=== PATIENT | female | born 1960 | race Caucasian/White ===

== ENCOUNTER → 2017-09-03 11:13 | Outpatient (CLI) | payer OTHER, SELFPAY ==
[2017-09-03 14:23] LABS: Anion Gap 9 (5-15); BUN 22 mg/dL (7-18); BUN/Creat Ratio 28.7 RATIO (10-20); Chloride 105 mmol/L (98-107); Creatinine, Serum 0.77 mg/dL (0.55-1.02); EST Glomerular Filtration Rate 82 mL/min (>60); Est Glom Filt Rate - Afr Amer 99 mL/min (>60); Glucose 107 mg/dL (74-106); Sodium Level 142 mmol/L (136-145)
== END ==
PROVIDERS: Family Provider Family Medicine; PCP Family Medicine; Visit Provider Family Medicine
DX: I10 Essential (primary) hypertension (principal)
CPT/HCPCS: 36415; 80048

== ENCOUNTER → 2018-03-06 09:37 | Outpatient (CLI) | payer OTHER, SELFPAY ==
[2018-03-06 12:24] LABS: AST(SGOT) 20 U/L (15-37); Alanine Aminotransfer ALT/SGPT 35 U/L (13-56); Albumin, Serum 3.9 g/dL (3.2-5.0); Alkaline Phosphatase 111 U/L (45-117); Anion Gap 10 (5-15); BUN 21 mg/dL (7-18); BUN/Creat Ratio 30.8 RATIO (10-20); Bilirubin, Direct 0.11 mg/dL (0.00-0.30); Calcium,Total 9.1 mg/dL (8.5-10.1); Chloride 104 mmol/L (98-107); Cholesterol 186 mg/dL (200); Creatinine, Serum 0.68 mg/dL (0.55-1.02); EST Glomerular Filtration Rate 94 mL/min (>60); Est Glom Filt Rate - Afr Amer 114 mL/min (>60); Globulin 3.1 g/dL (2.2-4.2); Glucose 102 mg/dL (74-106); High Density Lipoprotein 68 mg/dL; Potassium 4.2 mmol/L (3.5-5.1); Sodium Level 139 mmol/L (136-145); Triglycerides 144 mg/dL; Very Low Density Lipoprotein 29 mg/dL (5-40)
== END ==
PROVIDERS: Family Provider Family Medicine; PCP Family Medicine; Visit Provider Family Medicine
DX: I10 Essential (primary) hypertension (principal); E78.5 Hyperlipidemia, unspecified
CPT/HCPCS: 36415; 80048; 80061; 80076

== ENCOUNTER → 2018-08-26 | Outpatient (CLI) | payer OTHER, SELFPAY ==
--- NOTE | 2018-08-26 09:10 | RAD_ITS ---
STUDY: X-RAY - RIGHT KNEE REASON FOR EXAM: Female, 58 years old. Pain TECHNIQUE: 4 view(s) of the knee. COMPARISON: None. FINDINGS: There is no evidence of fracture or dislocation. There are moderate to severe tricompartmental degenerative changes which are most pronounced medially. There are no radiodense foreign bodies. RAD/Knee 4 or More Views IMPRESSION: No fracture or dislocation in the right knee. Moderate to severe degenerative changes which are most pronounced medially.. Electronically Signed: Ravindra Pennington, at 17:12 EDT Tel , Service support ,
--- NOTE | 2018-08-26 09:10 | RAD_ITS ---
STUDY: X-RAY - LEFT KNEE REASON FOR EXAM: Female, 58 years old. Pain TECHNIQUE: 4 view(s) of the knee. COMPARISON: None. FINDINGS: There is no evidence of fracture or dislocation. There are mild to moderate tricompartmental degenerative changes which are most pronounced medially. There are no radiodense foreign bodies. RAD/Knee 4 or More Views IMPRESSION: No fracture or dislocation of the left knee. [id number] degenerative changes which are most pronounced medially. Electronically Signed: Ravindra Pennington, at 17:40 EDT Tel , Service support ,
== END | disposition home or self-care (01) ==
LOC: MTRAD 09:06
PROVIDERS: Family Provider Family Medicine; PCP Family Medicine; Referring Provider Family Medicine; Visit Provider Family Medicine
DX: M25.561 Pain in right knee (principal); M25.562 Pain in left knee
CPT/HCPCS: 73564

== ENCOUNTER 2020-03-16 13:30 | Outpatient (RCR) | payer OTHER, SELFPAY ==
--- NOTE | 2020-02-10 21:26 | HP.PTEVAL_ITS ---
Patient's Visit Information RAYMOND SHARMA is a 59 year old F referred to Physical Therapy by DEVIN ZAMARRIPA with a diagnosis of S/P R TKA. Date of Evaluation: 02/08/20 Physical Therapist: Delia Woo PT, Cert MDT - Visit Plan Frequency: 2-3x /Week Duration: 4-6 Weeks Plan: RIGHT THR REHAB PER PROTOCOL - Subjective GOES BY BERNABE. DX: S/P R TKR 01/18/20. 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 TENTATIVE RTW DATE IS MAR 20 2020. Disability: NO. Present symptoms: RIGHT KNEE PAIN. NUMBNESS ON THE OUTSIDE OF THE KNEE. (SOME LEFT KNEE PAIN TOO). Present since: CHRONIC. Pain Scale: WORST 5/10, LEAST 2/10. Currently: 04/26. Commenced as a result of: ARTHRITIS. Disturbed sleep: YES. Previous history/Previous treatment: STEROID INJECTIONS R KNEE. Treatment this episode: R TKR 01/18/20. Gait: PATIENT REPORTS WALKING HELPS IT FEEL BETTER AND LOOSENS IT UP. PATIENT REPORTS SHE FEELS MUCH MORE SECURE WITH THE WALKER BUT USING CANE ON STEPS IN SPLIT LEVEL HOUSE. PATIENT REPORTS SHE IS ACTUALLY WALKING STRAIGHTER NOW THAN SHE HAS FOR YEARS. STATES THE WAY SHE WAS WALKING BEFORE WAS STARTING TO HURT HER BACK. Accidents: NO. Unexplained weight loss: NO. Imaging: PATIENT REPORTS THE SURGEON IS PLEASED WITH THE X-RAYS POST SURGERY LAST Friday02/02/20. PMH: HTN, ANXIETY, HIGH CHOLESTEROL, LUMBAR HNP - NO BACK SURGERY. - Objective THIS PATIENT AMBULATES INDEP'LY INTO PT WITH A WALKER AND NO LOB LIMPING ON RIGHT LE. HER WOMAC SCORE IS 45%. HER TUG TIME IS 25 SEC. PATELLA GIRTH - 42.5 CM, 6 SUPRAPATELLAR GIRTH - 53 CM. R KNEE AROM: FLEX 64 DEG, EXT -28 DEG BEFORE TREATMENT (-18 DEG AFTER TREATMENT). MMT R KNEE FLEX - 8.9 LBS, EXT 9.2 LBS. TREATMENT: PATIENT WAS SEEN TODAY FOR HEP INSTRUCTION INCLUDING AP'S, QS'S, GS'S, HS'S, STANDING HEEL RAISES, HIP ABD AND HIP FLEXION. ALSO INSTRUCTED TO CONTINUE KNEE FLEXION STRETCHING WITH STEP STRETCH AND SEATED ON GLIDER. PATIENT HAS BEEN PROPING UNDER HER KNEE AND THIS PT ENCOURAGED PATIENT TO PROP UNDER HEEL FOR EXTENSION STRETCH BUT TO AVOID PROPING UNDER KNEE. - Goals Goal 1:: PATIENT WILL BE INDEP AND SAFE WITH GAIT WITH LEAST ASSISTIVE DEVICE ON LEVEL SURFACES AND UP AND DOWN STAIRS. Goal Time Frame: 4-6 Weeks Goal 2:: INCREASE FUNCTIONAL ROM OF RIGHT LE TO EASE ADL'S Goal Time Frame: 4-6 Weeks Goal 3:: INCREASE FUNCTIONAL STRENGTH OF RIGHT LE TO EASE ADLS. Goal Time Frame: 4-6 Weeks Goal 4:: PATIENT WILL BE INDEP WITH A HEP FOR CONTINUED IMPROVEMENT ONCE FORMAL PHYSICAL THERPAY CONCLUDES. Goal Time Frame: 4-6 Weeks - Anticipated Interventions Patient/Client Instruction: Educate patient on: Condition, Plan of Care, Risk Factors, Benefits of Fitness Program For the Purpose of:: To improve self management Therapeutic Exercise to Include: Strength training, Flexibilty training, Gait and locomotor training, Neuromotor development, Active ROM For the Purpose of:: To decrease pain, To increase ROM, To improve muscle performance and motor function, To increase tolerance to activity/condition/position, To improve ability of physical actions for home/community/work/leisure, To improve gait and locomotor functions Cryotherapy (ice pack, ice massage): Yes For the Purpose of:: To decrease pain, To decrease swelling/inflammation Thank you for the opportunity to evaluate your patient. For Medicare and Medicare HMO plans, please review the plan of care and approve it. It will need to be FAXED BACK to us at [phone] for Medicare purposes. For Medicare only, by signing this I certify the plan of care. Please let me know if there are questions or concerns regarding this plan of care. Physician Signature: Date:
--- NOTE | 2020-03-02 11:40 | HP.PTREVAL ---
DEVIN ZAMARRIPA, It has been my pleasure to treat RAYMOND SHARMA over the last 10 visits for S/P R TKA. Please see the progress note below for an update on the physical therapy plan of care! Subjective: PATIENT REPORTS HER PAIN LEVELS ARE MUCH BETTER. STATES HER ABILITY TO DO DAILY ACTIVITIES WITHOUT PAIN IS SO MUCH BETTER. USING STATIONARY BIKE AT HOME. PATIENT PRESENTS TO PT UPSET TODAY STATING HER BROTHER IS DYING AND HAS BEEN ON THE PHONE A LOT. HAS NOT DONE ANY STRETCHING OF HER KNEE YET TODAY. Objective/Function: PATIENT WAS SEEN TODAY FOR RE-ASSESSMENT OF PROGRESS TOWARD THE SET PT GOALS AND THE NEED FOR FURTHER PHYSICAL THERAPY VS READINESS FOR DISCHARGE. PATIENT IS MAKING SLOW PROGRESS TOWARD ALL PT GOALS AND IS A GOOD CANDIDATE TO CONTINUE PT BASED ON PROGRESS MADE AND ROOM FOR FURTHER IMPROVEMENT. PATIENT AGREEABLE. UPON EXAM TODAY: THIS PATIENT AMBULATES INDEP'LY INTO PT WITHOUT AD AND NO LOB MILDLY LIMPING ON RIGHT LE. HER WOMAC SCORE IS 21%. PATELLA GIRTH - 42.25 CM, 6 SUPRAPATELLAR GIRTH - 55.25 CM. R KNEE AROM: FLEX 96 DEG, EXT -9 DEG BEFORE TREATMENT (-18 DEG AFTER TREATMENT). MMT R KNEE FLEX - 13.4 LBS, EXT 13.9 LBS. Plan Plan: CONTINUE PT 3X'S A WK X 10 MORE VISITS FOR LE ROM, STRETCHING AND STRENGTHENING S/P R TKR 01/18/20 Goals Goal 1:: PATIENT WILL BE INDEP AND SAFE WITH GAIT WITH LEAST ASSISTIVE DEVICE ON LEVEL SURFACES AND UP AND DOWN STAIRS. Goal Time Frame: 4-6 Weeks Goal Progress: Progressing Goal 2:: INCREASE FUNCTIONAL ROM OF RIGHT LE TO EASE ADL'S Goal Time Frame: 4-6 Weeks Goal Progress: Progressing Goal 3:: INCREASE FUNCTIONAL STRENGTH OF RIGHT LE TO EASE ADLS. Goal Time Frame: 4-6 Weeks Goal Progress: Progressing Goal 4:: PATIENT WILL BE INDEP WITH A HEP FOR CONTINUED IMPROVEMENT ONCE FORMAL PHYSICAL THERPAY CONCLUDES. Goal Time Frame: 4-6 Weeks Goal Progress: Progressing Anticipated Interventions Patient/Client Instruction: Educate patient on: Condition, Plan of Care, Risk Factors, Benefits of Fitness Program For the Purpose of:: To improve self management Therapeutic Exercise to Include: Strength training, Flexibilty training, Gait and locomotor training, Neuromotor development, Active ROM For the Purpose of:: To decrease pain, To increase ROM, To improve muscle performance and motor function, To increase tolerance to activity/condition/position, To improve ability of physical actions for home/community/work/leisure, To improve gait and locomotor functions Cryotherapy (ice pack, ice massage): Yes For the Purpose of:: To decrease pain, To decrease swelling/inflammation Please do not hesitate to contact me at [phone] by phone or if you have questions or concerns regarding this new plan of care! Sincerely, Delia Woo, PT, Cert MDT
--- NOTE | 2020-05-21 19:37 | HP.PTDCNRP_ITS ---
RAYMOND SHARMA was seen in my office for initial evaluation on 02/08/20. The following Plan of Care was established for this patient: Initial Frequency: 2-3x /Week Initial Duration: 4-6 Weeks Patient/Client Instruction: Educate patient on: Condition, Plan of Care, Risk Factors, Benefits of Fitness Program For the Purpose of:: To improve self management Therapeutic Exercise to Include: Strength training, Flexibilty training, Gait and locomotor training, Neuromotor development, Active ROM For the Purpose of:: To decrease pain, To increase ROM, To improve muscle performance and motor function, To increase tolerance to activity /condition/position, To improve ability of physical actions for home/community/work/leisure, To improve gait and locomotor functions Cryotherapy (ice pack, ice massage): Yes For the Purpose of:: To decrease pain, To decrease swelling/inflammation This patient was last seen in our office 03/16/20. Pertinent comments regarding their Physical therapy will appear below: This patient has not returned to Physical Therapy and is appropriate to return to MD for further follow-up as needed. At this point I will be discontinuing this patient from physical therapy. I would be happy to see this patient again in the future if found appropriate by the physician. Thank you! Delia Woo, PT, Cert MDT
== END 2020-03-16 19:00 | disposition home or self-care (01) ==
LOC: PT 13:30
PROVIDERS: PCP Family Medicine
DX: Z47.1 Aftercare following joint replacement surgery (principal); Z96.651 Presence of right artificial knee joint; M17.11 Unilateral primary osteoarthritis, right knee
CPT/HCPCS: 97110; 97162; 97164; 97530

== ENCOUNTER → 2021-02-09 11:44 | Outpatient (CLI) | payer OTHER, SELFPAY ==
[2021-02-09 15:06] LABS: Anion Gap 7 (5-15); BUN 15 mg/dL (7-18); BUN/Creat Ratio 20.7 RATIO (10-20); Calcium,Total 9.3 mg/dL (8.5-10.1); Chloride 103 mmol/L (98-107); Cholesterol 158 mg/dL (200); Creatinine, Serum 0.72 mg/dL (0.55-1.02); EST Glomerular Filtration Rate 87 mL/min (>60); Est Glom Filt Rate - Afr Amer 105 mL/min (>60); Glucose 99 mg/dL (74-106); High Density Lipoprotein 49 mg/dL; Potassium 4.3 mmol/L (3.5-5.1); Sodium Level 139 mmol/L (136-145); Triglycerides 143 mg/dL; Very Low Density Lipoprotein 29 mg/dL (5-40)
== END ==
PROVIDERS: PCP Family Medicine; Referring Provider Family Medicine; Visit Provider Family Medicine
DX: E78.5 Hyperlipidemia, unspecified (principal)
CPT/HCPCS: 36415; 80048; 80061

== ENCOUNTER 2021-04-02 12:47 | Outpatient (CLI) | payer OTHER, SELFPAY ==
--- NOTE | 2021-04-02 12:54 | BI_ITS ---
MAMMOGRAPHY - BILATERAL SCREENING REASON FOR EXAM: Female, 61 years old. Routine annual screening examination. PERTINENT HISTORY: Mother with breast cancer. TECHNIQUE: Digital bilateral breast sherman (3D mammographic acquisition) in the CC and MLO projections. 2-D mediolateral oblique (MLO) and craniocaudad (CC) views of both breasts were obtained. CAD: Full Field Digital Mammography with Computer Added Detection was performed. COMPARISON: Comparison is made with prior outside examination dated 09/15/2019. FINDINGS: Breast Composition: There are scattered areas of fibroglandular density. There are no dominant masses or suspicious calcifications. Stable small benign appearing bilateral axillary lymph nodes. No other significant abnormalities are identified. There has been no significant change since the prior study. BI/SCRN MAMM (CAD)W/SHERMAN BILAT IMPRESSION: Stable bilateral screening mammogram. Yearly follow-up mammogram recommended. (A) ASSESSMENT CATEGORY: BIRADS Category 2: Benign. A letter regarding these results will be sent to the patient by the facility within 30 days. Approximately 10% of breast cancers are not detected by mammography. A normal mammogram should not delay biopsy of a clinically suspicious abnormality. [id number] Electronically Signed: Jagjit Connors MD at 8:23 EST , Service support ,
== END 2021-04-02 23:59 | disposition short-term general hospital (02) ==
LOC: OPBI 12:49
PROVIDERS: PCP Family Medicine; Referring Provider Obstetrics & Gynecology; Visit Provider Obstetrics & Gynecology
DX: Z12.31 Encounter for screening mammogram for malignant neoplasm of breast (principal)
CPT/HCPCS: 77063; 77067

== ENCOUNTER 2021-10-02 07:59 | Day surgery (SDC) | payer OTHER, SELFPAY ==
[2021-10-02] VITALS (7 sets, daily range): BP systolic 93–130; BP diastolic 62–76; PULSE 60–75; RESP 16–18; TEMP 36.1–36.3; O2SAT 98–100; BMI 32.1
[2021-10-02] MEDS: Lactated Ringers 1,000 ML 15 ML IV (08:41)
--- NOTE | 2021-10-02 08:43 | H&P.OPEN ---
HPI - General HPI Narrative RAYMOND SHARMA, is a 61 F who presents for screening colonoscopy. The patient reports that she had polyps about 7 years ago and was recommended to repeat in 7 years. Patient denies any abdominal pain or blood in the stool. She has no family history of colon cancer. [facility] Medical History (Updated 09/27/21 @ 08:34 by Angle Coles) Anxiety Arthritis Back pain delivery delivered High cholesterol History of edema History of pain when walking History of steroid therapy Hyperlipidemia Hypertension Knee pain Post-menopausal Wears glasses Home Medications atenolol 50 mg tablet 50 mg PO DAILY 11/05/20 [History Last Taken 10/02/21 06:00] atorvastatin 10 mg tablet 10 mg PO DAILY 11/05/20 [History Last Taken Unknown] clonazepam 0.5 mg tablet 0.5 mg PO BID 11/05/20 [History Last Taken 10/02/21 06:00] lisinopril 5 mg tablet 5 mg PO DAILY 11/05/20 [History Last Taken 10/02/21 06:00] naproxen 250 mg tablet 250 mg PO BID PRN Pain 11/05/20 [History Last Taken Unknown] paroxetine HCl 20 mg tablet (Paxil) 20 mg PO DAILY 11/05/20 [History Last Taken Unknown] omega-3 fatty acids-fish oil 340 mg-1,000 mg capsule (Fish Oil) 1 cap PO DAILY 07/27/21 [History Last Taken Unknown] acetaminophen 500 mg tablet 1,000 mg PO Q6H PRN Pain 09/27/21 [History Last Taken Unknown] calcium carbonate 500 mg-vitamin D3 3.125 mcg (125 unit) tablet 2 tab PO DAILY 09/27/21 [History Last Taken Unknown] coenzyme Q10 100 mg capsule (CoQ-10) 100 mg PO DAILY 09/27/21 [History Last Taken Unknown] hyalur ac-chond sul-colg II-AA 40 mg-80 mg-400 mg capsule (Hyaluronic Acid(with chondroitin-collagenII)) 2 cap PO QHS 09/27/21 [History Last Taken Unknown] multivitamin 1 tab PO DAILY 09/27/21 [History Last Taken Unknown] Allergy/AdvReac Type Severity Reaction Status Date / Time Sulfa (Sulfonamide Allergy Unknown UNKNOWN Verified 10/02/21 08:30 Antibiotics) Family History Mother , at 60yo from breast cancer Heart disease Breast cancer, Onset Age: 55 at 60 Father Heart disease Arthritis Other Cancer Surgical History (Updated 09/27/21 @ 08:34 by Angle Coles) H/O: hysterectomy History of total right knee replacement Hx of left knee surgery S/P tonsillectomy Social History Smoking Status: Never smoker alcohol intake: current details: social substance use type: does not use caffeine: Yes seatbelt use: always do you feel safe at home: Yes additional social history: 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 Past Medical/Surgical History Planned Operation Planned Operative Procedure/s: COLONOSCOPY Previous Hospitalizations/Surgeries HX Hospitalizations: No Any Problems With Anesthesia: No You/Your Family Experience Fever (Hyperthermia) With Anes: No Cholinesterase deficiency: No Cardiovascular Hx Hypertension: Yes (CONTROLLED ON MED) Respiratory Hx Sleep Apnea: No Hx Respiratory Tract Infection/Cold (presently): No Do You Snore Loudly (louder than talking or can be heard): Yes Do You Often Feel Tired/ Fatigued/ Sleepy Dring Daytime?: No Has Anyone Observed You Stop Breathing During Sleep?: No Result (for STOP score): Positive Smoking Status: Never smoker Neurological Does patient have nerve stimulator: No Miscellaneous Recent Exposure to Contagious Disease: No Allergies Sulfa (Sulfonamide Antibiotics) Allergy (Unknown, Verified 10/02/21 08:30) UNKNOWN Discharge Is Pt Admitted From a Group Home, or a Correction: No After D/C, Where Do you Plan to Go: Return Home Vital Signs Vital Signs Vital Signs: 10/02/21 08:20 10/02/21 08:27 Temperature 97.3 F L Temperature Source Temporal Pulse Rate 65 Respiratory Rate 18 Respiratory Pattern Normal Blood Pressure 130/62 H Blood Pressure Mean 84 Blood Pressure Source Monitor Blood Pressure Position Semi-Fowlers Blood Pressure Location Right Arm Pulse Ox 98 Oxygen Delivery Method Room Air Weight Weight: 187 lb Body Mass Index (BMI) 32.1 Physical Exam Const alert and oriented x3 Resp normal respiratory effort and normal air movement Cardio regular rate and regular rhythm GI soft to palpation, non-tender and non-distended Assessment & Plan Assessment/Plan (1) Encounter for screening for malignant neoplasm of colon: PLAN: I explained endoscopy in detail to the patient. I explained the risks including but not limited to stroke or heart attack with anesthesia, perforation of the GI tract, bleeding, infection. I explained that any of these could necessitate further emergency surgery. The patient understands and all questions were answered sufficiently. The patient wishes to proceed with procedure. Kris Henson MD Pager: [facility] [address] [place] [address] [address] [place] [address] Office: Surgery Risks - Colonoscopy Risks Include but are not Limited To: Risks include but are not limited to: Bleeding, perforation requiring further surgery, inability to complete colonoscopy requiring barium enema.
--- NOTE | 2021-10-02 09:12 | OP.COLON_ITS ---
Patient Name: Lottie Navarro Procedure Date: 10/02/2021 8:48 AM Date of : 1960 Age: 61 Procedure: Colonoscopy Indications: Screening for colorectal malignant neoplasm Providers: Kris Henson MD Referring MD: Carlos Granado MD Medicines: Monitored Anesthesia Care Patient Profile: This is a 61 year old female. Refer to note in patient chart for documentation of history and physical. Last Colonoscopy: several years ago. Complications: No immediate complications. Procedure: Pre-Anesthesia Assessment: - Prior to the procedure, a History and Physical was performed, and patient medications and allergies were reviewed. The patient's tolerance of previous anesthesia was also reviewed. The risks and benefits of the procedure and the sedation options and risks were discussed with the patient. All questions were answered, and informed consent was obtained. Prior Anticoagulants: The patient has taken no previous anticoagulant or antiplatelet agents. After reviewing the risks and benefits, the patient was deemed in satisfactory condition to undergo the procedure. After I obtained informed consent, the scope was passed under direct vision. Throughout the procedure, the patient's blood pressure, pulse, and oxygen saturations were monitored continuously. The Colonoscope was introduced through the anus and advanced to the cecum, identified by appendiceal orifice and ileocecal valve. The colonoscopy was performed without difficulty. The patient tolerated the procedure well. The quality of the bowel preparation was good. Scope In: 8:57:47 AM Scope Withdrawal Time 0 hours 6 minutes 1 second Scope Out: 9:08:05 AM Total Procedure Duration Time 0 hours 10 minutes 18 seconds Findings: The entire examined colon appeared normal on direct and retroflexion views. Impression: - The entire examined colon is normal on direct and retroflexion views. - No specimens collected. Recommendation: - Discharge patient to home. - Resume previous diet. - Continue present medications. - Repeat colonoscopy in 10 years for screening purposes. Procedure Code(s): --- Professional --- 19882, Colonoscopy, flexible; diagnostic, including collection of specimen(s) by brushing or washing, when performed (separate procedure) Diagnosis Code(s): --- Professional --- Z12.11, Encounter for screening for malignant neoplasm of colon CPT copyright 2017 [employer]. All rights reserved. The codes documented in this report are preliminary and upon braille coder review may be revised to meet current compliance requirements. Kris Henson MD 10/02/2021 9:12:01 AM This report has been signed electronically. Number of Addenda: 0 Note Initiated On: 10/02/2021 8:48 AM
--- NOTE | 2021-10-02 09:13 | OP.CCLET_ITS ---
10/02/2021 Carlos Granado MD [address] [phone] Re : Colonoscopy procedure for Lottie Navarro Dear Dr. Granado This procedure was performed on Saturday, October 02, 2021. My impressions and recommendations are as follows: Impressions : - The entire examined colon is normal on direct and retroflexion views. - No specimens collected. Recommendations : - Discharge patient to home. - Resume previous diet. - Continue present medications. - Repeat colonoscopy in 10 years for screening purposes. My findings are described in the full procedure note, which is enclosed. If I can be of further assistance, please feel free to contact me at Doctor phone number(s): , Work: . Sincerely, Kris Henson MD 10/02/2021 9:12:01 AM This report has been signed electronically.
== END 2021-10-02 10:03 | disposition home or self-care (01) ==
LOC: EN 08:00 → AC 08:01
PROVIDERS: PCP Family Medicine; Referring Provider Family Medicine; Visit Provider Surgery
PROC: 0DJD8ZZ Inspection of Lower Intestinal Tract, Via Natural or Artificial Opening Endoscopic (ICD-10-PCS; CPT 45378; principal; 2021-10-02 08:55)
DX: Z12.11 Encounter for screening for malignant neoplasm of colon (principal); I10 Essential (primary) hypertension; E78.00 Pure hypercholesterolemia, unspecified; F41.9 Anxiety disorder, unspecified; Z79.1 Long term (current) use of non-steroidal anti-inflammatories (NSAID); Z79.899 Other long term (current) drug therapy; Z78.0 Asymptomatic menopausal state; Z92.241 Personal history of systemic steroid therapy; Z96.651 Presence of right artificial knee joint
CPT/HCPCS: 45378; J7120; J2405

== ENCOUNTER → 2021-10-25 | Outpatient (CLI) | payer OTHER, SELFPAY ==
[2021-10-25 10:46] LABS: Anion Gap 5 (5-15); BUN 15 mg/dL (7-18); BUN/Creat Ratio 17.5 RATIO (10-20); Calcium,Total 9.5 mg/dL (8.5-10.1); Chloride 106 mmol/L (98-107); Cholesterol 165 mg/dL (200); Creatinine, Serum 0.86 mg/dL (0.55-1.02); EST Glomerular Filtration Rate 71 mL/min (>60); Est Glom Filt Rate - Afr Amer 86 mL/min (>60); Glucose 123 mg/dL (74-106); High Density Lipoprotein 51 mg/dL; Potassium 4.2 mmol/L (3.5-5.1); Sodium Level 140 mmol/L (136-145); Triglycerides 195 mg/dL; Very Low Density Lipoprotein 39 mg/dL (5-40)
[2021-10-25 10:51] LABS: Vitamin D,25 Hydroxy 62.7 ng/mL
== END | disposition home or self-care (01) ==
LOC: MTLAB 09:19
PROVIDERS: PCP Family Medicine; Referring Provider Family Medicine; Visit Provider Family Medicine
DX: I10 Essential (primary) hypertension (principal); E55.9 Vitamin D deficiency, unspecified
CPT/HCPCS: 36415; 80048; 80061; 82306

== ENCOUNTER → 2022-04-08 | Outpatient (CLI) | payer OTHER, SELFPAY ==
--- NOTE | 2022-04-08 08:27 | BI_ITS ---
MAMMOGRAPHY - BILATERAL SCREENING REASON FOR EXAM: Female, 62 years old. Routine annual screening examination. PERTINENT HISTORY: Mother with breast cancer. TECHNIQUE: Digital bilateral breast sherman (3D mammographic acquisition) in the CC and MLO projections. 2-D mediolateral oblique (MLO) and craniocaudad (CC) views of both breasts were obtained. CAD: Full Field Digital Mammography with Computer Added Detection was performed. COMPARISON: Comparison is made with prior examination dated 04/02/2021. FINDINGS: Breast Composition: There are scattered areas of fibroglandular density. There are no dominant masses or suspicious calcifications. Stable benign-appearing bilateral axillary lymph nodes. No other significant abnormalities are identified. There has been no significant change since the prior study. BI/SCRN MAMM (CAD)W/SHERMAN BILAT IMPRESSION: Stable bilateral screening mammogram. Yearly follow-up mammogram recommended. (A) ASSESSMENT CATEGORY: BIRADS Category 2: Benign. A letter regarding these results will be sent to the patient by the facility within 30 days. Approximately 10% of breast cancers are not detected by mammography. A normal mammogram should not delay biopsy of a clinically suspicious abnormality. [id number] Electronically Signed: Jagjit Connors MD at 9:17 EST ,
== END | disposition home or self-care (01) ==
LOC: OPBI 08:25
PROVIDERS: PCP Family Medicine; Referring Provider Obstetrics & Gynecology; Visit Provider Obstetrics & Gynecology
DX: Z12.31 Encounter for screening mammogram for malignant neoplasm of breast (principal); Z80.3 Family history of malignant neoplasm of breast
CPT/HCPCS: 77063; 77067

== ENCOUNTER → 2022-08-29 | Outpatient (CLI) | payer OTHER, SELFPAY ==
[2022-08-29 11:08] LABS: ALB/GLOB Ratio 1.2 RATIO (0.9-2.4); AST(SGOT) 19 U/L (15-37); Alanine Aminotransfer ALT/SGPT 37 U/L (13-56); Albumin, Serum 3.9 g/dL (3.2-5.0); Alkaline Phosphatase 96 U/L (45-117); Anion Gap 7 (5-15); BUN 25 mg/dL (7-18); BUN/Creat Ratio 31.1 RATIO (10-20); Calcium,Total 9.7 mg/dL (8.5-10.1); Chloride 105 mmol/L (98-107); Cholesterol 152 mg/dL (200); EST Glomerular Filtration Rate 76 mL/min (>60); Est Glom Filt Rate - Afr Amer 92 mL/min (>60); Globulin 3.2 g/dL (2.2-4.2); Glucose 114 mg/dL (74-106); High Density Lipoprotein 60 mg/dL; Potassium 4.5 mmol/L (3.5-5.1); Protein, Total 7.1 g/dL (6.4-8.2); Sodium Level 140 mmol/L (136-145); Triglycerides 101 mg/dL; Very Low Density Lipoprotein 20 mg/dL (5-40)
== END | disposition home or self-care (01) ==
LOC: MFPLAB 09:27
PROVIDERS: PCP Family Medicine; Visit Provider Family Medicine
DX: E78.5 Hyperlipidemia, unspecified (principal)
CPT/HCPCS: 36415; 80053; 80061

== ENCOUNTER → 2022-11-25 | Outpatient (CLI) | payer OTHER, SELFPAY ==
--- NOTE | 2022-11-25 15:10 | RAD_ITS ---
STUDY: X-RAY - LUMBAR SPINE REASON FOR EXAM: Female, 62 years old. Back pain. TECHNIQUE: 3 view(s) of the lumbar spine were obtained. COMPARISON: None FINDINGS: Osteopenia. Normal lumbar lordosis. No substantial scoliosis. 2 mm of anterolisthesis of L4 on L5. Diffuse lower thoracic and lumbosacral facet sclerosis. Marked intervertebral disc space narrowing with subchondral sclerosis and osteophyte formation at T12-L1 and L1-L2. Diffuse intervertebral disc space narrowing of the lumbar spine most marked at L5-S1 with vacuum phenomenon and osteophyte formation. Normal soft tissues. RAD/Lumbar Spine 2 or 3 Views IMPRESSION: Osteopenia with lower thoracic and lumbosacral spondylosis as described. No acute abnormality or erosive changes. Electronically Signed: Brandyn Walter MD at 15:34 EDT ,
== END | disposition home or self-care (01) ==
LOC: MTRAD 15:06
PROVIDERS: PCP Family Medicine; Referring Provider Family Medicine; Visit Provider Family Medicine
DX: M54.50 Low back pain, unspecified (principal)
CPT/HCPCS: 72100

== ENCOUNTER → 2023-02-17 | Outpatient (CLI) | payer OTHER, SELFPAY ==
[2023-02-17 12:00] LABS: ALB/GLOB Ratio 1.3 RATIO (0.9-2.4); AST(SGOT) 24 U/L (15-37); Alanine Aminotransfer ALT/SGPT 36 U/L (13-56); Albumin, Serum 4.2 g/dL (3.2-5.0); Alkaline Phosphatase 75 U/L (45-117); Anion Gap 6 (5-15); BUN 26 mg/dL (7-18); BUN/Creat Ratio 30.1 RATIO (10-20); Calcium,Total 9.3 mg/dL (8.5-10.1); Chloride 107 mmol/L (98-107); Cholesterol 160 mg/dL (200); Creatinine, Serum 0.86 mg/dL (0.55-1.02); EST Glomerular Filtration Rate 70 mL/min (>60); Est Glom Filt Rate - Afr Amer 85 mL/min (>60); Globulin 3.3 g/dL (2.2-4.2); Glucose 117 mg/dL (74-106); High Density Lipoprotein 63 mg/dL; Potassium 4.9 mmol/L (3.5-5.1); Protein, Total 7.5 g/dL (6.4-8.2); Sodium Level 141 mmol/L (136-145); Triglycerides 84 mg/dL; Very Low Density Lipoprotein 17 mg/dL (5-40)
== END | disposition home or self-care (01) ==
LOC: MFPLAB 08:45
PROVIDERS: PCP Family Medicine; Visit Provider Family Medicine
DX: E78.5 Hyperlipidemia, unspecified (principal)
CPT/HCPCS: 36415; 80053; 80061

== ENCOUNTER → 2023-04-14 | Outpatient (CLI) | payer OTHER, SELFPAY ==
--- NOTE | 2023-04-14 14:03 | BI_ITS ---
MAMMOGRAPHY - BILATERAL SCREENING REASON FOR EXAM: Female, 63 years old. Routine annual screening examination. PERTINENT HISTORY: Mother with breast cancer. TECHNIQUE: Digital bilateral breast sherman (3D mammographic acquisition) in the CC and MLO projections. 2-D mediolateral oblique (MLO) and craniocaudad (CC) views of both breasts were obtained. CAD: Full Field Digital Mammography with Computer Added Detection was performed. COMPARISON: Comparison is made with prior mammogram dated October 06, 2022 and April 02, 2021. FINDINGS: Breast Composition: There are scattered areas of fibroglandular density. There are no dominant masses or suspicious calcifications. Stable benign-appearing bilateral axillary lymph nodes. No other significant abnormalities are identified. There has been no significant change since the prior study. BI/SCRN MAMM (CAD)W/SHERMAN BILAT IMPRESSION: Stable bilateral screening mammogram. Yearly follow-up mammogram recommended. (A) ASSESSMENT CATEGORY: BIRADS Category 2: Benign. A letter regarding these results will be sent to the patient by the facility within 30 days. Approximately 10% of breast cancers are not detected by mammography. A normal mammogram should not delay biopsy of a clinically suspicious abnormality. [id number] Electronically Signed: Jagjit Connors MD at 15:05 EST ,
--- OUTSIDE RECORDS SUMMARY | 2023-04-14 14:21 | XMS RPT_ITS | CCD ---
Author Name Unknown Address [id number] [place] [address] Organization [facility] Results Test Name Value Interpretation Reference Range Facil ity Progress note 01-19-2021 Note Date & Type Note Facility 01-19-2021 Note HNO ID: [id number] Author: KILEY Rosas Service: Radiology Author Type: Clinical Funeral Planner Type: Progress Notes Filed: 01/19/2021 1:21 PM Note Text: Radiology Service Progress Note PATIENT NAME: Raymond Navarro DATE OF SERVICE: January 19, 2021 TIME: 1:20 PM PATIENT IDENTITY VERIFICATION COMPLETED USING TWO (2) IDENTIFIERS: Name and Date of confirmed by patient verbally. FALL SCREENING: Has the patient had 2 falls in the last year or 1 fall with injury or currently using an Ambulatory Assistive Device (Walker, Cane, Wheelchair, Crutches, etc.)? No PATIENT GENDER DATA: Female. status: : No status: NO. PATIENT RELEVANT IMPLANT DATA REVIEWED: Not Applicable RADIOLOGY DEPARTMENT: General X-ray: Exam(s) Completed: Lower Extremity X-Ray(s): Knee, AP / Lat / Merchant Right and Wt. Bearing PERIPHERAL IV DATA: Not applicable SIGNED BY: KILEY Rosas January 19, 2021 1:20 PM [facility] Progress note 02-02-2020 Note Date & Type Note Facility 02-02-2020 Note HNO ID: [id number] Author: KILEY Trammell (Ct) Service: ? Author Type: Clinical Funeral Planner Type: Progress Notes Filed: 02/02/2020 12:49 PM Note Text: Radiology Service Progress Note PATIENT NAME: Raymond Navarro DATE OF SERVICE: February 02, 2020 TIME: 12:48 PM PATIENT IDENTITY VERIFICATION COMPLETED USING TWO (2) IDENTIFIERS: Name and Date of confirmed by patient verbally. FALL SCREENING: Has the patient had 2 falls in the last year or 1 fall with injury or currently using an Ambulatory Assistive Device (Walker, Cane, Wheelchair, Crutches, etc.)? Yes, Patient High Risk for Falls What interventions were put in place to prevent falls during this visit? Increased Observations by Caregivers PATIENT GENDER DATA: Female. status: : No status: NO. PATIENT RELEVANT IMPLANT DATA REVIEWED: Not Applicable RADIOLOGY DEPARTMENT: General X-ray: Exam(s) Completed: Lower Extremity X-Ray(s): Knee, AP / Lat / Merchant Right: PERIPHERAL IV DATA: Not applicable SIGNED BY: KILEY ROSAS February 02, 2020 12:48 PM [facility] Summary Purpose Family History No Family History Records FoundNo Family History Records Found Advance Directives No Advanced Directives Records FoundNo Advanced Directives Records Found Additional Source Comments INFORMATION SOURCE (unrecogn ized section and content) DATE CREATED AUTHOR AUTHOR'S ORGANIZ ATION 03/23/2023 [facility] FOR RECORDS PERTAINING TO PATIENTS WHO ARE OR HAVE BEEN ENROLLED IN A CHEMICAL DEPENDENCY/SUBSTANCEABUSE PROGRAM, SOME INFORMATION MAY BE OMITTED. This clinical summary was aggregated from multiple sources. Caution should be exercised in using it in the provision of clinical care. This summary normalizes information from multiple sources, and as a consequence, information in this document may materially change the coding, format and clinical context of patient data. In addition, data may be omitted in some cases. CLINICAL DECISIONS SHOULD BE BASED ON THE PRIMARY CLINICAL RECORDS. [employer] provides no warranty or guarantee of the accuracy or completeness of information in this document.
== END | disposition home or self-care (01) ==
LOC: OPBI 14:03
PROVIDERS: PCP Family Medicine; Referring Provider Obstetrics & Gynecology; Visit Provider Obstetrics & Gynecology
DX: Z12.31 Encounter for screening mammogram for malignant neoplasm of breast (principal); Z80.3 Family history of malignant neoplasm of breast
CPT/HCPCS: 77063; 77067

== ENCOUNTER → 2023-06-20 | Outpatient (CLI) | payer OTHER, SELFPAY ==
[2023-06-20 10:32] LABS: ALB/GLOB Ratio 1.3 RATIO (0.9-2.4); AST(SGOT) 20 U/L (15-37); Alanine Aminotransfer ALT/SGPT 39 U/L (13-56); Albumin, Serum 4.2 g/dL (3.2-5.0); Alkaline Phosphatase 89 U/L (45-117); Anion Gap 5 (5-15); BUN 27 mg/dL (7-18); BUN/Creat Ratio 29.9 RATIO (10-20); Chloride 106 mmol/L (98-107); EST Glomerular Filtration Rate 67 mL/min (>60); Est Glom Filt Rate - Afr Amer 81 mL/min (>60); Globulin 3.2 g/dL (2.2-4.2); Glucose 124 mg/dL (74-106); Potassium 4.7 mmol/L (3.5-5.1); Protein, Total 7.4 g/dL (6.4-8.2); Sodium Level 141 mmol/L (136-145)
== END | disposition home or self-care (01) ==
LOC: MFPLAB 08:50
PROVIDERS: PCP Family Medicine; Visit Provider Family Medicine
DX: I10 Essential (primary) hypertension (principal)
CPT/HCPCS: 36415; 80053

== ENCOUNTER → 2023-12-08 | Outpatient (CLI) | payer OTHER, SELFPAY ==
[2023-12-08 10:17] LABS: Absolute Lymphocyte Count 2.11 X10^3/uL (0.83-4.51); Absolute Neutrophil Count 10.1 X10^3/uL (2.0-7.7); Basophil# 0.06 X10^3/uL; Basophil% 0.5 % (0-1); Eosinophil# 0.03 X10^3/uL; Eosinophils% 0.2 % (0-5); Hematocrit 45.4 % (37-47); Hemoglobin 14.8 g/dL (12.0-15.0); Lymphocyte # 2.11 X10^3/ul (0.83-4.51); Lymphocyte % 15.9 % (19-41); Mean Corp Hgb Conc 32.6 g/dL (32-36); Mean Corpuscular Volume 91.9 fL (81-99); Mean Platelet Vol. 11.4 fl (6.2-12.0); Monocyte# 0.93 X10^3/uL; NRBC Flagged by Analyzer 0 % (0-5); Neutrophil # 10.05 X10^3/uL (2.7-7.7); Neutrophil % 75.6 % (47-70); Platelet Count 259 K/mm3 (150-450); RBC Distribution Width CV 11.5 % (11.6-14.6); RBC Distribution Width SD 38.6 fl (35.1-43.9); Red Blood Count 4.94 M/mm3 (4.2-5.4); White Blood Count 13.3 K/mm3 (4.4-11.0)
[2023-12-08 10:39] LABS: Anion Gap 7 (5-15); BUN 23 mg/dL (7-18); BUN/Creat Ratio 30.2 RATIO (10-20); Chloride 106 mmol/L (98-107); Cholesterol 176 mg/dL (200); Creatinine, Serum 0.76 mg/dL (0.55-1.02); EST Glomerular Filtration Rate 81 mL/min (>60); Est Glom Filt Rate - Afr Amer 98 mL/min (>60); Glucose 132 mg/dL (74-106); High Density Lipoprotein 67 mg/dL; Potassium 3.9 mmol/L (3.5-5.1); Sodium Level 140 mmol/L (136-145); Triglycerides 118 mg/dL; Very Low Density Lipoprotein 24 mg/dL (5-40)
== END | disposition home or self-care (01) ==
LOC: MFPLAB 08:34
PROVIDERS: PCP Family Medicine; Visit Provider Family Medicine
DX: Z01.818 Encounter for other preprocedural examination (principal); I10 Essential (primary) hypertension
CPT/HCPCS: 36415; 80048; 80061; 85025

== ENCOUNTER 2024-03-29 16:30 | Outpatient (RCR) | payer OTHER, SELFPAY ==
--- NOTE | 2024-01-19 11:48 | HP.PTEVAL_ITS ---
Patient's Visit Information Visit Information Visit Information: RAYMOND SHARMA is a 63 year old F referred to Physical Therapy by SRINATH Riddle with a diagnosis of L TKA 12/29/23. Date of Evaluation: 01/19/24 Physical Therapist: Simón Leiva, PT, ATC Visit Plan Frequency: 2-3x /Week Duration: 4-6 Weeks Plan: L knee PROM/mobs, stretching and strengthening, balance and proprio, core stab, nustep, and HEP Subjective Subjective: DOS: 12/29/23. Pt reports she had a L TKA performed at that time. Pt reports she feels like she is progressing well, but is still having a terrible time sleeping. Pt reports she has had home health for the past couple weeks. Pt reports she lives in a split level house, and has to negotiate stairs daily. Pt reports she is able to negotiate her stairs one step at a time. 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 Pt denies tingling or numbness in L LE at this time, but does complain of a pain located in her distal tibia region. Pt reports she had her R knee replaced 4 years ago. Pt reports she would like to be able to go on walks, but is very limited at this time. L knee pain is 5/10 at rest, 8/10 pain at worst (when she is riding in a car for a prolonged period of time.) Pain L knee: Pain Intensity (Out of 10): 5 Pain Intensity Range: 8 Objective Objective: TU sec Girth at joint line: R knee 38 cm, L knee 43 cm ROM: R knee 0-100 degrees; L knee 0-12-75 degrees MMT: R knee flex= 13, ext= 21; L knee flex= 0, ext= 11 #F Balance/Special Test Scores Lower Extremity Functional Score: 23 Goals Goal 1:: Decrease L knee pain x 50% to aid with sleep Goal Time Frame: 4-6 Weeks Goal 2:: Increase L knee ROM to 0-120 degrees to aid with restoring a normalized gait pattern Goal Time Frame: 4-6 Weeks Goal 3:: Increase L knee strength to 90% of R knee strength to aid with stair negotiation Goal Time Frame: 4-6 Weeks Goal 4:: I with HEP Goal Time Frame: 4-6 Weeks Rehabilitation Potential Physical Therapy Diagnosis: Pt has L knee pain, weakness, and limited ROM secondary to L TKA Rehabilitation Potential: Good Anticipated Interventions Patient/Client Instruction: Educate patient on: Condition and Plan of Care For the Purpose of:: To improve self management Therapeutic Exercise to Include: Strength training, Endurance training, Balance training, Flexibilty training, Gait and locomotor training, Passive ROM, Active ROM and Dynamic Lumbar Stabilization For the Purpose of:: To decrease pain, To increase ROM and To improve muscle performance and motor function Cryotherapy (ice pack, ice massage): Yes For the Purpose of:: To decrease pain Text: Thank you for the opportunity to evaluate your patient. For Medicare and Medicare HMO plans, please review the plan of care and approve it. It will need to be FAXED BACK to us at [phone] for Medicare purposes. For Medicare only, by signing this I certify the plan of care. Please let me know if there are questions or concerns regarding this plan of care. Physician Signature: Date:
--- NOTE | 2024-02-19 11:14 | HP.PTREVAL_ITS ---
Re-Evaluation Intro: SRINATH Riddle, It has been my pleasure to treat RAYMOND SHARMA over the last 14 visits for L TKA 12/29/23. Please see the progress note below for an update on the physical therapy plan of care! Subjective Subjective: I am sore today Objective Objective/Function: L knee pain 05/24 L knee MMT: flex= 17, ext= 36 #F L knee ROM: 0-7-101 degrees Pt is showing excellent progress with strength and ROM, but still lacks functional strength and ROM to RTW Plan Plan Plan: 02/19/24- Cont with L knee PROM/mobs, stretching and strengthening, balance and proprio, core stab, nustep, and HEP Balance/Gait/Functional tests Balance/Special Test Scores Lower Extremity Functional Score: 32 Goals Goals Goal 1:: Decrease L knee pain x 50% to aid with sleep Goal Time Frame: 4-6 Weeks Goal Progress: Progressing Goal 2:: Increase L knee ROM to 0-120 degrees to aid with restoring a normalized gait pattern Goal Time Frame: 4-6 Weeks Goal Progress: Progressing Goal 3:: Increase L knee strength to 90% of R knee strength to aid with stair n egotiation Goal Time Frame: 4-6 Weeks Goal Progress: Goal Met Goal 4:: I with HEP Goal Time Frame: 4-6 Weeks Goal Progress: Progressing Anticipated Interventions Anticipated Interventions Patient/Client Instruction: Educate patient on: Condition and Plan of Care For the Purpose of:: To improve self management Therapeutic Exercise to Include: Strength training, Endurance training, Balance training, Flexibilty training, Gait and locomotor training, Passive ROM, Active ROM and Dynamic Lumbar Stabilization For the Purpose of:: To decrease pain, To increase ROM and To improve muscle performance and motor function Cryotherapy (ice pack, ice massage): Yes For the Purpose of:: To decrease pain Re-Evaluation Ending Re-evaluation ending: Please do not hesitate to contact me at [phone] by phone or if you have questions or concerns regarding this new plan of care! Sincerely, Simón Leiva, PT, ATC
--- NOTE | 2024-02-19 11:21 | HP.PTREVAL_ITS ---
Re-Evaluation Intro: SRINATH Riddle, It has been my pleasure to treat RAYMOND SHARMA over the last 14 visits for L TKA 12/29/23. Please see the progress note below for an update on the physical therapy plan of care! Subjective Subjective: I am sore today Objective Objective/Function: L knee pain 05/24 L knee MMT: flex= 17, ext= 36 #F L knee ROM: 0-7-101 degrees Pt is showing excellent progress with strength and ROM, but still lacks functional strength and ROM to RTW Plan Plan Plan: 02/19/24- Cont with L knee PROM/mobs, stretching and strengthening, balance and proprio, core stab, nustep, and HEP Balance/Gait/Functional tests Balance/Special Test Scores Lower Extremity Functional Score: 32 Goals Goals Goal 1:: Decrease L knee pain x 50% to aid with sleep Goal Time Frame: 4-6 Weeks Goal Progress: Progressing Goal 2:: Increase L knee ROM to 0-120 degrees to aid with restoring a normalized gait pattern Goal Time Frame: 4-6 Weeks Goal Progress: Progressing Goal 3:: Increase L knee strength to 90% of R knee strength to aid with stair n egotiation Goal Time Frame: 4-6 Weeks Goal Progress: Goal Met Goal 4:: I with HEP Goal Time Frame: 4-6 Weeks Goal Progress: Progressing Anticipated Interventions Anticipated Interventions Patient/Client Instruction: Educate patient on: Condition and Plan of Care For the Purpose of:: To improve self management Therapeutic Exercise to Include: Strength training, Endurance training, Balance training, Flexibilty training, Gait and locomotor training, Passive ROM, Active ROM and Dynamic Lumbar Stabilization For the Purpose of:: To decrease pain, To increase ROM and To improve muscle performance and motor function Cryotherapy (ice pack, ice massage): Yes For the Purpose of:: To decrease pain Re-Evaluation Ending Re-evaluation ending: Please do not hesitate to contact me at [phone] by phone or if you have questions or concerns regarding this new plan of care! Sincerely, Simón Leiva, PT, ATC
--- NOTE | 2024-03-19 11:00 | HP.PTREVAL ---
Re-Evaluation Intro: SRINATH Riddle, It has been my pleasure to treat RAYMOND SHARMA over the last 25 visits for L TKA 12/29/23. Please see the progress note below for an update on the physical therapy plan of care! Subjective Subjective: Pt reports she has some pain today Objective Objective/Function: L knee pain ranges from 1-5/10 L knee ROM: 0-95 degrees L knee MMT: flex= 24 (R= 30), ext= 36 (R= 44)#F Pt continues to show excellent progress at this time. Pt is still limited with job requirements secondary to L LE weakness and limited knee ROM Plan Plan Plan: Attempt to get 12 more PT visits approved to focus on L knee strengthening, ROM, and pain relief Balance/Gait/Functional tests Balance/Special Test Scores Lower Extremity Functional Score: 48 TUG Test Time Seconds: 7.5 Tug Test: <10 sec.=free mobile 30 Second Chair Rise Test Seconds: 9 Goals Goals Goal 1:: Decrease L knee pain x 50% to aid with sleep Goal Time Frame: 4-6 Weeks Goal Progress: Progressing Goal 2:: Increase L knee ROM to 0-120 degrees to aid with restoring a normalized gait pattern Goal Time Frame: 4-6 Weeks Goal Progress: Progressing Goal 3:: Increase L knee strength to 90% of R knee strength to aid with stair negotiation Goal Time Frame: 4-6 Weeks Goal Progress: Goal Met Goal 4:: I with HEP Goal Time Frame: 4-6 Weeks Goal Progress: Progressing Anticipated Interventions Anticipated Interventions Patient/Client Instruction: Educate patient on: Condition and Plan of Care For the Purpose of:: To improve self management Therapeutic Exercise to Include: Strength training, Endurance training, Balance training, Flexibilty training, Gait and locomotor training, Passive ROM, Active ROM and Dynamic Lumbar Stabilization For the Purpose of:: To decrease pain, To increase ROM and To improve muscle performance and motor function Cryotherapy (ice pack, ice massage): Yes For the Purpose of:: To decrease pain Re-Evaluation Ending Re-evaluation ending: Please do not hesitate to contact me at [phone] by phone or if you have questions or concerns regarding this new plan of care! Sincerely, Simón Leiva, PT, ATC
--- NOTE | 2024-03-29 17:34 | HP.PTDCSUM ---
Discharge Summary D/C summary: It has been my pleasure to treat RAYMOND SHARMA referred by SRINATH Riddle, with the diagnosis of L TKA 12/29/23 for a total of 27 visit(s). Discharge Date: Please see the following information for a summary of their discharge status. Subjective Subjective: I can do this on my own. No pain today. Pain L knee: Pain Intensity (Out of 10): 0 Overall Improvement % Improvement: 90 Objective Objective/Function: Pt is now I with gym routine and HEP Goals Goal 1:: Decrease L knee pain x 50% to aid with sleep Goal Progress: Goal Met Goal 2:: Increase L knee ROM to 0-120 degrees to aid with restoring a normalized gait pattern Goal Progress: Progressing Goal 3:: Increase L knee strength to 90% of R knee strength to aid with stair negotiation Goal Progress: Goal Met Goal 4:: I with HEP Goal Progress: Goal Met Plan Plan: Discharge to HEP D/C Information d/c sentence: If there are questions or concerns regarding this patient's physical therapy, please feel free to call me at [phone]. Thank you for the referral of this patient. Sincerely, Simón Leiva, PT, ATC Balance/Gait/Functional tests Balance/Special Test Scores Lower Extremity Functional Score: 48 TUG Test Time Seconds: 7.5 Tug Test: <10 sec.=free mobile 30 Second Chair Rise Test Seconds: 9 Improvement % Improvement: 90
== END 2024-03-29 19:00 | disposition home or self-care (01) ==
LOC: PT 16:30
PROVIDERS: PCP Family Medicine; Referring Provider Physician Assistant; Visit Provider Physician Assistant
DX: Z47.1 Aftercare following joint replacement surgery (principal); Z96.652 Presence of left artificial knee joint; M17.10 Unilateral primary osteoarthritis, unspecified knee
CPT/HCPCS: 97110; 97161; 97530

== ENCOUNTER → 2024-04-19 | Outpatient (CLI) | payer OTHER, SELFPAY ==
--- NOTE | 2024-04-19 09:44 | BI_ITS ---
PROCEDURE: SCRN MAMM (CAD)W/SHERMAN BILAT REASON FOR EXAM: F, Age 64 y/o, mother with breast cancer. Routine mammographic follow-up. TECHNIQUE: Bilateral screening digital breast tomosynthesis with 2D and 3D images. Computer aided detection. COMPARISON: Prior exam(s) dating back to comparison is made with prior study dated April 14, 2023. FINDINGS: There are scattered areas of fibroglandular density. No suspicious masses, areas of developing architectural distortion, or suspicious calcifications. There has been no significant interval change. BI/SCRN MAMM (CAD)W/SHERMAN BILAT IMPRESSION: BI-RADS 1: NEGATIVE. RECOMMEND ANNUAL MAMMOGRAPHIC SCREENING. Follow-up code: Routine Follow-up The patient will be notified of the results by letter. Reading Location: [place] [address]
== END | disposition home or self-care (01) ==
LOC: OPBI 09:43
PROVIDERS: PCP Family Medicine; Referring Provider Registered Nurse; Visit Provider Registered Nurse
DX: Z12.31 Encounter for screening mammogram for malignant neoplasm of breast (principal); Z80.3 Family history of malignant neoplasm of breast
CPT/HCPCS: 77063; 77067

== ENCOUNTER → 2024-05-17 | Outpatient (CLI) | payer OTHER, SELFPAY ==
[2024-05-17 11:32] LABS: ALB/GLOB Ratio 1.7 RATIO (0.9-2.4); AST(SGOT) 29 U/L (<=31); Alanine Aminotransfer ALT/SGPT 28 U/L (<=34); Albumin, Serum 4.4 g/dL (3.4-4.8); Alkaline Phosphatase 101 U/L (35-104); Anion Gap 12 (5-15); BUN 16 mg/dL (4-19); BUN/Creat Ratio 23.3 RATIO (10-20); Calcium 9.7 mg/dL (7.6-11.0); Carbon Dioxide 24.8 mmol/L (22.0-29.0); Chloride 106 mmol/L (96-108); Cholesterol 173 mg/dL (<=200); EST Glomerular Filtration Rate 96 (>60); Globulin 2.6 g/dL (2.2-4.2); Glucose 130 mg/dL (70-99); High Density Lipoprotein 63 mg/dL; Low Density Lipoprotein Calc. 82 mg/dL; Potassium 4.2 mmol/L (3.3-5.1); Sodium Level 142 mmol/L (133-145); Total Bilirubin 0.34 mg/dL (0.00-1.30); Triglycerides 142 mg/dL; Very Low Density Lipoprotein 28 mg/dL (5-40); cholesterol:hdl ratio screen 2.77
[2024-05-17 11:36] LABS: Hemoglobin A1c 6.4 % (<=5.6)
== END | disposition home or self-care (01) ==
LOC: MFPLAB 08:32
PROVIDERS: PCP Family Medicine; Referring Provider Family Medicine; Visit Provider Family Medicine
DX: I10 Essential (primary) hypertension (principal); R73.9 Hyperglycemia, unspecified
CPT/HCPCS: 36415; 80053; 80061; 83036

== ENCOUNTER → 2024-10-07 | Outpatient (CLI) | payer OTHER, SELFPAY ==
--- OUTSIDE RECORDS SUMMARY | 2024-10-07 10:51 | XMS RPT_ITS | CCD ---
Author Organization [facility] Care Team Providers Care Public Address Announcer Name Role Phone Dr. Carlos Granado Primary Care Provider [phone] Rafa Chavez Attending Provider Unavailable Dr. Carlos Granado Referring Provider Dr. Kris Henson Attending Provider Dr. Kris Henson Other Provider [phone] Dr. Carlos Granado Primary Care Provider Dr. Carlos Granado Referring Provider Dr. Carmel Angeles Attending Provider [phone] Vannesa, Dr. Gonzalez Primary Care Provider Dr. Carlos Granado Referring Provider Dr. Elver Elena Attending Provider Carlos Granado MD Primary Care Provider [phone] Maximo Caro MD Unavailable Maximo Caro MD Unavailable Carlos Granado MD Primary Care Provider Maximo Caro MD Unavailable Vania BLUNT, Maximo Delgado Unavailable Abdoul PTCarmel Unavailable CARLOS GRANADO Primary Care Unavailable MAXIMO CARO Referring Unavailable CARLOS GRANADO Primary Care Unavailable CARLOS GRANADO Primary Care Unavailable CARLOS GRANADO Primary Care Unavailable SZIRAKY, MAXIMO E Admitting Unavailable SZIRAKY, MAXIMO E Attending Unavailable MONA PIERCE Consulting Unavailable NAZ DUVAL Referring Unavailable GRANADO, CARLOS Pillai Primary Care Unavailable VANIA, MAXIMO Delgado Referring Unavailable GRANADO, CARLOS Pillai Primary Care Unavailable VANIA, MAXIMO Delgado Attending Unavailable GRANADO, CARLOS Pillai Primary Care Unavailable GRANADO, CARLOS Pillai Primary Care Unavailable VANIA, MAXIMO Delgado Attending Unavailable VANIA, MAXIMO Delgado Attending Unavailable GRANADO, CARLOS Pillai Primary Care Unavailable JASWINDER ZAMORA Attending Unavailable VANNESA, CARLOS Pillai Primary Care Unavailable Vannesa BLUNT, Dr. Gonzalez Primary Care Provider Maribel Dover Attending Provider Maribel Dover Referring Provider [phone] Marivel Delgado CNM Attending Provider Marivel Delgado CNM Referring Provider Vannesa BLUNT, Dr. Gonzalez Attending Provider [phone] Carlos Granado MD Referring Provider Carlos Granado Primary Care Unavailable Patsy, Maribel Referring Unavailable Maribel Gamboa Attending Unavailable Vannesa, Carlos Attending Unavailable Vannesa, Carlos Primary Care Unavailable Maximo Caro Consulting Unavailable Granado, Carlos Referring Unavailable Granado, Carlos Attending Unavailable Granado, Carlos Primary Care Unavailable Granado, Carlos Referring Unavailable Mairvel Delgado Attending Unavailable Granado, Carlos Primary Care Unavailable Granado, Carlos Primary Care Unavailable Marivel Delgado Referring Unavailable Marivel Delgado Attending Unavailable Allergies Allergy Classification Reported Allergen(s) Allergy Type Date of Onset Reaction(s) Facility Sulfonamides (antibiotic) (1 source) Sulfonamides (Antibiotic) Drug Allergy 1 [facility] (7 sources) Sulfonamides (Antibiotic); Translations: [SULFA (SULFONAMIDE ANTIBIOTICS)] Allergy to substance 1 UNKNOWN [facility] (20 sources) Sulfonamides (Antibiotic) Drug Allergy 1 [facility] (1 source) Sulfonamides (Antibiotic) Drug allergy (disorder) 4 [facility] Repository Medications Current Medications Medication Drug Class(es) Dates Sig (Normalized) Sig (Original) acetaminophen 500 mg oral tablet (20 sources) Start: 12-30-2023 take 2 tablets by mouth every eight hours as needed acetaminophen (TYLENOL) 500 mg tablet Take 2 tablets by mouth every 8 hours as needed for pain. 90 tablet 12/30/2023 Active Start: 09-27-2021 take 2 tablets by mo uth every six hours as needed for pain Acetaminophen 500 mg Tablet Active 1000 mg PO EVERY 6 HOURS as needed for Pain September 27, 2021 12:00am Start: 09-27-2021 take 1000 mg by mout h every six hours Acetaminophen Active 1000 MG PO EVERY 6 HOURS September 27, 2021 12:00am End: 12-30-2023 acetaminophen (TYLENOL EXTRA STRENGTH ORAL) Take by mouth. 12/30/2023 Discontinued acetaminophen (T YLENOL EXTRA STRENGTH ORAL) Take by mouth. Active acetaminophen (T YLENOL EXTRA STRENGTH ORAL) Take by mouth. 0 Active Comment on above: Take by mouth. ascorbic acid 500 mg oral tablet (17 sources) Vitamin C Start: 12-30-19 End: 01-13-20 take 1 tablet by mouth twice daily at mealtime ascorbic acid, vitamin C, (VITAMIN C) 500 mg tablet Take 1 tablet by mouth two times a day with meals for 27 doses. 27 tablet 12/30/2023 Active aspirin 81 mg delayed release oral tablet (17 sources) Platelet Aggregation Inhibitor, Nonsteroidal Anti-inflammatory Drug Start: 12-30-19 take 1 tablet by mouth twice daily aspirin, enteric coated (ASPIRIN, ENTERIC COATED) 81 mg EC tablet Take 1 tablet by mouth two times a day. 60 tablet 12/30/2023 Active atenolol 50 mg oral tablet (20 sources) beta-Adrenergic [place] Start: 11-06-19 take 1 tablet by mouth once daily Atenolol 50 mg tablet Active 50 mg PO DAILY November 05, 2020 12:00am Comment on above: Take 50 mg by mouth once daily. atorvastatin 10 mg oral tablet (20 sources) HMG-CoA Reductase Inhibitor Start: 11-06-19 take 1 tablet by mouth once daily Atorvastatin 10 mg tablet Active 10 mg PO DAILY November 05, 2020 12:00am Comment on above: Take 10 mg by mouth once daily. busPIRone hydrochloride 7.5 mg oral tablet (2 sources) Start: 02-05-20 take 1 tablet by mouth every twelve hours busPIRone (BUSPAR) 7.5 mg tablet Take 1 tablet by mouth every 12 hours. 02/05/2024 Active calcium carbonate 1500 mg oral tablet (1 source) Start: 09-26-19 24 take 1 tablet by mouth twice daily Calcium Carbonate 600 mg calcium (1,500 mg) tablet Active 600 mg PO TWICE A DAY September 26, 2023 12:00am Calcium Carbonate / vitamin D3 (20 sources) Start: 01-20-20 take 2 tablets by mouth once daily CALCIUM CARBONATE/VITAMIN D3 (CALCIUM 600 + D ORAL) Take 2 tablets by mouth once daily. 01/20/2020 Active Start: 01-20-2020 take 2 tablets by mo ut once daily CALCIUM CARBONATE/VITAMIN D3 (CALCIUM 600 + D ORAL) Take 2 tablets by mouth once daily. 0 01/20/2020 Active Comment on above: Take 2 tablets by mo ut once daily. clonazePAM 0.5 mg oral tablet (20 sources) Benzodiazepine Start: take 1 tablet by mouth twice daily Clonazepam 0.5 mg tablet Active 0.5 mg PO TWICE A DAY November 05, 2020 12:00am Start: 04-19-2014 take 0.025 tablet by mouth every six hours as needed clonazePAM (KLONOPIN) 0.5 mg tablet Take 0.025 tablets by mouth every 6 hours as needed for Anxiety. 04/19/2014 Active Comment on above: Take 0.025 tablets b y mouth every 6 hours as needed for Anxiety. docusate sodium 100 mg oral capsule (15 sources) Start: 12-30-2023 End: 01-29-2024 take 1 capsule by mouth every twelve hours as needed docusate sodium (COLACE) 100 mg capsule Take 1 capsule by mouth two times a day as needed for constipation. 60 capsule 12/30/2023 01/29/2024 Active Hyalur Ac-Chond Sul-Colg Ii-Aa (Hyaluronic Acid (Chond-Collgn)) 40-80-400 mg Capsule (7 sources) Start: 09-27-2021 Hyalur Ac-Chond Sul-Colg Ii-Aa (Hyaluronic Acid (Chond-Collgn)) 40-80-400 mg Capsule Active 2 NMA PO AT BEDTIME September 27, 2021 12:00am Start: 09-27-2021 take 2 capsules by m [facility] at bedtime Hyalur Ac-Chond Sul-Colg Ii-Aa (Hyaluronic Acid (Chond-Collgn)) 40-80-400 mg Capsule Active 2 CAP PO AT BEDTIME September 26, 2021 11:00pm Start: 09-27-2021 take 2 capsules by m outh at bedtime Hyalur Ac-Chond Sul-Colg Ii-Aa (Hyaluronic Acid (Chond-Collgn)) 40-80-400 mg Capsule Active 2 CAP PO AT BEDTIME September 27, 2021 12:00am ibuprofen 200 mg oral tablet (10 sources) Nonsteroidal Anti-inflammatory Drug Start: 01-03-2023 End: 12-10-2023 take 3 tablets by mouth twice daily as needed Ibuprofen 200 mg tablet Active 600 mg PO TWICE A DAY as needed January 03, 2023 12:00am Start: 01-03-2023 take 600 mg by mouth twice jack ly Ibuprofen Active 600 MG PO TWICE A DAY January 03, 2023 12:00am Comment on above: Take 600 mg by mouth two times a day as needed. lisinopril 5 mg oral tablet (20 sources) Angiotensin Converting Enzyme Inhibitor Start: lisinopril (ZESTRIL, PRINIVIL) 5 mg tablet Take 5 mg by mouth once daily. Patient should start on December 31, 2023. 12/31/2023 Active Comment on above: Take 5 mg by mouth. MULTIVITAMIN ORAL (20 sources) Start: take 1 tablet by mouth once daily MULTIVITAMIN ORAL Take 1 tablet by mouth once daily. 12/31/2023 Active MULTIVITAMIN ORA L Take by mouth once daily. Active MULTIVITAMIN ORA L Take by mouth once daily. 0 Active Comment on above: Take by mouth once d aily. Multivitamin preparation (6 sources) Start: 09-27-2021 take 1 tablet by mouth once daily Multivitamin Active 1 TABLET PO DAILY September 26, 2021 11:00pm Start: 09-27-2021 take 1 tablet by akosua th once daily Multivitamin Active 1 TABLET PO DAILY September 27, 2021 12:00am Multivitamin Tablet (1 source) Start: 09-27-2021 Multivitamin T ablet Active 1 {tbl} PO DAILY September 27, 2021 12:00am mupirocin 0.02 mg/mg topical ointment (2 sources) RNA Synthetase Inhibitor Antibacterial Start: 12-10-2023 End: 12-26-2023 mupirocin (BACTROBAN) 2 % ointment Apply 0.5 inch with cotton swab (Q-tip) to each nostril in the morning and evening for 5 days prior to and including day of surgery. 22 g 12/10/2023 12/26/2023 Active Leeton-3 Fatty Acids-Fish Oil (Fish Oil) 340-1,000 mg capsule (7 sources) Start: 07-27-2021 Leeton-3 Fatty Acids-Fish Oil (Fish Oil) 340-1,000 mg capsule Active 1 NMA PO DAILY July 27, 2021 12:00am Start: 07-27-2021 take 1 capsule by mo uth once daily Leeton-3 Fatty Acids-Fish Oil (Fish Oil) 340-1,000 mg capsule Active 1 CAP PO DAILY July 26, 2021 11:00pm Start: 07-27-2021 take 1 capsule by mo uth once daily Leeton-3 Fatty Acids-Fish Oil (Fish Oil) 340-1,000 mg capsule Active 1 CAP PO DAILY July 27, 2021 12:00am oxyCODONE hydrochloride 5 mg oral tablet (14 sources) Opioid Agonist Start: 01-14-2024 End: 01-28-2024 take 1 tablet by mouth every six hours as needed for pain oxyCODONE IR (ROXICODONE) 5 mg immediate release tablet Indications: Status post total left knee replacement Take 1 tablet by mouth every 6 hours as needed for pain for up to 7 days. 28 tablet 01/21/2024 01/28/2024 Active Start: 12-30-2023 End: 01-12-2024 take 1 tablet by mouth four times daily as needed oxyCODONE IR (ROXICODONE) 5 mg immediate release tablet Indications: Status post total left knee replacement Take 1-2 tablets by mouth four times a day as needed for pain for up to 7 days. 56 tablet 01/05/2024 01/12/2024 PARoxetine hydrochloride 30 mg oral tablet (20 sources) Serotonin Reuptake Inhibitor Start: 09-26-2023 take 1 tablet by mouth once daily Paroxetine Hcl 30 mg tablet Active 30 mg PO daily September 26, 2023 12:00am Start: 09-05-2022 End: 09-26-2023 Paroxetine Hcl (Paxil) 20 mg tablet Discontinued 30 mg PO DAILY September 05, 2022 8:34am September 26, 2023 1:36pm Start: 11-05-2020 End: 09-05-2022 take 1 tablet by mouth once daily Paroxetine Hcl (Paxil) 20 mg tablet Discontinued 20 mg PO DAILY November 05, 2020 12:00am September 05, 2022 8:34am Comment on above: Take 20 mg by mouth once daily. polyethylene glycol 3350 74787 mg powder for oral solution (11 sources) Osmotic Laxative Start: 4 End: 4 polyethylene glycol 3350 (MIRALAX) 17 gram/dose powder Take 17 g by mouth once daily as needed for constipation for up to 10 days. Dissolve dose in 4 - 8 ounces of liquid and take as directed. 238 g 12/30/2023 01/13/2024 Active ubidecarenone 100 mg oral capsule (7 sources) Start: 2 Coenzyme Q10 (Coq-10) 100 mg Capsule Active 100 mg PO DAILY September 27, 2021 12:00am ubidecarenone/vitamin E mixed (COQ10 SG 100 ORAL) (20 sources) Start: 0 take 1 tablet by mouth once daily ubidecarenone/vitamin E mixed (COQ10 SG 100 ORAL) Take 1 tablet by mouth once daily. 01/20/2020 Active Start: 01-20-2020 take 1 tablet by akosua th once daily ubidecarenone/vitamin E mixed (COQ10 SG 100 ORAL) Take 1 tablet by mouth once daily. 0 01/20/2020 Active Comment on above: Take 1 tablet by akosua th once daily. Completed/Discontinued Medications Medication Drug Class(es) Dates Sig (Normalized) Sig (Original) calcium ascorbate 500 mg oral tablet (4 sources) Start: 01-03-2023 End: 09-26-2023 take 1 tablet by mouth once daily Ascorbate Calcium (Vitamin C) 500 mg tablet Discontinued 500 mg PO DAILY January 03, 2023 12:00am September 26, 2023 1:34pm calcium carbonate 1250 mg / cholecalciferol 125 unt oral tablet (7 sources) Vitamin D Start: 09-27-2021 End: 09-26-2023 Calcium Carbonate-Vitamin D3 (Calcium 500 + D (D3)) 500 mg-3.125 mcg (125 unit) Tablet Discontinued 2 {tbl} PO DAILY September 27, 2021 12:00am September 26, 2023 1:36pm ELDERBERRY FRUIT (7 sources) Start: 01-20-2020 End: 12-10-2023 take 2 tablets by mouth once daily elderberry fruit (ELDERBERRY ORAL) Take 2 tablets by mouth once daily. 01/20/2020 12/10/2023 Discontinued Start: 01-20-2020 take 2 tablets by mo uth once daily elderberry fruit (ELDERBERRY ORAL) Take 2 tablets by mouth once daily. 01/20/2020 Active Start: 01-20-2020 take 2 tablets by mo uth once daily elderberry fruit (ELDERBERRY ORAL) Take 2 tablets by mouth once daily. 0 01/20/2020 Active Comment on above: Take 2 tablets by mo uth once daily. naproxen 250 mg oral tablet (7 sources) Nonsteroidal Anti-inflammatory Drug Start: 1 End: 3 take 1 tablet by mouth twice daily as needed for pain Naproxen 250 mg tablet Discontinued 250 mg PO TWICE A DAY as needed for Pain November 05, 2020 12:00am January 03, 2023 1:28pm OTC PRODUCT (6 sources) End: 4 OTC PRODUCT CBD gummies 12/10/2023 Discontinued OTC PRODUCT CBD gummies Active OTC PRODUCT CBD gummies 0 Active Comment on above: CBD gummies Problems Active Problems Problem Classification Problem Date Documented Date Episodic/Chronic Allergic reactions (7 sources) Vulval eczema; Translations: [Dermatitis, unspecified] 02-19-2021 Episodic Comment on above: nystatin triamcinolo ne Anxiety disorders (20 sources) Anxiety; Translations: [Anxiety disorder, unspecified] Onset: 04-14-2015 04-14-2015 Chronic Conduction disorders (20 sources) First degree atrioventricular block; Translations: [Atrioventricular block, first degree] Onset: 12-11-2023 12-11-2023 Chronic Disorders of lipid metabolism (20 sources) Hyperlipidemia; Translations: [Hyperlipidemia, unspecified] Onset: 04-14-2015 04-14-2015 Chronic Esophageal disorders (20 sources) Gastroesophageal reflux disease; Translations: [Gastro-esophageal reflux disease without esophagitis] Onset: 04-14-2015 04-14-2015 Chronic Essential hypertension (20 sources) Essential hypertension; Translations: [Essential (primary) hypertension] Onset: 04-14-2015 04-14-2015 Chronic Joint disorders and dislocations; trauma-related (20 sources) 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; Translations: [Derangement of unspecified medial meniscus due to old tear or injury, left knee] Onset: 01-18-2015 01-18-2015 Chronic Osteoarthritis (20 sources) Osteoarthritis of left knee joint; Translations: [Unilateral primary osteoarthritis, left knee] Onset: 12-16-2010 Resolved: 01-19-2020 05-14-2023 Chronic Other aftercare (3 sources) Patient encounter status; Translations: [Aftercare following joint replacement surgery] 01-12-2024 Chronic Other aftercare (1 source) Aftercare following joint replacement surgery; Translations: [Aftercare following joint replacement surgery] Onset: 03-30-2024 Chronic Other connective tissue disease (20 sources) History of right total knee replacement; Translations: [Presence of right artificial knee joint] Onset: 12-11-2023 12-11-2023 Chronic Other connective tissue disease (20 sources) History of total knee arthroplasty; Translations: [Presence of left artificial knee joint] Onset: 12-30-2023 12-30-2023 Chronic Other connective tissue disease (1 source) Presence of left artificial knee joint; Translations: [Status post total left knee replacement] Onset: 12-29-2023 Chronic Other connective tissue disease (1 source) Presence of right artificial knee joint; Translations: [Presence of right artificial knee joint] Onset: 03-30-2024 Chronic Other eye disorders (3 sources) Disorder of eye region; Translations: [Unspecified disorder of eye and adnexa] 11-05-2020 Episodic Other eye disorders (4 sources) Eye symptom; Translations: [Unspecified disorder of eye and adnexa] 11-05-2020 Episodic Comment on above: See opthomologist to narayanan Other nutritional; endocrine; and metabolic disorders (6 sources) Obesity caused by energy imbalance; Translations: [Other obesity due to excess calories] Onset: 01-05-2020 01-05-2020 Chronic Other nutritional; endocrine; and metabolic disorders (18 sources) Obese class I; Translations: [Obesity, Class I, BMI 30-34.9] Onset: 12-30-2023 12-30-2023 Chronic Other upper respiratory infections (7 sources) Laryngitis; Translations: [Acute laryngitis] 11-05-2020 Episodic Comment on above: continue conservativ e treatment Spondylosis; intervertebral disc disorders; other back problems (6 sources) Herniation of nucleus pulposus; Translations: [Other intervertebral disc displacement, lumbosacral region] 01-03-2023 Chronic Spondylosis; intervertebral disc disorders; other back problems (6 sources) Spinal stenosis of lumbar region; Translations: [Spinal stenosis, lumbar region without neurogenic claudication] 01-03-2023 Episodic Unclassified (20 sources) 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 Onset: 05-14-2023 05-14-2023 Past or Other Problems Problem Classification Problem Date Documented Da te Episodic/Chronic Other connective tissue disease (20 sources) Pain in toe; Translations: [Pain in unspecified toe(s)] Onset: 07-05-2014 07-05-2014 Episodic Other non-traumatic joint disorders (20 sources) Pain in unspecified knee; Translations: [Pain in joint, lower leg] Onset: 11-30-2010 11-30-2010 Episodic Other non-traumatic joint disorders (3 sources) Pain in left knee; Translations: [Pain in joint, lower leg] Onset: 11-30-2010 05-12-2023 Episodic Other nutritional; endocrine; and metabolic disorders (20 sources) Overweight in adulthood with body mass index of 25 or more but less than 30; Translations: [Body mass index (BMI) 29.0-29.9, adult] Onset: 01-05-2020 12-11-2023 Episodic Other screening for suspected conditions (not mental disorders or infectious disease) (10 sources) Patient encounter status; Translations: [Encounter for screening for malignant neoplasm of colon] Onset: 05-04-2024 Episodic Results Test Name Value Interpretation Reference Range Facility BUN/creatinine ratioOrdered By: Carlos Granado on 05-17-2024 Urea nitrogen/Creatinine [Mass ratio] 23.3 mg/mg High 01-03 [facility] Bilirubin, totalOrdered By: Carlos Granado on 05-17-2024 Bilirubin [Mass/Vol] 0.34 mg/dL 0.00-1.30 [facility] Calculated very low density lipoprotein (VLDL) cholesterol measurementOrdered By: Carlos Granado on 05-17-2024 VLDL Cholesterol 28 mg/dL 5-40 [facility] Carbon dioxide measurementOr dered By: Carlos Granado on 05-17-2024 CO2 [Moles/Vol] 24.8 mmol/L 22.0-29.0 [facility] Chloride measurementOrdered By: Carlos Granado on 05-17-2024 Chloride [Moles/Vol] 106 mmol/L 96-108 [facility] Comprehensive Metabolic Prof ilon 05-17-2024 Albumin [Mass/Vol] 4.4 g/dL Normal 3.4-4.8 [facility] Comment on above: Performed By: #### L 500.4050, L501.9985, L500.4100 #### [facility] [address] [place], [address] Albumin/Globulin [Mass ratio] 1.7 {ratio} Normal 0.9-2.4 [facility] Comment on above: Performed By: #### L [id number], [id number], [id number] #### [facility] [address] [place], [address] ALK PHOS 101 U/L Normal 35-104 [facility] Comment on above: Performed By: #### L 500.4050, [id number], [id number] #### [facility] [address] [place], [address] ALT [Catalytic activity/Vol] 28 U/L Normal <=34 [facility] Comment on above: Performed By: #### L 500.4050, [id number], [id number] #### [facility] [address] [place], [address] Anion gap [Moles/Vol] 12 mmol/L Normal 5-15 [facility] Comment on above: Performed By: #### L 500.4050, [id number], [id number] #### [facility] [address] [place], [address] AST [Catalytic activity/Vol] 29 U/L Normal <=31 [facility] Comment on above: Performed By: #### L 500.4050, [id number], [id number] #### [facility] [address] [place], [address] Bilirubin [Mass/Vol] 0.34 mg/dL Normal 0.00-1.30 [facility] Comment on above: Performed By: #### L 500.4050, [id number], [id number] #### [facility] [address] [place], [address] BUN/CRE 23.3 RATIO High 10-20 [facility] Comment on above: Performed By: #### L 500.4050, [id number], [id number] #### [facility] [address] [place], [address] Calcium [Mass/Vol] 9.7 mg/dL Normal 7.6-11.0 [facility] Comment on above: Performed By: #### L 500.4050, [id number], [id number] #### [facility] [address] [place], [address] Chloride [Moles/Vol] 106 mmol/L Normal 96-108 [facility] Comment on above: Performed By: #### L 500.4050, [id number], [id number] #### [facility] [address] [place], [address] CO2 [Moles/Vol] 24.8 mmol/L Normal 22.0-29.0 [facility] Comment on above: Performed By: #### L 500.4050, [id number], [id number] #### [facility] [address] [place], [address] Creatinine [Mass/Vol] 0.70 mg/dL Normal 0.70-1.20 [facility] Comment on above: Performed By: #### L 500.4050, [id number], [id number] #### [facility] [address] [place], [address] GFR/1.73 sq M.predicted among non-blacks MDRD (S/P/Bld) [Vol rate/Area] 96 mL/min/{1.73_m2} Normal >60 [facility] Comment on above: Result Comment: mL/m in/1.73m2 CKD-EPI Creatinine Equation (2020) Performed By: #### L 500.4050, [id number], [id number] #### [facility] [address] [place], [address] Globulin (S) [Mass/Vol] 2.6 g/dL Normal 2.2-4.2 [facility] Comment on above: Performed By: #### L 500.4050, [id number], [id number] #### [facility] [address] [place], [address] Glucose [Mass/Vol] 130 mg/dL High 70-99 [facility] Comment on above: Performed By: #### L 500.4050, [id number], [id number] #### [facility] [address] [place], [address] Potassium [Moles/Vol] 4.2 mmol/L Normal 3.3-5.1 [facility] Comment on above: Performed By: #### L 500.4050, [id number], [id number] #### [facility] [address] [place], [address] Sodium [Moles/Vol] 142 mmol/L Normal 133-145 [facility] Comment on above: Performed By: #### L 500.4050, [id number], [id number] #### [facility] [address] [place], [address] T PROT 7.0 g/dL Normal 5.9-8.4 [facility] Comment on above: Performed By: #### L 500.4050, [id number], [id number] #### [facility] [address] [place], [address] Urea nitrogen [Mass/Vol] 16 mg/dL Normal 4-19 [facility] Comment on above: Performed By: #### L 500.4050, [id number], [id number] #### [facility] [address] [place], [address] GFR/1.73 sq M.predicted lolis g non-blacks MDRD (S/P/Bld) [Vol rate/Area]Ordered By: Carlos Granado on 05-17-2024 Estimated GFR (MDRD) Non-Af Amer 96 >60 [facility] Comment on above: mL/min/1.73m2 CKD-EP I Creatinine Equation (2020) Hemoglobin A1con 05-17-2024 HbA1c (Bld) [Mass fraction] 6.4 % Normal <=5.6 [facility] Comment on above: Performed By: #### L 500.4050, L501.9985, L500.4100 #### [facility] Laboratory [address] [place], [address] Hemoglobin A1c percentageOrd ered By: Carlos Granado on 05-17-2024 HbA1c (Bld) [Mass fraction] 6.4 % >5.7 [facility] LDL calc ser/plasOrdered By: Carlos Granado on 05-17-2024 LDL Cholesterol, Calculated 82 mg/dL [facility] Comment on above: Wxwwebaytd=284-906 m g/dL & Higher Zouf=392 mg/dL or greater Laboratory - Chemistry and C hemistry - challengeOrdered By: Carlos Granado on 05-17-2024 AST [Catalytic activity/Vol] 29 U/L <32 [facility] Lipid Profileon 05-17-2024 CHOL:HDL 2.77 Normal [facility] Comment on above: Performed By: #### L 500.4050, L501.9985, L500.4100 #### [facility] [address] [place], [address] Cholesterol [Mass/Vol] 173 mg/dL Normal <=200 [facility] Comment on above: Result Comment: Chol esterol level, Desirable <200 mg/dL Borderline high cholesterol 200-239 mg/dL High cholesterol >=240 mg/dL Recommendations of the NCEP Adult Treatment Panel for the following risk-cutoff thresholds for the [place] population. Performed By: #### L 500.4050, L501.9985, L500.4100 #### [facility] [address] [place], [address] Cholesterol in HDL [Mass/Vol] 63 mg/dL Normal [facility] Comment on above: Result Comment: Bhavna onal Cholesterol Education Program (NCEP) guidelines: <40 mg/dL: Low HDL-cholesterol (major risk factor for CHD) >= 60 mg/dL: High HDL-cholesterol (negative risk factor for CHD) HDL-cholesterol is affected by a number of factors, e.g. smoking, exercise, hormones, sex and age. Performed By: #### L 500.4050, L501.9985, L500.4100 #### [facility] [address] [place], [address] Cholesterol in LDL [Mass/Vol] 82 mg/dL Normal [facility] Comment on above: Result Comment: Bord zkiaru=708-224 mg/dL Higher Wjrs=484 mg/dL or greater Performed By: #### L 500.4050, L501.9985, L500.4100 #### [facility] [address] [place], [address] Cholesterol in VLDL [Mass/Vol] 28 mg/dL Normal 5-40 [facility] Comment on above: Performed By: #### L 500.4050, L501.9985, L500.4100 #### [facility] [address] [place], [place], [address] Triglyceride [Mass/Vol] 142 mg/dL Normal [facility] Comment on above: Result Comment: The drugs N-Acetylcysteine and Metamizole may falsely depress this assay. Normal range: <150 mg/dL Borderline High: 150-199 mg/dL High: 200-499 mg/dL Very High: >500 mg/dL Performed By: #### L 500.4050, L501.9985, L500.4100 #### [facility] [address] [place], [place], [address] Screening total cholesterol/ high density lipoprotein (HDL) cholesterol ratioOrdered By: Carlos Granado on 05-17-2024 Cholesterol.total/Rhianna sterol in HDL [Mass ratio] 2.77 {ratio} [facility] Serum creatinine measurement (mass/volume)Ordered By: Carlos Granado on 05-17-2024 Creatinine [Mass/Vol] 0.70 mg/dL 0.70-1.20 [facility] Serum globulin measurementOr dered By: Carlos Granado on 05-17-2024 Globulin (S) [Mass/Vol] 2.6 g/dL 2.2-4.2 [facility] Serum glucose measurement (m ass/volume)Ordered By: Carlos Granado on 05-17-2024 Glucose [Mass/Vol] 130 mg/dL High 70-99 [facility] Serum or plasma alanine patel otransferase (ALT) measurementOrdered By: Carlos Granado on 05-17-2024 ALT [Catalytic activity/Vol] 28 U/L <35 [facility] Serum or plasma albumin jane urement (mass/volume)Ordered By: Carlos Granado on 05-17-2024 Albumin [Mass/Vol] 4.4 g/dL 3.4-4.8 [facility] Serum or plasma albumin/glob ulin mass ratioOrdered By: Carlos Granado on 05-17-2024 Albumin/Globulin [Mass ratio] 1.7 {ratio} 0.9-2.4 [facility] Serum or plasma alkaline krystyna sphatase measurementOrdered By: Carlos Granado on 05-17-2024 ALP [Catalytic activity/Vol] 101 U/L 35-104 [facility] Serum or plasma anion gap de termination (moles/volume)Ordered By: Carlos Granado on 05-17-2024 Anion gap [Moles/Vol] 12 mmol/L 5-15 [facility] Serum or plasma calcium jane urement (mass/volume)Ordered By: Carlos Granado on 05-17-2024 Calcium [Mass/Vol] 9.7 mg/dL 7.6-11.0 [facility] Serum or plasma cholesterol in HDL measurement (mass/volume)Ordered By: Carlos Granado on 05-17-2024 Cholesterol in HDL [Mass/Vol] 63 mg/dL >40 [facility] Comment on above: National Cholesterol Education Program (NCEP) guidelines:<40 mg/dL: Low HDL-cholesterol (major risk factor for CHD)>= 60 mg/dL: High HDL-cholesterol (negative risk factor for CHD)HDL-cholesterol is affected by a number of factors, e.g. smoking, exercise, hormones, sex and age. Serum or plasma cholesterol measurement (mass/volume)Ordered By: Carlos Granado on 05-17-2024 Cholesterol [Mass/Vol] 173 mg/dL <201 [facility] Comment on above: Cholesterol level, D esirable <200 mg/dLBorderline high cholesterol 200-239 mg/dLHigh cholesterol >=240 mg/dLRecommendations of the NCEP Adult Treatment Panel for the following risk-cutoff thresholds for the [place] population. Serum or plasma potassium me asurementOrdered By: Carlos Granado on 05-17-2024 Potassium [Moles/Vol] 4.2 mmol/L 3.3-5.1 [facility] Serum or plasma sodium measu rement (moles/volume)Ordered By: Carlos Granado on 05-17-2024 Sodium [Moles/Vol] 142 mmol/L 133-145 [facility] Serum or plasma urea nitroge n measurement (mass/volume)Ordered By: Carlos Granado on 05-17-2024 Urea nitrogen [Mass/Vol] 16 mg/dL 4-19 [facility] Total proteinOrdered By: Rose Granado on 05-17-2024 Protein [Mass/Vol] 7.0 g/dL 5.9-8.4 [facility] Triglycerides measurementOrd ered By: Carlos Granado on 05-17-2024 Triglyceride [Mass/Vol] 142 mg/dL <199 [facility] Comment on above: The drugs N-Acetylcy steine and Metamizole may falsely depress this assay. Normal range: <150 mg/dLBorderline High: 150-199 mg/dLHigh: 200-499 mg/dLVery High: >500 mg/dL SCRN MAMM (CAD)W/SHERMAN BILATo n 04-19-2024 SCRN MAMM (CAD)W/SHERMAN BILAT [facility] Imaging Services [address] [place], [place] [address] SCRN MAMM (CAD)W/SHERMAN BILAT MR#: [id number] Acct: [id number] Name: RAYMOND SHARMA Rep #: [id number] : 1960 F 64 From: Jagjit loaiza MD PCP: Dr. Carlos Granado MD Status: [facility] Study: SCRN MAMM (CAD)W/SHERMAN BILAT Date of Exam: 06/08 Exam# [id number] Ordering Dr: Marivel Delgado CNM PROCEDURE: SCRN MAMM (CAD)W/SHERMAN BILAT REASON FOR EXAM: F, Age 64 y/o, mother with breast cancer. Routine mammographic follow-up. TECHNIQUE: Bilateral screening digital breast tomosynthesis with 2D and 3D images. Computer aided detection. COMPARISON: Prior exam(s) dating back to comparison is made with prior study dated April 14, 2023. FINDINGS: There are scattered areas of fibroglandular density. No suspicious masses, areas of developing architectural distortion, or suspicious calcifications. There has been no significant interval change. BI/SCRN MAMM (CAD)W/SHERMAN BILAT IMPRESSION: BI-RADS 1: NEGATIVE. RECOMMEND ANNUAL MAMMOGRAPHIC SCREENING. Follow-up code: Routine Follow-up The patient will be notified of the results by letter. Reading Location: [facility] CC: MAURY Delgado; Dr. Carlos Granado MD Electron Beam Photo Mask Maker: Signed Normal [facility] PT D/C Summary (1)on 025 PT D/C Summary (1) [facility] Physical Therapy [facility] [address] [place] [address] / REHABILITATION SERVICES DISCHARGE SUMMARY MR#: [id number] Acct: [id number] Name: RAYMOND SHARMA Rep #: [id number] : 1960 64 From: Simón Leiva PT, ATC Referring Dr.: SRINATH Riddle Status: REG RCR Insurance: [facility] SELF PAY INSURANCE Discharge Summary D/C summary: It has been my pleasure to treat RAYMOND SHARMA referred by SRINATH Riddle, with the diagnosis of L TKA 12/29/23 for a total of 27 visit(s). Discharge Date: Please see the following information for a summary of their discharge status. Subjective Subjective: I can do this on my own. No pain today. Pain L knee: Pain Intensity (Out of 10): 0 Overall Improvement % Improvement: 90 Objective Objective/Function: Pt is now I with gym routine and HEP Goals Goal 1:: Decrease L knee pain x 50% to aid with sleep Goal Progress: Goal Met Goal 2:: Increase L knee ROM to 0-120 degrees to aid with restoring a normalized gait pattern Goal Progress: Progressing Goal 3:: Increase L knee strength to 90% of R knee strength to aid with stair negotiation Goal Progress: Goal Met Goal 4:: I with HEP Goal Progress: Goal Met Plan Plan: Discharge to HEP D/C Information d/c sentence: If there are questions or concerns regarding this patient's physical therapy, please feel free to call me at [phone]. Thank you for the referral of this patient. Sincerely, Simón Leiva, PT, ATC Balance/Gait/Function al tests Balance/Special Test Scores Lower Extremity Functional Score: 48 TUG Test Time Seconds: 7.5 Tug Test: <10 sec.=free mobile 30 Second Chair Rise Test Seconds: 9 Improvement % Improvement: 90 03/29/24 1734 CC: Dr. Carlos Granado MD; SRINATH Riddle [facility] Signed Normal [facility] Re-Evaluation - PT (1)on Re-Evaluation - PT (1) [facility] [facility] [address] [address] [place] [address] / REEVALUATION / MEDICARE RECERTIFICATION PHYSICAL THERAPY MR#: [id number] Acct: [id number] Name: RAYMOND SHARMA Rep #: [id number] : 1960 64 From: Simón Leiva PT, ATC Referring Dr.: SRINATH Riddle Status:REG RCR Insurance: [facility] SELF PAY INSURANCE Re-Evaluation Intro: SRINATH Riddle, It has been my pleasure to treat RAYMOND SHARMA over the last 25 visits for L TKA 12/29/23. Please see the progress note below for an update on the physical therapy plan of care! Subjective Subjective: Pt reports she has some pain today Objective Objective/Function: L knee pain ranges from 1-5/10 L knee ROM: 0-95 degrees L knee MMT: flex= 24 (R= 30), ext= 36 (R= 44)#F Pt continues to show excellent progress at this time. Pt is still limited with job requirements secondary to L LE weakness and limited knee ROM Plan Plan Plan: Attempt to get 12 more PT visits approved to focus on L knee strengthening, ROM, and pain relief Balance/Gait/Function al tests Balance/Special Test Scores Lower Extremity Functional Score: 48 TUG Test Time Seconds: 7.5 Tug Test: <10 sec.=free mobile 30 Second Chair Rise Test Seconds: 9 Goals Goals Goal 1:: Decrease L knee pain x 50% to aid with sleep Goal Time Frame: 4-6 Weeks Goal Progress: Progressing Goal 2:: Increase L knee ROM to 0-120 degrees to aid with restoring a normalized gait pattern Goal Time Frame: 4-6 Weeks Goal Progress: Progressing Goal 3:: Increase L knee strength to 90% of R knee strength to aid with stair negotiation Goal Time Frame: 4-6 Weeks Goal Progress: Goal Met Goal 4:: I with HEP Goal Time Frame: 4-6 Weeks Goal Progress: Progressing Anticipated Interventions Anticipated Interventions Patient/Client Instruction: Educate patient on: Condition and Plan of Care For the Purpose of:: To improve self management Therapeutic Exercise to Include: Strength training, Endurance training, Balance training, Flexibilty training, Gait and locomotor training, Passive ROM, Active ROM and Dynamic Lumbar Stabilization For the Purpose of:: To decrease pain, To increase ROM and To improve muscle performance and motor function Cryotherapy (ice pack, ice massage): Yes For the Purpose of:: To decrease pain Re-Evaluation Ending Re-evaluation ending: Please do not hesitate to contact me at [phone] by phone or if you have questions or concerns regarding this new plan of care! Sincerely, Simón Leiva, PT, ATC 03/19/24 1100 CC: Dr. Carlos Granado MD; SRINATH Riddle [facility] Signed For Medicare only, by signing this I certify the plan of care. Physicians Signature Date [facility] 03-12-2024 [facility] Office Visit (ORMDNA ) RAYMOND SHARMA ([id number]) 1960 F FNS Date Time Provider Department 03/12/24 1:30 PM MAXIMO CARO During your visit today, we recorded the following information about you: Maximo Caro MD 04/06/2024 1:[address] CARO- POST-OP KNEE ========= Post-Op F/U Office Visit ========= Raymond Sharma presents today for a 10 weeks status post Left TKA. Post-operative recovery was uneventful. Patient's rating of condition: improving Comments: Patient still having difficulty with regaining motion Does the Pt. still experience pain? PAIN EVALUATION 03/12/2024 8200 Pain Location: Knee-Left Description: Aching;Sore Frequency: Intermittent Intervention/Comfort measure: Exercise;Cold;Medicat ion tylenol, ibuporfen Comments: PT currently Functional difficulties: Stair climbing Physical Therapy: Completed Home PT Pain Medication: Non-narcotic Ambulating without assistance. Medications and Allergies reviewed and verified. ========= EXAM: ========= GEN: AANDO x3, NAD SKIN:Appropriate postop appearance Incision intact Incision well healed LeftKnee: ROM: Flexion/Extension:0 degrees to 95 degrees Pain with ROM:No Mal-alignment: No Effusion: None Tender to palpation of the medial joint line(s). Stability:Anterior/Po sterior- Yes, stable and Varus/Valgus- Yes, stable Quad strength: normal HIP: range of motion no loss ROM NV: intact and Seymour's negative ========= IMAGING: ========= Xrays: No x-rays today ======= IMPRESSION/PLAN: ======= 64 year old female s/p Left TKA Slow post-operative recovery. Plan: 1. Refer for outpatient physical therapy with emphasis on range of motion and strengthening 2. Continue weightbearing as tolerated and total knee precautions 3. Follow-up for repeat clinical evaluation Maximo Caro MD Electronic Signature Allergies As of Date: 03/12/2024 Noted Allergy Reaction SULFA (SULFONAMIDE ANTIBIOTICS) 12/03/2010 4 - Hives Date Reviewed: 02/11/2024 Reviewed by: Fide Trinidad MA - Fully Assessed Reason for Visit: Established Patient [175] Follow Up [171] Post Op [174] Knee Replacement [363] Primary Visit Diagnosis:Aftercare following right knee joint replacement surgery [Z47.1, Z96.651] Order(s):CONSULT TO PHYSICAL THERAPY [9032] Order #: [id number]: 1 FUTURE Prescriptions as of 04/06/2024 - busPIRone (BUSPAR) 7.5 mg tablet Take 1 tablet by mouth every 12 hours. - aspirin, enteric coated (ASPIRIN, ENTERIC COATED) 81 mg EC tablet Take 1 tablet by mouth two times a day. - acetaminophen (TYLENOL) 500 mg tablet Take 2 tablets by mouth every 8 hours as needed for pain. - ascorbic acid, vitamin C, (VITAMIN C) 500 mg tablet Take 1 tablet by mouth two times a day with meals for 27 doses. - lisinopril (ZESTRIL, PRINIVIL) 5 mg tablet Take 5 mg by mouth once daily. Patient should start on December 31, 2023. - ubidecarenone/vitamin E mixed (COQ10 SG 100 ORAL) Take 1 tablet by mouth once daily. - atenolol (TENORMIN) 50 mg tablet Take 50 mg by mouth once daily. - MULTIVITAMIN ORAL Take 1 tablet by mouth once daily. - CALCIUM CARBONATE/VITAMIN D3 (CALCIUM 600 + D ORAL) Take 2 tablets by mouth once daily. - atorvastatin (LIPITOR) 10 mg tablet Take 10 mg by mouth once daily. - clonazePAM (KLONOPIN) 0.5 mg tablet Take 0.025 tablets by mouth every 6 hours as needed for Anxiety. - paroxetine (PAXIL) 20 mg ORAL tablet Take 20 mg by mouth once daily. Problem List As Of Date 03/12/2024 Noted Resolved Knee pain [M25.569] 11/30/2010 Arthritis of knee [M17.10] 12/16/2010 Toe pain [M79.676] 07/05/2014 Degenerative tear of medial meniscus of left kn*01/18/2015 Essential hypertension [I10] 04/14/2015 GERD (gastroesophageal reflux disease) [K21.9] 04/14/2015 Hyperlipidemia [E78.5] 04/14/2015 Anxiety [F41.9] 04/14/2015 Primary osteoarthritis of right knee [M17.11] 08/06/2019 01/19/2020 BMI 29.0-29.9,adult [Z68.29] 01/05/2020 History of total right knee replacement [Z96.65*12/11/2023 AV block, 1st degree [I44.0] 12/11/2023 Obesity, Class I, BMI 30-34.9 [E66.811] 12/30/2023 S/P total knee arthroplasty, left [Z96.652] 12/30/2023 Disposition: Return 6-8 weeks. Follow-up and Disposition History for Encounter Date Provider Department Center 03/12/2024 [id number] CARO [facility] Encounter Status:Closed by MAXIMO CARO on 04/06/24 Normal [facility] Re-Evaluation - PT (1)on Re-Evaluation - PT (1) [facility] Physical Therapy [facility] [address] [place] [address] [address] [place] [id number] / REEVALUATION / MEDICARE RECERTIFICATION PHYSICAL THERAPY MR#: [id number] Acct: [id number] Name: RAYMOND SHARMA Rep #: [id number] : 1960 63 From: Simón Leiva PT, ATC Referring Dr.: SRINATH Riddle Status:REG RCR Insurance: [facility] SELF PAY INSURANCE Re-Evaluation Intro: SRINATH Riddle, It has been my pleasure to treat RAYMOND SHARMA over the last 14 visits for L TKA 12/29/23. Please see the progress note below for an update on the physical therapy plan of care! Subjective Subjective: I am sore today Objective Objective/Function: L knee pain 05/24 L knee MMT: flex= 17, ext= 36 #F L knee ROM: 0-7-101 degrees Pt is showing excellent progress with strength and ROM, but still lacks functional strength and ROM to RTW Plan Plan Plan: 02/19/24- Cont with L knee PROM/mobs, stretching and strengthening, balance and proprio, core stab, nustep, and HEP Balance/Gait/Function al tests Balance/Special Test Scores Lower Extremity Functional Score: 32 Goals Goals Goal 1:: Decrease L knee pain x 50% to aid with sleep Goal Time Frame: 4-6 Weeks Goal Progress: Progressing Goal 2:: Increase L knee ROM to 0-120 degrees to aid with restoring a normalized gait pattern Goal Time Frame: 4-6 Weeks Goal Progress: Progressing Goal 3:: Increase L knee strength to 90% of R knee strength to aid with stair negotiation Goal Time Frame: 4-6 Weeks Goal Progress: Goal Met Goal 4:: I with HEP Goal Time Frame: 4-6 Weeks Goal Progress: Progressing Anticipated Interventions Anticipated Interventions Patient/Client Instruction: Educate patient on: Condition and Plan of Care For the Purpose of:: To improve self management Therapeutic Exercise to Include: Strength training, Endurance training, Balance training, Flexibilty training, Gait and locomotor training, Passive ROM, Active ROM and Dynamic Lumbar Stabilization For the Purpose of:: To decrease pain, To increase ROM and To improve muscle performance and motor function Cryotherapy (ice pack, ice massage): Yes For the Purpose of:: To decrease pain Re-Evaluation Ending Re-evaluation ending: Please do not hesitate to contact me at [phone] by phone or if you have questions or concerns regarding this new plan of care! Sincerely, Simón Leiva, PT, ATC 02/19/24 1121 CC: Dr. Carlos Granado MD; SRINATH Riddle [facility] Signed For Medicare only, by signing this I certify the plan of care. Physicians Signature Date Normal [facility] Re-Evaluation - PT (1) [facility] Physical Therapy [facility] [address] [place] [address] / REEVALUATION / MEDICARE RECERTIFICATION PHYSICAL THERAPY MR#: [id number] Acct: [id number] Name: RAYMOND SHARMA Rep #: [id number] : 1960 63 From: Simón Leiva PT, ATC Referring Dr.: SRINATH Riddle Status:REG RCR Insurance: [facility] SELF PAY INSURANCE Re-Evaluation Intro: SRINATH Riddle, It has been my pleasure to treat RAYMOND SHARMA over the last 14 visits for L TKA 12/29/23. Please see the progress note below for an update on the physical therapy plan of care! Subjective Subjective: I am sore today Objective Objective/Function: L knee pain 05/24 L knee MMT: flex= 17, ext= 36 #F L knee ROM: 0-7-101 degrees Pt is showing excellent progress with strength and ROM, but still lacks functional strength and ROM to RTW Plan Plan Plan: 02/19/24- Cont with L knee PROM/mobs, stretching and strengthening, balance and proprio, core stab, nustep, and HEP Balance/Gait/Function al tests Balance/Special Test Scores Lower Extremity Functional Score: 32 Goals Goals Goal 1:: Decrease L knee pain x 50% to aid with sleep Goal Time Frame: 4-6 Weeks Goal Progress: Progressing Goal 2:: Increase L knee ROM to 0-120 degrees to aid with restoring a normalized gait pattern Goal Time Frame: 4-6 Weeks Goal Progress: Progressing Goal 3:: Increase L knee strength to 90% of R knee strength to aid with stair negotiation Goal Time Frame: 4-6 Weeks Goal Progress: Goal Met Goal 4:: I with HEP Goal Time Frame: 4-6 Weeks Goal Progress: Progressing Anticipated Interventions Anticipated Interventions Patient/Client Instruction: Educate patient on: Condition and Plan of Care For the Purpose of:: To improve self management Therapeutic Exercise to Include: Strength training, Endurance training, Balance training, Flexibilty training, Gait and locomotor training, Passive ROM, Active ROM and Dynamic Lumbar Stabilization For the Purpose of:: To decrease pain, To increase ROM and To improve muscle performance and motor function Cryotherapy (ice pack, ice massage): Yes For the Purpose of:: To decrease pain Re-Evaluation Ending Re-evaluation ending: Please do not hesitate to contact me at [phone] by phone or if you have questions or concerns regarding this new plan of care! Sincerely, Simón Leiva, PT, ATC 02/19/24 1114 CC: Dr. Carlos Granado MD; SRINATH Riddle [facility] Signed For Medicare only, by signing this I certify the plan of care. Physicians Signature Date Normal [facility] 02-11-2024 [facility] Office Visit (ORMDNA ) RAYMOND SHARMA ([id number]) 1960 F FNS Date Time Provider Department 02/11/24 2:45 PM MAXIMO CARO During your visit today, we recorded the following information about you: Maximo Caro MD 03/10/2024 1:[address] CARO- POST-OP KNEE ========= Post-Op F/U Office Visit ========= Raymond Sharma presents today for a 6 weeks status post Left TKA. Post-operative recovery was uneventful. Patient's rating of condition: improving Comments: None Does the Pt. still experience pain? PAIN EVALUATION 02/06/2024 1729 Pain Level: 3 Pain Location: Knee-Left Description: Sore;Aching Duration Amount of Time: 6 Duration Units: Weeks Frequency: Intermittent Intervention/Comfort measure: -- physical therapy Functional difficulties: Stair climbing Physical Therapy: Yes Pain Medication: Yes Ambulating with assistance. Medications and Allergies reviewed and verified. ========= EXAM: ========= GEN: AANDO x3, NAD SKIN:Appropriate postop appearance Incision intact Incision well healed LeftKnee: ROM: Flexion/Extension:0 degrees to 90 degrees Pain with ROM:No Mal-alignment: No Effusion: None Tender to palpation of the medial and patellofemoral joint line(s). Stability:Anterior/Po sterior- Yes, stable and Varus/Valgus- Yes, stable Quad strength: normal HIP: range of motion no loss ROM NV: intact and Seymour's negative ========= IMAGING: ========= Xrays: No x-rays today ======= IMPRESSION/PLAN: ======= 64 year old female s/p Left TKA At normal post-operative stage of recovery. Plan: 1. Continue physical therapy for range of motion and strengthening with emphasis on flexion 2. Continue total knee precautions 3. Follow-up for repeat evaluation Maximo Caro MD Electronic Signature Allergies As of Date: 02/11/2024 Noted Allergy Reaction SULFA (SULFONAMIDE ANTIBIOTICS) 12/03/2010 4 - Hives Date Reviewed: 02/11/2024 Reviewed by: Fide Trinidad MA - Fully Assessed Reason for Visit: Knee Pain [132] Post Op [174] Knee Replacement [363] Primary Visit Diagnosis:Aftercare following left knee joint replacement surgery [Z47.1, Z96.652] Order(s):CONSULT TO PHYSICAL THERAPY [9064] Order #: [id number]: 1 FUTURE Prescriptions as of 03/10/2024 - busPIRone (BUSPAR) 7.5 mg tablet Take 1 tablet by mouth every 12 hours. - aspirin, enteric coated (ASPIRIN, ENTERIC COATED) 81 mg EC tablet Take 1 tablet by mouth two times a day. - acetaminophen (TYLENOL) 500 mg tablet Take 2 tablets by mouth every 8 hours as needed for pain. - ascorbic acid, vitamin C, (VITAMIN C) 500 mg tablet Take 1 tablet by mouth two times a day with meals for 27 doses. - lisinopril (ZESTRIL, PRINIVIL) 5 mg tablet Take 5 mg by mouth once daily. Patient should start on December 31, 2023. - ubidecarenone/vitamin E mixed (COQ10 SG 100 ORAL) Take 1 tablet by mouth once daily. - atenolol (TENORMIN) 50 mg tablet Take 50 mg by mouth once daily. - MULTIVITAMIN ORAL Take 1 tablet by mouth once daily. - CALCIUM CARBONATE/VITAMIN D3 (CALCIUM 600 + D ORAL) Take 2 tablets by mouth once daily. - atorvastatin (LIPITOR) 10 mg tablet Take 10 mg by mouth once daily. - clonazePAM (KLONOPIN) 0.5 mg tablet Take 0.025 tablets by mouth every 6 hours as needed for Anxiety. - paroxetine (PAXIL) 20 mg ORAL tablet Take 20 mg by mouth once daily. Problem List As Of Date 02/11/2024 Noted Resolved Knee pain [M25.569] 11/30/2010 Arthritis of knee [M17.10] 12/16/2010 Toe pain [M79.676] 07/05/2014 Degenerative tear of medial meniscus of left kn*01/18/2015 Essential hypertension [I10] 04/14/2015 GERD (gastroesophageal reflux disease) [K21.9] 04/14/2015 Hyperlipidemia [E78.5] 04/14/2015 Anxiety [F41.9] 04/14/2015 Primary osteoarthritis of right knee [M17.11] 08/06/2019 01/19/2020 BMI 29.0-29.9,adult [Z68.29] 01/05/2020 History of total right knee replacement [Z96.65*12/11/2023 AV block, 1st degree [I44.0] 12/11/2023 Obesity, Class I, BMI 30-34.9 [E66.811] 12/30/2023 S/P total knee arthroplasty, left [Z96.652] 12/30/2023 Disposition: Return in 1 month (on 03/12/2024). Follow-up and Disposition History for Encounter Date Provider Department Center 02/11/2024 [id number] CARO [facility] Encounter Status:Closed by MAXIMO CARO on 03/10/24 Normal [facility] Inital Evaluation (1) - PTon 01-19-2024 Inital Evaluation (1) - PT [facility] [address] [place] [address]. [address] [place] [address] / REHABILITATION SERVICES INITIAL EVALUATION MR#: [id number] Acct: [id number] Name: RAYMOND SHARMA Rep #: [id number] : 1960 63 From: Simón Leiva PT, ATC Referring Dr.: Maribel Gamboa Status: REG R CR Insurance: [facility] SELF PAY INSURANCE Patient's Visit Information Visit Information Visit Information: RAYMOND SHARMA is a 63 year old F referred to Physical Therapy by SRINATH Riddle with a diagnosis of L TKA 12/29/23. Date of Evaluation: 01/19/24 Physical Therapist: Simón Leiva, PT, ATC Visit Plan Frequency: 2-3x /Week Duration: 4-6 Weeks Plan: L knee PROM/mobs, stretching and strengthening, balance and proprio, core stab, nustep, and HEP Subjective Subjective: DOS: 12/29/23. Pt reports she had a L TKA performed at that time. Pt reports she feels like she is progressing well, but is still having a terrible time sleeping. Pt reports she has had home health for the past couple weeks. Pt reports she lives in a split level house, and has to negotiate stairs daily. Pt reports she is able to negotiate her stairs one step at a time. 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 Pt denies tingling or numbness in L LE at this time, but does complain of a pain located in her distal tibia region. Pt reports she had her R knee replaced 4 years ago. Pt reports she would like to be able to go on walks, but is very limited at this time. L knee pain is 5/10 at rest, 8/10 pain at worst (when she is riding in a car for a prolonged period of time.) Pain L knee: Pain Intensity (Out of 10): 5 Pain Intensity Range: 8 Objective Objective: TU sec Girth at joint line: R knee 38 cm, L knee 43 cm ROM: R knee 0-100 degrees; L knee 0-12-75 degrees MMT: R knee flex= 13, ext= 21; L knee flex= 0, ext= 11 #F Balance/Special Test Scores Lower Extremity Functional Score: 23 Goals Goal 1:: Decrease L knee pain x 50% to aid with sleep Goal Time Frame: 4-6 Weeks Goal 2:: Increase L knee ROM to 0-120 degrees to aid with restoring a normalized gait pattern Goal Time Frame: 4-6 Weeks Goal 3:: Increase L knee strength to 90% of R knee strength to aid with stair negotiation Goal Time Frame: 4-6 Weeks Goal 4:: I with HEP Goal Time Frame: 4-6 Weeks Rehabilitation Potential Physical Therapy Diagnosis: Pt has L knee pain, weakness, and limited ROM secondary to L TKA Rehabilitation Potential: Good Anticipated Interventions Patient/Client Instruction: Educate patient on: Condition and Plan of Care For the Purpose of:: To improve self management Therapeutic Exercise to Include: Strength training, Endurance training, Balance training, Flexibilty training, Gait and locomotor training, Passive ROM, Active ROM and Dynamic Lumbar Stabilization For the Purpose of:: To decrease pain, To increase ROM and To improve muscle performance and motor function Cryotherapy (ice pack, ice massage): Yes For the Purpose of:: To decrease pain Text: Thank you for the opportunity to evaluate your patient. For Medicare and Medicare HMO plans, please review the plan of care and approve it. It will need to be FAXED BACK to us at [phone] for Medicare purposes. For Medicare only, by signing this I certify the plan of care. Please let me know if there are questions or concerns regarding this plan of care. Physician Signature: Date : 01/19/24 1148 CC: Dr. Carlos Granado MD; SRINATH Riddle [facility] Signed Normal [facility] CNOVon 01-12-2024 CNOV Office Visit (DEVIMDNA ) ZACHARYRAYMOND ([id number]) 1960 F FNS Date Time Provider Department 01/12/24 1:30 PM JASWINDER ZAMORA During your visit today, we recorded the following information about you: Jaswinder Zamora PA-C 01/12/2024 2:25 PM Signed Post-op Office Visit Raymond Sharma 63 year old January 12, 2024 1:32 PM Surgery Date: 12/29/2023 History: Raymond Sharma is now 2 weeks out from robotic assisted left TKA. Post-operative course has been without complication. No readmissions. The patient was discharged from [facility] to home with home health care on 12/30/2023. Subjective: Patient reports 5/10 knee pain. Overall is doing well. Using cane ambulatory aid She is taking one oxycodone every 6 hours. Patients rates her condition as improving. Reports compliance with DVT ppx. Participating in home PT. Patient states that her [employer] membership requires a letter from surgeon stating to pause her membership. Objective: Left knee: Ambulates with cane Incision well-approximated, no drainage, well-healing. Suture tails trimmed today. Knee ROM 2 - 80 degrees Distally DP/PT palpable Distally SILT S/S/SP/DP/T intact at baseline Distally DF/PF motor intact at baseline Negative seymour/calf tenderness Xrays: Well-positioned total knee replacement in appropriate alignment with no evidence of loosening Assessment and Plan: 63 year old female 2 weeks status post robotic assisted left total knee arthroplasty - continue ice, rest, and use of non-narcotic analgesia as needed - reviewed antibiotic prophylactic protocols - discussed home exercises and therapy - continue ASA DVT prophylaxis for 4 weeks total - WBAT on operative extremity - letter provided as requested to pause [employer] membership - discussed driving requirement: 4 weeks post-op, off narcotic pain medication, adequate brake time - follow up in 4 weeks for repeat clinical evaluation with Dr. Caro Normal post-operative course discussed with patient. Patient reassured and supported. All questions answered. Venkatesh Zamora PA-C Orthopaedic Surgery Allergies As of Date: 01/12/2024 Noted Allergy Reaction SULFA (SULFONAMIDE ANTIBIOTICS) 12/03/2010 4 - Hives Date Reviewed: 01/12/2024 Reviewed by: Latesha Walter OCCA - Fully Assessed Reason for Visit: Post Op [174] Knee Replacement [363] Primary Visit Diagnosis:Aftercare following left knee joint replacement surgery [Z47.1, Z96.652] Order(s):CONSULT TO PHYSICAL THERAPY [9032] Order #: [id number]: 1 FUTURE Prescriptions as of 01/12/2024 - oxyCODONE IR (ROXICODONE) 5 mg immediate release tablet Take 1-2 tablets by mouth four times a day as needed for pain for up to 7 days. - aspirin, enteric coated (ASPIRIN, ENTERIC COATED) 81 mg EC tablet Take 1 tablet by mouth two times a day. - acetaminophen (TYLENOL) 500 mg tablet Take 2 tablets by mouth every 8 hours as needed for pain. - ascorbic acid, vitamin C, (VITAMIN C) 500 mg tablet Take 1 tablet by mouth two times a day with meals for 27 doses. - docusate sodium (COLACE) 100 mg capsule Take 1 capsule by mouth two times a day as needed for constipation. - polyethylene glycol 3350 (MIRALAX) 17 gram/dose powder Take 17 g by mouth once daily as needed for constipation for up to 10 days. Dissolve dose in 4 - 8 ounces of liquid and take as directed. - lisinopril (ZESTRIL, PRINIVIL) 5 mg tablet Take 5 mg by mouth once daily. Patient should start on December 31, 2023. - ubidecarenone/vitamin E mixed (COQ10 SG 100 ORAL) Take 1 tablet by mouth once daily. - atenolol (TENORMIN) 50 mg tablet Take 50 mg by mouth once daily. - MULTIVITAMIN ORAL Take 1 tablet by mouth once daily. - CALCIUM CARBONATE/VITAMIN D3 (CALCIUM 600 + D ORAL) Take 2 tablets by mouth once daily. - atorvastatin (LIPITOR) 10 mg tablet Take 10 mg by mouth once daily. - clonazePAM (KLONOPIN) 0.5 mg tablet Take 0.025 tablets by mouth every 6 hours as needed for Anxiety. - paroxetine (PAXIL) 20 mg ORAL tablet Take 20 mg by mouth once daily. Problem List As Of Date 01/12/2024 Noted Resolved Knee pain [M25.569] 11/30/2010 Arthritis of knee [M17.10] 12/16/2010 Toe pain [M79.676] 07/05/2014 Degenerative tear of medial meniscus of left kn*01/18/2015 Essential hypertension [I10] 04/14/2015 GERD (gastroesophageal reflux disease) [K21.9] 04/14/2015 Hyperlipidemia [E78.5] 04/14/2015 Anxiety [F41.9] 04/14/2015 Primary osteoarthritis of right knee [M17.11] 08/06/2019 01/19/2020 BMI 29.0-29.9,adult [Z68.29] 01/05/2020 History of total right knee replacement [Z96.65*12/11/2023 AV block, 1st degree [I44.0] 12/11/2023 Obesity, Class I, BMI 30-34.9 [E66.811] 12/30/2023 S/P total knee arthroplasty, left [Z96.652] 12/30/2023 Letter Text Encounter Status:Closed by HU ZAMORA (more content not included)... Normal [facility] XR KNEE 3V AP/LAT/MERCHANT L Ton 01-12-2024 XR KNEE 3V AP/LAT/MERCHANT LT * * *Final Report* * * DATE OF EXAM: Jan 12 2024 1:48PM EBENEZER 5208 - XR KNEE 3V AP/LAT/MERCHANT LT / PROCEDURE REASON: M25.562-Left knee pain, unspecified chronicity * * * * Physician Interpretation * * * * PROCEDURE: Left knee INDICATION: Left knee pain, unspecified chronicity .left knee f/u TECHNIQUE: XR KNEE 3V AP/LAT/MERCHANT LT COMPARISON: 05/12/2023 FINDINGS: There is a new total knee arthroplasty in satisfactory position. No periprosthetic lucency or fracture. No soft tissue emphysema. Right TKA is evident. IMPRESSION: Interval TKA without radiographic complication Electron Beam Photo Mask Maker: [email or web address] Transcribe Date/Time: Jan 15 2024 1:43P Dictated by : JADA SPENCER MD This examination was interpreted and the report reviewed and electronically signed by: JADA SPENCER MD on Jan 15 2024 1:44PM EST [id number] [facility] 01-05-2024 [facility] Telephone (HCSIND) RAYMOND SHARMA ([id number]) 1960 F FNS Date Time Provider Department 01/05/24 KENISHA GRANT HCSIND During your visit today, we recorded the following information about you: Kenisha Grant, HAIR SALON MANAGER 01/05/2024 2:53 PM Signed Removed surgical bandage today. No concerns. Picture obtained and uploaded to chart. Also, patient stated she called for a refill of her pain meds but forgot to ask if that could be called into [facility]Note 2[facility] on [facility]. Patient is planning on going to OP PT at [facility] which is not in network. Can you please fax order to [phone]? Thanks Maribel Gamboa PA-C 01/05/2024 3:57 PM Signed OP PT order faxed to [facility]. Maribel Gamboa PA-C 01/05/2024 3:57 PM Signed Addended by: MARIBEL GAMBOA on: 01/05/2024 03:57 PM Modules accepted: Orders Allergies As of Date: 01/05/2024 Noted Allergy Reaction SULFA (SULFONAMIDE ANTIBIOTICS) 12/03/2010 4 - Hives Date Reviewed: 01/05/2024 Reviewed by: Kenisha Grant PTA - Fully Assessed Reason for Visit: Home Care [4073] Cmt: Bandage removal Primary Visit Diagnosis:Arthritis of knee [M17.10] Order(s):CONSULT TO PHYSICAL THERAPY [9032] Order #: [id number]: 1 FUTURE Prescriptions as of 01/05/2024 - aspirin, enteric coated (ASPIRIN, ENTERIC COATED) 81 mg EC tablet Take 1 tablet by mouth two times a day. - oxyCODONE IR (ROXICODONE) 5 mg immediate release tablet Take 1-2 tablets by mouth four times a day as needed for pain for up to 7 days. - acetaminophen (TYLENOL) 500 mg tablet Take 2 tablets by mouth every 8 hours as needed for pain. - ascorbic acid, vitamin C, (VITAMIN C) 500 mg tablet Take 1 tablet by mouth two times a day with meals for 27 doses. - docusate sodium (COLACE) 100 mg capsule Take 1 capsule by mouth two times a day as needed for constipation. - polyethylene glycol 3350 (MIRALAX) 17 gram/dose powder Take 17 g by mouth once daily as needed for constipation for up to 10 days. Dissolve dose in 4 - 8 ounces of liquid and take as directed. - lisinopril (ZESTRIL, PRINIVIL) 5 mg tablet Take 5 mg by mouth once daily. Patient should start on December 31, 2023. - ubidecarenone/vitamin E mixed (COQ10 SG 100 ORAL) Take 1 tablet by mouth once daily. - atenolol (TENORMIN) 50 mg tablet Take 50 mg by mouth once daily. - MULTIVITAMIN ORAL Take 1 tablet by mouth once daily. - CALCIUM CARBONATE/VITAMIN D3 (CALCIUM 600 + D ORAL) Take 2 tablets by mouth once daily. - atorvastatin (LIPITOR) 10 mg tablet Take 10 mg by mouth once daily. - clonazePAM (KLONOPIN) 0.5 mg tablet Take 0.025 tablets by mouth every 6 hours as needed for Anxiety. - paroxetine (PAXIL) 20 mg ORAL tablet Take 20 mg by mouth once daily. Problem List As Of Date 01/05/2024 Noted Resolved Knee pain [M25.569] 11/30/2010 Arthritis of knee [M17.10] 12/16/2010 Toe pain [M79.676] 07/05/2014 Degenerative tear of medial meniscus of left kn*01/18/2015 Essential hypertension [I10] 04/14/2015 GERD (gastroesophageal reflux disease) [K21.9] 04/14/2015 Hyperlipidemia [E78.5] 04/14/2015 Anxiety [F41.9] 04/14/2015 Primary osteoarthritis of right knee [M17.11] 08/06/2019 01/19/2020 BMI 29.0-29.9,adult [Z68.29] 01/05/2020 History of total right knee replacement [Z96.65*12/11/2023 AV block, 1st degree [I44.0] 12/11/2023 Obesity, Class I, BMI 30-34.9 [E66.811] 12/30/2023 S/P total knee arthroplasty, left [Z96.652] 12/30/2023 Encounter Status:Closed by KENISHA GRANT on 01/05/24 Normal [facility] CNCOon 01-01-2024 CNCO Letter Text Normal [facility] Basic metabolic 2000 panelon 12-30-2023 Anion gap [Moles/Vol] 8 mmol/L Normal 8-15 [facility] Comment on above: Order Comment: Speci men Type: BLOOD SPECIMENOrdering Facility: [facility] Address: [address] [place] [address] Performed By: #### 2 4321-2 ####[facility] LABORATORYCLIA [id number] [place] [address] [place] Calcium [Mass/Vol] 8.8 mg/dL Normal 8.5-10.2 [facility] Comment on above: Order Comment: Elenoi men Type: BLOOD SPECIMENOrdering Facility: [facility] Address: [address] [place] [address] Performed By: #### 2 4321-2 ####[facility] LABORATORYCLIA [id number] [place] [address] [place] Chloride [Moles/Vol] 100 mmol/L Normal 98-107 [facility] Comment on above: Order Comment: Amber lee Type: BLOOD SPECIMENOrdering Facility: [facility] Address: [address] [place] [address] Performed By: #### 2 4321-2 ####[facility] LABORATORYCLIA [id number] [address] [place] CO2 [Moles/Vol] 28 mmol/L Normal 22-30 [facility] Comment on above: Order Comment: Amber men Type: BLOOD SPECIMENOrdering Facility: [facility] Address: [address] [place] [address] Performed By: #### 2 4321-2 ####[facility] LABORATORYCLIA [id number] [address] OF [facility] Creatinine [Mass/Vol] 0.83 mg/dL Normal 0.58-0.96 [facility] Comment on above: Order Comment: Elenoi men Type: BLOOD SPECIMENOrdering Facility: [facility] Address: [address] [place] [address] Performed By: #### 2 4321-2 ####S[facility] LABORATORYCLIA [id number] [address] Creatinine and Glomerular filtration rate.predicted panel (S/P/Bld) 79 mL/min/1.73m??? Normal >=60 [facility] Comment on above: Order Comment: Amber lee Type: BLOOD SPECIMENOrdering Facility: [facility] Address: [address] [place] [address] Result Comment: Raisa mated Glomerular Filtration Rate (eGFR) is calculated using the 2020 CKD-EPI creatinine equation. This equation utilizes serum creatinine, sex, and age as parameters. The creatinine assay has traceable calibration to isotope dilution-mass spectrometry. Refer to KDIGO guidelines for clinical interpretation. In patients with unstable renal function, e.g. those with acute kidney injury, the eGFR may not accurately reflect actual GFR. Performed By: #### 2 4321-2 ####S[facility] LABORATORYCLIA [id number] [place] [address] [place] Glucose [Mass/Vol] 169 mg/dL High 74-99 [facility] Comment on above: Order Comment: Amber lee Type: BLOOD SPECIMENOrdering Facility: [facility] Address: [address] [place] [address] Result Comment: The [place] Diabetes Association (ADA) provides guidance for cutoff values for fasting glucose and random glucose. The ADA defines fasting as no caloric intake for at least 8 hours. Fasting plasma glucose results between 100 to 125 mg/dL indicate increased risk for diabetes (prediabetes). Fasting plasma glucose results greater than or equal to 126 mg/dL meet the criteria for diagnosis of diabetes. In the absence of unequivocal hyperglycemia, results should be confirmed by repeat testing. In a patient with classic symptoms of hyperglycemia or hyperglycemic crisis, random plasma glucose results greater than or equal to 200 mg/dL meet the criteria for diagnosis of diabetes. Reference: Standards of Medical Care in Diabetes 2016, [place] [employer] Association. Diabetes Care. 2016.39(Suppl 1). Performed By: #### 2 4321-2 ####S[facility] LABORATORYCLIA [id number] [place] [id number] [place] Potassium [Moles/Vol] 4.4 mmol/L Normal 3.7-5.1 [facility] Comment on above: Order Comment: Amber lee Type: BLOOD SPECIMENOrdering Facility: [facility] Address: [address] [place] [address] Performed By: #### 2 4321-2 ####S[facility] LABORATORYCLIA [id number] [place] [id number] [place] Sodium [Moles/Vol] 136 mmol/L Normal 136-144 [facility] Comment on above: Order Comment: Amber lee Type: BLOOD SPECIMENOrdering Facility: [facility] Address: [address] [place] [address] Performed By: #### 2 4321-2 ####S[facility] LABORATORYCLIA [id number] [place] [id number] [place] Urea nitrogen [Mass/Vol] 24 mg/dL High 7-21 [facility] Comment on above: Order Comment: Speci men Type: BLOOD SPECIMENOrdering Facility: [facility] Address: [facility] [place] [address] Performed By: #### 2 4321-2 ####CARLE[facility] LABORATORYCLIA [id number] [place] [address] [place] CASE MANAGEMon 12-30-2023 CASE MANAGEM HNO ID: [id number] Author: GLENDA MCCOY RN Service: ? Author Type: Registered Nurse Type: Care Mgt Progress Note Filed: 12/30/2023 11:30 Note Text: CARE MANAGEMENT DISCHARGE NOTE SERVICE DATE: December 30, 2023 SERVICE TIME: 11:30 AM Admission Date: 12/29/2023 LOS: 0 days Discharge Arrangement Discharge Arrangement: Home with Home Health Services Arranged Medical Services: Skilled Home Health Care Type: Home Health Agency, Physical Therapy Provider Name: [facility] Caregiver Assessment Caregiver is ready, willing and able to meet the patient's needs as recommended by the inter-professional team: Yes Name of Caregiver: Son and daughter Transportation Arrangements Transportation Arrangements: Car- Son to transport Handoff Communication: Handoff to: Primary Care Physician Primary Care Physician Name/Phone: Dr. Carlos Granado-[phone] Additional Information: Discharge order written for today. [facility] will be seeing the patient for Home PT with a start of care date within 24-48 hours. Notified [facility] of the patients discharge home today. Discharge Information Row Name Admission (Current) from 12/29/[address] Care Agency [facility] Start of Care -- Within 24-48 hours SIGNATURE: Glenda Mccoy RN PATIENT NAME: Raymond Sharma DATE: December 30, 2023 TIME: 11:29 AM CONTACT #: [phone] Normal [facility] [place] [facility]: [id number] Author: GLENDA MCCOY RN Service: ? Author Type: Registered Nurse Type: Care Mgt Initial Assessment Filed: 12/30/2023 09:11 Note Text: CARE MANAGEMENT: ASSESSMENT AND DISCHARGE PLAN SERVICE DATE: December 30, 2023 SERVICE TIME: 9:06 AM PCP: Carlos Granado MD Primary Contact: Extended Emergency Contact Information Primary Emergency Contact: Emilee Trinidad Mobile Relation: Daughter Secondary Emergency Contact: Khris Sharma Mobile Relation: None Admission Status: Extended Recovery Insurance Provider: [employer] SUPERMED PPO Discharge Planning requested by: Per Department Practice Potential Transition Plans Home OT/PT Advance Directives Current Advance Directive: Health Care Power of Advanced Developer;Living Will In Chart: No Current Living Arrangements and Support Lives with: Alone Type of Residence: Private Residence (House) Does the patient have to climb stairs at home?: Yes;stairs outside the home;stairs within the home Support: Children How do you manage to accomplish the following: Independent: Ambulation;Bathe/Show er;Dress;Meals/Meal Prep;Going to the bathroom;Medication Management;Transporta tion to appointments/communit y Current Services/Equipment Current Post-Acute Service(s): DME Current DME Type: Walker, Crutches, Cane Discharge Planning Patient Goal(s): Be able to go home, Better mobility [place] of Choice Explained: [place] of Choice Given: Yes Level of Care Discussed: Home Care Are you interested in bedside delivery of your medications? Yes Discharge Planning Participant(s): Patient Patient/Family Comments: Caregiver Assessment: Caregiver is ready, willing and able to meet the patient's needs as recommended by the inter-professional team: Yes Name of Caregiver: Son/Daughter Transport at Discharge: Transportation Arrangements: Car Needs Prior to Discharge: Needs Prior to Discharge: Other: See Comment (Accepting [facility] agency) Post-Acute Discharge Plan: Review of the chart and met with the patient. The patient lives alone in a tri level home, bedroom on the 2nd floor. PT- Home PT. Discussed PT recommendations with the patient. The patient stated he would like to use [facility] for her Home PT. Notified the patient [facility] is an OP rehab facility. Patient in agreement with referral to [facility]. CM department will continue to follow for DC needs. 9:11 am-[facility] able to accept. SIGNATURE: Glenda Mccoy RN PATIENT NAME: Raymond Sharma DATE: December 30, 2023 TIME: 9:06 AM CONTACT #: [phone] Normal [facility] CBC panel Auto (Bld)on 12-29 Erythrocyte distribution width (RBC) [Ratio] 11.9 % Normal 11.5-15.0 [facility] Comment on above: Order Comment: Speci men Type: BLOOD SPECIMENOrdering Facility: [facility] Address: [address] [place] [address] Performed By: #### 5 8410-2 ####[facility] LABORATORYCLIA [id number] [address] OF [facility] Hematocrit (Bld) [Volume fraction] 36.0 % Normal 36.0-46.0 [facility] Comment on above: Order Comment: Speci men Type: BLOOD SPECIMENOrdering Facility: [facility] Address: [address] [place] [address] Performed By: #### 5 8410-2 ####[facility] LABORATORYCLIA [id number] [address] OF [place] Hemoglobin (Bld) [Mass/Vol] 11.9 g/dL Normal 11.5-15.5 [facility] Comment on above: Order Comment: Speci men Type: BLOOD SPECIMENOrdering Facility: [facility] Address: [address] [place] [address] Performed By: #### 5 8410-2 ####S[facility] LABORATORYCLIA [id number] [address] [place] [facility] MCH (RBC) [Entitic mass] 30.8 pg Normal 26.0-34.0 [facility] Comment on above: Order Comment: Speci men Type: BLOOD SPECIMENOrdering Facility: [facility] Address: [address] [place] [address] Performed By: #### 5 8410-2 ####[facility] LABORATORYCLIA [id number] [address] [place] MCHC (RBC) [Mass/Vol] 33.1 g/dL Normal 30.5-36.0 [facility] Comment on above: Order Comment: Speci men Type: BLOOD SPECIMENOrdering Facility: [facility] Address: [address] [place] [address] Performed By: #### 5 8410-2 ####S[facility] LABORATORYCLIA [id number] [place] [address] [place] MCV (RBC) [Entitic vol] 93.3 fL Normal 80.0-100.0 M [facility] Comment on above: Order Comment: Speci men Type: BLOOD SPECIMENOrdering Facility: [facility] Address: [address] [place] [address] Performed By: #### 5 8410-2 ####[facility] LABORATORYCLIA [id number] [address] [place] Nucleated RBC (Bld) [#/Vol] 10*3/uL Normal <0.01 [facility] Comment on above: Order Comment: Speci men Type: BLOOD SPECIMENOrdering Facility: [facility] Address: [address] [place] [address] Performed By: #### 5 8410-2 ####S[facility] LABORATORYCLIA [id number] [address] [place] Platelet mean volume (Bld) [Entitic vol] 10.5 fL Normal 9.0-12.7 [facility] Comment on above: Order Comment: Speci men Type: BLOOD SPECIMENOrdering Facility: [facility] Address: [address] [place] [address] Performed By: #### 5 8410-2 ####S[facility] LABORATORYCLIA [id number] [address] [place] Platelets (Bld) [#/Vol] 174 10*3/uL Normal 150-400 [facility] Comment on above: Order Comment: Speci men Type: BLOOD SPECIMENOrdering Facility: [facility] Address: [facility] [place] [address] Performed By: #### 5 8410-2 ####S[facility] LABORATORYCLIA [id number] [place] [address] [place] RBC (Bld) [#/Vol] 3.86 10*6/uL Low 3.90-5.20 [facility] Comment on above: Order Comment: Speci men Type: BLOOD SPECIMENOrdering Facility: [facility] Address: [address] [place] [id number] Performed By: #### 5 8410-2 ####[facility] LABORATORYCLIA [id number] [address] WBC (Bld) [#/Vol] 11.73 10*3/uL High 3.70-11.00 [facility] Comment on above: Order Comment: Speci men Type: BLOOD SPECIMENOrdering Facility: [facility] Address: [address] [place] [id number] Performed By: #### 5 8410-2 ####[facility] LABORATORYCLIA [id number] [address] CNCOon 12-30-2023 CNCO Letter Text Normal [facility] CNDSon 12-30-2023 CNDS HNO ID: [id number] Author: MAXIMO CARO MD Service: Orthopaedic Surgery Author Type: Physician Information Technology Associate Type: Discharge Summary Filed: 12/30/2023 17:13 Note Text: Attestation signed by Maximo Caro MD at 12/30/2023 5:13 PM Agree with above DISCHARGE SUMMARY PATIENT NAME: Raymond Sharma ADMISSION DATE: 12/29/2023 DISCHARGE DATE: 12/30/2023 PATIENT DISCHARGE SUMMARY C O N F I D E N T I A L I N F O R M A T I O N The following is a brief overview of your hospitalization. Some of the information contained on this summary may be confidential. This information should be kept in your records and should be shared with your regular doctor. These instructions explain what you or your eye care professional need to do to continue your care at home or at another healthcare facility Please go over these instructions with your nurse and eye care professional. If you are not sure about something, please ask. Highest Readmission Risk Score: 8 The 30 day readmissions risk score is derived from an internally validated risk model which evaluates patient level characteristics, utilization history, medication orders and lab results up until the day of discharge. Patients with a score of 40 or above are considered highest risk for readmission. Specific patient level drivers will be listed at the bottom of the summary. The 30 day readmissions risk score is derived from an internally validated risk model which evaluates patient level characteristics, utilization history, medication orders and lab results up until the day of discharge. Patients with a score of 40 or above are considered highest risk for readmission. Where I Will be Going after Discharge: Home with Home Health My Condition at Discharge: Stable PRINCIPAL DIAGNOSIS: (Reason after study for this admission): Procedure(s): ROBOTIC ASSISTED TOTAL KNEE ARTHROPLASTY OTHER DIAGNOSES: Patient Active Hospital Problem List: Obesity, Class I, BMI 30-34.9 Date Noted: 12/30/2023 OPERATIONS PERFORMED: Procedure(s): ROBOTIC ASSISTED TOTAL KNEE ARTHROPLASTY My Doctors and Medical Team: [facility] Main [facility] Doctor: Maximo Justice MD PHYSICAL EXAM: See daily progress note Vitals: BP 113/65 Pulse (!) 58 Temp 37.4 ?C (99.3 ?F) (Oral) Resp 16 Ht 162.6 cm (5' 4") Wt 83 kg (182 lb 15.7 oz) SpO2 93% BMI 31.41 kg/m? SUMMARY OF WHAT HAPPENED WHILE PATIENT WAS IN THE HOSPITAL: The patient was followed by Dr. Caro in clinic for left knee osteoarthritis. It was determined the patient would benefit from left total knee arthroplasty. The procedure, its risks, benefits, and potential complications were discussed in detail prior to surgery. The patient conveyed understanding of all topics and consented to surgery. The patient was admitted to the hospital. Underwent an elective left total knee arthroplasty on 12/29/[address] Caro. The patient tolerated the procedure well and was returned to the Post Anesthesia Care Unit in stable condition. Vital signs per PACU protocol. VTE risk assessment performed. O2 therapy monitored by Respiratory Therapy to include incentive spirometry, ADL, wound and support per physician order set postop protocol. PT and OT to evaluate and treat. IV antibiotics, antiemetics, aspirin for DVT prophylaxis and pain medication were given. The patient progressed with physical therapy. Lab values and vital signs were monitored and remained stable. The incision remained clean, dry and intact. Thigh and calf are not swollen. No signs of DVT or infection. The patient progressed with physical therapy towards goal of safety and independence. Patient was determined safe for discharge to home with home health care on 12/30/2023. TREATMENT / WOUND CARE: If you have any concerns about your wound, please contact the office. Keep wound and incision area clean and dry. You may remove your dressing on POD #7-10 (7 to 10 days after surgery). If it remains drainage-free, you may leave the dressing off, keeping the wound open to air. If there is any drainage please contact the office You may not submerge the wound under standing water for 6 weeks time after surgery (i.e. no baths, no hot tubs, no swimming pools). Do not rub the wound, but rather pat dry. If you have non-absorbable sutures in place, these will be taken out on your 1st follow-up appointment. Observe the wound for signs of infection, including increased redness, swelling, or persistent drainage around the incision site. It is normal for your wound to be warmer immediately after surgery (even up to 4-6 weeks after surgery). If you begin to experience fevers, (more content not included)... [id number] Author: MAXIMO CARO MD Service: Orthopaedic Surgery Author Type: Physician Type: Discharge Summary Filed: 12/31/2023 16:45 Note Text: DISCHARGE SUMMARY PATIENT NAME: Raymond Sharma ADMISSION DATE: 12/29/2023 DISCHARGE DATE: 12/30/2023 PATIENT DISCHARGE SUMMARY C O N F I D E N T I A L I N F O R M A T I O N The following is a brief overview of your hospitalization. Some of the information contained on this summary may be confidential. This information should be kept in your records and should be shared with your regular doctor. These instructions explain what you or your eye care professional need to do to continue your care at home or at another healthcare facility Please go over these instructions with your nurse and eye care professional. If you are not sure about something, please ask. Highest Readmission Risk Score: 8 The 30 day readmissions risk score is derived from an internally validated risk model which evaluates patient level characteristics, utilization history, medication orders and lab results up until the day of discharge. Patients with a score of 40 or above are considered highest risk for readmission. Specific patient level drivers will be listed at the bottom of the summary. The 30 day readmissions risk score is derived from an internally validated risk model which evaluates patient level characteristics, utilization history, medication orders and lab results up until the day of discharge. Patients with a score of 40 or above are considered highest risk for readmission. Where I Will be Going after Discharge: Home with Home Health My Condition at Discharge: Stable PRINCIPAL DIAGNOSIS: (Reason after study for this admission): Procedure(s): ROBOTIC ASSISTED TOTAL KNEE ARTHROPLASTY OTHER DIAGNOSES: Patient Active Hospital Problem List: Obesity, Class I, BMI 30-34.9 Date Noted: 12/30/2023 S/P total knee arthroplasty, left Date Noted: 12/30/2023 OPERATIONS PERFORMED: Procedure(s): ROBOTIC ASSISTED TOTAL KNEE ARTHROPLASTY My Doctors and Medical Team: My Main Hospital Doctor: Maximo Justice MD PHYSICAL EXAM: See daily progress note Vitals: BP 113/65 Pulse (!) 58 Temp 37.4 ?C (99.3 ?F) (Oral) Resp 16 Ht 162.6 cm (5' 4") Wt 83 kg (182 lb 15.7 oz) SpO2 93% BMI 31.41 kg/m? SUMMARY OF WHAT HAPPENED WHILE PATIENT WAS IN THE HOSPITAL: The patient was followed in the office by Dr. Caro in clinic for left knee pain due to osteoarthritis. It was determined the patient would benefit from total knee arthroplasty. The procedure, its risks, benefits, and potential complications were discussed in detail prior to surgery. The patient conveyed understanding of all topics and consented to surgery. The patient was admitted to the hospital. Underwent an elective total knee arthroplasty on 12/29/[address] Caro. The patient tolerated the procedure well and was returned to the Post Anesthesia Care Unit in stable condition. Vital signs per PACU protocol. VTE risk assessment performed. O2 therapy monitored by Respiratory Therapy to include incentive spirometry, ADL, wound and support per physician order set postop protocol. PT and OT to evaluate and treat. IV antibiotics, antiemetics, 81 mg aspirin twice daily for DVT prophylaxis and pain medication were given. The patient progressed with physical therapy. Lab values and vital signs were monitored and remained stable. The incision remained clean, dry and intact. Thigh and calf are not swollen. No signs of DVT or infection. The patient progressed with physical therapy towards goal of safety and independence. Patient was determined safe for discharge to home with home physical therapy on 12/30/2023 . TREATMENT / WOUND CARE: If you have any concerns about your wound, please contact the office. Keep wound and incision area clean and dry. You may remove your dressing on POD #7. If it remains drainage-free, you may leave the dressing off, keeping the wound open to air. If there is any drainage please contact the office You may not submerge the wound under standing water for 6 weeks time after surgery (i.e. no baths, no hot tubs, no swimming pools). Do not rub the wound, but rather pat dry. If you have non-absorbable sutures in place, these will be taken out on your 1st follow-up appointment. Observe the wound for signs of infection, including increased redness, swelling, or persistent drainage around the incision site. It is normal for your wound to be warmer immediately after surgery (even up to 4-6 weeks after surgery). If you begin to experience fevers, chills, night sweats, or flu-like symptoms and your wound shows signs concerning for wound infection, please call the orthopaedic office immediately SUPPLIES OR EQUIPMENT NEEDED: Jason (more content not included)... Normal [facility] 12-30-2023 [facility] Telephone (HCSIND) RAYMOND SHARMA ([id number]) 1960 F FNS Date Time Provider Department 12/30/23 RAFA ALONZO HCSIND During your visit today, we recorded the following information about you: Rafa Alonzo PSS 12/30/2023 9:23 AM Signed Date/Time: 12/30/2023 9:15 AM Spoke with Raymond @ phone #: [phone] - Preferred # for contact: [phone] Have you received help from a home care company in the last 60 days? No Are you agreeable to [facility] services? yes What address will we be seeing you at? [address] [place], [place] [id number] Do you have any upcoming appointments or things we need to schedule around? No Do you have a teachable CG or can you manage your care independently? Family to assist Have you received the flu shot? No, not sure sure yet if she wants to LATRICE Espinal 12/30/2023 9:23 AM Allergies As of Date: 12/30/2023 Noted Allergy Reaction SULFA (SULFONAMIDE ANTIBIOTICS) 12/03/2010 4 - Hives Date Reviewed: 12/29/2023 Reviewed by: John Abrams, RN - Fully Assessed Reason for Visit: Home Care [4073] Cmt: Confirmation call Prescriptions as of 12/30/2023 - acetaminophen (TYLENOL EXTRA STRENGTH ORAL) Take by mouth. - lisinopril (ZESTRIL, PRINIVIL) 5 mg tablet Take 5 mg by mouth. - ubidecarenone/vitamin E mixed (COQ10 SG 100 ORAL) Take 1 tablet by mouth once daily. - atenolol (TENORMIN) 50 mg tablet Take 50 mg by mouth once daily. - MULTIVITAMIN ORAL Take by mouth once daily. - CALCIUM CARBONATE/VITAMIN D3 (CALCIUM 600 + D ORAL) Take 2 tablets by mouth once daily. - atorvastatin (LIPITOR) 10 mg tablet Take 10 mg by mouth once daily. - clonazePAM (KLONOPIN) 0.5 mg tablet Take 0.025 tablets by mouth every 6 hours as needed for Anxiety. - paroxetine (PAXIL) 20 mg ORAL tablet Take 20 mg by mouth once daily. Facility-Administered Medications as of 12/30/2023 - lisinopril 5 mg tab(s) (ZESTRIL) - scopolamine - VERIFY patch - scopolamine - REMOVE PATCH - scopolamine - VERIFY patch - scopolamine - REMOVE PATCH - clonazePAM 0.25 mg tab(s) (KlonoPIN) - atenolol 50 mg tab(s) (TENORMIN) - atorvastatin 10 mg tab(s) (LIPITOR) - oxyCODONE IR 5-10 mg tab(s) (ROXICODONE) - acetaminophen 1,000 mg tab(s) (TYLENOL) - ondansetron orally disintegrating 4 mg tab(s) (ZOFRAN ODT) - ondansetron (PF) 4 mg injection (ZOFRAN) - magnesium hydroxide 400 mg/5 mL 30 mL (MOM) - bisacodyl EC 10 mg tab(s) (DULCOLAX) - aluminum-magnesium hydroxide-simethicone 200-200-20 mg/5 mL 30 mL - ascorbic acid (vitamin C) 500 mg tab(s) (VITAMIN C) - docusate sodium 100 mg cap(s) (COLACE) - senna 17.2 mg tab(s) (SENOKOT) - aspirin, enteric coated 81 mg tab(s) - lactated ringers iv infusion - HYDROmorphone 0.4 mg injection (DILAUDID) - keTORolac 15 mg injection (Toradol) - PARoxetine (PAXIL) tab(s) 30 mg Problem List As Of Date 12/30/2023 Noted Resolved Knee pain [M25.569] 11/30/2010 Arthritis of knee [M17.10] 12/16/2010 Toe pain [M79.676] 07/05/2014 Degenerative tear of medial meniscus of left kn*01/18/2015 Essential hypertension [I10] 04/14/2015 GERD (gastroesophageal reflux disease) [K21.9] 04/14/2015 Hyperlipidemia [E78.5] 04/14/2015 Anxiety [F41.9] 04/14/2015 Primary osteoarthritis of right knee [M17.11] 08/06/2019 01/19/2020 BMI 29.0-29.9,adult [Z68.29] 01/05/2020 History of total right knee replacement [Z96.65*12/11/2023 AV block, 1st degree [I44.0] 12/11/2023 Encounter Status:Closed by RAFA ALONZO on 12/30/23 Normal [facility] CONSULTon 12-30-2023 CONSULT HNO ID: [id number] Author: MONA PIERCE MD Service: General Internal Medicine Author Type: Physician Type: Consults Filed: 12/30/2023 08:25 Note Text: Internal Medicine INITIAL CONSULT NOTE SERVICE DATE: 12/30/2023 REASON FOR CONSULT: Medical Management. REQUESTING PHYSICIAN: Dr. Caro. PRIMARY CARE PHYSICIAN: Carlos Granado MD Subjective Ms. Sharma is a 63 year old female who is s/p Left TKR for advanced OA under spinal. Pt is post op, doing well. Pt denies any cardiopulmonary symptoms. FUNCTIONAL STATUS: Independent PAST MEDICAL HISTORY Diagnosis Date Anxiety GERD (gastroesophageal reflux disease) HTN (hypertension) Hyperlipidemia PAST SURGICAL HISTORY Procedure Laterality Date ARTHROSCOPY KNEE DIAGNOSTIC W/WO SYNOVIAL BX SPX Left 05/04/15 Arthroscopy, knee ARTHRP KNE CONDYLEANDPLATU MEDIALANDLAT COMPARTMENTS Right 01/18/2020 Knee replacement, total COLONOSCOPY 2015 HYSTERECTOMY HX 2002 TONSILLECTOMY HX <12yo FAMILY HISTORY Problem Relation Age of Onset Arthritis Father Coronary Artery Disease Father [place] Hypertension Father Cancer Mother breast Social History Tobacco Use Smoking status: Never Smokeless tobacco: Never Vaping Use Vaping status: Never Used Substance Use Topics Alcohol use: No Drug use: No acetaminophen (TYLENOL EXTRA STRENGTH ORAL), Take by mouth., Disp: , Rfl: , 12/29/2023 at 0630 atenolol (TENORMIN) 50 mg tablet, Take 50 mg by mouth once daily., Disp: , Rfl: , 12/29/2023 MULTIVITAMIN ORAL, Take by mouth once daily., Disp: , Rfl: , Past Week atorvastatin (LIPITOR) 10 mg tablet, Take 10 mg by mouth once daily., Disp: , Rfl: , 12/28/2023 clonazePAM (KLONOPIN) 0.5 mg tablet, Take 0.025 tablets by mouth every 6 hours as needed for Anxiety., Disp: , Rfl: , 12/29/2023 paroxetine (PAXIL) 20 mg ORAL tablet, Take 20 mg by mouth once daily., Disp: , Rfl: , 12/28/2023 lisinopril (ZESTRIL, PRINIVIL) 5 mg tablet, Take 5 mg by mouth., Disp: , Rfl: , Unknown ubidecarenone/vitamin E mixed (COQ10 SG 100 ORAL), Take 1 tablet by mouth once daily. , Disp: , Rfl: , Unknown CALCIUM CARBONATE/VITAMIN D3 (CALCIUM 600 + D ORAL), Take 2 tablets by mouth once daily., Disp: , Rfl: , Unknown Current Facility-Administered Medications Medication Dose Route Frequency scopolamine - VERIFY patch OTHER q 8 H scopolamine - REMOVE PATCH OTHER ONCE scopolamine - VERIFY patch OTHER q 8 H scopolamine - REMOVE PATCH OTHER ONCE clonazePAM 0.25 mg tab(s) (KlonoPIN) 0.25 mg ORAL q 6 H PRN atenolol 50 mg tab(s) (TENORMIN) 50 mg ORAL DAILY atorvastatin 10 mg tab(s) (LIPITOR) 10 mg ORAL DAILY lisinopril 5 mg tab(s) (ZESTRIL) 5 mg ORAL DAILY oxyCODONE IR 5-10 mg tab(s) (ROXICODONE) 5-10 mg ORAL q 3 H PRN acetaminophen 1,000 mg tab(s) (TYLENOL) 1,000 mg ORAL q 8 H ondansetron orally disintegrating 4 mg tab(s) (ZOFRAN ODT) 4 mg ORAL q 6 H PRN Or ondansetron (PF) 4 mg injection (ZOFRAN) 4 mg INTRAVENOUS q 6 H PRN magnesium hydroxide 400 mg/5 mL 30 mL (MOM) 30 mL ORAL DAILY PRN [START ON 12/31/2023] bisacodyl EC 10 mg tab(s) (DULCOLAX) 10 mg ORAL DAILY aluminum-magnesium hydroxide-simethicone 200-200-20 mg/5 mL 30 mL 30 mL ORAL q 2 H PRN ascorbic acid (vitamin C) 500 mg tab(s) (VITAMIN C) 500 mg ORAL BID w MEALS docusate sodium 100 mg cap(s) (COLACE) 100 mg ORAL BID senna 17.2 mg tab(s) (SENOKOT) 17.2 mg ORAL AT BEDTIME aspirin, enteric coated 81 mg tab(s) 81 mg ORAL BID lactated ringers iv infusion 50 mL/hr INTRAVENOUS CONTINUOUS HYDROmorphone 0.4 mg injection (DILAUDID) 0.4 mg INTRAVENOUS q 3 H PRN keTORolac 15 mg injection (Toradol) 15 mg INTRAVENOUS q 6 H PRN PARoxetine (PAXIL) tab(s) 30 mg 30 mg ORAL DAILY Allergies As of Date: 05/14/2023 Allergen Noted Reaction SULFA (SULFONAMIDE ANTIBIOTICS) 12/03/2010 Hives Fully Assessed 05/12/2023 COMPLETE REVIEW OF SYSTEMS: GENERAL: No weight loss, malaise or fevers HEENT: Negative for frequent or significant headaches, No changes in hearing or vision, no nose bleeds or other nasal problems NECK: Negative for lumps, goiter, pain and significant neck swelling RESPIRATORY: Negative for cough, hemoptysis, wheezing, COPD, dyspnea or shortness of breath CARDIOVASCULAR: Negative for chest pain, leg swelling, hypertension, CHF or palpitations GI: No nausea, vomiting, or diarrhea MUSCULOSKELETAL: Negative for joint pain or swelling, back pain or muscle pain HEMATOLOGY/LYMPHOLOGY : Negative for prolonged bleeding, bruising easily or swollen nodes ENDOCRINE: Negative for cold or heat intolerance, polyuria, polydipsia and goiter NEURO: No history of headaches, syncope, paralysis, seizures or tremors Objective PHYSICAL EXAM: Physical Exam Performed: GENERAL: Alert, no distress, cooperative LUNGS: Lungs clear to auscultation, Good diaphragmatic excursion CARDIAC: Normal S1 and S2; no rubs, murmurs, or gallops Ext: no edema, dressing left knee. BP 102/50 Pulse 55 Tem (more content not included)... Normal [facility] THERAPY NTon 10-15-2024 THERAPY NT HNO ID: [id number] Author: MARÍA ELENA FROST OTR/Anne Service: Occupational Therapy Author Type: Occupational Therapist Type: Therapy (PT/OT/Speech/Resp) Filed: 12/30/2023 11:21 Note Text: Summary: OT eval Occupational Therapy Evaluation Summary SERVICE DATE: 12/30/2023 SERVICE TIME: 922 to 1022 ROOM: [place] [address] OT 6 Clicks Score: 21 Total Joint Replacement Discharge Readiness: Cleared from Occupational Therapy DISCHARGE RECOMMENDATIONS Home Recommended Discharge Disposition Comments: with increased assistance with LB self cares and IADLS initially Anticipated Discharge Needs: Physical Assist at Home Physical Assist at Home for: Cleaning, Laundry, Meals, Stairs, Safety, Self Care Supervision at Home due to: Other: See Comment (initially for optimal recovery) Recommended Discharge Equipment: Shower Chair ASSESSMENT Response to Therapy Interventions: Good Participation in Activities, Improved Tolerance for Activity, Notable Progression with Functional Activities/Skills, On-Track to Achieve Discharge Goals, Pain, Requires Additional Time to Complete Activities Pt is willing to participate in all therapy tasks. BP stable throughout session without report of symptoms. Patient is at CGA level for ADLs and functional mobility at this time. Pt will benefit from assistance initially for optimal safety in home environment. PRECAUTIONS Fall Risk, Lines/Tubes/Drains, Total Knee Replacement, Weight Bearing Restrictions Left Lower Extremity Weight Bearing Status: WBAT CURRENT HOSPITAL COURSE post ROBOTIC ASSISTED TOTAL KNEE ARTHROPLASTY (Left: Knee) Relevant Past Medical History: anxiety,GERD,HTN,HLD, R TKA HOME LIVING Patient Lives With: Self/Alone Assistance Available: Part-Time (family to take shifts staying with patient) Entry To Home: Stairs, Without Rail Number Of Stairs Into Home: 3 Number Of Stairs To Bed/Bath: 6 (down) Stairs to Bed/Bath with: No Rail Tub/Shower Type: walk in shower Laundry: basement level Equipment Owned: Cane, Crutch(es), Walker- Wheeled, Commode- Raised, Loan Service Officer PRIOR FUNCTIONAL LEVEL Within Functional Limits Pt reports independence with ADLs/IADLs, + 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 Baseline Cognition: Oriented to self, Oriented to time, Oriented to place, Oriented to situation SUBJECTIVE I had my right knee done 4 years ago" COGNITION Orientation Deficits: (AO x4, forgetful medication effects?) Follows Commands: 2-step Commands THERAPY DIAGNOSIS Decreased activities of daily living (ADL) TREATMENT INTERVENTIONS Evaluation, Therapeutic Activity (23677), Self Prison Management (02823) Timed Code Treatment (minutes): 45 Skilled Treatment Time (minutes): 60 TRAINING AND EDUCATION PROVIDED Activity Adaptation/Compensato ry Strategies, Adaptive Equipment/DME, Assistive Device Use, Bed Mobility, Benefits of In-Hospital Mobility, Discharge Planning, Edema Management, Expected Functional Level, Functional Mobility Involving ADLs, Grooming Tasks, Home Set-up/Modifications, Lower Extremity Bathing, Lower Extremity Dressing, Pain Management, Positioning, Precautions/Restricti ons, Role of Occupational Therapy, Safety/Judgment, Standing Balance to Improve Jack with ADLs/Self-Care, Toileting , Transfer - Shower, Transfer - Sit to Stand, Transfer - Toilet/Commode THERAPEUTIC SKILLS USED Activity Dosing, Assessment of Tolerance Including Vitals Response to Activity, Cues for Sequencing/Proper Technique for Activity, Cuing Tactile, Cuing Verbal, Cuing Visual, Management of Critical Lines, Tubes and/or Drains, Physical Assist, Teach-Back for Education, Therapeutic Use of Self FUNCTIONAL STATUS Activities of Daily Living Assist Level Additional Information Feeding Independent Grooming Stand By Assistance, Additional Information for safety during standing portion of task at sink Bathing Upper Body Stand By Assistance Bathing Lower Body Contact Guard Assistance, Additional Information for safety during standing portion; recommend long handled sponge Dressing Upper Body Stand By Assistance Dressing Lower Body Contact Guard Assistance, Additional Information with use of accounting machine mechanic to don underwear seated edge of bed Toileting Contact Guard Assistance, Additional Information for safety in standing, pt able to manage clothing and hygiene Mobility Assist Level Additional Information Bed Mobility Supine To Sit: Stand By Assistance Sit to Stand Contact Guard Assistance Stand to Sit Contact Guard Assistance Bed to Chair Toilet/Commode Stand By Assistance Shower Functional Mobility Contact Guard Assistance Functional Mobility Device: Wheeled Walker GOALS Patient will demonstrate pro (more content not included)... [facility] THERAPY NT HNO ID: [id number] Author: SHARON PETERS PTA Service: Physical Therapy Author Type: Validation Intern Type: Therapy (PT/OT/Speech/Resp) Filed: 12/30/2023 08:25 Note Text: Attestation signed by Barb Alvarado, PT at 12/30/2023 1:59 PM I reviewed and agree with the documentation corresponding to this therapy visit. SIGNATURE: Barb Alvarado PT DATE: December 30, 2023 TIME: 1:59 PM Physical Therapy Treatment Summary SERVICE DATE: 12/30/2023 SERVICE TIME: 718 to 820 ROOM: [place] [address] PT 6 Clicks Score: 18 Total Joint Replacement Discharge Readiness: Cleared from Physical Therapy DISCHARGE RECOMMENDATIONS Home PT Recommended Discharge Disposition Comments: for progression of LLE strength and flexibility post TKA Recommended Discharge Equipment: No equipment needs anticipated ASSESSMENT Response to Therapy Interventions: Good Participation in Activities, Improved Tolerance for Activity, On-Track to Achieve Discharge Goals, Pain Patient successfully able to progress ambulation distance and initiate stair training with no adverse effects. Patient requires no more than CGA with all functional mobility and appropriately follows therapist cues. Patient is safe for DC home. PRECAUTIONS Fall Risk, Lines/Tubes/Drains, Total Knee Replacement, Weight Bearing Restrictions Left Lower Extremity Weight Bearing Status: WBAT CURRENT HOSPITAL COURSE post ROBOTIC ASSISTED TOTAL KNEE ARTHROPLASTY (Left: Knee) Relevant Past Medical History: anxiety,GERD,HTN,HLD, R TKA HOME LIVING Patient Lives With: Self/Alone Assistance Available: PRN (son and family to assist) Entry To Home: Stairs, Without Rail Number Of Stairs Into Home: 3 Number Of Stairs To Bed/Bath: 6 Stairs to Bed/Bath with: No Rail Tub/Shower Type: walk in shower Laundry: basement level Equipment Owned: Cane, Crutch(es), Walker- Wheeled PRIOR FUNCTIONAL LEVEL Within Functional Limits Pt reports independence with ADLs/IADLs, + 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 SUBJECTIVE Patient pleasant and motivated to participate with PT. Ok per RN. THERAPY DIAGNOSIS Difficulty walking-musculoskelet al TREATMENT INTERVENTIONS Therapeutic Exercise (10970), Therapeutic Activity (77871), Gait Training (07731) Timed Code Treatment (minutes): 55 Skilled Treatment Time (minutes): 55 Therapeutic Exercise (79118) Treatment Minutes: 10 $ Therapeutic Exercise (40489) Billed Units: 1 unit Exercise Heel Slides (number of reps): x10 on surgical leg LAQ (number of reps): x10 on surgical leg Exercise: Reviewed HEP, patient verbalizes understanding Therapeutic Activity (67234) Treatment Minutes: 15 $ Therapeutic Activity (41317) Billed Units: 1 unit Gait Training (83772) Treatment Minutes: 30 $ Gait Training (68093) Billed Units: 2 units TRAINING AND EDUCATION PROVIDED Advanced Balance Activities, Anatomy and Impact on Deficits, Assistive Device Use, Bed Mobility, Benefits of In-Hospital Mobility, Discharge Planning, Equipment, Exercise Program, Expected Functional Level, Falls Prevention, Gait Pattern, Reduction of Deviations, Handout Issued, Home Set-up/Modifications, Home Safety, Positioning, Patient Exercise/Therapy Program Support Needs, Role of Physical Therapy, Stair Navigation, Standing Balance THERAPEUTIC SKILLS USED Activity Dosing, Cues for Sequencing/Proper Technique for Activity, Cuing Tactile, Facilitation of Joint Range of Motion, Movement Facilitation, Muscle Activation Facilitation, Physical Assist, Postural Alignment Correction FUNCTIONAL STATUS Bed Mobility Supine To Sit: Contact Guard Assistance HOB elevated, no use of rails Sit to Supine: Additional Information Patient in bed side chair Scooting: Contact Guard Assistance Transfers Sit To Stand: Contact Guard Assistance x1 trial from EOB, x3 trials from chair Stand To Sit: Contact Guard Assistance Cues for hand placement, surgical leg extension and controlled/eccentric decent Bed to Chair Gait Contact Guard Assistance Step-to gait, cues for upright posture, sequencing and safety Gait Device: Wheeled Walker General Deviations/Observatio ns: Breanne decreased, Step length decreased Gait Distance (feet): 50'x1, 20'x1 Gait Deviations Left Lower Extremity: Foot clearance decreased, Heel strike during initial stance decreased, Step length decreased, Weight bearing decreased Stairs Contact Guard Assistance Stairs Device: Cane, Hand Held Assist, Rail Number of Stairs: 6 [id number], demonstration provided, patient with good follow through, descends stairs with B rials GOALS Patient will demonstrate progress with functional mobility to allow safe discharge to home with available supp (more content not included)... Normal [facility] ANES POSTPROC EVALon 024 ANES POSTPROC EVAL HNO ID: [id number] Author: GENE DEL TORO DO Service: Anesthesiology Author Type: Anesthesiologist Type: Anesthesia Postprocedure Evaluation Filed: 12/29/2023 14:33 Note Text: POST ANESTHESIA EVALUATION NOTE : 1960 Procedure Summary Date: 12/29/23 Room / Location: [place] [address] / [place] Anesthesia Start: 1141 Anesthesia Stop: 1423 Procedure: ROBOTIC ASSISTED TOTAL KNEE ARTHROPLASTY (Left: Knee) Diagnosis: Primary osteoarthritis of left knee (Primary osteoarthritis of left knee [M17.12]) Surgeons: Maximo Caro MD Responsible Provider: Gene Del Toro DO Anesthesia Type: spinal ASA Status: 2 Anesthesia Type: spinal Last Vitals Vitals Value Taken Time BP 108/58 12/29/23 1421 Temp 12/29/23 1432 Pulse 51 12/29/23 1431 Resp 24 12/29/23 1431 SpO2 97 % 12/29/23 1431 Vitals shown include unfiled device data. Post Anesthesia Patient Status Patient Evaluation: PACU. PACU/ICU Patient Condition: stable. Anticipated Disposition: phase 2 then home. Neurological Status: aware and responsive. Pulmonary Status: breathing comfortably on room air Airway Control: returned to baseline unsupported. Cardiovascular Status: stable. Pain Management: clinically adequate Postoperative Hydration: acceptable. Intraoperative Events: no significant anesthesia events Post Operative Nausea/Vomiting Status: no significant post operative nausea or vomiting Recommendation: continue current plan of care and further care per PACU/ICU/floor team. Anesthesia Observations No Documentation SIGNATURE: Gene Del Toro DO PATIENT NAME: Raymond Sharma DATE: December 29, 2023 TIME: 2:32 PM CSN: [id number] [facility] ANES PRE-OPon 12-29-2023 ANES PRE-OP HNO ID: [id number] Author: GENE DEL TOOR DO Service: Anesthesiology Author Type: Anesthesiologist Type: Anesthesia Preprocedure Evaluation Filed: 12/29/2023 09:43 Note Text: ANESTHESIOLOGY DAY OF SURGERY NOTE : 1960 Procedure Information Date/Time: 12/29/23 1045 Procedure: ROBOTIC ASSISTED TOTAL KNEE ARTHROPLASTY (Left: Knee) Location: [place] [address] / [place] Surgeons: Maximo Caro MD Estimated body mass index is 29.35 kg/m? as calculated from the following: Height as of 12/10/23: 162.6 cm (5' 4"). Weight as of 12/10/23: 77.6 kg (171 lb). Most recent hematocrit and potassium results: Hematocrit 44.0 12/10/2023 Potassium 4.7 12/10/2023 Relevant Problems CARDIO (+) AV block, 1st degree (+) Essential hypertension GI (+) GERD (gastroesophageal reflux disease) Other (+) Arthritis of knee I - PHYSICAL EVALUATION AIRWAY Patient intubated: No. Tracheostomy tube not present Mallampati: II. TM distance: >3 FB. Neck ROM: full ROM without neurological symptoms. Mouth opening: adequate. Short neck: no. Thick neck: no DENTAL Dental findings: teeth intact. II - ANESTHESIA PLAN ASA Score: 2 Anesthetic Plan: spinal NPO Status: adequate Beta Catalina Monitoring Plan Monitoring plan: standard ASA. Post Procedure Analgesic Plan Postoperative analgesic plan: parenteral or oral opioids, multimodal analgesia, per surgical service and peripheral nerve block. Informed Consent Anesthetic risks, benefits, alternatives, personnel and consent discussed: yes. Patient / Responsible Libertarian agrees to proceed: yes Patient / Surrogate agrees to blood products: Yes DNR status not reviewed with patient and/or family prior to surgery. Significant changes in the patient condition since the History and Physical, not otherwise documented in primary service progress note: no. Potential Anesthesia issues that may suggest increased risk of complications or contraindication to planned procedure: none. Discussed the possibility of lip / dental damage: yes Vitals Value Taken Time BP 164/76 12/29/23915 Pulse 51 12/29/23915 Resp 18 12/29/23915 Temp 36.6 ?C (97.9 ?F) 12/29/23915 SpO2 99 % 12/29/23915 Facility-Administered Medications as of 12/29/2023 Medication Dose Route Frequency acetaminophen 1,000 mg tab(s) (TYLENOL) 1,000 mg ORAL Pre-Op Once [COMPLETED] oxyCODONE ER 10 mg tab(s) (OxyCONTIN) 10 mg ORAL Pre-Op Once midazolam (PF) 2 mg injection (VERSED) 2 mg INTRAVENOUS ONCE lidocaine (PF) 10 mg/mL (1 %) 1-2 mg injection (XYLOCAINE) 0.1-0.2 mL INTRADERMAL PRN NaCl 0.9% iv flush bag 20 mL INTRAVENOUS PRN ceFAZolin iv piggyback 2 g in D5W (iso-osmotic) 100 mL (ANCEF) 2 g INTRAVENOUS Pre-Op Once tranexamic acid 1,000 mg in NaCl 0.9% 100 mL (CYKLOKAPRON) 1,000 mg INTRAVENOUS Pre-Op Once tranexamic acid 1,000 mg in NaCl 0.9% 100 mL (CYKLOKAPRON) 1,000 mg INTRAVENOUS ONCE ropivacaine 2.46 mg/mL-EPINEPHrine 0.005 mg/mL-cloNIDine 0.0008 mg/mL-ketorolac 0.3 mg/mL 50 mL injection (R.E.C.K.) 50 mL periarticular ONCE lactated ringers iv infusion 30 mL/hr INTRAVENOUS CONTINUOUS scopolamine 1 mg over 3 days 1 Patch (TRANSDERM-SCOP) 1 Patch TRANSDERMAL ONCE [COMPLETED] celecoxib 200 mg cap(s) (CeleBREX) 200 mg ORAL Pre-Op Once Outpatient Medications as of 12/29/2023 Medication Sig acetaminophen (TYLENOL EXTRA STRENGTH ORAL) Take by mouth. atenolol (TENORMIN) 50 mg tablet Take 50 mg by mouth once daily. MULTIVITAMIN ORAL Take by mouth once daily. atorvastatin (LIPITOR) 10 mg tablet Take 10 mg by mouth once daily. clonazePAM (KLONOPIN) 0.5 mg tablet Take 0.025 tablets by mouth every 6 hours as needed for Anxiety. paroxetine (PAXIL) 20 mg ORAL tablet Take 20 mg by mouth once daily. lisinopril (ZESTRIL, PRINIVIL) 5 mg tablet Take 5 mg by mouth. ubidecarenone/vitamin E mixed (COQ10 SG 100 ORAL) Take 1 tablet by mouth once daily. CALCIUM CARBONATE/VITAMIN D3 (CALCIUM 600 + D ORAL) Take 2 tablets by mouth once daily. I have interviewed and examined the patient. I have reviewed the medical record and/or the pre-anesthesia evaluation, pertinent labs, and test results. This contains updated information obtained within 48 hours of Surgery/Procedure. SIGNATURE: Gene Del Toro DO PATIENT NAME: Raymond Sharma DATE: December 29, 2023 TIME: 9:38 AM CSN: [id number] [facility] BRIEF OP NOTon 12-29-2023 BRIEF OP NOT HNO ID: [id number] Author: MAXIMO CARO MD Service: Orthopaedic Surgery Author Type: Physician Type: Brief Op Note Filed: 12/29/2023 19:36 Note Text: TOTAL KNEE ARTHROPLASTY BRIEF OPERATIVE / PROCEDURE NOTE LOG ID: [id number] Surgery/Procedure Date: 12/29/2023 Incision/Procedure Start Time: 12:17 PM Incision Close/Procedure End Time: 2:08 PM Surgeon(s)/Procedural ist(s) and Information Technology Associate(s): Surgeons and Role: * Maximo Caro MD - Primary Physician Information Technology Associate: Tere Tapia PA-C; Jaswinder Zamora PA-C Procedure(s): Procedure(s) (LRB): ROBOTIC ASSISTED TOTAL KNEE ARTHROPLASTY (Left) Anesthesia: Spinal Peripheral Block Type: Saphenous/Adductor and Exparel Approach: Median parapatellar Findings: Full-thickness osteoarticular wear medial compartment and patellofemoral joint left knee Estimated Blood Loss: 30 mls Specimens: Bone cuttings Complications: None Closure Technique: Primary Total Joint Arthroplasty (TJA) Surgical Risk Procedure: Primary total Knee replacement Date assessed: risk assessed on 05/12/2023 05/12/2023 TJA Risk Procedure Primary total Knee replacement Estimated Length of Stay (# of days) 1 Chance of NOT Returning Home at Discharge 6.11 30 Day Chance of Readmission 2.07 Implant: * No implants in log * Bearing Surface: Fixed Fixation: Cementless SSI Risk Factors: None Constraint: Retaining Option for [facility]/AP Constrained Other: None Pre-Op/Pre-Procedure Diagnosis: Primary osteoarthritis of left knee [M17.12] Post-Op/Post-Procedur e Diagnosis: Primary osteoarthritis of left knee [M17.12] Weight Bearing Status: Weight Bearing As Tolerated Patient was accompanied to the next level of care by a licensed practitioner from the surgical team pending completion of this brief op note (or operative note) SIGNATURE: Maximo Caro MD PATIENT NAME: Raymond Sharma DATE: December 29, 2023 TIME: 1:43 PM Normal [facility] Hematocrit Auto (Bld) [Volum e fraction]on 12-29-2023 Hematocrit (Bld) [Volume fraction] 41.8 % Normal 36.0-46.0 [facility] Comment on above: Order Comment: Speci men Type: BLOOD SPECIMENOrdering Facility: [facility] Address: [address] [place] [address] Performed By: #### 7 18-7, 4544-3 ####[facility]ORY[facility]IA [id number] [address] Hgb Bld-mCncon 12-29-2023 Hemoglobin (Bld) [Mass/Vol] 14.2 g/dL Normal 11.5-15.5 [facility] Comment on above: Order Comment: Speci men Type: BLOOD SPECIMENOrdering Facility: [facility] Address: [address] [place] [address] Performed By: #### 7 18-7, 4544-3 ####[facility]ORYCLIA [id number] [address] OPERATIVE NOon 12-29-2023 OPERATIVE NO HNO ID: [id number] Author: MAXIMO CARO MD Service: Orthopaedic Surgery Author Type: Physician Type: Operative Report Filed: 12/29/2023 19:36 Note Text: [facility] OPERATIVE REPORT PATIENT NAME: Raymond Sharma CSN: [id number] LOG ID: [id number] Surgery Date: 12/29/2023 Surgeon(s) and Information Technology Associate(s): Surgeons and Role: * Maximo Caro MD - Primary- surgeon * Venkatesh YO -Care Team Assistant No qualified orthopedic resident available. The PA was utilized for soft tissue retraction and to hold the limb in proper alignment to allow me to correctly implant the final arthroplasty components. BMI: Estimated body mass index is 31.41 kg/m? as calculated from the following: Height as of this encounter: 162.6 cm (5' 4"). Weight as of this encounter: 83 kg (182 lb 15.7 oz). Procedure(s): Procedure(s) (LRB): ROBOTIC ASSISTED TOTAL KNEE ARTHROPLASTY (Left) Anesthesia: Spinal Incision Start: 12:17 PM Incision Stop: 2:08 PM Attestation: I was present for all of the critical portions of the operation and performed all critical portions. The resident/fellow/PA assisted during exposure, implantation of the device, and deep closure. The PA /[employer] performed the closure of the subcutaneous tissue and skin. I was scrubbed from skin incision through the closure of the extensor mechanism and was immediately available for the duration of the entire case. Preop Diagnosis: Pre-Op Diagnosis Codes: * Primary osteoarthritis of left knee [M17.12] Postop Diagnosis: Same as Pre-Op Diagnosis Codes: * Primary osteoarthritis of left knee [M17.12] Implants: * No implants in log * OPERATIVE INDICATIONS: The patient has a long history of progressive left knee pain, arthritis, and degeneration. Non-operative treatment has been attempted but has not improved or controlled the symptoms and pain that occurs during normal daily activities. Knee motion has also become limited and is restricting the patient. Total knee arthroplasty was recommended. The risks, benefits and potential complications of the arthroplasty surgery were discussed with the patient in detail. Specific details of the surgical procedure, hospitalization, recovery, rehabilitation, and long-term precautions were also presented. Pre-operative teaching was provided. Implant/prosthesis selection was outlined, and the many options available were explained; the final choice will be made at the time of the procedure to match the anatomy and condition of the bone, ligaments, tendons, and muscles. The patient was evaluated medically for pre-operative optimization, and risk assessment. Lauren-operative blood management and the potential for blood transfusion were discussed with risks and options clearly outlined. Understanding of all topics was conveyed to me by the patient pre-operatively, and patient consent was given to proceed with the robotically assisted left total knee replacement. OPERATIVE PROCEDURE: The patient was identified and brought into the Operating Room by the anesthesia and nursing teams. Anesthesia was successfully performed. The patient was then positioned supine on the operating room table, and all bony prominences were padded. Intravenous antibiotic prophylaxis dosing was confirmed. A tourniquet was applied to the upper thigh. A full knee exam was done after anesthesia was in full effect. The patient had developed a varus deformity in the knee from cartilage wear and bone loss. Flexion contracture was mild. The leg was prepped and draped in the usual sterile fashion. A surgical time-out was performed immediately preceding the incision with all personnel in the operating room; the patient identity was again confirmed, the correct knee surgical site and extremity were identified and confirmed, X-rays were reviewed, and availability of the appropriate surgical equipment was established. A surgical time-out was performed immediately preceding the incision with all personnel in the operating room; the patient identity was again confirmed, the correct knee surgical site and extremity were identified and confirmed, X-rays were reviewed, and availability of the appropriate surgical equipment was established. The knee was exsanguinated and exposed using an anterior-midline skin incision. Dissection was carried down through skin and subcutaneous tissue to the extensor mechanism with a scalpel. A median para-patellar arthrotomy was made to enter the knee space sharply. A large amount of normal appearing joint fluid was encountered and suctioned. The synovium was thickened, hypertrophic, and inflamed. A partial synovectomy was performed for exposure, and the medial and lateral gutters were cleared of scar and synovial reflections. The deep fibers of the medial collateral ligament was carefully elevated off the proximal 5-10 mm of tibial bone. The patella was then subluxed laterally. The knee was then (more content not included)... [facility] SURGICAL PATHOLOGYon 14- 024 CASE REPORT [facility] Comment on above: Order Comment: Speci men Type: TISSUE SPECIMENOrdering Facility: [facility] Address: [address] [place] [address] Result Comment: Surg [facility] Pathology Report Case: [id number] Authorizing Provider: Maximo Caro MD Collected: 12/29/2023 12:28 PM Ordering Location: [facility] Surgery Received: 12/29/2023 02:33 PM Pathologist: Lexx Boyce MD Specimen: Knee, Left, Arthroplasty, left knee bone and curettings Performed By: #### S ####[facility] SAN FRANCISCOIA [id number] [place], [place] [id number] [place] [address] LABCLIA [id number] [address] OF [facility] CLINICAL HISTORY Normal [facility] Comment on above: Order Comment: Speci men Type: TISSUE SPECIMENOrdering Facility: [facility] Address: [address] [place] [address] Result Comment: Pre- op diagnosis: Primary osteoarthritis of left knee [M17.12] Performed By: #### S ####[facility] [id number] [place] [address] [facility] LABCLIA [id number] [address] FINAL DIAGNOSIS Normal [facility] Comment on above: Order Comment: Speci men Type: TISSUE SPECIMENOrdering Facility: [facility] Address: [address] [place] [address] Result Comment: A. L eft knee, arthroplasty: - Degenerative joint disease. - Synovium with reactive changes. Performed By: #### S ####[facility]CO[facility] [id number] [place] [address] [facility] LABCLIA [id number] [address] FINAL PERFORMING LAB Normal [facility] Comment on above: Order Comment: Speci men Type: TISSUE SPECIMENOrdering Facility: [facility] Address: [address] [place] [address] Result Comment: Diag nostic interpretation performed at [facility], [address] [place] [address] CLIA# [id number] Beekeeper: Maliha Wilkinson M.D. Performed By: #### S ####[facility] LABORATORYCLIA [id number] [place] [id number] [facility] LABIA [id number] [address] OF [facility] GROSS DESCRIPTION Normal [facility] Comment on above: Order Comment: Speci men Type: TISSUE SPECIMENOrdering Facility: [facility] Address: [address] [place] [address] Result Comment: Jian wilkinson, Left, Arthroplasty Received in formalin labeled "left knee bone and curettings" are multiple fragments of bone and cartilage measuring 12.3 x 9.5 x 1.7 cm in aggregate. One portion is recognizable as tibial plateau and shows eburnation and roughening of the articular surface. Separate fragments consistent with femoral condyles also show evidence of cartilage eburnation and roughening. Additionally received are multiple irregular fragments of stone soft tissue, possibly representing synovium, joint capsule, and meniscus. Surveying Technician sections are submitted as follows following decalcification: A1: Soft tissue A2: Two sections of condyles, following decalcification in formic acid A3: Two sections of tibial plateau, following decalcification in formic acid HMZ/NAHOMY 12/29/23 4:19 PM Gross examination performed at [facility], [address] [place] [address] Performed By: #### S ####[facility] LABORATORYIA [id number] [place] [id number] [facility] LABIA [id number] [address] OF [facility] THERAPY NTon 12-29-2023 THERAPY NT HNO ID: [id number] Author: BARB ALVARADO, PT Service: Physical Therapy Author Type: Physical Therapist Type: Therapy (PT/OT/Speech/Resp) Filed: 12/29/2023 18:32 Note Text: Summary: PT Eval Physical Therapy Evaluation Summary SERVICE DATE: 12/29/2023 SERVICE TIME: 1717 to 1804 ROOM: [place] [address] PT 6 Clicks Score: 19 Total Joint Replacement Discharge Readiness: Pending Physical Therapy Clearance DISCHARGE RECOMMENDATIONS Home PT Recommended Discharge Disposition Comments: for progression of LLE strength and flexibility post TKA Recommended Discharge Equipment: No equipment needs anticipated ASSESSMENT Response to Therapy Interventions: Good Participation in Activities, On-Track to Achieve Discharge Goals, Requires Additional Time to Complete Activities Pt is CGA/SBA with activity, reports increased pain from 2/10 to 5/10 with mobility, however is able to participate throughout session without adverse effects. PRECAUTIONS Fall Risk, Lines/Tubes/Drains, Total Knee Replacement, Weight Bearing Restrictions Left Lower Extremity Weight Bearing Status: WBAT CURRENT HOSPITAL COURSE post ROBOTIC ASSISTED TOTAL KNEE ARTHROPLASTY (Left: Knee) Relevant Past Medical History: anxiety,GERD,HTN,HLD, R TKA HOME LIVING Patient Lives With: Self/Alone Assistance Available: PRN (son and family to assist) Entry To Home: Stairs, Without Rail Number Of Stairs Into Home: 3 Number Of Stairs To Bed/Bath: 6 Stairs to Bed/Bath with: No Rail Tub/Shower Type: walk in shower Laundry: basement level Equipment Owned: Cane, Crutch(es), Walker- Wheeled PRIOR FUNCTIONAL LEVEL Within Functional Limits Pt reports independence with ADLs/IADLs, + 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 SUBJECTIVE Pt agreeable to PT, ok per nursing to treat. THERAPY DIAGNOSIS Difficulty walking-musculoskelet al TREATMENT INTERVENTIONS $ Evaluation-Low (58758) Billed Units: 1 unit Therapeutic Activity (38281) Treatment Minutes: 15 $ Therapeutic Activity (42899) Billed Units: 1 unit Exercise Ankle Pumps (number of reps): BLE x 10 Quad Sets (number of reps): BLE x 10 Glut Sets (number of reps): BLE x 10 Heel Slides (number of reps): LLE x 10 Exercise: Pt educated in purpose and parameters of performance of anti-embolics Gait Training (76049) Treatment Minutes: 15 $ Gait Training (77430) Billed Units: 1 unit Evaluation, Therapeutic Activity (72855), Gait Training (78106) Timed Code Treatment (minutes): 30 Skilled Treatment Time (minutes): 47 TRAINING AND EDUCATION PROVIDED Assistive Device Use, Bed Mobility, Benefits of In-Hospital Mobility, Discharge Planning, Disease Specific Education, Edema Management, Equipment, Expected Functional Level, Falls Prevention, Gait Pattern, Reduction of Deviations, Home Safety, Modalities, Positioning, Precautions/Restricti ons, Role of Physical Therapy, Transfers, Treatment Protocol, Standing Balance THERAPEUTIC SKILLS USED Activity Dosing, Assessment of Tolerance Including Vitals Response to Activity, Cuing Tactile, Cues for Sequencing/Proper Technique for Activity, Cuing Verbal, Cuing Visual, Physical Assist, Muscle Activation Facilitation, Postural Alignment Correction FUNCTIONAL STATUS Bed Mobility Supine To Sit: Stand By Assistance HOB elevated, use of bed rail for assist, perofmred to L side to emulate home environment. Difficutly due to pain in R hand at IV site when weightbearing Sit to Supine: Minimal Assistance HOB flat, assist with LLE management Scooting: Additional Information Transfers Sit To Stand: Contact Guard Assistance cues for proper hand placement, X 2 trials Stand To Sit: Contact Guard Assistance cues for safe approach to surface, proper hand placement, controlled descent to sit Bed to Chair Gait Contact Guard Assistance Pt instructed in step to pattern with initial cues for proper AD placement, sequencing and increased use of UEs for support with good follow through Gait Device: Wheeled Walker Gait Distance (feet): 30 Gait Deviations Left Lower Extremity: Stance time decreased, Weight bearing decreased, Step length decreased Stairs ROM ROM Limitation Comments: L knee AROM flexion to approx 60-70 degrees STRENGTH Right Lower Extremity Strength Comments: WFLs Left Lower Extremity Strength Comments: 3-/5 except ankle DF 4/5 BALANCE Static Sitting Balance: Good Dynamic Sitting Balance: Good Static Standing Balance: Fair Dynamic Standing Balance: Fair GOALS Patient will demonstrate progress with functional mobility to allow safe discharge to home with available support and/or physical assistance., Patient will demonstrate progress to optimize functional mobility, maximize a (more content not included)... [facility] XR KNEE 2V AP/LAT LTon 12-28 XR KNEE 2V AP/LAT LT * * *Final Report* * * DATE OF EXAM: Dec 29 2023 3:00PM MDX 5206 - XR KNEE 2V AP/LAT LT / PROCEDURE REASON: Post Operative Assessment * * * * Physician Interpretation * * * * Left knee History: Postoperative knee replacement Findings: Portable AP and lateral non-weight bearing views performed. There are findings of a total knee replacement with patellar resurfacing. The alignment is anatomic. There is air in the anterior soft tissues. No evidence of acute fracture. IMPRESSION: Status post knee joint replacement without evidence of complication. Electron Beam Photo Mask Maker: PSCB Transcribe Date/Time: Dec 29 2023 4:05P Dictated by : MALIHA MAN MD This examination was interpreted and the report reviewed and electronically signed by: MALIHA MAN MD on Dec 29 2023 4:06PM EST [id number] [facility] CT KNEE WO IVCON LTon 2023 CT KNEE WO IVCON LT * * *Final Report* * * DATE OF EXAM: Dec 18 2023 5:09PM [facility] 0083 - CT KNEE WO IVCON LT / PROCEDURE REASON: M17.12-Primary osteoarthritis of left knee * * * * Physician Interpretation * * * * CT KNEE WO IVCON LT HISTORY: Knee pain. Presurgical planning. Primary osteoarthritis of left knee TECHNIQUE: Non-contrast axial CT imaging of the left hip, left knee and left ankle was performed. Imaging was performed according to the Frederick protocol. No IV contrast was given. CT Dose-Length Product (DLP): 897 mGy*cm. CT Dose Reduction Employed: Automated exposure control(AEC) and iterative recon COMPARISON: X-ray from 05/12/2023 RESULT: Images at the level of the LEFT hip and adjacent pelvis show colonic diverticulosis. Images at the level of the LEFT knee have slight artifact related to contralateral knee arthroplasty. Degenerative arthritis at the knee is again seen. 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 There are multiple additional ossified loose bodies posteriorly. Images at the level of the ankle show no unexpected abnormality. Roentgenology Teacher (topogram) images: RIGHT knee arthroplasty. - IMPRESSION: Degenerative arthritis. Presurgical planning. Electron Beam Photo Mask Maker: [email or web address] Transcribe Date/Time: Dec 20 2023 5:07P Dictated by : MAXIMO CANNON MD This examination was interpreted and the report reviewed and electronically signed by: MAXIMO CANNON MD on Dec 20 2023 5:09PM EST [id number] N Normal [facility] Bacteria Ur Culton Bacteria identified Cx Nom (U) ORGANISM ID: 1 >=100,000 CFU/ml Normal urogenital kris Normal [facility] Comment on above: Performed By: #### 6 30-4 ####[facility] LABCLIA [id number] [address] [place] CBC W Auto Differential pane l (Bld)on 12-10-2023 Basophils (Bld) [#/Vol] 0.07 10*3/uL [facility] Basophils/100 WBC (Bld) 0.7 % C [facility] Differential cell count method Nom (Bld) Auto [facility] Eosinophils (Bld) [#/Vol] 0.07 10*3/uL [facility] Eosinophils/100 WBC (Bld) 0.7 % [facility] Erythrocyte distribution width (RBC) [Ratio] 11.7 % 11.5 - 15.0 % [facility] Hematocrit (Bld) [Volume fraction] 44.0 % 36.0 - 46.0 % [facility] Hemoglobin (Bld) [Mass/Vol] 14.9 g/dL 11.5 - 15.5 g/dL [facility] Immature granulocytes (Bld) [#/Vol] 0.03 10*3/uL [facility] Immature granulocytes/100 WBC (Bld) 0.3 % [facility] Lymphocytes (Bld) [#/Vol] 2.94 10*3/uL [facility] Lymphocytes/100 WBC (Bld) 27.5 % [facility] MCH (RBC) [Entitic mass] 30.5 pg 26.0 - 34.0 pg [facility] MCHC (RBC) [Mass/Vol] 33.9 g/dL 30.5 - 36.0 g/dL [facility] MCV (RBC) [Entitic vol] 90.2 fL 80.0 - 100.0 fL [facility] Monocytes (Bld) [#/Vol] 0.84 10*3/uL [facility] Monocytes/100 WBC (Bld) 7.9 % [facility] Neutrophils (Bld) [#/Vol] 6.75 10*3/uL [facility] Neutrophils/100 WBC (Bld) 62.9 % [facility] Nucleated RBC (Bld) [#/Vol] [facility] Nucleated RBC/100 WBC (Bld) [Ratio] 0.0 % /100 WBC [facility] Platelet mean volume (Bld) [Entitic vol] 10.9 fL 9.0 - 12.7 fL [facility] Platelets (Bld) [#/Vol] 255 10*3/uL [facility] RBC (Bld) [#/Vol] 4.88 10*6/uL 3.90 - 5.2 0 m/uL [facility] WBC (Bld) [#/Vol] 10.70 10*3/uL [facility] Basophils (Bld) [#/Vol] 0.07 10*3/uL Normal <0.11 [facility] Comment on above: Order Comment: Speci men Type: BLOOD SPECIMENOrdering Facility: [facility] Address: [address] [place] [address] Performed By: #### 5 7021-8 ####[facility] [id number] [address] STATES OF [facility] Basophils/100 WBC (Bld) 0.7 % Normal [facility] Comment on above: Order Comment: Speci men Type: BLOOD SPECIMENOrdering Facility: [facility] Address: [address] [place] [address] Performed By: #### 5 7021-8 ####[facility] AMANDAWNCLIA [id number] [place] [address] [place] Differential cell count method Nom (Bld) Auto Normal [facility] Comment on above: Order Comment: Speci men Type: BLOOD SPECIMENOrdering Facility: [facility] Address: [address] [place] [address] Performed By: #### 5 7021-8 ####[facility] [id number] [place] [address] [place] Eosinophils (Bld) [#/Vol] 0.07 10*3/uL Normal <0.46 [facility] Comment on above: Order Comment: Speci men Type: BLOOD SPECIMENOrdering Facility: [facility] Address: [address] [place] [address] Performed By: #### 5 7021-8 ####[facility] [id number] [place] [address] [place] Eosinophils/100 WBC (Bld) 0.7 % Normal [facility] Comment on above: Order Comment: Speci men Type: BLOOD SPECIMENOrdering Facility: [facility] Address: [address] [place] [address] Performed By: #### 5 7021-8 ####[facility] [id number] [place] [address] [place] Erythrocyte distribution width (RBC) [Ratio] 11.7 % Normal 11.5-15.0 [facility] Comment on above: Order Comment: Speci men Type: BLOOD SPECIMENOrdering Facility: [facility] Address: [address] [place] [address] Performed By: #### 5 7021-8 ####[facility] [id number] [place] [address] [place] Hematocrit (Bld) [Volume fraction] 44.0 % Normal 36.0-46.0 [facility] Comment on above: Order Comment: Speci men Type: BLOOD SPECIMENOrdering Facility: [facility] Address: [address] [place] [address] Performed By: #### 5 7021-8 ####[facility] [id number] [place] [address] [place] Hemoglobin (Bld) [Mass/Vol] 14.9 g/dL Normal 11.5-15.5 [facility] Comment on above: Order Comment: Speci men Type: BLOOD SPECIMENOrdering Facility: [facility] Address: [address] [place] [address] Performed By: #### 5 7021-8 ####[facility] [id number] [place] [address] [place] Immature granulocytes (Bld) [#/Vol] 0.03 10*3/uL Normal <0.10 [facility] Comment on above: Order Comment: Speci men Type: BLOOD SPECIMENOrdering Facility: [facility] Address: [address] [place] [address] Performed By: #### 5 7021-8 ####[facility]CL[facility] [id number] [place] [address] [place] Immature granulocytes/100 WBC (Bld) 0.3 % Normal [facility] Comment on above: Order Comment: Speci men Type: BLOOD SPECIMENOrdering Facility: [facility] Address: [address] [place] [address] Performed By: #### 5 7021-8 ####[facility] [id number] [place] [address] [place] Lymphocytes (Bld) [#/Vol] 2.94 10*3/uL Normal 1.00-4.00 [facility] Comment on above: Order Comment: Speci men Type: BLOOD SPECIMENOrdering Facility: [facility] Address: [address] [place] [address] Performed By: #### 5 7021-8 ####[facility] AMANDAAUBREY [id number] [address] STATES [facility] Lymphocytes/100 WBC (Bld) 27.5 % Normal [facility] Comment on above: Order Comment: Speci men Type: BLOOD SPECIMENOrdering Facility: [facility] Address: [address] [place] [address] Performed By: #### 5 7021-8 ####[facility] AMANDABARRACKVILLEALEKSANDARYazmin [id number] [place] [address] [place] MCH (RBC) [Entitic mass] 30.5 pg Normal 26.0-34.0 [facility] Comment on above: Order Comment: Speci men Type: BLOOD SPECIMENOrdering Facility: [facility] Address: [address] [place] [address] Performed By: #### 5 7021-8 ####[facility]ITALNCLIA [id number] [address] [place] MCHC (RBC) [Mass/Vol] 33.9 g/dL Normal 30.5-36.[address] [facility] Comment on above: Order Comment: Speci men Type: BLOOD SPECIMENOrdering Facility: [facility] Address: [address] [place] [address] Performed By: #### 5 7021-8 ####[facility] HOSPITALTONYLIYazmin [id number] [place] [address] [place] MCV (RBC) [Entitic vol] 90.2 fL Normal 80.0-100.0 C [facility] Comment on above: Order Comment: Speci men Type: BLOOD SPECIMENOrdering Facility: [facility] Address: [address] [place] [address] Performed By: #### 5 7021-8 ####[facility] HOSPITALTONYYazmin [id number] [place] [address] [place] Monocytes (Bld) [#/Vol] 0.84 10*3/uL Normal <0.87 [facility] Comment on above: Order Comment: Speci men Type: BLOOD SPECIMENOrdering Facility: [facility] Address: [address] [place] [address] Performed By: #### 5 7021-8 ####[facility] HOSPITALLIA [id number] [place] [address] [place] Monocytes/100 WBC (Bld) 7.9 % Normal [facility] Comment on above: Order Comment: Speci men Type: BLOOD SPECIMENOrdering Facility: [facility] Address: [address] [place] [address] Performed By: #### 5 7021-8 ####[facility] HOSPITALLIA [id number] [place] [address] [place] Neutrophils (Bld) [#/Vol] 6.75 10*3/uL Normal 1.45-7.50 [facility] Comment on above: Order Comment: Speci men Type: BLOOD SPECIMENOrdering Facility: [facility] Address: [address] [place] [address] Performed By: #### 5 7021-8 ####[facility]OSPITALLIA [id number] [place] [address] [place] Neutrophils/100 WBC (Bld) 62.9 % Normal [facility] Comment on above: Order Comment: Speci men Type: BLOOD SPECIMENOrdering Facility: [facility] Address: [address] [place] [address] Performed By: #### 5 7021-8 ####[facility] HOSPITALLIA [id number] [place] [address] [place] Nucleated RBC (Bld) [#/Vol] 10*3/uL Normal <0.01 [facility] Comment on above: Order Comment: Speci men Type: BLOOD SPECIMENOrdering Facility: [facility] Address: [address] [place] [address] Performed By: #### 5 7021-8 ####[facility] HOS[facility]ITALNCLI [id number] [place] [address] [place] Nucleated RBC/100 WBC (Bld) [Ratio] 0.0 /100 WBC Normal [facility] Comment on above: Order Comment: Speci men Type: BLOOD SPECIMENOrdering Facility: [facility] Address: [address] [place] [address] Performed By: #### 5 7021-8 ####[facility] [id number] [place] [address] [place] Platelet mean volume (Bld) [Entitic vol] 10.9 fL Normal 9.0-12.7 [facility] Comment on above: Order Comment: Speci men Type: BLOOD SPECIMENOrdering Facility: [facility] Address: [address] [place] [address] Performed By: #### 5 7021-8 ####[facility]ITALNCLIA [id number] [place] [address] [place] Platelets (Bld) [#/Vol] 255 10*3/uL Normal 150-400 [facility] Comment on above: Order Comment: Speci men Type: BLOOD SPECIMENOrdering Facility: [facility] Address: [address] [place] [address] Performed By: #### 5 7021-8 ####[facility] [id number] [place] [address] [place] RBC (Bld) [#/Vol] 4.88 10*6/uL Normal 3.90-5.20 [facility] Comment on above: Order Comment: Speci men Type: BLOOD SPECIMENOrdering Facility: [facility] Address: [address] [place], [place] [address] Performed By: #### 5 7021-8 ####[facility] AMANDABARRACKVILLENCLIA [id number] [address] [place] WBC (Bld) [#/Vol] 10.70 10*3/uL Normal 3.70-11.00 [facility] Comment on above: Order Comment: Speci men Type: BLOOD SPECIMENOrdering Facility: [facility] Address: [address] [place] [address] Performed By: #### 5 7021-8 ####[facility]ITALNCLIA [id number] [address] [place] Comprehensive metabolic 2000 panelon 12-10-2023 Albumin [Mass/Vol] 4.8 g/dL 3.9 - 4.9 g/dL [facility] ALP [Catalytic activity/Vol] 83 U/L 34 - 123 U/L [facility] ALT [Catalytic activity/Vol] 23 U/L 7 - 38 U/L [facility] Anion gap [Moles/Vol] 11 mmol/L 8 - 15 mmol/L [facility] AST [Catalytic activity/Vol] 22 U/L 13 - 35 U/L [facility] Bilirubin [Mass/Vol] 0.2 mg/dL 0.2 - 1 .3 mg/dL [facility] Calcium [Mass/Vol] 10.1 mg/dL 8.5 - 10. 2 mg/dL [facility] Chloride [Moles/Vol] 103 mmol/L 98 - 10 7 mmol/L [facility] CO2 [Moles/Vol] 25 mmol/L 22 - 30 mmol/L [facility] Creatinine [Mass/Vol] 0.83 mg/dL 0.58 - 0.96 mg/dL [facility] GFR/1.73 sq M.predicted among non-blacks MDRD (S/P/Bld) [Vol rate/Area] 79 mL/min/{1.73_m2} - PINF [facility] Comment on above: Estimated Glomerular Filtration Rate (eGFR) is calculated using the 2020 CKD-EPI creatinine equation. This equation utilizes serum creatinine, sex, and age as parameters. The creatinine assay has traceable calibration to isotope dilution-mass spectrometry. Refer to KDIGO guidelines for clinical interpretation. In patients with unstable renal function, e.g. those with acute kidney injury, the eGFR may not accurately reflect actual GFR. Glucose [Mass/Vol] 108 mg/dL High 74 - 99 mg/dL [facility] Comment on above: The [place] Diabete s Association (ADA) provides guidance for cutoff values for fasting glucose and random glucose. The ADA defines fasting as no caloric intake for at least 8 hours. Fasting plasma glucose results between 100 to 125 mg/dL indicate increased risk for diabetes (prediabetes). Fasting plasma glucose results greater than or equal to 126 mg/dL meet the criteria for diagnosis of diabetes. In the absence of unequivocal hyperglycemia, results should be confirmed by repeat testing. In a patient with classic symptoms of hyperglycemia or hyperglycemic crisis, random plasma glucose results greater than or equal to 200 mg/dL meet the criteria for diagnosis of diabetes. Reference: Standards of Medical Care in Diabetes 2016, [place] [employer]. Diabetes Care. 2016.39(Suppl 1). Interpretation and review of laboratory results Abnormal [facility] Potassium [Moles/Vol] 4.7 mmol/L 3.7 - 5.1 mmol/L [facility] Protein [Mass/Vol] 7.5 g/dL 6.3 - 8.0 g/dL [facility] Sodium [Moles/Vol] 139 mmol/L 136 - 144 mmol/L [facility] Urea nitrogen [Mass/Vol] 28 mg/dL High 7 - 21 mg/dL [facility] Albumin [Mass/Vol] 4.8 g/dL Normal 3.9-4.9 [facility] Comment on above: Order Comment: Amber lee Type: BLOOD SPECIMENOrdering Facility: [facility] Address: [address] [place] [address] Performed By: #### 2 4323-8 ####[facility] LABCLIA [id number] [place] [address] [place] ALP [Catalytic activity/Vol] 83 U/L Normal 34-123 [facility] Comment on above: Order Comment: Amber lee Type: BLOOD SPECIMENOrdering Facility: [facility] Address: [address] [place] [id number] Performed By: #### 2 4323-8 ####[facility] LABCLIA [id number] [place] [id number] [place] ALT [Catalytic activity/Vol] 23 U/L Normal 7-38 [facility] Comment on above: Order Comment: Speci men Type: BLOOD SPECIMENOrdering Facility: [facility] Address: [address] [place] [id number] Performed By: #### 2 4323-8 ####[facility] LABCLIA [id number] [place] [address] [place] Anion gap [Moles/Vol] 11 mmol/L Normal 8-[address] [facility] Comment on above: Order Comment: Speci men Type: BLOOD SPECIMENOrdering Facility: [facility] Address: [address] [place] [address] Performed By: #### 2 4323-8 ####[facility] LABCLIA [id number] [place] [address] [place] AST [Catalytic activity/Vol] 22 U/L Normal 13-35 [facility] Comment on above: Order Comment: Speci men Type: BLOOD SPECIMENOrdering Facility: [facility] Address: [address] [place], [place] [address] Performed By: #### 2 4323-8 ####[facility] LABCLIA [id number] [place] [id number] [place] Bilirubin [Mass/Vol] 0.2 mg/dL Normal 0.2-1.3 [facility] Comment on above: Order Comment: Speci men Type: BLOOD SPECIMENOrdering Facility: [facility] Address: [address] [place], [place] [address] Performed By: #### 2 4323-8 ####[facility] LABCLIA [id number] [place] [address] [place] Calcium [Mass/Vol] 10.1 mg/dL Normal 8.5-10.2 [facility] Comment on above: Order Comment: Speci men Type: BLOOD SPECIMENOrdering Facility: [facility] Address: [address] [place] [address] Performed By: #### 2 4323-8 ####[facility] LABCLIA [id number] [place] [address] [place] Chloride [Moles/Vol] 103 mmol/L Normal 98-107 [facility] Comment on above: Order Comment: Speci men Type: BLOOD SPECIMENOrdering Facility: [facility] Address: [address] [place] [address] Performed By: #### 2 4323-8 ####[facility] LABCLIA [id number] [place] [address] [place] CO2 [Moles/Vol] 25 mmol/L Normal 22-30 [facility] Comment on above: Order Comment: Speci men Type: BLOOD SPECIMENOrdering Facility: [facility] Address: [address] [place] [address] Performed By: #### 2 4323-8 ####[facility] LABCLIA [id number] [place] [address] [place] Creatinine [Mass/Vol] 0.83 mg/dL Normal 0.58-0.[address] [facility] Comment on above: Order Comment: Speci men Type: BLOOD SPECIMENOrdering Facility: [facility] Address: [address] [place] [address] Performed By: #### 2 4323-8 ####[facility] LABCLIA [id number] [place] [address] [place] Creatinine and Glomerular filtration rate.predicted panel (S/P/Bld) 79 mL/min/1.73m??? Normal >=60 [facility] Comment on above: Order Comment: Speci men Type: BLOOD SPECIMENOrdering Facility: [facility] Address: [address] [place] [address] Result Comment: Raisa mated Glomerular Filtration Rate (eGFR) is calculated using the 2020 CKD-EPI creatinine equation. This equation utilizes serum creatinine, sex, and age as parameters. The creatinine assay has traceable calibration to isotope dilution-mass spectrometry. Refer to KDIGO guidelines for clinical interpretation. In patients with unstable renal function, e.g. those with acute kidney injury, the eGFR may not accurately reflect actual GFR. Performed By: #### 2 4323-8 ####[facility] LABCLIA [id number] [place] [address] [place] Glucose [Mass/Vol] 108 mg/dL High 74-99 [facility] Comment on above: Order Comment: Specchloe lee Type: BLOOD SPECIMENOrdering Facility: [facility] Address: [address] [place] [address] Result Comment: The [place] Diabetes Association (ADA) provides guidance for cutoff values for fasting glucose and random glucose. The ADA defines fasting as no caloric intake for at least 8 hours. Fasting plasma glucose results between 100 to 125 mg/dL indicate increased risk for diabetes (prediabetes). Fasting plasma glucose results greater than or equal to 126 mg/dL meet the criteria for diagnosis of diabetes. In the absence of unequivocal hyperglycemia, results should be confirmed by repeat testing. In a patient with classic symptoms of hyperglycemia or hyperglycemic crisis, random plasma glucose results greater than or equal to 200 mg/dL meet the criteria for diagnosis of diabetes. Reference: Standards of Medical Care in Diabetes 2016, [place] [employer] Association. Diabetes Care. 2016.39(Suppl 1). Performed By: #### 2 4323-8 ####[facility] LABCLIA [id number] [place] [address] [place] Potassium [Moles/Vol] 4.7 mmol/L Normal 3.7-5.[address] [facility] Comment on above: Order Comment: Amber lee Type: BLOOD SPECIMENOrdering Facility: [facility] Address: [address] [place] [address] Performed By: #### 2 4323-8 ####[facility] LABCLIA [id number] [place] [address] [place] Protein [Mass/Vol] 7.5 g/dL Normal 6.3-8.0 [facility] Comment on above: Order Comment: Speci men Type: BLOOD SPECIMENOrdering Facility: [facility] Address: [address] [place] [address] Performed By: #### 2 4323-8 ####[facility] LABCLIA [id number] [place] [address] [place] Sodium [Moles/Vol] 139 mmol/L Normal 136-144 [facility] Comment on above: Order Comment: Speci men Type: BLOOD SPECIMENOrdering Facility: [facility] Address: [address] [place] [address] Performed By: #### 2 4323-8 ####[facility] LABIA [id number] [place] [address] [place] Urea nitrogen [Mass/Vol] 28 mg/dL High 7-21 [facility] Comment on above: Order Comment: Speci men Type: BLOOD SPECIMENOrdering Facility: [facility] Address: [address] [place] [address] Performed By: #### 2 4323-8 ####[facility] LABIA [id number] [place] [address] [place] ECG COMPLETEon 12-10-2023 Atrial Rate 56 BPM [facility] Calculated P [place] 47 degrees [facility] Calculated R [place] -27 degrees [facility] Calculated T [place] 28 degrees [facility] P-R Interval 208 ms [facility] QRS Duration 96 ms [facility] QT Interval 408 ms [facility] QTC Calculation (Bazett) 393 ms [facility] Ventricular Rate 56 BPM [facility] SINUS BRADYCARDIA with borderline first degree AV block OTHERWISE NORMAL ECG Confirmed by MD DAVID, QAB ([id number]) on 12/10/2023 4:06:40 PM [facility] NAME : YG SHARMA PID : [id number] : 1960 Gender : Female Race : ORD : Procedure Date : Dec 10 2023 16:08:03 Edit Date : Dec 10 2023 16:06:43 Diagnosis: SINUS BRADYCARDIA with borderline first degree AV block OTHERWISE NORMAL ECG Confirmed by MD HERNANDEZ QARAB ([id number]) on 12/10/2023 4:06:40 PM Test Reason : Location : 636 : [facility] Overread By : MD HERNANDEZ QARAB Edited By : MD HERNANDEZ QARAB Referred By : MAXIMO CARO Acquired by : shyann, [facility] [id number] 12-10-2023 ECG01 Ventricular Rate : 5 6 BPM Atrial Rate : 56 BPM P-R Interval : 208 ms QRS Duration : 96 ms Q-T Interval : 408 ms QTC Calculation(Bazett) : 393 ms Calculated P [place] : 47 degrees Calculated R [place] : -27 degrees Calculated T [place] : 28 degrees SINUS BRADYCARDIA with borderline first degree AV block OTHERWISE NORMAL ECG Confirmed by MD HERNANDEZ QARAB ([id number]) on 12/10/2023 4:06:40 PM NAME : RAYMOND SHARMA PID : [id number] : 1960 Gender : Female Race : ORD : Procedure Date : Dec 10 2023 16:08:03 Edit Date : Dec 10 2023 16:06:43 Diagnosis: SINUS BRADYCARDIA with borderline first degree AV block OTHERWISE NORMAL ECG Confirmed by MD HERNANDEZ QARAB ([id number]) on 12/10/2023 4:06:40 PM Test Reason : Location : 636 : [facility] Overread By : MD HERNANDEZ QARAB Edited By : MD HERNANDEZ QARAB Referred By : MAXIMO CARO Acquired by : Ramona boothe [facility] HISTORY PHYSICALon HISTORY PHYSICAL HNO ID: [id number] Author: NAZ DUVAL APRN.CNP Service: ? Author Type: Nurse Practitioner Type: H&P Filed: 12/11/2023 09:29 Note Text: [facility] HISTORY AND PHYSICAL EXAMINATION SERVICE DATE: 12/10/2023 SERVICE TIME: 9:28 AM PRIMARY CARE PHYSICIAN: Carlos Granado MD Assessment Patient has the following medical conditions which may affect lauren-operative course: Essential hypertension Assessment: controlled on rx Last 14 BP Last 14 Encounter BP Readings: Date: BP: 12/10/2023 132/86 02/07/2020 128/72 02/04/2020 126/86 02/02/2020 118/78 01/31/2020 118/78 01/28/2020 128/78 01/27/2020 126/80 01/25/2020 118/78 01/22/2020 120/68[at rest[ 01/20/2020 110/60 01/18/2020 131/64 01/05/2020 138/80 11/10/2019 121/60 04/14/2015 138/83 Hyperlipidemia Assessment: c/w statin GERD (gastroesophageal reflux disease) Assessment: denies dx in [facility] Anxiety Assessment: and depression, stable on rx per pt BMI 29.0-29.9,adult Assessment: Body mass index is 29.35 kg/m?. History of total right knee replacement Assessment: hx AV block, 1st degree Assessment: borderline per final EKG read yesterday, asymptomatic [place] Activity Status Index: METS: Climb a flight of stairs or walk up a hill (5.50 METs) DASI Score: 5.5 Patient denies any chest pain or undue shortness of breath with the above physical activity. Clinical Frailty Scale: 3. Well, with treated comorbid disease STOP-Bang Score: Snores loudly Has or is being treated for high blood pressure Patient over 50 years old Denies feeling tired, fatigued, or sleepy during the daytime Has not been observed to stop breathing or choking/gasping during sleep BMI less than or equal to 35 kg/m2 Does not have a large neck Non-male patient STOP-Bang Score: 3 [id number] Score: Age: <65 Sex: female CHF history: No Hypertension history: Yes Stroke/TIA/thromboemb olism history: No Vascular disease history: No Diabetes history: No [id number] Score: 2 ARISCAT Score: Age: 51-80 Preoperative SpO2: >=96% Respiratory infection in the last month: No Preoperative anemia: No Surgical incision: peripheral Duration of surgery: 2-3 hrs Emergency procedure: No ARISCAT Score: 19 ANESTHESIA FINDINGS: Intubation History: No history of difficult intubation Significant Anesthesia Considerations: none Airway History: No history of difficult airway I - PHYSICAL EVALUATION AIRWAY Patient intubated: No. Tracheostomy tube not present Mallampati: III. TM distance: >3 FB. Neck ROM: full ROM without neurological symptoms. Mouth opening: adequate. Short neck: no. Thick neck: no Fox present: no Lip Bite Test: II Microretrognathia/Alfie ronagthia/Recessed Chin: No DENTAL Dental findings: teeth intact. Additional comments: +crowns/back. II - ANESTHESIA PLAN Anesthetic Plan: other Beta Catalina Monitoring Plan Post Procedure Analgesic Plan Prepared for Surgery: optimally prepared for surgery, pending [see comment]. Labs and ekg CONSULTS: Patient does not require consults for optimization at this time Planned Anesthetic: other anesthesia choice The Following Tests/Procedures Have Been Initiated: Orders Placed This Encounter >CBC + AUTO DIFF Standing Status: Future Number of Occurrences: 1 Standing Expiration Date: 03/10/2024 >CMP Standing Status: Future Number of Occurrences: 1 Standing Expiration Date: 03/10/2024 Urine Culture - LAB COLLECT Standing Status: Future Number of Occurrences: 1 Standing Expiration Date: 03/10/2024 mupirocin (BACTROBAN) 2 % ointment Sig: Apply 0.5 inch with cotton swab (Q-tip) to each nostril in the morning and evening for 5 days prior to and including day of surgery. Dispense: 22 g Refill: 0 ECG COMPLETE Order Comments: Ordered by an unspecified provider ECG COMPLETE Standing Status: Future Standing Expiration Date: 12/09/2024 REASON FOR VISIT: Raymond Sharma is a 63 year old female who is scheduled for Procedure(s): ROBOTIC ASSISTED TOTAL KNEE ARTHROPLASTY (Left) at the request of Dr. Maximo Caro for consultation. My final recommendation will be communicated back to the requesting physician by way of shared medical record or letter. Subjective The patient has the following: COVID-19 Immunization Status Overdue - Covid-19 Vaccine () Overdue since 11/16/2023 02/09/2021 Imm Admin: COVID-19 original vaccine, full dose, monovalent (MODERNA) 06/09/2020 Imm Admin: COVID-19 original vaccine, full dose, monovalent (MODERNA) 05/12/2020 Imm Admin: COVID-19 original vaccine, full dose, monovalent (MODERNA) Only the first 3 history entries have been loaded, but more history exists. CHIEF COMPLAINT: Pre-op exam HPI: Raymond Sharma is a 63 year old seen for PAC due to scheduled above surgery because of OA left knee. 05/12/19 (more content not included)... Normal [facility] Basic Metabolic Profile (BMP )on 12-08-2023 BUN/CRE 30.2 RATIO High 10-20 [facility] Comment on above: Performed By: #### L 100.0100, L500.2500, L500.4100 #### [facility] [address] [place], [address] CA,Total 10.0 mg/dL Normal 8.5-10.1 [facility] Comment on above: Performed By: #### L 100.0100, L500.2500, L500.4100 #### [facility] [address] [place], [address] Chloride [Moles/Vol] 106 mmol/L Normal 98-107 [facility] Comment on above: Performed By: #### L 100.0100, L500.2500, L500.4100 #### [facility] [address] [place], [address] CO2 [Moles/Vol] 27.0 mmol/L Normal 21.0-32.0 [facility] Comment on above: Performed By: #### L 100.0100, L500.2500, L500.4100 #### [facility] [address] [place], [address] Creatinine [Mass/Vol] 0.76 mg/dL Normal 0.55-1.02 [facility] Comment on above: Result Comment: The validity of the calculated GFR GFRAA in patients over 70 years has not been determined. Clinical correlation is essential. Performed By: #### L 100.0100, L500.2500, L500.4100 #### [facility] [address] [place], [address] EST GFR - AA 98 mL/min Normal >60 [facility] Comment on above: Result Comment: Afri can [place] GFR Calc Performed By: #### L 100.0100, L500.2500, L500.4100 #### [facility] [address] [place], [address] GAP 7 Normal 5-15 [facility] Comment on above: Performed By: #### L 100.0100, L500.2500, L500.4100 #### [facility] [address] [place], [address] GFR/1.73 sq M.predicted among non-blacks MDRD (S/P/Bld) [Vol rate/Area] 81 mL/min/{1.73_m2} Normal >60 [facility] Comment on above: Result Comment: Non- GFR Calc Performed By: #### L 100.0100, L500.2500, L500.4100 #### [facility] [address] [place], [address] Glucose [Mass/Vol] 132 mg/dL High 74-106 [facility] Comment on above: Result Comment: Fast ing Glucose result greater than or equal to 126 mg/dL suggests DIABETES MELLITUS per A.D.A. criteria. Performed By: #### L 100.0100, L500.2500, L500.4100 #### [facility] [address] [place], [address] Potassium [Moles/Vol] 3.9 mmol/L Normal 3.5-5.1 [facility] Comment on above: Performed By: #### L 100.0100, L500.2500, L500.4100 #### [facility] [address] [place], [address] Sodium [Moles/Vol] 140 mmol/L Normal 136-145 [facility] Comment on above: Performed By: #### L 100.0100, L500.2500, L500.4100 #### [facility] [address] [place], [address] Urea nitrogen [Mass/Vol] 23 mg/dL High 7-18 [facility] Comment on above: Performed By: #### L 100.0100, L500.2500, L500.4100 #### [facility] [address] [place], [address] CBC W/Diff, Automatedon 09-2 -2023 Absolute Lymph 2.11 X10 3/uL Normal 0.83-4.51 [facility] Comment on above: Performed By: #### L 100.0100, L500.2500, L500.4100 #### [facility] [address] [place], [address] Absolute Neut 10.1 X10 3/uL High 2.0-7.7 [facility] Comment on above: Performed By: #### L 100.0100, L500.2500, L500.4100 #### [facility] [address] [place], [address] Basophils/100 WBC (Bld) 0.5 % Normal 0-1 [facility] Comment on above: Performed By: #### L 100.0100, L500.2500, L500.4100 #### [facility] [address] [place], [address] Eosinophils/100 WBC (Bld) 0.2 % Normal 0-5 [facility] Comment on above: Performed By: #### L 100.0100, L500.2500, L500.4100 #### [facility] [address] [place], [address] Erythrocyte distribution width (RBC) [Ratio] 11.5 % Low 11.6-14.6 [facility] Comment on above: Performed By: #### L 100.0100, L500.2500, L500.4100 #### [facility] [address] [place], [address] Hematocrit (Bld) [Volume fraction] 45.4 % Normal 37-47 [facility] Comment on above: Performed By: #### L 100.0100, L500.2500, L500.4100 #### [facility] [address] [place], [address] Hemoglobin (Bld) [Mass/Vol] 14.8 g/dL Normal 12.0-15.0 [facility] Comment on above: Performed By: #### L 100.0100, L500.2500, L500.4100 #### [facility] [address] [place], [address] IG% 0.800 Normal 0.0-0.9 [facility] Comment on above: Result Comment: IG% - Immature Granulocytes (promyelocytes, myelocytes and metamyelocytes) > 1% indicates that a LEFT SHIFT is Present. Performed By: #### L 100.0100, L500.2500, L500.4100 #### [facility] [address] [place], [address] Lymphocytes/100 WBC (Bld) 15.9 % Low 19-41 [facility] Comment on above: Performed By: #### L 100.0100, L500.2500, L500.4100 #### [facility] [address] [place], [address] MCH (RBC) [Entitic mass] 30.0 pg Normal 27.0-32.0 [facility] Comment on above: Performed By: #### L 100.0100, L500.2500, L500.4100 #### [facility] [address] [place], [address] MCHC (RBC) [Mass/Vol] 32.6 g/dL Normal 32-36 [facility] Comment on above: Performed By: #### L 100.0100, L500.2500, L500.4100 #### [facility] [address] [place], [address] MCV (RBC) [Entitic vol] 91.9 fL Normal 81-99 [facility] Comment on above: Performed By: #### L 100.0100, L500.2500, L500.4100 #### [facility] [address] [place], [address] Monocytes/100 WBC (Bld) 7.0 % Normal 0-10 [facility] Comment on above: Performed By: #### L 100.0100, L500.2500, L500.4100 #### [facility] [address] [place], [address] Neutrophils/100 WBC (Bld) 75.6 % High 47-70 [facility] Comment on above: Performed By: #### L 100.0100, L500.2500, L500.4100 #### [facility] [address] [place], [address] Nucleated RBC (Bld) [#/Vol] 0 10*3/uL Normal 0-5 [facility] Comment on above: Performed By: #### L 100.0100, L500.2500, L500.4100 #### [facility] [address] [place], [address] Platelet mean volume (Bld) [Entitic vol] 11.4 fL Normal 6.2-12.0 [facility] Comment on above: Performed By: #### L 100.0100, L500.2500, L500.4100 #### [facility] [address] [place], [address] Platelets (Bld) [#/Vol] 259 10*3/uL Normal 150-450 [facility] Comment on above: Performed By: #### L 100.0100, L500.2500, L500.4100 #### [facility] [address] [place], [address] RBC (Bld) [#/Vol] 4.94 10*6/uL Normal 4.2-5.4 [facility] Comment on above: Performed By: #### L 100.0100, L500.2500, L500.4100 #### [facility] [address] [place], [address] RDW SD 38.6 fl Normal 35.1-43.9 [facility] Comment on above: Performed By: #### L 100.0100, L500.2500, L500.4100 #### [facility] [address] [place], [address] WBC (Bld) [#/Vol] 13.3 10*3/uL High 4.4-11.0 [facility] Comment on above: Performed By: #### L 100.0100, L500.2500, L500.4100 #### [facility] [address] [place], [address] Lipid Profileon 12-08-2023 Cholesterol [Mass/Vol] 176 mg/dL Normal 200 [facility] Comment on above: Result Comment: <200 mg/dL Desirable 200-240 mg/dL Borderline >240 mg/dL High Risk Performed By: #### L 100.0100, L500.2500, L500.4100 #### [facility] [address] [place], [address] Cholesterol in HDL [Mass/Vol] 67 mg/dL Normal [facility] Comment on above: Result Comment: The drugs N-Acetylcysteine and Metamizole may falsely depress this assay. Reference Range HDL <40 mg/dL Low HDL Cholesterol HDL >or= 60 mg/dL High HDL Cholesterol Performed By: #### L 100.0100, L500.2500, L500.4100 #### [facility] [address] [place], [address] Cholesterol in LDL [Mass/Vol] 85 mg/dL Normal 0-130 [facility] Comment on above: Performed By: #### L 100.0100, L500.2500, L500.4100 #### [facility] [address] [place], [address] Cholesterol in VLDL [Mass/Vol] 24 mg/dL Normal 5-40 [facility] Comment on above: Performed By: #### L 100.0100, L500.2500, L500.4100 #### [facility] [address] [place], [address] Triglyceride [Mass/Vol] 118 mg/dL Normal [facility] Comment on above: Result Comment: The drugs N-Acetylcysteine and Metamizole may falsely depress this assay. Serum Triglycerides Reference Interval Normal <150 mg/dL Borderline high 150 - 199 mg/dL High 200 - 499 mg/dL Very High > or = 500 mg/dL Performed By: #### L 100.0100, L500.2500, L500.4100 #### [facility] [address] [place], [address] CNPMaria Teresa [facility] RAYMOND SHARMA ([id number]) 1960 F FNS Date Time Provider Department 12/05/23 MAXIMO CARO During your visit today, we recorded the following information about you: Ramy Mir 12/05/2023 12:03 PM Signed Please schedule ct scan for 12/29/23 Lt tka Lisa Sullivan 12/08/2023 10:57 AM Signed LVM for patient to return call to schedule Allergies As of Date: 12/05/2023 Noted Allergy Reaction SULFA (SULFONAMIDE ANTIBIOTICS) 12/03/2010 4 - Hives Date Reviewed: 05/12/2023 Reviewed by: Maximo Caro MD - Fully Assessed Reason for Visit: Appointment [186] Prescriptions as of 12/08/2023 - OTC PRODUCT CBD gummies - ibuprofen (MOTRIN) 200 mg tablet Take 600 mg by mouth two times a day as needed. - acetaminophen (TYLENOL EXTRA STRENGTH ORAL) Take by mouth. - elderberry fruit (ELDERBERRY ORAL) Take 2 tablets by mouth once daily. - lisinopril (ZESTRIL, PRINIVIL) 5 mg tablet Take 5 mg by mouth. - ubidecarenone/vitamin E mixed (COQ10 SG 100 ORAL) Take 1 tablet by mouth once daily. - atenolol (TENORMIN) 50 mg tablet Take 50 mg by mouth once daily. - MULTIVITAMIN ORAL Take by mouth once daily. - CALCIUM CARBONATE/VITAMIN D3 (CALCIUM 600 + D ORAL) Take 2 tablets by mouth once daily. - atorvastatin (LIPITOR) 10 mg tablet Take 10 mg by mouth once daily. - clonazePAM (KLONOPIN) 0.5 mg tablet Take 0.025 tablets by mouth every 6 hours as needed for Anxiety. - paroxetine (PAXIL) 20 mg ORAL tablet Take 20 mg by mouth once daily. Problem List As Of Date 12/05/2023 Noted Resolved Knee pain [M25.569] 11/30/2010 Arthritis of knee [M17.10] 12/16/2010 Toe pain [M79.676] 07/05/2014 Degenerative tear of medial meniscus of left kn*01/18/2015 Essential hypertension [I10] 04/14/2015 GERD (gastroesophageal reflux disease) [K21.9] 04/14/2015 Hyperlipidemia [E78.5] 04/14/2015 Anxiety [F41.9] 04/14/2015 Primary osteoarthritis of right knee [M17.11] 08/06/2019 01/19/2020 Class 1 obesity due to excess calories without *01/05/2020 Encounter Status:Closed by LISA SCHROEDER [facility] ZACHARYRAYMOND ([id number]) 1960 F FNS Date Time Provider Department 10/30/23 MAXIMO CARO AL2E During your visit today, we recorded the following information about you: Charan Forrester PSS 10/30/2023 11:47 AM Signed TOTAL JOINT COMPLETE CARE PROGRAM PRE-OPERATIVE TEACHING Service Date: 10/30/2023 Service Time: 11:47 AM Date of : 1960 Gender: female Date of Surgery: 12/29/23 Procedure: Left Total Knee Replacement Complete Care Program was discussed with the patient: Bulk System Operator Identification: Patient identified a eye care professional to help when discharged to home: family Home Environment: Home Layout: Tri-Level, Entry Steps: 3 no rail, Bedroom Location: 2nd floor, Bathroom Location: basement level, and walk in shower. Pt owns walker, crutches, raised toilet seat. Discussed with patient importance of attending joint education class and provided date and times of class: YES prior TKA 2019 Patient received Joint Education Binder: Yes Patient plans discharge home with [facility]> SIGNATURE: LATRICE Cyr PATIENT NAME: Raymond Sharma DATE: October 30, 2023 TIME: 11:45 AM Allergies As of Date: 10/30/2023 Noted Allergy Reaction SULFA (SULFONAMIDE ANTIBIOTICS) 12/03/2010 4 - Hives Date Reviewed: 05/12/2023 Reviewed by: Maximo Caro MD - Fully Assessed Reason for Visit: Pre-Op Teaching [134] Prescriptions as of 10/30/2023 - OTC PRODUCT CBD gummies - ibuprofen (MOTRIN) 200 mg tablet Take 600 mg by mouth two times a day as needed. - acetaminophen (TYLENOL EXTRA STRENGTH ORAL) Take by mouth. - elderberry fruit (ELDERBERRY ORAL) Take 2 tablets by mouth once daily. - lisinopril (ZESTRIL, PRINIVIL) 5 mg tablet Take 5 mg by mouth. - ubidecarenone/vitamin E mixed (COQ10 SG 100 ORAL) Take 1 tablet by mouth once daily. - atenolol (TENORMIN) 50 mg tablet Take 50 mg by mouth once daily. - MULTIVITAMIN ORAL Take by mouth once daily. - CALCIUM CARBONATE/VITAMIN D3 (CALCIUM 600 + D ORAL) Take 2 tablets by mouth once daily. - atorvastatin (LIPITOR) 10 mg tablet Take 10 mg by mouth once daily. - clonazePAM (KLONOPIN) 0.5 mg tablet Take 0.025 tablets by mouth every 6 hours as needed for Anxiety. - paroxetine (PAXIL) 20 mg ORAL tablet Take 20 mg by mouth once daily. Problem List As Of Date 10/30/2023 Noted Resolved Knee pain [M25.569] 11/30/2010 Arthritis of knee [M17.10] 12/16/2010 Toe pain [M79.676] 07/05/2014 Degenerative tear of medial meniscus of left kn*01/18/2015 Essential hypertension [I10] 04/14/2015 GERD (gastroesophageal reflux disease) [K21.9] 04/14/2015 Hyperlipidemia [E78.5] 04/14/2015 Anxiety [F41.9] 04/14/2015 Primary osteoarthritis of right knee [M17.11] 08/06/2019 01/19/2020 Class 1 obesity due to excess calories without *01/05/2020 Encounter Status:Closed by CHARAN FORRESTER on 10/30/23 [facility] CNCOon 09-01-2023 CNCO Letter Text Normal [facility] [place] [facility]20[facility]OR[facility] RAYMOND SHARMA ([id number]) 1960 F FNS Date Time Provider Department 08/29/23 MAXIMO CARO During your visit today, we recorded the following information about you: Abbey GannonashokRamy 08/29/2023 3:59 PM Signed Patient scheduled for Lt tka on 12/29/23. What time frame prior to that can she have an injection in her back from her pain management physician? Alexander Kang PA-C 09/01/2023 6:46 AM Signed As satinder as we have a week or more from the back injection to surgery. The back injection can be anytime. Alexander Kang PA-C [facility] 09/01/2023 10:37 AM Signed Left a detailed message on her voice mail. Allergies As of Date: 08/29/2023 Noted Allergy Reaction SULFA (SULFONAMIDE ANTIBIOTICS) 12/03/2010 4 - Hives Date Reviewed: 05/12/2023 Reviewed by: Maximo Caro MD - Fully Assessed Reason for Visit: Appointment [186] Prescriptions as of 09/01/2023 - OTC PRODUCT CBD gummies - ibuprofen (MOTRIN) 200 mg tablet Take 600 mg by mouth two times a day as needed. - acetaminophen (TYLENOL EXTRA STRENGTH ORAL) Take by mouth. - elderberry fruit (ELDERBERRY ORAL) Take 2 tablets by mouth once daily. - lisinopril (ZESTRIL, PRINIVIL) 5 mg tablet Take 5 mg by mouth. - ubidecarenone/vitamin E mixed (COQ10 SG 100 ORAL) Take 1 tablet by mouth once daily. - atenolol (TENORMIN) 50 mg tablet Take 50 mg by mouth once daily. - MULTIVITAMIN ORAL Take by mouth once daily. - CALCIUM CARBONATE/VITAMIN D3 (CALCIUM 600 + D ORAL) Take 2 tablets by mouth once daily. - atorvastatin (LIPITOR) 10 mg tablet Take 10 mg by mouth once daily. - clonazePAM (KLONOPIN) 0.5 mg tablet Take 0.025 tablets by mouth every 6 hours as needed for Anxiety. - paroxetine (PAXIL) 20 mg ORAL tablet Take 20 mg by mouth once daily. Problem List As Of Date 08/29/2023 Noted Resolved Knee pain [M25.569] 11/30/2010 Arthritis of knee [M17.10] 12/16/2010 Toe pain [M79.676] 07/05/2014 Degenerative tear of medial meniscus of left kn*01/18/2015 Essential hypertension [I10] 04/14/2015 GERD (gastroesophageal reflux disease) [K21.9] 04/14/2015 Hyperlipidemia [E78.5] 04/14/2015 Anxiety [F41.9] 04/14/2015 Primary osteoarthritis of right knee [M17.11] 08/06/2019 01/19/2020 Class 1 obesity due to excess calories without *01/05/2020 Encounter Status:Closed by RAMY MIR on 09/01/23 Normal [facility] Edgar Basophil percentageOrdered B y: Carlos Granado on 06-20-2023 Bilirubin [Mass/Vol] 0.40 mg/dL 0.20-1.00 [facility] Comment on above: For patients on eltr ombopag therapy, use of Dimension Dickinson TBIL is not recommended. Chloride [Moles/Vol] 106 mmol/L 98-107 [facility] Glucose [Mass/Vol] 124 mg/dL 74-106 [facility] Comment on above: Fasting Glucose resu lt from 100 to 125 mg/dL suggests IMPAIRED HOMEOSTASIS per A.D.A. criteria. Potassium [Moles/Vol] 4.7 mmol/L 3.5-5.1 [facility] Protein [Mass/Vol] 7.4 g/dL 6.4-8.2 [facility] Sodium [Moles/Vol] 141 mmol/L 136-145 [facility] Laboratory - Chemistry and C hemistry - challengeOrdered By: Carlos Granado on 06-20-2023 Albumin/Globulin [Mass ratio] 1.3 {ratio} 0.9-2.4 [facility] ALP [Catalytic activity/Vol] 89 U/L 45-117 [facility] ALT [Catalytic activity/Vol] 39 U/L 13-56 [facility] CO2 [Moles/Vol] 30.0 mmol/L 21.0-32.0 [facility] Globulin (S) [Mass/Vol] 3.2 g/dL 2.2-4.2 [facility] Urea nitrogen/Creatinine [Mass ratio] 29.9 mg/mg 10-20 [facility] No Panel InformationOrdered By: Carlos Granado on 06-20-2023 Estimated GFR (MDRD) Amer 81 mL/min >60 [facility] Comment on above: GFR Calc Estimated GFR (MDRD) Non-Af Amer 67 mL/min >60 [facility] Comment on above: Non- GFR Calc Serum or plasma calcium jane urement (mass/volume)Ordered By: Carlos Granado on 06-20-2023 Calcium [Mass/Vol] 10.0 mg/dL 8.5-10.1 [facility] Serum or plasma creatinine m easurement (mass/volume)Ordered By: Carlos Granado on 06-20-2023 Creatinine [Mass/Vol] 0.90 mg/dL 0.55-1.02 [facility] Comment on above: The validity of the calculated GFR & GFRAA in patients over 70 years has not been determined. Clinical correlation is essential. Serum or plasma urea nitroge n measurement (mass/volume)Ordered By: Carlos Granado on 06-20-2023 Urea nitrogen [Mass/Vol] 27 mg/dL 7-18 [facility] Thin prep Papanicolaou smear with manual screeningOrdered By: Carlos Granado on 06-20-2023 Thin prep Papanicolaou smear with manual screening 4.2 g/dL 3.2-5.0 [facility] Thin prep Papanicolaou smear with manual screening 20 U/L 15-37 [facility] Thin prep Papanicolaou smear with manual screening 5 5-15 [facility] CNOVon 05-12-2023 CNOV Office Visit (ORMDNA ) RAYMOND SHARMA ([id number]) 1960 F FNS Date Time Provider Department 05/12/23 8:30 AM MAXIMO CARO During your visit today, we recorded the following information about you: Weight Height 80 kg 1.626 m Maximo Caro MD 05/12/2023 9:00 AM Signed CONSULT ORTHOPAEDIC: KNEE PRIMARY CARE PHYSICIAN: Carlos Granado MD REFERRING PROVIDER: No referring provider defined for this encounter. ASSESSMENT AND PLAN Impression: Left Knee Severe Degenerative Osteoarthritis, Primary Diagnoses: Osteoarthritis left knee Based upon the evaluation today and after discussions with Raymond Sharma, Raymond Sharma has significant, worsening pain at the knee. This pain is increased with activity and weight bearing, and interferes with activities of daily living. These symptoms have continued despite a number of non-surgical measures, including a trial of oral pain medication and attempted physical therapy/ structured exercise program and/or use of an assistive device/ bracing (for at least 12 weeks unless the patient was unable to tolerate these measures as discussed above). At this point, the patient will not benefit from further PT due to the severity of their condition. The patient's physical examination is consistent with limitations in range of motion, pain with passive range of motion, crepitus, and effusion/ synovitis. These examination findings are corroborated by imaging findings of joint space narrowing, periarticular osteophyte formation, and subchondral sclerosis. The patient has been treated by the practice and all reasonable treatments have failed to control the disease, which causes significant pain and limits activities of daily living. The patient has failed conservative treatment and joint replacement surgery was discussed and agreed upon by both provider and patient. We will proceed with surgical management to improve function and relieve pain refractory to non-surgical measures. Left Primary Total Knee Arthroplasty as evidenced by progressive symptoms. Progressive Symptoms Include: Pain impacting sleep or causing fatigue Pain impacting work Pain worsened by weight bearing Pain effecting living situation Pain limiting ability to stay fit and healthy Unable to ambulate 2 blocks without significant pain and dysfunction . Surgery Details Date and Location: At [facility] on date to be determined. Implants: [place] Robotic: Yes Predicted LOS: 1 day (Outpatient candidate) Informed consent obtained in the office today. The risks and benefits of surgery were discussed at length including but not limited to the risks of infection, bleeding, nerve or blood vessel injury, deep venous thrombosis, pulmonary embolism, arthrofibrosis, reflex sympathetic dystrophy, , paralysis, knee or patellar dislocation, extensor mechanism injury, bone fracture, component loosening or failure requiring re-operation or amputation. Informed consent was obtained and the patient was scheduled for surgery. We also discussed fixation strategies including cement and cementless fixation and advantages and disadvantages of each. We discussed the details of the surgery as well as rehabilitation. All questions were answered, and the patient wishes to proceed with surgery.. The patient has been ordered: Office Visit on 05/12/23 OTC PRODUCT ibuprofen (MOTRIN) 200 mg tablet acetaminophen (TYLENOL EXTRA STRENGTH ORAL) Anemia Screen CT Raymond Sharma meets the following criteria for CT: Preop planning for robotic knee system CONSULTS: IMPACT/PACE Consult for preoperative clearance. Total Joint Arthroplasty: Risk Calculator Raymond Sharma has a 6.11% chance of NOT returning home at discharge for a Primary total Knee replacement. Raymond's estimated Length of Stay is 1 day (Outpatient candidate). Raymond's 30 day chance of readmission is 2.07%. Readmission Probability 2.07 % (within 30 days following surgery) Estimated LOS 1 day Discharge Disposition Probability D/C to Home 93.89 % D/C to SNF 6.11 % These calculations are based on the following factors: - 63 years of age - sex is not male - BMI of 30.27 kg/m2 - [employer] score of 170 - 0 hospitalizations in the last 12 months - no history of heart disease - no history of diabetes - no history of COPD - no history of anemia - preoperative ambulation: impaired community distances - 2 step(s) to enter home - bed location is NOT on the first floor - bath location is NOT on the first floor - caregiver is consistent - home is not more than 150 miles away - PROMIS-10 Mental Health T score not available - Marital status: single Risk Factors for Total Knee Arthroplasty (TKA) Major Risk Factors Obesity Moderate Risk High: BMI > 40 Moderate: BMI 30-40 Normal: BMI < 30 Diabetes no (more content not included)... Normal [facility] XR KNEE 4V AP/PA BOTH+LAT/ME R LTon 05-12-2023 XR KNEE 4V AP/PA BOTH+LAT/JOSE LT * * *Final Report* * * DATE OF EXAM: May 12 2023 8:03AM [facility] 5202 - XR KNEE 4V AP/PA BOTH+LAT/JOSE LT / PROCEDURE REASON: M25.562-Left knee pain, unspecified chronicity * * * * Physician Interpretation * * * * EXAMINATION / TECHNIQUE: XR KNEE 4V AP/PA BOTH+LAT/JOSE LT PATIENT/TECHNOLOGIST PROVIDED HISTORY: LEFT KNEE PAIN CLINICAL INFORMATION ( PROVIDED BY ORDERING CLINICIAN) : Left knee pain, unspecified chronicity COMPARISON: 01/18/2015 and 01/19/2021 RESULT: Severe medial compartment joint space narrowing with subchondral sclerosis. Associated mild genu valgus deformity. Mild lateral patellofemoral joint space narrowing. Moderate tricompartmental osteophytes. No acute fracture or dislocation. No joint effusion. Limited views of the right total knee arthroplasty without change. IMPRESSION: Severe medial compartment predominant left knee osteoarthritis Electron Beam Photo Mask Maker: [email or web address] Transcribe Date/Time: May 12 2023 11:17A Dictated by : GUANAKITO PANTOJA MD This examination was interpreted and the report reviewed and electronically signed by: GUANAKITO PANTOJA MD on May 12 2023 11:19AM EST [id number] N [facility] XR Knee - left 4 Viewson IMPRESSION: Severe medial compartment predominant left knee osteoarthritis Electron Beam Photo Mask Maker: [email or web address] Transcribe Date/Time: May 12 2023 11:17A Dictated by : GUANAKITO PANTOJA MD This examination was interpreted and the report reviewed and electronically signed by: GUANAKITO PANTOJA MD on May 12 2023 11:19AM EST [facility] * * *Final Report* * * DATE OF EXAM: May 12 2023 8:03AM [facility] 5202 - XR KNEE 4V AP/PA BOTH+LAT/JOSE LT / PROCEDURE REASON: M25.562-Left knee pain, unspecified chronicity * * * * Physician Interpretation * * * * EXAMINATION / TECHNIQUE: XR KNEE 4V AP/PA BOTH+LAT/JOSE LT PATIENT/TECHNOLOGIST PROVIDED HISTORY: LEFT KNEE PAIN CLINICAL INFORMATION ( PROVIDED BY ORDERING CLINICIAN) : Left knee pain, unspecified chronicity COMPARISON: 01/18/2015 and 01/19/2021 RESULT: Severe medial compartment joint space narrowing with subchondral sclerosis. Associated mild genu valgus deformity. Mild lateral patellofemoral joint space narrowing. Moderate tricompartmental osteophytes. No acute fracture or dislocation. No joint effusion. Limited views of the right total knee arthroplasty without change. [facility] Provider, Yoav Davis [facility] - 05/12/2023 * * *Final Report* * * DATE OF EXAM: May 12 2023 8:03AM [facility]202 - XR KNEE 4V AP/PA BOTH+LAT/JOSE LT / PROCEDURE REASON: M25.562-Left knee pain, unspecified chronicity * * * * Physician Interpretation * * * * EXAMINATION / TECHNIQUE: XR KNEE 4V AP/PA BOTH+LAT/JOSE LT PATIENT/TECHNOLOGIST PROVIDED HISTORY: LEFT KNEE PAIN CLINICAL INFORMATION ( PROVIDED BY ORDERING CLINICIAN) : Left knee pain, unspecified chronicity COMPARISON: 01/18/2015 and 01/19/2021 RESULT: Severe medial compartment joint space narrowing with subchondral sclerosis. Associated mild genu valgus deformity. Mild lateral patellofemoral joint space narrowing. Moderate tricompartmental osteophytes. No acute fracture or dislocation. No joint effusion. Limited views of the right total knee arthroplasty without change. IMPRESSION IMPRESSION: Severe medial compartment predominant left knee osteoarthritis Electron Beam Photo Mask Maker: DOE Transcribe Date/Time: May 12 2023 11:17A Dictated by : GUANAKITO PANTOJA MD This examination was interpreted and the report reviewed and electronically signed by: GUANAKITO PANTOJA MD on May 12 2023 11:19AM EST [facility] Radiology Study observation (narrative) [facility] XR Knee - left 4 ViewsOrdere d By: [facility] Provider on 05-12-2023 [facility] Basophil percentageOrdered B y: Carlos Granado on 02-17-2023 Bilirubin [Mass/Vol] 0.40 mg/dL 0.20-1.00 [facility] Comment on above: For patients on eltr ombopag therapy, use of Dimension Dickinson TBIL is not recommended. Chloride [Moles/Vol] 107 mmol/L 98-107 [facility] Cholesterol [Mass/Vol] 160 mg/dL <200 [facility] Comment on above: <200 mg/dL Desirable 200-240 mg/dL Borderline >240 mg/dL High Risk Glucose [Mass/Vol] 117 mg/dL 74-106 [facility] Comment on above: Fasting Glucose resu lt from 100 to 125 mg/dL suggests IMPAIRED HOMEOSTASIS per A.D.A. criteria. Potassium [Moles/Vol] 4.9 mmol/L 3.5-5.1 [facility] Protein [Mass/Vol] 7.5 g/dL 6.4-8.2 [facility] Sodium [Moles/Vol] 141 mmol/L 136-145 [facility] Triglyceride [Mass/Vol] 84 mg/dL <199 [facility] Comment on above: The drugs N-Acetylcy steine and Metamizole may falsely depress this assay.Serum Triglycerides Reference Interval Normal <150 mg/dL Borderline high 150 - 199 mg/dL High 200 - 499 mg/dL Very High > or = 500 mg/dL Laboratory - Chemistry and C hemistry - challengeOrdered By: Carlos Granado on 02-17-2023 ALP [Catalytic activity/Vol] 75 U/L 45-117 [facility] ALT [Catalytic activity/Vol] 36 U/L 13-56 [facility] CO2 [Moles/Vol] 28.0 mmol/L 21.0-32.0 [facility] Globulin (S) [Mass/Vol] 3.3 g/dL 2.2-4.2 [facility] Urea nitrogen/Creatinine [Mass ratio] 30.1 mg/mg 10-20 [facility] No Panel InformationOrdered By: Carlos Granado on 02-17-2023 Estimated GFR (MDRD) Amer 85 mL/min >60 [facility] Comment on above: GFR Calc Estimated GFR (MDRD) Non-Af Amer 70 mL/min >60 [facility] Comment on above: Non- GFR Calc Serum or plasma albumin jane urement (mass/volume)Ordered By: Carlos Granado on 02-17-2023 Albumin [Mass/Vol] 4.2 g/dL 3.2-5.0 [facility] Serum or plasma albumin/glob ulin mass ratioOrdered By: Carlos Granado on 02-17-2023 Albumin/Globulin [Mass ratio] 1.3 {ratio} 0.9-2.4 [facility] Serum or plasma calcium jane urement (mass/volume)Ordered By: Carlos Granado on 02-17-2023 Calcium [Mass/Vol] 9.3 mg/dL 8.5-10.1 [facility] Serum or plasma cholesterol in HDL measurement (mass/volume)Ordered By: Carlos Granado on 02-17-2023 Cholesterol in HDL [Mass/Vol] 63 mg/dL >40 [facility] Comment on above: The drugs N-Acetylcy steine and Metamizole may falsely depress this assay. Reference Range HDL <40 mg/dL Low HDL Cholesterol HDL >or= 60 mg/dL High HDL Cholesterol Serum or plasma cholesterol in VLDL measurement (mass/volume)Ordered By: Carlos Granado on 02-17-2023 Cholesterol in VLDL [Mass/Vol] 17 mg/dL 5-40 [facility] Serum or plasma creatinine m easurement (mass/volume)Ordered By: Carlos Granado on 02-17-2023 Creatinine [Mass/Vol] 0.86 mg/dL 0.55-1.02 [facility] Comment on above: The validity of the calculated GFR & GFRAA in patients over 70 years has not been determined. Clinical correlation is essential. Serum or plasma low density lipoprotein (LDL) cholesterol measurement (mass/volume)Ordered By: Carlos Granado on 02-17-2023 Cholesterol in LDL [Mass/Vol] 80 mg/dL 0-130 [facility] Serum or plasma urea nitroge n measurement (mass/volume)Ordered By: Carlos Granado on 02-17-2023 Urea nitrogen [Mass/Vol] 26 mg/dL 7-18 [facility] Thin prep Papanicolaou smear with manual screeningOrdered By: Carlos Granado on 02-17-2023 Thin prep Papanicolaou smear with manual screening 24 U/L 15-37 [facility] Thin prep Papanicolaou smear with manual screening 6 5-15 [facility] Basophil percentageOrdered B y: Carlos Granado on 08-29-2022 Bilirubin [Mass/Vol] 0.50 mg/dL 0.20-1.00 [facility] Comment on above: For patients on eltr ombopag therapy, use of Dimension Dickinson TBIL is not recommended. Chloride [Moles/Vol] 105 mmol/L 98-107 [facility] Cholesterol [Mass/Vol] 152 mg/dL <200 [facility] Comment on above: <200 mg/dL Desirable 200-240 mg/dL Borderline >240 mg/dL High Risk Glucose [Mass/Vol] 114 mg/dL 74-106 [facility] Comment on above: Fasting Glucose resu lt from 100 to 125 mg/dL suggests IMPAIRED HOMEOSTASIS per A.D.A. criteria. Potassium [Moles/Vol] 4.5 mmol/L 3.5-5.1 [facility] Protein [Mass/Vol] 7.1 g/dL 6.4-8.2 [facility] Sodium [Moles/Vol] 140 mmol/L 136-145 [facility] Triglyceride [Mass/Vol] 101 mg/dL <199 [facility] Comment on above: The drugs N-Acetylcy steine and Metamizole may falsely depress this assay.Serum Triglycerides Reference Interval Normal <150 mg/dL Borderline high 150 - 199 mg/dL High 200 - 499 mg/dL Very High > or = 500 mg/dL Laboratory - Chemistry and C hemistry - challengeOrdered By: Carlos Granado on 08-29-2022 ALP [Catalytic activity/Vol] 96 U/L 45-117 [facility] ALT [Catalytic activity/Vol] 37 U/L 13-56 [facility] CO2 [Moles/Vol] 28.0 mmol/L 21.0-32.0 [facility] Globulin (S) [Mass/Vol] 3.2 g/dL 2.2-4.2 [facility] Urea nitrogen/Creatinine [Mass ratio] 31.1 mg/mg 10-20 [facility] No Panel InformationOrdered By: Carlos Granado on 08-29-2022 Estimated GFR (MDRD) Amer 92 mL/min >60 [facility] Comment on above: GFR Calc Estimated GFR (MDRD) Non-Af Amer 76 mL/min >60 [facility] Comment on above: Non- GFR Calc Serum or plasma albumin jane urement (mass/volume)Ordered By: Carlos Granado on 08-29-2022 Albumin [Mass/Vol] 3.9 g/dL 3.2-5.0 [facility] Serum or plasma albumin/glob ulin mass ratioOrdered By: Carlos Granado on 08-29-2022 Albumin/Globulin [Mass ratio] 1.2 {ratio} 0.9-2.4 [facility] Serum or plasma calcium jane urement (mass/volume)Ordered By: Carlos Granado on 08-29-2022 Calcium [Mass/Vol] 9.7 mg/dL 8.5-10.1 [facility] Serum or plasma cholesterol in HDL measurement (mass/volume)Ordered By: Carlos Granado on 08-29-2022 Cholesterol in HDL [Mass/Vol] 60 mg/dL >40 [facility] Comment on above: The drugs N-Acetylcy steine and Metamizole may falsely depress this assay. Reference Range HDL <40 mg/dL Low HDL Cholesterol HDL >or= 60 mg/dL High HDL Cholesterol Serum or plasma cholesterol in VLDL measurement (mass/volume)Ordered By: Carlos Granado on 08-29-2022 Cholesterol in VLDL [Mass/Vol] 20 mg/dL 5-40 [facility] Serum or plasma creatinine m easurement (mass/volume)Ordered By: Carlos Granado on 08-29-2022 Creatinine [Mass/Vol] 0.80 mg/dL 0.55-1.02 [facility] Comment on above: The validity of the calculated GFR & GFRAA in patients over 70 years has not been determined. Clinical correlation is essential. Serum or plasma low density lipoprotein (LDL) cholesterol measurement (mass/volume)Ordered By: Carlos Granado on 08-29-2022 Cholesterol in LDL [Mass/Vol] 72 mg/dL 0-130 [facility] Serum or plasma urea nitroge n measurement (mass/volume)Ordered By: Carlos Granado on 08-29-2022 Urea nitrogen [Mass/Vol] 25 mg/dL 7-18 [facility] Thin prep Papanicolaou smear with manual screeningOrdered By: Carlos Granado on 08-29-2022 Thin prep Papanicolaou smear with manual screening 19 U/L 15-37 [facility] Thin prep Papanicolaou smear with manual screening 7 5-15 [facility] Basophil percentageon 2021 Chloride [Moles/Vol] 106 mmol/L 98-107 [facility] Work Phone: Cholesterol [Mass/Vol] 165 mg/dL <200 [facility] Work Phone: Comment on above: <200 mg/dL Desirable 200-240 mg/dL Borderline >240 mg/dL High Risk Glucose [Mass/Vol] 123 mg/dL 74-106 [facility] Work Phone: Comment on above: Fasting Glucose resu lt from 100 to 125 mg/dL suggests IMPAIRED HOMEOSTASIS per A.D.A. criteria. Potassium [Moles/Vol] 4.2 mmol/L 3.5-5.1 [facility] Work Phone: Sodium [Moles/Vol] 140 mmol/L 136-145 [facility] Work Phone: Triglyceride [Mass/Vol] 195 mg/dL <199 [facility] Work Phone: Comment on above: The drugs N-Acetylcy steine and Metamizole may falsely depress this assay.Serum Triglycerides Reference Interval Normal <150 mg/dL Borderline high 150 - 199 mg/dL High 200 - 499 mg/dL Very High > or = 500 mg/dL Laboratory - Chemistry and C hemistry - challengeon 10-25-2021 CO2 [Moles/Vol] 29.0 mmol/L 21.0-32.0 [facility] Work Phone: Urea nitrogen/Creatinine [Mass ratio] 17.5 mg/mg 10-20 [facility] Work Phone: No Panel Informationon 10-25 Estimated GFR (MDRD) Amer 86 mL/min >60 [facility] Work Phone: Comment on above: GFR Calc Estimated GFR (MDRD) Non-Af Amer 71 mL/min >60 [facility] Work Phone: Comment on above: Non- GFR Calc Vitamin D 25-Hydroxy 62.7 ng/mL [facility] Work Phone: Comment on above: Vitamin D 25(OH) Sta tus Range Deficiency <20 ng/mL (50nmol/L) Insufficiency 20 - 30 ng/mL (50 - 75 nmol/L) Sufficiency 30 - 100 ng/mL (75 - 250 nmol/L) Toxicity >100 ng/mL (>250 nmol/L) Serum or plasma calcium jane urement (mass/volume)on 10-25-2021 Calcium [Mass/Vol] 9.5 mg/dL 8.5-10.1 [facility] Work Phone: Serum or plasma cholesterol in HDL measurement (mass/volume)on 10-25-2021 Cholesterol in HDL [Mass/Vol] 51 mg/dL >40 [facility] Work Phone: Comment on above: The drugs N-Acetylcy steine and Metamizole may falsely depress this assay. Reference Range HDL <40 mg/dL Low HDL Cholesterol HDL >or= 60 mg/dL High HDL Cholesterol Serum or plasma cholesterol in VLDL measurement (mass/volume)on 10-25-2021 Cholesterol in VLDL [Mass/Vol] 39 mg/dL 5-40 [facility] Work Phone: Serum or plasma creatinine m easurement (mass/volume)on 10-25-2021 Creatinine [Mass/Vol] 0.86 mg/dL 0.55-1.02 [facility] Work Phone: Comment on above: The validity of the calculated GFR & GFRAA in patients over 70 years has not been determined. Clinical correlation is essential. Serum or plasma low density lipoprotein (LDL) cholesterol measurement (mass/volume)on 10-25-2021 Cholesterol in LDL [Mass/Vol] 75 mg/dL 0-130 [facility] Work Phone: Serum or plasma urea nitroge n measurement (mass/volume)on 10-25-2021 Urea nitrogen [Mass/Vol] 15 mg/dL 7-18 [facility] Work Phone: Thin prep Papanicolaou smear with manual screeningon 10-25-2021 Thin prep Papanicolaou smear with manual screening 5 5-15 [facility] Work Phone: Vital Signs Date Time Vital Sign Value Performing Clinician Facility 01-16-2024 09:51-0400 Body temperature 97.39 [degF] Carmel Schreiber PT Work Phone: [facility] 01-16-2024 09:51-0400 Diastolic blood pressure 80 mm[Hg] Carmel Schreiber PT Work Phone: [facility] 01-16-2024 09:51-0400 Heart rate 62 /min Carmel Schreiber PT Work Phone: [facility] 01-16-2024 09:51-0400 Respiratory rate 16 /min Carmel Schreiber PT Work Phone: [facility] 01-16-2024 09:51-0400 SaO2% (BldA) [Mass fraction] 95 % Carmel Schreiber PT Work Phone: [facility] 01-16-2024 09:51-0400 Systolic blood pressure 138 mm[Hg] Carmel Schreiber PT Work Phone: [facility] 01-14-2024 10:03-0400 Body temperature 97.39 [degF] Kenisha Milagros HAIR SALON MANAGER Work Phone: [facility] 01-14-2024 10:03-0400 Diastolic blood pressure 76 mm[Hg] Kenisha Milagros HAIR SALON MANAGER Work Phone: [facility] 01-14-2024 10:03-0400 Heart rate 65 /min Kenisha Milagros HAIR SALON MANAGER Work Phone: [facility] 01-14-2024 10:03-0400 Respiratory rate 18 /min Kenisha Milagros HAIR SALON MANAGER Work Phone: [facility] 01-14-2024 10:03-0400 SaO2% (BldA) [Mass fraction] 95 % Kenisha Milagros HAIR SALON MANAGER Work Phone: [facility] 01-14-2024 10:03-0400 Systolic blood pressure 118 mm[Hg] Kenisha Milagros HAIR SALON MANAGER Work Phone: [facility] 01-13-2024 14:37-0400 Body temperature 97.7 [degF] Kenisha Milagros HAIR SALON MANAGER Work Phone: [facility] 01-13-2024 14:37-0400 Diastolic blood pressure 84 mm[Hg] Kenisha Milagros HAIR SALON MANAGER Work Phone: [facility] 01-13-2024 14:37-0400 Heart rate 64 /min Kenisha Milagros HAIR SALON MANAGER Work Phone: [facility] 01-13-2024 14:37-0400 Respiratory rate 18 /min Kenisha Milagros HAIR SALON MANAGER Work Phone: [facility] 01-13-2024 14:37-0400 SaO2% (BldA) [Mass fraction] 99 % Kenisha Milagros HAIR SALON MANAGER Work Phone: [facility] 01-13-2024 14:37-0400 Systolic blood pressure 128 mm[Hg] Kenisha Milagros HAIR SALON MANAGER Work Phone: [facility] 01-09-2024 11:43-0400 Body temperature 98.71 [degF] Kenisha Milagros HAIR SALON MANAGER Work Phone: [facility] 01-09-2024 11:43-0400 Diastolic blood pressure 78 mm[Hg] Kenisha Milagros HAIR SALON MANAGER Work Phone: [facility] 01-09-2024 11:43-0400 Heart rate 70 /min Kenisha Milagros HAIR SALON MANAGER Work Phone: [facility] 01-09-2024 11:43-0400 Respiratory rate 18 /min Kenisha Milagros HAIR SALON MANAGER Work Phone: [facility] 01-09-2024 11:43-0400 SaO2% (BldA) [Mass fraction] 99 % Kenisha Milagros HAIR SALON MANAGER Work Phone: [facility] 01-09-2024 11:43-0400 Systolic blood pressure 118 mm[Hg] Kenisha Milagros HAIR SALON MANAGER Work Phone: [facility] 01-08-2024 14:46-0400 Body temperature 98.1 [degF] Kenisha Milagros HAIR SALON MANAGER Work Phone: [facility] 01-08-2024 14:46-0400 Diastolic blood pressure 82 mm[Hg] Kenisha Milagros HAIR SALON MANAGER Work Phone: [facility] 01-08-2024 14:46-0400 Heart rate 63 /min Kenisha Milagros HAIR SALON MANAGER Work Phone: [facility] 01-08-2024 14:46-0400 Respiratory rate 18 /min Kenisha Milagros HAIR SALON MANAGER Work Phone: [facility] 01-08-2024 14:46-0400 SaO2% (BldA) [Mass fraction] 97 % Kenisha Milagros HAIR SALON MANAGER Work Phone: [facility] 01-08-2024 14:46-0400 Systolic blood pressure 122 mm[Hg] Kenisha Milagros HAIR SALON MANAGER Work Phone: [facility] 01-05-2024 13:40-0400 Body temperature 98.71 [degF] Kenisha Milagros HAIR SALON MANAGER Work Phone: [facility] 01-05-2024 13:40-0400 Diastolic blood pressure 78 mm[Hg] Kenisha Milagros HAIR SALON MANAGER Work Phone: [facility] 01-05-2024 13:40-0400 Heart rate 68 /min Kenisha Milagros HAIR SALON MANAGER Work Phone: [facility] 01-05-2024 13:40-0400 Respiratory rate 18 /min Kenisha Milagros HAIR SALON MANAGER Work Phone: [facility] 01-05-2024 13:40-0400 SaO2% (BldA) [Mass fraction] 99 % Kenisha Milagros HAIR SALON MANAGER Work Phone: [facility] 01-05-2024 13:40-0400 Systolic blood pressure 118 mm[Hg] Kenisha Milagros HAIR SALON MANAGER Work Phone: [facility] 01-02-2024 11:41-0400 Body temperature 98.4 [degF] Kenisha Milagros HAIR SALON MANAGER Work Phone: [facility] 01-02-2024 11:41-0400 Diastolic blood pressure 78 mm[Hg] Kenisha Milagros HAIR SALON MANAGER Work Phone: [facility] 01-02-2024 11:41-0400 Heart rate 55 /min Kenisha Milagros HAIR SALON MANAGER Work Phone: [facility] 01-02-2024 11:41-0400 Respiratory rate 18 /min Kenisha Milagros HAIR SALON MANAGER Work Phone: [facility] 01-02-2024 11:41-0400 SaO2% (BldA) [Mass fraction] 93 % Kenisha Milagros HAIR SALON MANAGER Work Phone: [facility] 01-02-2024 11:41-0400 Systolic blood pressure 118 mm[Hg] Kenisha Milagros HAIR SALON MANAGER Work Phone: [facility] 12-31-2023 10:45-0400 Body temperature 98.2 [degF] Carmel Halderman-Elizabeth PT Work Phone: [facility] 12-31-2023 10:45-0400 Diastolic blood pressure 72 mm[Hg] Carmel Halderman-Elizabeth PT Work Phone: [facility] 12-31-2023 10:45-0400 Heart rate 65 /min Carmel Halderman-Elizabeth PT Work Phone: [facility] 12-31-2023 10:45-0400 Respiratory rate 16 /min Carmel Amezquitaderman-Elizabeth PT Work Phone: [facility] 12-31-2023 10:45-0400 SaO2% (BldA) [Mass fraction] 93 % Carmel Halderman-Elizabeth PT Work Phone: [facility] 12-31-2023 10:45-0400 Systolic blood pressure 104 mm[Hg] Carmel Halderman-Elizabeth PT Work Phone: [facility] 12-10-2023 15:44-0400 Body height 162.6 cm Pacc 1 Work Phone: [facility] 12-10-2023 15:44-0400 Body mass index (BMI) [Ratio] 29.35 kg/m2 Pacc 1 Work Phone: [facility] 12-10-2023 15:44-0400 Body temperature 97.59 [degF] Pacc 1 Work Phone: [facility] 12-10-2023 15:44-0400 Body weight 77.56 kg Pacc 1 Work Phone: [facility] 12-10-2023 15:44-0400 Diastolic blood pressure 86 mm[Hg] Pacc 1 Work Phone: [facility] 12-10-2023 15:44-0400 Heart rate 70 /min Pacc 1 Work Phone: [facility] 12-10-2023 15:44-0400 Respiratory rate 16 /min Pacc 1 Work Phone: [facility] 12-10-2023 15:44-0400 SaO2% (BldA) [Mass fraction] 98 % Pacc 1 Work Phone: [facility] 12-10-2023 15:44-0400 Systolic blood pressure 132 mm[Hg] Pacc 1 Work Phone: [facility] 01-03-2023 13:27-0400 Body height 162.[address] Carlos Granado Work Phone: [facility] 01-03-2023 13:27-0400 Body mass index (BMI) [Ratio] 29.2 kg/m2 Dr. Carlos Granado Work Phone: [facility] 01-03-2023 13:27-0400 Body weight 77.[address] Carlos Granado Work Phone: [facility] 09-05-2022 08:34-0400 Body height 162.[address] Carlos Granado Work Phone: [facility] 09-05-2022 08:33-0400 Body mass index (BMI) [Ratio] 30.1 kg/m2 Dr. Carlos Granado Work Phone: [facility] 09-05-2022 08:33-0400 Body weight 79.[address] Carlos Granado Work Phone: [facility] 09-05-2022 08:33-0400 Diastolic blood pressure 77 mm[Hg] Dr. Carlos Granado Work Phone: [facility] 09-05-2022 08:33-0400 Systolic blood pressure 161 mm[Hg] Dr. Carlos Granado Work Phone: [facility] 10-02-2021 09:30-0400 Body temperature 96.9 [degF] Dr. Carlos Granado Work Phone: [facility] Work Phone: 10-02-2021 09:30-0400 Diastolic blood pressure 64 mm[Hg] Dr. Carlos Granado Work Phone: [facility] Work Phone: 10-02-2021 09:30-0400 Heart rate 60 /min Dr. Carlos Granado Work Phone: [facility] Work Phone: 10-02-2021 09:30-0400 Respiratory rate 16 /min Dr. Carlos Granado Work Phone: [facility] Work Phone: 10-02-2021 09:30-0400 SaO2% (BldA) [Mass fraction] 100 % Dr. Carlos Granado Work Phone: [facility] Work Phone: 10-02-2021 09:30-0400 Systolic blood pressure 111 mm[Hg] Dr. Carlos Granado Work Phone: [facility] Work Phone: 10-02-2021 08:27-0400 Body height 162.[address] Carlos Granado Work Phone: [facility] Work Phone: 10-02-2021 08:27-0400 Body mass index (BMI) [Ratio] 32.1 kg/m2 Dr. Carlos Granado Work Phone: [facility] Work Phone: 10-02-2021 08:27-0400 Body weight 84.[address] Carlos Granado Work Phone: [facility] Work Phone: 07-27-2021 11:33-0400 Body mass index (BMI) [Ratio] 32.5 kg/m2 Dr. Carlos Granado Work Phone: [facility] Work Phone: 07-27-2021 11:33-0400 Body weight 86.[address] Carlos Granado Work Phone: [facility] Work Phone: Encounters Encounter Date Encounter Type Care Provider Facility Start: 10-08-2024 ambulatory Carlos Granado Facility:[facility] Start: 05-17-2024 End: 05-17-[address] Carlos Granado MD Work Phone: [facility] Work Phone: Start: 05-17-2024 End: 05-17-[address] Carlos Granado MD -Laboratory, [facility] Start: 05-17-2024 End: 05-17-2024 ambulatory Carlos Granado Facility:[facility] Start: 04-19-2024 End: 04-19-2024 Patient encounter procedure Marivel Delgado CNM -Outpatient Breast Imaging Work Phone: Start: 04-19-2024 End: 04-19-2024 ambulatory Carlos Granado Facility:[facility] Start: 03-29-2024 End: 03-29-2024 ambulatory Carlos Granado Facility:[facility] Start: 03-29-2024 End: 03-29-2024 Discharged Recurring Maribel YO -Physical Therapy Work Phone: Start: 03-12-2024 End: 03-12-2024 ambulatory CARLOS GRANADO Facility:[facility] Start: 03-12-2024 End: 03-12-2024 Patient encounter procedure Maximo Caro MD Work Phone: Orthopaedics Comment on above: Aftercare following right knee joint replacement surgery (Primary Dx) Start: 02-11-2024 End: 02-11-2024 Patient encounter procedure Maximo Caro MD Work Phone: Orthopaedics Comment on above: Aftercare following left knee joint replacement surgery (Primary Dx) Start: 02-11-2024 End: 02-11-2024 ambulatory MAXIMO CARO Facility:[facility] Start: 01-21-2024 End: 01-21-2024 Refill Maximo Caro MD Work Phone: Orthopaedics Comment on above: Refill Request Start: 01-16-2024 End: 01-16-2024 Home visit Carmel Schreiber PT Work Phone: [facility] Comment on above: PT AGENCY DC W VISIT Start: 01-14-2024 End: 01-14-2024 Home visit Kenisha Grant HAIR SALON MANAGER Work Phone: [facility] Comment on above: HAIR SALON MANAGER ROUTINE Refill Request Start: 01-13-2024 End: 01-13-2024 Home visit Kenisha Grant HAIR SALON MANAGER Work Phone: [facility] Comment on above: HAIR SALON MANAGER ROUTINE Start: 01-12-2024 End: 01-12-2024 Patient encounter procedure Jaswinder Zamora PA-C Work Phone: Orthopaedics Comment on above: Aftercare following left knee joint replacement surgery (Primary Dx) Start: 01-12-2024 End: 01-12-2024 ambulatory CARLOS GRANADO Facility:[facility] Start: 01-12-2024 End: 01-12-2024 Subsequent hospital visit by physician [facility] Work Phone: Radiology Comment on above: Left knee pain, unsp ecified chronicity [M25.562] Start: 01-09-2024 End: 01-09-2024 Home visit Kenisha Grant HAIR SALON MANAGER Work Phone: [facility] Comment on above: HAIR SALON MANAGER ROUTINE Start: 01-08-2024 End: 01-08-2024 Home visit Kenisha Grant HAIR SALON MANAGER Work Phone: [facility] Comment on above: HAIR SALON MANAGER ROUTINE Start: 01-05-2024 Encounter for other preprocedural examination Carlos Granado [facility] Start: 01-05-2024 End: 01-05-2024 Home visit Kenisha Grant HAIR SALON MANAGER Work Phone: [facility] Comment on above: HAIR SALON MANAGER ROUTINE Refill Request Start: 01-05-2024 End: 01-05-2024 Telephone encounter Kenisha Grant HAIR SALON MANAGER Work Phone: [facility] Comment on above: Home Care (Bandage r emoval) Start: 01-02-2024 End: 01-02-2024 Home visit Kenisha Grant HAIR SALON MANAGER Work Phone: [facility] Comment on above: HAIR SALON MANAGER ROUTINE Start: 01-01-2024 End: 01-01-2024 Home visit Gladis Briggs RN Work Phone: [facility] Comment on above: CARE COORDINATION Start: 12-31-2023 End: 12-31-2023 Home visit Carmel Schreiber PT Work Phone: [facility] Comment on above: PT SOC Start: 12-30-2023 End: 12-30-2023 Telephone encounter Rafa Alonzo PSS [facility] Comment on above: Home Care (Confirmat ion call) Start: 12-29-2023 End: 12-30-[address] [facility] Facility:[facility] Start: 12-18-[address] [facility] Facility :[facility] Start: 12-18-2023 End: 12-18-2023 Subsequent hospital visit by physician [facility] Radiology Comment on above: Primary osteoarthrit is of left knee [M17.12] Start: 12-10-2023 Encounter for other preprocedural examination NAZ DUVAL [facility] Start: 12-10-2023 End: 12-10-2023 Admission to establishment Pac Covert 1 Work Phone: Pre Anesthesia Start: 12-10-2023 End: 12-10-2023 ambulatory NAZ DUVAL Facility:[facility] Start: 12-10-2023 End: 12-10-2023 Anesthesia consultation Pac Covert 1 Work Phone: Pre Anesthesia Comment on above: Pre-operative examin ation (Primary Dx); Essential hypertension; Other hyperlipidemia; Gastroesophageal reflux disease with esophagitis, unspecified whether hemorrhage; Anxiety; BMI 29.0-29.9,adult; History of total right knee replacement; AV block, 1st degree Start: 12-10-2023 End: 12-10-2023 Preprocedural examination done [place] [id number] Work Phone: [facility] Work Phone: Start: 12-08-2023 End: 12-08-2023 ambulatory Carlos Granado Facility:[facility] Start: 12-05-2023 End: 12-08-2023 Telephone encounter Maximo Caro MD Work Phone: Orthopaedics Comment on above: Appointment Start: 10-30-2023 Telephone encounter Maximo Caro MD Work Phone: [address] Comment on above: Pre-Op Teaching Start: 08-29-2023 Telephone encounter Maximo Caro MD Work Phone: Orthopaedics Comment on above: Appointment Start: 06-20-2023 End: 06-20-2023 ambulatory [facility] Work Phone: Start: 06-20-2023 End: 06-20-2023 Patient encounter procedure [facility] Start: 05-17-2023 ambulatory Shannon Green RN [facility] Comment on above: Blood Management Start: 05-14-2023 Orders Only Maximo tang MD Work Phone: Orthopaedics Comment on above: Primary osteoarthrit is of left knee (Primary Dx) Start: 05-12-2023 End: 05-12-2023 ambulatory CARLOS GRANADO Facility:[facility] Start: 05-12-2023 End: 05-12-2023 Subsequent hospital visit by physician Radio Valenzuela [facility] Work Phone: Radiology Comment on above: Left knee pain, unsp ecified chronicity [M25.562] Start: 04-14-2023 End: 04-14-[address] Carlos Granado Work Phone: [facility] Work Phone: Start: 04-14-2023 End: 04-14-[address] Carlos Granado Work Phone: [facility]-Outpatient Breast Imaging Work Phone: Start: 02-17-2023 End: 02-17-[address] Carlos Granado Work Phone: [facility] Work Phone: Start: 02-17-2023 End: 02-17-[address] Carlos Granado Work Phone: [facility] Start: 01-03-2023 End: 01-03-[address] Carlos Granado Work Phone: [facility] Work Phone: Start: 11-25-2022 End: 11-25-[address] Carlos Granado Work Phone: [facility] Work Phone: Start: 11-25-2022 End: 11-25-[address] Carlos Granado Work Phone: [facility] Work Phone: Start: 09-05-2022 End: 09-05-[address] Carlos Granado Work Phone: [facility] Work Phone: Start: 08-29-2022 End: 08-29-[address] Carlos Granado Work Phone: [facility] Start: 10-25-2021 End: 10-25-[address] Carlos Granado Work Phone: [facility] Start: 10-02-2021 Non-patient / Non-visit [facility] Srinath Granado [facility] - [place] Start: 10-02-2021 End: 10-02-2021 Admission to same day surgery center Dr. Carlos Granado Work Phone: [facility] Start: 07-27-2021 Non-patient / Non-visit Dr. Srinath Granado Work Phone: [facility] Procedures Date Procedure Procedure Detail Performing Clinician Start: 04-19-2024 Screening mammography Ml Granado MD Work Phone: Start: 12-10-2023 Ecg routine ecg w/le ast 12 lds i&r only [facility] Provider Start: 05-12-2023 Radiologic exam knee complete 4/more views Jaswinder Zamora PA-C Work Phone: Start: 04-14-2023 Screening mammography Ml Granado Work Phone: Start: 11-25-2022 X-ray of lumbar spin e, two or three views Dr. Carlos Granado Work Phone: Start: 10-02-[address] Carlos buck Work Phone: Plan of Treatment Date Care Activity Detail Author Start: 2034 RSV Vaccine (1 - 1-d ose 75+ series) RSV Vaccine (1 - 1-dose 75+ series) [facility] Start: 02-24-2028 Urine microalbumin profile DTaP,Tdap,Td Vaccine (2 - Td or Tdap) [facility] Start: 12-29-2026 Diabetes Screening Diabetes Screenin g [facility] Start: 12-09-2026 Diabetes Screening Diabetes Screenin g [facility] Start: 01-13-2025 BP Controlled (<130/80) BP Controlle d (<130/80) [facility] Start: 01-08-2025 BP Controlled (<130/80) BP Controlle d (<130/80) [facility] Start: 01-04-2025 BP Controlled (<130/80) BP Controlle d (<130/80) [facility] Start: 01-01-2025 BP Controlled (<130/80) BP Controlle d (<130/80) [facility] Start: 12-30-2024 BP Controlled (<130/80) BP Controlle d (<130/80) [facility] Start: 04-30-2024 End: 04-30-2024 Patient encounter procedure 04/30/2024 10:00 AM EST Office Visit Orthopaedics [address] [address] Maximo Caro MD [address] [address] Recheck for knee replacement Orthopaedics Comment on above: Recheck for knee rep lacement Start: 03-17-2024 Advance Directive Discussion Advance Directive Discussion [facility] Start: 03-12-2024 End: 03-12-2024 Patient encounter procedure 03/12/2024 1:30 PM EST Office Visit Orthopaedics [address] [address] Maximo Caro MD [address] [address] 1 month follow up Orthopaedics Comment on above: 1 month follow up Start: 02-28-2024 Advance Directive Discussion Advance Directive Discussion [facility] Start: 02-28-2024 Screening for osteoporosis Bone Density Screening [facility] Start: 02-11-2024 End: 02-11-2024 Patient encounter procedure 02/11/2024 2:45 PM EST Office Visit Orthopaedics [address] [place] [address] Maximo Caro MD [address] [address] 2nd post op Lt tka frederick 12/29/23 Orthopaedics Comment on above: 2nd post op Lt tka m ako 12/29/23 Start: 01-12-2024 End: 01-12-2024 Patient encounter procedure Orthopaedics Comment on above: 1st post op Lt tka m ako 12/29/23 L knee L knee Order 12/31 Start: 12-29-2023 End: 12-29-2023 Admission to same day surgery center 12/29/2023 7:30 AM EDT - 12/29/2023 10:22 AM EDT [facility] [address] [place] [address] Maximo Caro MD [address] [address] ROBOTIC ASSISTED TOTAL KNEE ARTHROPLASTY [facility] Surgery Comment on above: ROBOTIC ASSISTED TOT AL KNEE ARTHROPLASTY Start: 12-29-2023 End: 12-29-2023 Arthrp kne condyle&platu medial&lat compartments ROBOTIC ASSISTED TOTAL KNEE ARTHROPLASTY Primary osteoarthritis of left knee 12/29/2023 7:30 AM EDT ME OR Start: 12-29-2023 Subsequent hospital visit by physician 12/29/2023 7:30 AM EDT Hospital Encounter [facility] Surgery [address] [place] [address] Maximo Caro MD [address] [address] Primary osteoarthritis of left knee [M17.12] [facility] Surgery Comment on above: Primary osteoarthrit is of left knee [M17.12] Start: 12-18-2023 End: 12-18-2023 Patient encounter procedure 12/18/2023 5:00 PM EDT Appointment Radiology [address] [place] [address] SCAN Radiology Comment on above: [facility] SCAN Start: 12-10-2023 End: 12-10-2023 Anesthesia consultation 12/10/2023 3:40 PM EDT PAT Pre Anesthesia [address] [place] [address] 1, Pacc Covert [address] [place] [address] ROBOTIC ASSISTED TOTAL KNEE ARTHROPLASTY [02982] - Knee - Left Pre Anesthesia Comment on above: ROBOTIC ASSISTED TOT AL KNEE ARTHROPLASTY [51442] - Knee - Left Start: 12-10-2023 End: 03-10-2024 Bacteria identified in Urine by Culture [facility] Comment on above: Expected: 12/10/2023 , Expires: 03/10/2024 Start: 11-16-2023 Covid-19 Vaccine () Covid-19 Vaccine () [facility] Start: 11-16-2023 Covid-19 Vaccine ( season) Covid-19 Vaccine () [facility] Start: 11-16-2023 Influenza vaccination Influenza Vacc ine (#1) [facility] Start: 03-17-2023 Behavioral Health Screening Behavioral Health Screening [facility] Start: 03-17-2023 Depression Assessment Depression Ass essment [facility] Start: 01-04-2023 Diabetes Screening Diabetes Screenin g [facility] Start: 11-15-2022 Covid-19 Vaccine ( season) Covid-19 Vaccine () [facility] Start: 10-02-2021 Colonoscopy flx dx w/collj spec when pfrmd DIAGNOSTIC COLONOSCOPY [facility] Work Phone: Start: 10-02-2021 Patient discharge [facility] Work Phone: Start: 09-14-2020 Screening for malign ant neoplasm of breast Mammogram Screening [facility] Start: 2019 RSV Vaccine (1 - 1-d ose 60+ series) RSV Vaccine (1 - 1-dose 60+ series) [facility] Start: 2019 RSV Vaccine (1 - Ris k 60-74 years 1-dose series) RSV Vaccine (1 - Risk 60-74 years 1-dose series) [facility] Start: 2009 Pneumococcal Vaccine : 50+ (1 of 1 - PCV) Pneumococcal Vaccine: 50+ (1 of 1 - PCV) [facility] Start: 02-28-2004 Lipid panel Lipid Screening [facility] Start: 02-28-2004 Screening for malign ant neoplasm of colon [facility] Start: 1989 Screening for malign ant neoplasm of cervix HPV Testing [facility] Start: 02-28-1980 Screening for malign ant neoplasm of cervix [facility] Start: 1977 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 Disease Visit Annual PCP Team Chronic Disease Visit [facility] Start: 1977 BP Controlled (<130/80) BP Controlle d (<130/80) [facility] Start: 1977 Depression Screening Depression Scre ening [facility] Start: 1977 Hepatitis C screening Hepatitis C Sc neeta [facility] Start: 1977 HIV screening HIV Screening [facility] Colonoscopy [facility] Work Phone: CT Knee - left WO contrast CT KNEE WO IVCON LEFT Radiology Routine Primary osteoarthritis of left knee 12/18/2023 5:09 PM EDT [facility] Work Phone: End: 12-09-2024 ECG COMPLETE ECG COMPLETE ECG Routine Pre-operative examination 1 Occurrences starting 12/10/2023 until 12/09/2024 [facility] Work Phone: Comment on above: 1 Occurrences starti ng 12/10/2023 until 12/09/2024 MG Breast - bilatera l Screening [facility] Patient referral [facility] Work Phone: XR Knee AP and Later al and [employer] XR KNEE POST OP 3V AP/LAT/MERCHANT LEFT Radiology Routine Left knee pain, unspecified chronicity 01/12/2024 1:50 PM EDT [facility] Work Phone: [facility] Immunizations Immunization Date Immunization Notes Care Provider Fa [facility] 01-10-2023 influenza virus vacc ine, unspecified formulation Maximo Caro MD Work Phone: [facility] Payers Date Payer Category Payer Self-pay [id number] 2018 Unknown MMO [employer] PPO [id number] 2018-Present [phone] [address] [place] [address] PPO [id number] 2018 Unknown [id number] Unknown [id number] Unknown [id number] Unknown [id number] Unknown [id number] Social History Date Type Detail Facility Start: 10-02-2021 End: 01-03-2023 Tobacco smoking status NHIS Unknown if ever smoked [facility] Start: 1960 Sex Assigned At Female [facility] Start: 01-03-2023 End: 05-12-2023 Tobacco smoking status NHIS Never smoked tobacco [facility] Start: 05-12-2023 Tobacco use and exposure Smokeless tobacco non-user [facility] Start: 05-12-2023 End: 02-11-2024 Alcohol intake Current non-drinker of alcohol (finding) [facility] Start: 05-12-2023 End: 12-30-2023 History of Social function [facility] Work Phone: Start: 05-12-2023 End: 12-30-2023 Tobacco use panel [facility] Work Phone: How hard is it for y ou to pay for the very basics like food, housing, medical care, and heating Not hard at all [facility] Work Phone: (I/We) worried whevinny er (my/our) food would run out before (I/we) got money to buy more. Never true [facility] Work Phone: Start: 1960 Sex Assigned At Not on file [facility] Has the [employer] s, oil, or water company threatened to shut off services in your home in past 12Mo No [facility] Start: 05-27-2024 Sex Female (finding) [facility] Medical Equipment Procedure Code Equipment Code Equipment Origin al Text Equipment Identifier Dates Baseplate Triath benito 3 Tritanium 44mm 67mm Tibial Sterile Latex Free - [id number] Start: 01-18-2020 Component Triath satinder 3 Pa Femoral Cruciate Retain Bead Knee Right - [id number] Start: 01-18-2020 Insert Triathlon 3 9mm Tibial Bearing Cruciate Retain Sterile Knee - [id number] Start: 01-18-2020 Component Tritan ium 29mm Metal 9mm Patellar Asymmetric Knee - [id number] Start: 01-18-2020 Component Triath satinder 2 Pa Femoral Cruciate Retain Bead Knee Left - [id number] Start: 12-29-2023 Component Triath satinder 2 Tibial Sterile Latex Free Knee - [id number] Start: 12-29-2023 Insert Triathlon 2 11mm Tibial Bearing Condylar Stabilize Sterile Knee - [id number] Start: 12-29-2023 Component 32mm Tritanium 10mm Patellar Asymmetric - [id number] Start: 12-29-2023 Goals Date Patient Goal Desired Activity /State Personal health goal Mental Status Date Assessment Result Facility 10-02-2021 Cognitive function Voice/Name [facility] Work Phone: Clinical Notes 08-06-2019 to 03-12-2024 Maximo Caro MD - 03/12/2024 1:56 PM Maximo Machado MD - 02/11/2024 2:35 PM ESTTelephone Encounter - Ramy Mir - 01/21/2024 9:49 AM ESTPatient Instructions Note Date & Type Note Facility 03-12-2024 Note HNO ID: [id number] Author: MAXIMO CARO MD Service: ? Author Type: Physician Type: Progress Notes Filed: 04/06/2024 13:58 Note Text: DR. CARO- POST-OP KNEE Post-Op F/U Office Visit Raymond Sharma presents today for a 10 weeks status post Left TKA. Post-operative recovery was uneventful. Patient's rating of condition: improving Comments: Patient still having difficulty with regaining motion Does the Pt. still experience pain? PAIN EVALUATION 03/12/2024 3764 Pain Location: Knee-Left Description: Aching;Sore Frequency: Intermittent Intervention/Comfort measure: Exercise;Cold;Medication tylenol, ibuporfen Comments: PT currently Functional difficulties: Stair climbing Physical Therapy: Completed Home PT Pain Medication: Non-narcotic Ambulating without assistance. Medications and Allergies reviewed and verified. EXAM: GEN: AANDO x3, NAD SKIN:Appropriate postop appearance Incision intact Incision well healed LeftKnee: ROM: Flexion/Extension:0 degrees to 95 degrees Pain with ROM:No Mal-alignment: No Effusion: None Tender to palpation of the medial joint line(s). Stability:Anterior/Posterior- Yes, stable and Varus/Valgus- Yes, stable Quad strength: normal HIP: range of motion no loss ROM NV: intact and Seymour's negative IMAGING: Xrays: No x-rays today IMPRESSION/PLAN: 64 year old female s/p Left TKA Slow post-operative recovery. Plan: 1. Refer for outpatient physical therapy with emphasis on range of motion and strengthening 2. Continue weightbearing as tolerated and total knee precautions 3. Follow-up for repeat clinical evaluation Maximo Caro MD Electronic Signature [facility] 03-12-2024 History of Present illness Narrative Images from the original note were not included. DR. CARO- POST-OP KNEE Post-Op F/U Office Visit Raymond Sharma presents today for a 10 weeks status post Left TKA. Post-operative recovery was uneventful. Patient's rating of condition: improving Comments: Patient still having difficulty with regaining motion Does the Pt. still experience pain? PAIN EVALUATION 03/12/2024 0653 Pain Location: Knee-Left Description: Aching;Sore Frequency: Intermittent Intervention/Comfort measure: Exercise;Cold;Medication tylenol, ibuporfen Comments: PT currently Functional difficulties: Stair climbing Physical Therapy: Completed Home PT Pain Medication: Non-narcotic Ambulating without assistance. Medications and Allergies reviewed and verified. EXAM: GEN: A&O x3, NAD SKIN:Appropriate postop appearance Incision intact Incision well healed LeftKnee: ROM: Flexion/Extension:0 degrees to 95 degrees Pain with ROM:No Mal-alignment: No Effusion: None Tender to palpation of the medial joint line(s). Stability:Anterior/Posterior- Yes, stable and Varus/Valgus- Yes, stable Quad strength: normal HIP: range of motion no loss ROM NV: intact and Seymour's negative IMAGING: Xrays: No x-rays today IMPRESSION/PLAN: 64 year old female s/p Left TKA Slow post-operative recovery. Plan: 1. Refer for outpatient physical therapy with emphasis on range of motion and strengthening 2. Continue weightbearing as tolerated and total knee precautions 3. Follow-up for repeat clinical evaluation Maximo Caro MD Electronic Signature documented in this encounter [facility] 02-11-2024 Note HNO ID: [id number] Author: MAXIMO CARO MD Service: ? Author Type: Physician Type: Progress Notes Filed: 03/10/2024 13:04 Note Text: DR. CARO- POST-OP KNEE Post-Op F/U Office Visit Raymond Sharma presents today for a 6 weeks status post Left TKA. Post-operative recovery was uneventful. Patient's rating of condition: improving Comments: None Does the Pt. still experience pain? PAIN EVALUATION 02/06/2024 4229 Pain Level: 3 Pain Location: Knee-Left Description: Sore;Aching Duration Amount of Time: 6 Duration Units: Weeks Frequency: Intermittent Intervention/Comfort measure: -- physical therapy Functional difficulties: Stair climbing Physical Therapy: Yes Pain Medication: Yes Ambulating with assistance. Medications and Allergies reviewed and verified. EXAM: GEN: AANDO x3, NAD SKIN:Appropriate postop appearance Incision intact Incision well healed LeftKnee: ROM: Flexion/Extension:0 degrees to 90 degrees Pain with ROM:No Mal-alignment: No Effusion: None Tender to palpation of the medial and patellofemoral joint line(s). Stability:Anterior/Posterior- Yes, stable and Varus/Valgus- Yes, stable Quad strength: normal HIP: range of motion no loss ROM NV: intact and Seymour's negative IMAGING: Xrays: No x-rays today IMPRESSION/PLAN: 64 year old female s/p Left TKA At normal post-operative stage of recovery. Plan: 1. Continue physical therapy for range of motion and strengthening with emphasis on flexion 2. Continue total knee precautions 3. Follow-up for repeat evaluation Maximo Caro MD Electronic Signature [facility] 02-11-2024 History of Present illness Narrative Images from the original note were not included. DR. CARO- POST-OP KNEE Post-Op F/U Office Visit Raymond Sharma presents today for a 6 weeks status post Left TKA. Post-operative recovery was uneventful. Patient's rating of condition: improving Comments: None Does the Pt. still experience pain? PAIN EVALUATION 02/06/2024 1088 Pain Level: 3 Pain Location: Knee-Left Description: Sore;Aching Duration Amount of Time: 6 Duration Units: Weeks Frequency: Intermittent Intervention/Comfort measure: -- physical therapy Functional difficulties: Stair climbing Physical Therapy: Yes Pain Medication: Yes Ambulating with assistance. Medications and Allergies reviewed and verified. EXAM: GEN: A&O x3, NAD SKIN:Appropriate postop appearance Incision intact Incision well healed LeftKnee: ROM: Flexion/Extension:0 degrees to 90 degrees Pain with ROM:No Mal-alignment: No Effusion: None Tender to palpation of the medial and patellofemoral joint line(s). Stability:Anterior/Posterior- Yes, stable and Varus/Valgus- Yes, stable Quad strength: normal HIP: range of motion no loss ROM NV: intact and Seymour's negative IMAGING: Xrays: No x-rays today IMPRESSION/PLAN: 64 year old female s/p Left TKA At normal post-operative stage of recovery. Plan: 1. Continue physical therapy for range of motion and strengthening with emphasis on flexion 2. Continue total knee precautions 3. Follow-up for repeat evaluation Maximo Caro MD Electronic Signature documented in this encounter [facility] 01-21-2024 Telephone encounter Note Patient asking for a refill. She is in outpatient therapy and having difficulty with pain. [facility] 01-21-2024 Miscellaneous Notes Patient asking for a refill. She is in outpatient therapy and having difficulty with pain. documented in this encounter [facility] 01-16-2024 Miscellaneous Notes SITUATION: only patient present during today's visit. patient reports the following since the last homecare visit: medications/allergies--no changes, no fall. patient reports that she is really doing well and she is eager to get out and about BACKGROUND: Diagnoses (reason for Home Care): LTKR Weight Bearing/Precaution Changes: no changes ASSESSMENT: Focus of visit progressed to Thaddeus standing exercises for HEP. AAROM 90, PROM 94. Gait training w/cane w/ good heel to toe sequencing Physical therapy discharged: goals achieved. Functional performance at discharge - bed mobility independent, transfers independent, ambulation independent and stairs independent. Plan of care, goals, and discharge reviewed and agreed upon with patient and/or caregiver. RECOMMENDATION: Patient discharged from home health services. Instructions to include:begin outpatient therapy on next week See intervention summary for intervention/education details. documented in this encounter [facility] 01-16-2024 Patient's home Note SITUATION: only patient present during today's visit. patient reports the following since the last homecare visit: medications/allergies--no changes, no fall. patient reports that she is really doing well and she is eager to get out and about BACKGROUND: Diagnoses (reason for Home Care): LTKR Weight Bearing/Precaution Changes: no changes ASSESSMENT: Focus of visit progressed to Thaddeus standing exercises for HEP. AAROM 90, PROM 94. Gait training w/cane w/ good heel to toe sequencing Physical therapy discharged: goals achieved. Functional performance at discharge - bed mobility independent, transfers independent, ambulation independent and stairs independent. Plan of care, goals, and discharge reviewed and agreed upon with patient and/or caregiver. RECOMMENDATION: Patient discharged from home health services. Instructions to include:begin outpatient therapy on next week See intervention summary for intervention/education details. [facility] Work Phone: 01-14-2024 Telephone encounter Note Patient phones requesting refills as follows: Requested Prescriptions Pending Prescriptions Disp Refills oxyCODONE IR (ROXICODONE) 5 mg immediate release tablet 56 tablet 0 Sig: Take 1-2 tablets by mouth four times a day as needed for pain for up to 7 days. Please review and advise. Ramy Potter [facility] 01-14-2024 Miscellaneous Notes Patient phones requesting refills as follows: Requested Prescriptions Pending Prescriptions Disp Refills oxyCODONE IR (ROXICODONE) 5 mg immediate release tablet 56 tablet 0 Sig: Take 1-2 tablets by mouth four times a day as needed for pain for up to 7 days. Please review and advise. Ramy Castellanosta [place]rol[place] documented in this encounter [facility] 01-14-2024 Miscellaneous Notes SITUATION: only patient present during today's visit. patient reports the following since the last homecare visit: medications/allergies--no changes, no fall. patient reports last night was the first night she was by herslef w/o family staying with her. Went well. Knee is sore but better then yesterday. BACKGROUND: Diagnoses (reason for Home Care): LTKR Weight Bearing/Precaution Changes: no changes ASSESSMENT: Focus of visit progressed to Thaddeus standing exercises for HEP. AAROM 90, PROM 94. Gait training w/cane w/ good heel to toe sequencing Plan of care, goals, and visit frequency reviewed and agreed upon with patient and/or caregiver. Current Discharge Plan: outpatient rehab Anticipate discharge by 01/16/24 RECOMMENDATION: Next visit to focus on PT to see for DC See intervention summary for intervention/education details. documented in this encounter [facility] 01-14-2024 Patient's home Note SITUATION: only patient present during today's visit. patient reports the following since the last homecare visit: medications/allergies--no changes, no fall. patient reports last night was the first night she was by herslef w/o family staying with her. Went well. Knee is sore but better then yesterday. BACKGROUND: Diagnoses (reason for Home Care): LTKR Weight Bearing/Precaution Changes: no changes ASSESSMENT: Focus of visit progressed to Thaddeus standing exercises for HEP. AAROM 90, PROM 94. Gait training w/cane w/ good heel to toe sequencing Plan of care, goals, and visit frequency reviewed and agreed upon with patient and/or caregiver. Current Discharge Plan: outpatient rehab Anticipate discharge by 01/16/24 RECOMMENDATION: Next visit to focus on PT to see for DC See intervention summary for intervention/education details. [facility] Work Phone: 01-13-2024 Miscellaneous Notes SITUATION: only patient present during today's visit. patient reports the following since the last homecare visit: medications/allergies--no changes, no fall. patient reports appointment went very well. Dr was happy w/healing and ROM. States she is really sore today and almost cancelled PT today due to soreness. " I dont know how much I can do today.". BACKGROUND: Diagnoses (reason for Home Care): LTKR Weight Bearing/Precaution Changes: no changes ASSESSMENT: Focus of visit gait training w/ cane outdoors, level surfaces. Step flexion stretch and seated heel slides for ROM. Patient stated knee felt better after PT today 2/10 pain/soreness after. Plan of care, goals, and visit frequency reviewed and agreed upon with patient and/or caregiver. Current Discharge Plan: outpatient rehab Anticipate discharge by 01/16/24 RECOMMENDATION: Next visit to focus on NOMNC. perform, progress standing exercises for HEP See intervention summary for intervention/education details. documented in this encounter [facility] 01-13-2024 Patient's home Note SITUATION: only patient present during today's visit. patient reports the following since the last homecare visit: medications/allergies--no changes, no fall. patient reports appointment went very well. was happy w/healing and ROM. States she is really sore today and almost cancelled PT today due to soreness. " I dont know how much I can do today.". BACKGROUND: Diagnoses (reason for Home Care): LTKR Weight Bearing/Precaution Changes: no changes ASSESSMENT: Focus of visit gait training w/ cane outdoors, level surfaces. Step flexion stretch and seated heel slides for ROM. Patient stated knee felt better after PT today 2/10 pain/soreness after. Plan of care, goals, and visit frequency reviewed and agreed upon with patient and/or caregiver. Current Discharge Plan: outpatient rehab Anticipate discharge by 01/16/24 RECOMMENDATION: Next visit to focus on NOMNC. perform, progress standing exercises for HEP See intervention summary for intervention/education details. [facility] Work Phone: 01-12-2024 Note HNO ID: [id number] Author: JASWINDER ZAMORA PA-C Service: ? Author Type: Physician Information Technology Associate Type: Progress Notes Filed: 01/12/2024 14:25 Note Text: Post-op Office Visit Raymond Sharma 63 year old January 12, 2024 1:32 PM Surgery Date: 12/29/2023 History: Raymond Sharma is now 2 weeks out from robotic assisted left TKA. Post-operative course has been without complication. No readmissions. The patient was discharged from [facility] to home with home health care on 12/30/2023. Subjective: Patient reports 5/10 knee pain. Overall is doing well. Using cane ambulatory aid She is taking one oxycodone every 6 hours. Patients rates her condition as improving. Reports compliance with DVT ppx. Participating in home PT. Patient states that her [employer] membership requires a letter from surgeon stating to pause her membership. Objective: Left knee: Ambulates with cane Incision well-approximated, no drainage, well-healing. Suture tails trimmed today. Knee ROM 2 - 80 degrees Distally DP/PT palpable Distally SILT S/S/SP/DP/T intact at baseline Distally DF/PF motor intact at baseline Negative seymour/calf tenderness Xrays: Well-positioned total knee replacement in appropriate alignment with no evidence of loosening Assessment and Plan: 63 year old female 2 weeks status post robotic assisted left total knee arthroplasty - continue ice, rest, and use of non-narcotic analgesia as needed - reviewed antibiotic prophylactic protocols - discussed home exercises and therapy - continue ASA DVT prophylaxis for 4 weeks total - WBAT on operative extremity - letter provided as requested to pause [employer] membership - discussed driving requirement: 4 weeks post-op, off narcotic pain medication, adequate brake time - follow up in 4 weeks for repeat clinical evaluation with Dr. Caro Normal post-operative course discussed with patient. Patient reassured and supported. All questions answered. Venkatesh Zamora PA-C Orthopaedic Surgery [facility] 01-12-2024 History of Present illness Narrative Post-op Office Visit Raymond Sharma 63 year old January 12, 2024 1:32 PM Surgery Date: 12/29/2023 History: Raymond Sharma is now 2 weeks out from robotic assisted left TKA. Post-operative course has been without complication. No readmissions. The patient was discharged from [facility] to home with home health care on 12/30/2023. Subjective: Patient reports 5/10 knee pain. Overall is doing well. Using cane ambulatory aid She is taking one oxycodone every 6 hours. Patients rates her condition as improving. Reports compliance with DVT ppx. Participating in home PT. Patient states that her [employer] membership requires a letter from surgeon stating to pause her membership. Objective: Left knee: Ambulates with cane Incision well-approximated, no drainage, well-healing. Suture tails trimmed today. Knee ROM 2 - 80 degrees Distally DP/PT palpable Distally SILT S/S/SP/DP/T intact at baseline Distally DF/PF motor intact at baseline Negative seymour/calf tenderness Xrays: Well-positioned total knee replacement in appropriate alignment with no evidence of loosening Assessment and Plan: 63 year old female 2 weeks status post robotic assisted left total knee arthroplasty - continue ice, rest, and use of non-narcotic analgesia as needed - reviewed antibiotic prophylactic protocols - discussed home exercises and therapy - continue ASA DVT prophylaxis for 4 weeks total - WBAT on operative extremity - letter provided as requested to pause [employer] membership - discussed driving requirement: 4 weeks post-op, off narcotic pain medication, adequate brake time - follow up in 4 weeks for repeat clinical evaluation with Dr. Caro Normal post-operative course discussed with patient. Patient reassured and supported. All questions answered. Venkatesh Zamora PA-C Orthopaedic Surgery documented in this encounter [facility] 01-12-2024 History of Present illness Narrative Radiology Service Progress Note PATIENT NAME: Raymond Sharma DATE OF SERVICE: January 12, 2024 TIME: 1:51 PM PATIENT IDENTITY VERIFICATION COMPLETED USING TWO (2) IDENTIFIERS: Name and Date of confirmed by patient verbally. FALL SCREENING: Has the patient had 2 falls in the last year or 1 fall with injury or currently using an Ambulatory Assistive Device (Walker, Cane, Wheelchair, Crutches, etc.)? No PATIENT GENDER DATA: Female. status: : No status: NO. PATIENT RELEVANT IMPLANT DATA REVIEWED: Not Applicable PATIENT PRESENTS WITH AN IMPLANTABLE OR ATTACHED TURF SALES PERSON: No RADIOLOGY DEPARTMENT: General X-ray: Exam(s) Completed: Lower Extremity X-Ray(s): Knee, AP / Lat / Merchant Left and Wt. Bearing PERIPHERAL IV DATA: Not applicable SIGNED BY: Carolann De Leon January 12, 2024 1:51 PM documented in this encounter [facility] 01-12-2024 Note HNO ID: [id number] Author: BRYON VANCE Tech Service: ? Author Type: Zipper Measurer Type: Progress Notes Filed: 01/12/2024 13:51 Note Text: Radiology Service Progress Note PATIENT NAME: Raymond Sharma DATE OF SERVICE: January 12, 2024 TIME: 1:51 PM PATIENT IDENTITY VERIFICATION COMPLETED USING TWO (2) IDENTIFIERS: Name and Date of confirmed by patient verbally. FALL SCREENING: Has the patient had 2 falls in the last year or 1 fall with injury or currently using an Ambulatory Assistive Device (Walker, Cane, Wheelchair, Crutches, etc.)? No PATIENT GENDER DATA: Female. status: : No status: NO. PATIENT RELEVANT IMPLANT DATA REVIEWED: Not Applicable PATIENT PRESENTS WITH AN IMPLANTABLE OR ATTACHED TURF SALES PERSON: No RADIOLOGY DEPARTMENT: General X-ray: Exam(s) Completed: Lower Extremity X-Ray(s): Knee, AP / Lat / Merchant Left and Wt. Bearing PERIPHERAL IV DATA: Not applicable SIGNED BY: Carolann De Leon January 12, 2024 1:51 PM [facility] 01-09-2024 Miscellaneous Notes SITUATION: daughter present during today's visit. patient reports the following since the last homecare visit: medications/allergies--no changes, no fall. patient reports knee is very stiff today. BACKGROUND: Diagnoses (reason for Home Care): LTKR Weight Bearing/Precaution Changes: no changes ASSESSMENT: Focus of visit extended visit due to patients anxiety levels and mulitple questions. Did well w/ ROM and strength exerciees and reported decreased stiffness after PT today. AAROM 78, PROM 82. Patient did schedule OP PT to start on 01/19/24. Plan of care, goals, and visit frequency reviewed and agreed upon with patient and/or caregiver. Current Discharge Plan: outpatient rehab Anticipate discharge by 01/16/24 RECOMMENDATION: Next visit to focus on prep for DC See intervention summary for intervention/education details. documented in this encounter [facility] 01-09-2024 Patient's home Note SITUATION: daughter present during today's visit. patient reports the following since the last homecare visit: medications/allergies--no changes, no fall. patient reports knee is very stiff today. BACKGROUND: Diagnoses (reason for Home Care): LTKR Weight Bearing/Precaution Changes: no changes ASSESSMENT: Focus of visit extended visit due to patients anxiety levels and mulitple questions. Did well w/ ROM and strength exerciees and reported decreased stiffness after PT today. AAROM 78, PROM 82. Patient did schedule OP PT to start on 01/19/24. Plan of care, goals, and visit frequency reviewed and agreed upon with patient and/or caregiver. Current Discharge Plan: outpatient rehab Anticipate discharge by 01/16/24 RECOMMENDATION: Next visit to focus on prep for DC See intervention summary for intervention/education details. [facility] Work Phone: 01-08-2024 Miscellaneous Notes SITUATION: daughter present during today's visit. patient reports the following since the last homecare visit: medications/allergies--got refill of pain med, no fall. patient reports she is sore today. BACKGROUND: Diagnoses (reason for Home Care): LTKR Weight Bearing/Precaution Changes: no changes ASSESSMENT: Focus of visit performed and progressed HEP. Gait training w/ cane including stair training PROM 80 Plan of care, goals, and visit frequency reviewed and agreed upon with patient and/or caregiver. Current Discharge Plan: outpatient rehab Anticipate discharge by 01/16/24 RECOMMENDATION: Next visit to focus on add standing hip/knee flexion See intervention summary for intervention/education details. documented in this encounter [facility] 01-08-2024 Patient's home Note SITUATION: daughter present during today's visit. patient reports the following since the last homecare visit: medications/allergies--got refill of pain med, no fall. patient reports she is sore today. BACKGROUND: Diagnoses (reason for Home Care): LTKR Weight Bearing/Precaution Changes: no changes ASSESSMENT: Focus of visit performed and progressed HEP. Gait training w/ cane including stair training PROM 80 Plan of care, goals, and visit frequency reviewed and agreed upon with patient and/or caregiver. Current Discharge Plan: outpatient rehab Anticipate discharge by 01/16/24 RECOMMENDATION: Next visit to focus on add standing hip/knee flexion See intervention summary for intervention/education details. [facility] Work Phone: 01-05-2024 Telephone encounter Note PDMP website checked and validated. All prescriptions have been APPROPRIATELY filled. No suspicious activity was identified. 01/05/2024 by Kristie Coles PA-C The following approved medication requests have been transmitted electronically. Requested Prescriptions Signed Prescriptions Disp Refills oxyCODONE IR (ROXICODONE) 5 mg immediate release tablet 56 tablet 0 Sig: Take 1-2 tablets by mouth four times a day as needed for pain for up to 7 days. Authorizing Provider: KRISTIE COLES PA-C The following approved medication requests have been transmitted electronically. Requested Prescriptions Signed Prescriptions Disp Refills oxyCODONE IR (ROXICODONE) 5 mg immediate release tablet 56 tablet 0 Sig: Take 1-2 tablets by mouth four times a day as needed for pain for up to 7 days. Authorizing Provider: KRISTIE COLES PA-C [facility] 01-05-2024 Miscellaneous Notes PDMP website checked and validated. All prescriptions have been APPROPRIATELY filled. No suspicious activity was identified. 01/05/2024 by Kristie Coles PA-C The following approved medication requests have been transmitted electronically. Requested Prescriptions Signed Prescriptions Disp Refills oxyCODONE IR (ROXICODONE) 5 mg immediate release tablet 56 tablet 0 Sig: Take 1-2 tablets by mouth four times a day as needed for pain for up to 7 days. Authorizing Provider: KRISTIE COLES PA-C The following approved medication requests have been transmitted electronically. Requested Prescriptions Signed Prescriptions Disp Refills oxyCODONE IR (ROXICODONE) 5 mg immediate release tablet 56 tablet 0 Sig: Take 1-2 tablets by mouth four times a day as needed for pain for up to 7 days. Authorizing Provider: KRISTIE COLES PA-C Patient phones requesting refills as follows: Requested Prescriptions Pending Prescriptions Disp Refills oxyCODONE IR (ROXICODONE) 5 mg immediate release tablet 56 tablet 0 Sig: Take 1-2 tablets by mouth four times a day as needed for pain for up to 7 days. Please review and advise. Ramy Souza documented in this encounter [facility] 01-05-2024 Note Addended by: MARIBEL GUZMAN on: 01/05/2024 03:57 PM Modules accepted: Orders [facility] 01-05-2024 Miscellaneous Notes Addended by: MARIBEL GAMBOA on: 01/05/2024 03:57 PM Modules accepted: Orders OP PT order faxed to [facility]. Removed surgical bandage today. No concerns. Picture obtained and uploaded to chart. Also, patient stated she called for a refill of her pain meds but forgot to ask if that could be called into [facility] [place] 2[place] on [facility]. Patient is planning on going to OP PT at [facility] which is not in network. Can you please fax order to [phone]? Thanks documented in this encounter [facility] 01-05-2024 Telephone encounter Note OP PT order faxed to [facility]. [facility] 01-05-2024 Telephone encounter Note Patient phones requesting refills as follows: Requested Prescriptions Pending Prescriptions Disp Refills oxyCODONE IR (ROXICODONE) 5 mg immediate release tablet 56 tablet 0 Sig: Take 1-2 tablets by mouth four times a day as needed for pain for up to 7 days. Please review and advise. Ramy Souza [facility] 01-05-2024 Telephone encounter Note Removed surgical bandage today. No concerns. Picture obtained and uploaded to chart. Also, patient stated she called for a refill of her pain meds but forgot to ask if that could be called into [facility] [place]Note 2[facility] on [facility]. Patient is planning on going to OP PT at [facility] which is not in network. Can you please fax order to [phone]? Thanks [facility] Work Phone: 01-05-2024 Miscellaneous Notes SITUATION: son present during today's visit. patient reports the following since the last homecare visit: medications/allergies--no changes, no fall. patient reports she called for refill of pain meds today. States her son has worked with her exercises and walking with cane alot over the weekend. . BACKGROUND: Diagnoses (reason for Home Care): LTKR Weight Bearing/Precaution Changes: no changes ASSESSMENT: Focus of visit bandage removal. No concerns. Performed and progressed ROm and strength ex for HEP. AAROM 0-78. Gait training w/ cane including stair training. Patient plans to schedule OP PT today at a out of network faciltiy Plan of care, goals, and visit frequency reviewed and agreed upon with patient and/or caregiver. Current Discharge Plan: outpatient rehab Anticipate discharge by 01/16/24 RECOMMENDATION: Next visit to focus on add standing hams curls and calf raises See intervention summary for intervention/education details. documented in this encounter [facility] 01-05-2024 Patient's home Note SITUATION: son present during today's visit. patient reports the following since the last homecare visit: medications/allergies--no changes, no fall. patient reports she called for refill of pain meds today. States her son has worked with her exercises and walking with cane alot over the weekend. . BACKGROUND: Diagnoses (reason for Home Care): LTKR Weight Bearing/Precaution Changes: no changes ASSESSMENT: Focus of visit bandage removal. No concerns. Performed and progressed ROm and strength ex for HEP. AAROM 0-78. Gait training w/ cane including stair training. Patient plans to schedule OP PT today at a out of network facily Plan of care, goals, and visit frequency reviewed and agreed upon with patient and/or caregiver. Current Discharge Plan: outpatient rehab Anticipate discharge by 01/16/24 RECOMMENDATION: Next visit to focus on add standing hams curls and calf raises See intervention summary for intervention/education details. [facility] Work Phone: 01-02-2024 Miscellaneous Notes SITUATION: son present during today's visit. patient reports the following since the last homecare visit: medications/allergies--no changes, no fall. patient reports she did not have a good day yesterday, knee was very painful. Better today. BACKGROUND: Diagnoses (reason for Home Care): TKR L Weight Bearing/Precaution Changes: no changes ASSESSMENT: Focus of visit performed seated and supine ROM and strength exercises for HEP. AAROM 54. Gait trainig w/ww w/ focus on heel to toe pattern. Stair training Plan of care, goals, and visit frequency reviewed and agreed upon with patient and/or caregiver. Current Discharge Plan: outpatient rehab Anticipate discharge by 01/16/24 RECOMMENDATION: Next visit to focus on bandage removal See intervention summary for intervention/education details. documented in this encounter [facility] 01-02-2024 Patient's home Note SITUATION: son present during today's visit. patient reports the following since the last homecare visit: medications/allergies--no changes, no fall. patient reports she did not have a good day yesterday, knee was very painful. Better today. BACKGROUND: Diagnoses (reason for Home Care): TKR L Weight Bearing/Precaution Changes: no changes ASSESSMENT: Focus of visit performed seated and supine ROM and strength exercises for HEP. AAROM 54. Gait trainig w/ww w/ focus on heel to toe pattern. Stair training Plan of care, goals, and visit frequency reviewed and agreed upon with patient and/or caregiver. Current Discharge Plan: outpatient rehab Anticipate discharge by 01/16/24 RECOMMENDATION: Next visit to focus on bandage removal See intervention summary for intervention/education details. [facility] Work Phone: 01-01-2024 Miscellaneous Notes Medication review completed. No ineffective drug therapy, significant side effects, significant drug interactions, duplicate drug therapy, or noncompliance with drug therapy noted. Gladis Briggs RN documented in this encounter [facility] 01-01-2024 Patient's home Note Medication review completed. No ineffective drug therapy, significant side effects, significant drug interactions, duplicate drug therapy, or noncompliance with drug therapy noted. Gladis Briggs RN [facility] Work Phone: 12-31-2023 Miscellaneous Notes SITUATION: son present during today's visit. patient reports "this is worse than i remember from 4 years ago". Pt lives alone in a split level home. 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 Reviewed and explained homecare services. Plan of care, goals, and visit frequency developed, reviewed, and agreed upon with patient and/or caregiver. Patient Goal: walk without pain Patient will benefit from continued physical therapy to address the following deficits: strength, balance, gait, endurance, L knee joint ROM, transfers, stair negotiation and bed mobility. Current Discharge Plan: outpatient rehab. Anticipate discharge by tbd. RECOMMENDATION: Next visit to focus on review of HEP , gait, transfers, rom Agreeable to PT; declining none. See intervention summary for intervention/education details. documented in this encounter [facility] 12-31-2023 Patient's home Note SITUATION: son present during today's visit. patient reports "this is worse than i remember from 4 years ago". Pt lives alone in a split level home. 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 Reviewed and explained homecare services. Plan of care, goals, and visit frequency developed, reviewed, and agreed upon with patient and/or caregiver. Patient Goal: walk without pain Patient will benefit from continued physical therapy to address the following deficits: strength, balance, gait, endurance, L knee joint ROM, transfers, stair negotiation and bed mobility. Current Discharge Plan: outpatient rehab. Anticipate discharge by tbd. RECOMMENDATION: Next visit to focus on review of HEP , gait, transfers, rom Agreeable to PT; declining none. See intervention summary for intervention/education details. [facility] Work Phone: 12-30-2023 Note HNO ID: [id number] Author: MAXIMO CARO MD Service: Orthopaedic Surgery Author Type: Physician Type: Progress Notes Filed: 12/30/2023 10:41 Note Text: ORTHOPAEDIC POSTOP PROGRESS NOTE SERVICE DATE: 12/30/2023 SERVICE TIME: 10:40 AM Subjective Patient states that they are comfortable Well Controlled knee(s) pain. Mild incisional pain. Objective VITAL SIGNS: BP 113/65 Pulse (!) 58 Temp 37.4 ?C (99.3 ?F) (Oral) Resp 16 Ht 162.6 cm (5' 4") Wt 83 kg (182 lb 15.7 oz) SpO2 93% BMI 31.41 kg/m? INTAKE AND OUTPUT: Intake/Output Summary (Last 24 hours) at 12/30/2023 1040 Last data filed at 12/30/2023 0845 Gross per 24 hour Intake 2180 ml Output -- Net 2180 ml PHYSICAL EXAMINATION: Left Lower Extremity: Dorsalis pedis pulses palpable. Posterior tibial pulses palpable. Dorsi flexion 5/5. Plantar flexion 5/5. Extensor hallucis extension: 5/5. Sensory intact to light touch L1-S1. Dressing clean, dry, and intact. Surgical site no drainage and Silverlon intact. Problem Review and Assessment: Patient monitored, no new events overnight. LABS: Recent Labs 12/29/23 1512 HB 14.2 HCT 41.8 DATA: Diagnostic tests reviewed for today's visit: Most recent labs and imaging results. Assessment/Plan S/P Procedure(s) (LRB): ROBOTIC ASSISTED TOTAL KNEE ARTHROPLASTY (Left) on 12/29/2023 POSTOP PLAN: Physical Therapy evaluation DVT prophylaxis: with aspirin, additional anticoagulant is contraindicated due to bleeding risk and Intermittent pneumatic compression device (IPCD) Pain control Case Management for discharge planning Assessment AND Plan Obesity Class I (BMI 30-34.9) Medication and Non-Pharmacologic VTE Prophylaxis/Anticoagulants Anticoagulant AND Antiplatelet Medications (From admission, onward) Start Dose Route Frequency Last Action Ordered Stop 12/30/23 0900 aspirin, enteric coated 81 mg tab(s) (Surgical Risk Categories) 81 mg ORAL 2 TIMES DAILY Given, 12/29 0837 12/29/23 1542 -- 12/29/23 1545 pneumatic compression stockings (fl,oh) VTE Prophylaxis: VTE prophylaxis appropriate POST OPERATIVE COMPLICATIONS: Complicated by: uneventful/none SIGNATURE: Maximo Caro MD PATIENT NAME: Raymond Sharma DATE: December 30, 2023 TIME: 10:40 AM ETX#[id number] [facility] 12-30-2023 Telephone encounter Note Date/Time: 12/30/2023 9:15 AM Spoke with Raymond @ phone #: [phone] - Preferred # for contact: [phone] Have you received help from a home care company in the last 60 days? No Are you agreeable to [facility] services? yes What address will we be seeing you at? [address] [facility] [address] Do you have any upcoming appointments or things we need to schedule around? No Do you have a teachable CG or can you manage your care independently? Family to assist Have you received the flu shot? No, not sure sure yet if she wants to LATRICE Espinal 12/30/2023 9:23 AM [facility] 12-30-2023 Miscellaneous Notes Date/Time: 12/30/2023 9:15 AM Spoke with Raymond @ phone #: [phone] - Preferred # for contact: [phone] Have you received help from a home care company in the last 60 days? No Are you agreeable to [facility] services? yes What address will we be seeing you at? [address] [facility] [address] Do you have any upcoming appointments or things we need to schedule around? No Do you have a teachable CG or can you manage your care independently? Family to assist Have you received the flu shot? No, not sure sure yet if she wants to LATRICE Espinal 12/30/2023 9:23 AM documented in this encounter [facility] 12-29-2023 Note HNO ID: [id number] Author: ERIKA NORMAN PA-C Service: General Surgery Author Type: Physician Information Technology Associate Type: Progress Notes Filed: 12/29/2023 19:26 Note Text: POSTOP PROGRESS NOTE SERVICE DATE: 12/29/2023 SERVICE TIME: 7:24 PM Subjective CHIEF COMPLAINT: s/p left robotic knee arthroplasty INTERVAL HISTORY OF PRESENT ILLNESS: This is a 63 year old female s/p left robotic knee arthoplasty done today by . She was already seen by PT and was able to wear bear as expected. Patient reports no questions, concerns, or pain at this time. Objective PHYSICAL EXAM: BP 130/57 Pulse 42 Temp (Src) 97.8 (Oral) Resp 16 Ht 5' 4" (1.63m) Wt 182 lb 15.7 oz (83.0kg) SpO2 97% BMI 31.39 kg/(m2). O2 Therapy: Room Air, Liters: 3 Physical Exam Performed Iceman and NIGEL wrap in place. Patient is able to wiggle toes and reports intact sensation on the operative side. No obvious swelling noted. Assessment/Plan Assessment AND Plan POSTOP PLANS: As indicated by Proceed with Surgeons post operative plan. Advised patient to reach out to nurse if issues occur. SIGNATURE: Erika norman PA-C PATIENT NAME: Raymond Sharma DATE: December 29, 2023 TIME: 7:24 PM [facility] 12-29-2023 Note HNO ID: [id number] Author: TAO PULLIAM, CINDY Service: Nursing Author Type: Registered Nurse Type: Nursing Progress Note Filed: 12/29/2023 15:05 Note Text: Other: Dr. Del Toro made aware of Pt's HR. No new orders. [facility] 12-29-2023 Note HNO ID: [id number] Author: SCARLETT LIANG APRN.ESTABLISHMENT GUIDE Service: Anesthesiology Author Type: Nurse Senior Financial Analyst Type: Anesthesia Procedure Notes Filed: 12/29/2023 12:08 Note Text: ANESTHESIOLOGY PROCEDURE NOTE Spinal Block General Information Procedure Start Time/Medication Administration: 12/29/2023 11:50 AM Procedure End time: 12/29/2023 11:54 AM Patient location during procedure: OR Timeout Performed Pre-procedure: timeout performed Consent Obtained: Yes Patient identity confirmed: arm band and patient Reason for Block: primary surgical anesthetic Staffing ESTABLISHMENT GUIDE: Scarlett Liang APRN.ESTABLISHMENT GUIDE Performed by: ESTABLISHMENT GUIDE Preparation Sterility Preparation: hand hygiene performed prior to procedure, sterile gloves, drapes, and procedure tray, surgical cap used, mask used, sterile drape used during line insertion, skin prep agent completely dried prior to procedure Site Prep: Betadine Procedure Details Patient Position: sitting Ultrasound Guided: No Monitoring: Pulse Ox and NIBP Approach: Midline Location: L3-4 Injection Technique: single-shot Needle Needle Type: pencil-tip Needle Gauge: 25 G Needle Length: 3.5 in CSF: CSF clear Assessment Sensory Level: T10 SIGNATURE: Scarlett Liang APRN.ESTABLISHMENT GUIDE PATIENT NAME: Raymond Sharma DATE: December 29, 2023 TIME: 12:07 PM CSN: [id number] [facility] 12-29-2023 Note HNO ID: [id number] Author: GENE DEL TORO DO Service: Anesthesiology Author Type: Anesthesiologist Type: Anesthesia Procedure Notes Filed: 12/29/2023 10:49 Note Text: ANESTHESIOLOGY PROCEDURE NOTE Peripheral Nerve Block General Information Procedure Start Time/Medication Administration: 12/29/2023 10:43 AM Procedure End time: 12/29/2023 10:45 AM Patient location during procedure: pre-op Timeout Performed Pre-procedure: timeout performed Consent Obtained: Yes Patient identity confirmed: arm band, care care team assistant and patient Reason for block: post-op pain management/at surgeon's request Staffing Anesthesiologist: Gene Del Toro DO Performed by: anesthesiologist Preparation Sterility Preparation: hand hygiene performed prior to procedure, sterile gloves, drapes, and procedure tray, surgical cap used, mask used, sterile drape used during line insertion, skin prep agent completely dried prior to procedure Site Prep: Chloraprep Pre-Procedure Neuro Exam Location: LLE Sensory: intact Motor: intact Procedure Details Patient Position: supine Monitoring: Pulse OX, EKG and NIBP Block Type Lower Extremity: distal femoral (adductor canal) Approach: lateral Laterality: left Injection Technique: single-shot Ultrasound Guided: Yes Image in Chart: yes Needle Needle Type: echogenic Needle Gauge: 21 G Needle Length: 100 mm Needle Localization: ultrasound and anatomical landmarks Assessment Injection assessment: negative aspiration, no paresthesia on injection, incremental injection and local visualized surrounding nerve on ultrasound Paresthesia: none Post-Procedure Neuro Exam Expected Regional Anesthesia: Yes Medications Administered bupivacaine (PF) 0.5 % (5 mg/mL) injection - peripheral nerve block 10 mL - 12/29/2023 10:43:00 AM bupivacaine liposome (PF) 1.3 % (13.3 mg/mL) injection (EXPAREL) - INFILTRATION 133 mg - 12/29/2023 10:43:00 AM SIGNATURE: Gene Del Toro DO PATIENT NAME: Raymond Sharma DATE: December 29, 2023 TIME: 10:48 AM CSN: [id number] [facility] 12-18-2023 History of Present illness Narrative Radiology Service Progress Note PATIENT NAME: Raymond Sharma DATE OF SERVICE: December 18, 2023 TIME: 4:58 PM PATIENT IDENTITY VERIFICATION COMPLETED USING TWO (2) IDENTIFIERS: Name and Date of confirmed by patient verbally and Name and Date of confirmed by identification band. FALL SCREENING: Has the patient had 2 falls in the last year or 1 fall with injury or currently using an Ambulatory Assistive Device (Walker, Cane, Wheelchair, Crutches, etc.)? No PATIENT GENDER DATA: Female. status: : No status: NO. PATIENT RELEVANT IMPLANT DATA REVIEWED: Yes PATIENT PRESENTS WITH AN IMPLANTABLE OR ATTACHED TURF SALES PERSON: No RADIOLOGY DEPARTMENT: CT; Exam(s) Completed: Lower extremity PERIPHERAL IV DATA: Not applicable SIGNED BY: TECHNOLOGIST Ag December 18, 2023 4:58 PM documented in this encounter [facility] 12-18-2023 Note HNO ID: [id number] Author: ELENA BURT TECHNOLOGIST Service: Radiology Author Type: Technologist Type: Progress Notes Filed: 12/18/2023 16:59 Note Text: Radiology Service Progress Note PATIENT NAME: Raymond Sharma DATE OF SERVICE: December 18, 2023 TIME: 4:58 PM PATIENT IDENTITY VERIFICATION COMPLETED USING TWO (2) IDENTIFIERS: Name and Date of confirmed by patient verbally and Name and Date of confirmed by identification band. FALL SCREENING: Has the patient had 2 falls in the last year or 1 fall with injury or currently using an Ambulatory Assistive Device (Walker, Cane, Wheelchair, Crutches, etc.)? No PATIENT GENDER DATA: Female. status: : No status: NO. PATIENT RELEVANT IMPLANT DATA REVIEWED: Yes PATIENT PRESENTS WITH AN IMPLANTABLE OR ATTACHED TURF SALES PERSON: No RADIOLOGY DEPARTMENT: CT; Exam(s) Completed: Lower extremity PERIPHERAL IV DATA: Not applicable SIGNED BY: Elena Burt, TECHNOLOGIST December 18, 2023 4:58 PM [facility] 12-10-2023 Instructions Naz Duval APRN.[facility] - 12/10/2023 3:59 PM EDT Images from the original note were not included. [facility] PATIENT PREOPERATIVE INSTRUCTIONS Maximo Caro MD has scheduled you for your procedure at this surgery center: [facility]: [phone] -- [address] [address]. Please read below carefully for your personalized instructions. Dietary Restrictions: - No solid food after midnight. - You may have 12 ounces of clear liquids (water, clear juices such as apple juice or gatorade, carbonated beverages, clear tea, black coffee, jello) until 2 hours before scheduled arrival at facility. No red/purple coloring and no creamer/sugar Medications: Unless instructed differently below, stay on all of your medications until your surgery. If you start any new medications after today's visit, please contact your surgeon. Pre-Surgery Med Instructions Medication Instructions acetaminophen (TYLENOL EXTRA STRENGTH ORAL) IF needed lisinopril (ZESTRIL, PRINIVIL) 5 mg tablet Do not take the day of surgery ubidecarenone/vitamin E mixed (COQ10 SG 100 ORAL) Stop 7 days before surgery atenolol (TENORMIN) 50 mg tablet Take the day of surgery with a small sip of water MULTIVITAMIN ORAL Stop 7 days before surgery CALCIUM CARBONATE/VITAMIN D3 (CALCIUM 600 + D ORAL) Stop 7 days before surgery atorvastatin (LIPITOR) 10 mg tablet Take the day of surgery with a small sip of water clonazePAM (KLONOPIN) 0.5 mg tablet Take the day of surgery with a small sip of water paroxetine (PAXIL) 20 mg ORAL tablet Take the day of surgery with a small sip of water If you start any new medications after today's visit, please contact the surgeon's office. Blood Thinning Medications: - Stop NSAIDS (Ibuprofen, Advil, Aleve, Motrin, Celebrex, Mobic, etc.) 7 days before surgery, as directed by your surgeon. - Stop Aspirin 7 days before surgery, as directed by your surgeon. - Stop Vitamin E, ALL multi-vitamins, herbals and dietary supplements 7 days before surgery. - You may take Tylenol (Acetaminophen) or any of your pain medications that do not contain aspirin or NSAIDS as needed. Important Reminders: - Candy, mints, and tobacco products are NOT permitted the morning of surgery. - Hearing aids, dentures and glasses may be worn the morning of surgery. - NO jewelry, body piercings, makeup, hairpins or contacts are to be worn the day of surgery. If you develop symptoms such as a fever, cold, or flu, or have other changes to your health within TWO DAYS of scheduled surgery or the morning of surgery, please contact the surgery center above. Personal Belongings: -Please have photo ID and insurance cards. -If you do not have a copy of advance directives on file with us, please bring a copy with you on the day of surgery. - Leave ALL valuables and money at home or with family members. For Outpatient Procedures: - YOU MUST HAVE A RESPONSIBLE PROFESSOR OF SOCIAL WORK TAKE YOU HOME. A VOUCHER CLERK OR REGULATORY COMPLIANCE DIRECTOR CANNOT BE MADE A RESPONSIBLE PROFESSOR OF SOCIAL WORK. - We recommend that a responsible person stays with you overnight to take care of you. - You cannot stay in a hotel alone after outpatient surgery. You will not be permitted to have your surgery, if you do not have someone to take care of you. Arrival Time for Surgery: - The Surgery Center or hospital where you are having surgery will call the afternoon before surgery (or Friday for Friday surgery) with a scheduled arrival time. - If you have not heard by 4 pm, please contact the surgery center above. Please be aware that emergency situations arise, which may delay or change your surgical time. If this happens, we will notify you as soon as possible and regret any inconvenience. If you already have an Advance Directive, please fax a copy to [phone] or email to for it to be added to your chart. If you do not have an Advance Directive, you can find the appropriate form and more information at [email or web address]. We recommend that you complete the Advance Directive form found on the website and bring it with you the day of your surgery. It can be witnessed and scanned into your chart that day. Naz Duval APRN.CNP documented in this encounter [facility] 12-10-2023 History and physical note Images from the original note were not included. [facility] Pre-Anesthesia Consultation Clinic HISTORY AND PHYSICAL EXAMINATION SERVICE DATE: 12/10/2023 SERVICE TIME: 9:28 AM PRIMARY CARE PHYSICIAN: Carlos Granado MD Assessment Patient has the following medical conditions which may affect lauren-operative course: Essential hypertension Assessment: controlled on rx Last 14 BP Last 14 Encounter BP Readings: Date: BP: 12/10/2023 132/86 02/07/2020 128/72 02/04/2020 126/86 02/02/2020 118/78 01/31/2020 118/78 01/28/2020 128/78 01/27/2020 126/80 01/25/2020 118/78 01/22/2020 120/68[at rest[ 01/20/2020 110/60 01/18/2020 131/64 01/05/2020 138/80 11/10/2019 121/60 04/14/2015 138/83 Hyperlipidemia Assessment: c/w statin GERD (gastroesophageal reflux disease) Assessment: denies dx in epic Anxiety Assessment: and depression, stable on rx per pt BMI 29.0-29.9,adult Assessment: Body mass index is 29.35 kg/m . History of total right knee replacement Assessment: hx AV block, 1st degree Assessment: borderline per final EKG read yesterday, asymptomatic [place] Activity Status Index: METS: Climb a flight of stairs or walk up a hill (5.50 METs) DASI Score: 5.5 Patient denies any chest pain or undue shortness of breath with the above physical activity. Clinical Frailty Scale: 3. Well, with treated comorbid disease STOP-Bang Score: Snores loudly Has or is being treated for high blood pressure Patient over 50 years old Denies feeling tired, fatigued, or sleepy during the daytime Has not been observed to stop breathing or choking/gasping during sleep BMI less than or equal to 35 kg/m^2 Does not have a large neck Non-male patient STOP-Bang Score: 3 [id number] Score: Age: <65 Sex: female CHF history: No Hypertension history: Yes Stroke/TIA/thromboembolism history: No Vascular disease history: No Diabetes history: No [id number] Score: 2 ARISCAT Score: Age: 51-80 Preoperative SpO2: >=96% Respiratory infection in the last month: No Preoperative anemia: No Surgical incision: peripheral Duration of surgery: 2-3 hrs Emergency procedure: No ARISCAT Score: 19 ANESTHESIA FINDINGS: Intubation History: No history of difficult intubation Significant Anesthesia Considerations: none Airway History: No history of difficult airway I - PHYSICAL EVALUATION AIRWAY Patient intubated: No. Tracheostomy tube not present Mallampati: III. TM distance: >3 FB. Neck ROM: full ROM without neurological symptoms. Mouth opening: adequate. Short neck: no. Thick neck: no Fox present: no Lip Bite Test: II Microretrognathia/Micronagthia/Re cessed Chin: No DENTAL Dental findings: teeth intact. Additional comments: +crowns/back. II - ANESTHESIA PLAN Anesthetic Plan: other Beta Catalina Monitoring Plan Post Procedure Analgesic Plan Prepared for Surgery: optimally prepared for surgery, pending [see comment]. Labs and ekg CONSULTS: Patient does not require consults for optimization at this time Planned Anesthetic: other anesthesia choice The Following Tests/Procedures Have Been Initiated: Orders Placed This Encounter >CBC + AUTO DIFF Standing Status: Future Number of Occurrences: 1 Standing Expiration Date: 03/10/2024 >CMP Standing Status: Future Number of Occurrences: 1 Standing Expiration Date: 03/10/2024 Urine Culture - LAB COLLECT Standing Status: Future Number of Occurrences: 1 Standing Expiration Date: 03/10/2024 mupirocin (BACTROBAN) 2 % ointment Sig: Apply 0.5 inch with cotton swab (Q-tip) to each nostril in the morning and evening for 5 days prior to and including day of surgery. Dispense: 22 g Refill: 0 ECG COMPLETE Order Comments: Ordered by an unspecified provider ECG COMPLETE Standing Status: Future Standing Expiration Date: 12/09/2024 REASON FOR VISIT: Raymond Sharma is a 63 year old female who is scheduled for Procedure(s): ROBOTIC ASSISTED TOTAL KNEE ARTHROPLASTY (Left) at the request of Dr. Maximo Caro for consultation. My final recommendation will be communicated back to the requesting physician by way of shared medical record or letter. Subjective The patient has the following: COVID-19 Immunization Status Overdue - Covid-19 Vaccine () Overdue since 11/16/2023 02/09/2021 Imm Admin: COVID-19 original vaccine, full dose, monovalent (MODERNA) 06/09/2020 Imm Admin: COVID-19 original vaccine, full dose, monovalent (MODERNA) 05/12/2020 Imm Admin: COVID-19 original vaccine, full dose, monovalent (MODERNA) Only the first 3 history entries have been loaded, but more history exists. CHIEF COMPLAINT: Pre-op exam HPI: Raymond Sharma is a 63 year old seen for PAC due to scheduled above surgery because of OA left knee. 05/12/2023, Dr. Maximo Caro Raymond Sharma is a 63 year old patient with the presenting complaint of Established Patient and Pain of the Left Knee. Raymond Sharma has had progressive problems with the knee(s) constantly over the past 5 year(s) interfering with activities which include exercise, gardening, doing gelatin powder mixer, participating in family activities, enjoying hobbies, walking, rising from a sitting position, standing for prolonged periods of time, getting in and out of a car, climbing stairs, and safety-increased risk for fall. The problem began limiting activities 3+ years ago. Raymond reports a current pain level of 2 (Knee-Left). She describes the pain as Aching. The pain is Continuous, and has lasted for 5 Years. Interventions tried include Medication, Reposition, Relaxation. FALL RISK: Raymond is not currently at risk for falls. PROMIS Physical Function Score No flowsheet data found. FUNCTIONAL STATUS: Climb a flight of stairs or walk up a hill (5.50 METs) PREVIOUS TREATMENTS: Last Knee Surgery: 01/18/2020 with Maximo Delgado Vania Past anti-inflammatory medications (not necessarily for this reason for visit): celecoxib, dexamethasone sodium phosphate, ketorolac tromethamine, meloxicam, methylprednisolone Attempted Weight Loss Medical Treatments: OTC NSAIDS for 3 Months or Greater (Ibuprofen), Steroid Injections Left Knee Physical Therapy: Activities Modified and PT Three Months or Greater 1-2 times per week Previous Surgery: Knee Arthroscopy REVIEW OF SYSTEMS: General: No weight loss, malaise or fevers. Neurological: No history of TIA's, stroke, MARBLE CUTTER tumor, impaired sensorium, hemiplegia, paraplegia or quadraplegia. No neurological symptoms or problems. Respiratory: No history of current cough or dyspnea, or pneumonia in the past 6 weeks. No history of respiratory/pulmonary symptoms or problems. Cardiovascular: Positive for: hyperlipidemia and hypertension Negative for: abdominal aortic aneurysm, AICD/PPM, angina, anticoagulation therapy, arrhythmia, atrial fibrillation, CAD, chest pain, CHF, congenital heart defect, DVT/PE, recent CO, murmur/valvular heart disease, PTCA, PVD, open heart surgery and valve surgery. GI: No history of GI symptoms or problems. No history of esophageal varices, recent ascites, or ETOH greater than 2 drinks per day. : No history of dysuria, frequency or incontinence, stones or chronic kidney disease. No difficulty urinating, nocturia > 1 time per night or hematuria. FISHER OYSTER: Negative for abnormal vaginal bleeding, abnormal vaginal discharge. Endocrine: No history of diabetes. Has not taken steroids within the past 30 days. No history of endocrinological symptoms or problems. Hematology: No history of bleeding or clotting disorder. Patient is not taking anti-coagulation or platelet medications. No history of hematological symptoms or problems. Oncology: No history of CA metastasis, chemo within 30 days, or radiotherapy within 90 days. No history of oncological symptoms or problems. Psych: Positive for: anxiety (on rx) and depression (on rx). Musculoskeletal: See HPI. +right TKA Positive for: back pain (lumbar, s/p injection). Skin: Negative for lesions, rash and itching. PAST MEDICAL HISTORY Diagnosis Date Anxiety GERD (gastroesophageal reflux disease) HTN (hypertension) Hyperlipidemia PAST SURGICAL HISTORY Procedure Laterality Date ARTHROSCOPY KNEE DIAGNOSTIC W/WO SYNOVIAL BX SPX Left 05/04/15 Arthroscopy, knee ARTHRP KNE CONDYLE&PLATU MEDIAL&LAT COMPARTMENTS Right 01/18/2020 Knee replacement, total COLONOSCOPY 2015 HYSTERECTOMY HX 2002 TONSILLECTOMY HX <12yo FAMILY HISTORY Problem Relation Age of Onset Arthritis Father Coronary Artery Disease Father [place] Hypertension Father Cancer Mother breast Social History Tobacco Use Smoking status: Never Smokeless tobacco: Never Vaping Use Vaping status: Never Used Substance Use Topics Alcohol use: No Drug use: No Prior to Admission medications as of 12/11/23 0926 Medication Sig Last Dose Taking acetaminophen (TYLENOL EXTRA STRENGTH ORAL) Take by mouth. Taking Yes lisinopril (ZESTRIL, PRINIVIL) 5 mg tablet Take 5 mg by mouth. Taking Yes ubidecarenone/vitamin E mixed (COQ10 SG 100 ORAL) Take 1 tablet by mouth once daily. Taking Yes atenolol (TENORMIN) 50 mg tablet Take 50 mg by mouth once daily. Taking Yes MULTIVITAMIN ORAL Take by mouth once daily. Taking Yes CALCIUM CARBONATE/VITAMIN D3 (CALCIUM 600 + D ORAL) Take 2 tablets by mouth once daily. Taking Yes atorvastatin (LIPITOR) 10 mg tablet Take 10 mg by mouth once daily. Taking Yes clonazePAM (KLONOPIN) 0.5 mg tablet Take 0.025 tablets by mouth every 6 hours as needed for Anxiety. Taking Yes paroxetine (PAXIL) 20 mg ORAL tablet Take 20 mg by mouth once daily. Taking Yes mupirocin (BACTROBAN) 2 % ointment Apply 0.5 inch with cotton swab (Q-tip) to each nostril in the morning and evening for 5 days prior to and including day of surgery. No medication comments found. ALLERGIES Allergen Reactions Sulfa (Sulfonamide * Hives Objective PHYSICAL EXAM: General: alert and oriented (x3) and healthy appearance. Pertinent negatives noted - not distressed. Skin: normal color, no rash or lesions. HEENT: EOM intact and pupils equal round. Pertinent negatives noted - no carotid bruit. Cardiovascular: regular rate and rhythm, normal S1 and S2, no rub, murmurs, or gallop. Respiratory: normal breath sounds, no wheezes or crackles. No chest wall deformity or tenderness. Abdomen: soft. Pertinent negatives noted - not tender. Extremities: no deformity, no edema or tenderness, no joint swelling or clubbing. Neurological: normal cognition and motor skills. Gait normal. No weakness or sensory deficit. PAIN ASSESSMENT: Pain Pain Level: 7 Pain Location: Knee-Left Description: Dull Duration Amount of Time: 4 Duration Units: Years Frequency: Continuous Intervention/Comfort measure: Medication VITALS: BP 132/86 Pulse 70 Temp (Src) 97.6 (Temporal) Resp 16 Ht 5' 4" (1.63m) Wt 171 lb (77.6kg) SpO2 98% BMI 29.34 kg/(m^2). Diagnostic tests reviewed for today's visit: Lab Value Units Date High Low HB 14.9 g/dL 12/10/2023 15.5 11.5 HCT 44.0 % 12/10/2023 46.0 36.0 WBC 10.70 k/uL 12/10/2023 11.00 3.70 PLT 255 k/uL 12/10/2023 400 150 NA 139 mmol/L 12/10/2023 144 136 K 4.7 mmol/L 12/10/2023 5.1 3.7 GLUC 108 mg/dL 12/10/2023 99 74 BUN 28 mg/dL 12/10/2023 21 7 CREAT 0.83 mg/dL 12/10/2023 0.96 0.58 PTSEC No results within date range. INR No results within date range. APTT No results within date range. ALT 23 U/L 12/10/2023 38 7 AST 22 U/L 12/10/2023 35 13 TBILI 0.2 mg/dL 12/10/2023 1.3 0.2 TSH No results within date range. Lab Value Units Date High Low HCGQT No results within date range. UHCG No results within date range. HCG, BODY* No results within date range. Lab Value Units Date High Low ABORHD No results within date range. ABSCREEN No results within date range. No results found for: "HBA1C" Recent Results (from the past 8760 hour(s)) ECG COMPLETE Collection Time: 12/10/23 4:08 PM Result Value Ventricular Rate 56 Atrial Rate 56 P-R Interval 208 QRS Duration 96 QT Interval 408 QTC Calculation (Bazett) 393 Calculated P [place] 47 Calculated R [place] -27 Calculated T Box [place] 28 Impression SINUS BRADYCARDIA with borderline first degree AV block OTHERWISE NORMAL ECG Confirmed by MD DAVID, VINAY ([id number]) on 12/10/2023 4:06:40 PM No results found for this or any previous visit (from the past 47944 hour(s)). Instructions Given to Patient: Instructions located in the after visit summary. Patient given verbal and written preop instructions and voices comprehension and compliance. SIGNATURE: Naz Duval APRN.CNP PATIENT NAME: Raymond Sharma DATE: December 10, 2023 TIME: 3:56 PM PAGER/CONTACT #: [facility] 12-10-2023 History and physical note Images from the original note were not included. [facility] HISTORY AND PHYSICAL EXAMINATION SERVICE DATE: 12/10/2023 SERVICE TIME: 9:28 AM PRIMARY CARE PHYSICIAN: Carlos Granado MD Assessment Patient has the following medical conditions which may affect lauren-operative course: Essential hypertension Assessment: controlled on rx Last 14 BP Last 14 Encounter BP Readings: Date: BP: 12/10/2023 132/86 02/07/2020 128/72 02/04/2020 126/86 02/02/2020 118/78 01/31/2020 118/78 01/28/2020 128/78 01/27/2020 126/80 01/25/2020 118/78 01/22/2020 120/68[at rest[ 01/20/2020 110/60 01/18/2020 131/64 01/05/2020 138/80 11/10/2019 121/60 04/14/2015 138/83 Hyperlipidemia Assessment: c/w statin GERD (gastroesophageal reflux disease) Assessment: denies dx in epic Anxiety Assessment: and depression, stable on rx per pt BMI 29.0-29.9,adult Assessment: Body mass index is 29.35 kg/m . History of total right knee replacement Assessment: hx AV block, 1st degree Assessment: borderline per final EKG read yesterday, asymptomatic [place] Activity Status Index: METS: Climb a flight of stairs or walk up a hill (5.50 METs) DASI Score: 5.5 Patient denies any chest pain or undue shortness of breath with the above physical activity. Clinical Frailty Scale: 3. Well, with treated comorbid disease STOP-Bang Score: Snores loudly Has or is being treated for high blood pressure Patient over 50 years old Denies feeling tired, fatigued, or sleepy during the daytime Has not been observed to stop breathing or choking/gasping during sleep BMI less than or equal to 35 kg/m^2 Does not have a large neck Non-male patient STOP-Bang Score: 3 [id number] Score: Age: <65 Sex: female CHF history: No Hypertension history: Yes Stroke/TIA/thromboembolism history: No Vascular disease history: No Diabetes history: No [id number] Score: 2 ARISCAT Score: Age: 51-80 Preoperative SpO2: >=96% Respiratory infection in the last month: No Preoperative anemia: No Surgical incision: peripheral Duration of surgery: 2-3 hrs Emergency procedure: No ARISCAT Score: 19 ANESTHESIA FINDINGS: Intubation History: No history of difficult intubation Significant Anesthesia Considerations: none Airway History: No history of difficult airway I - PHYSICAL EVALUATION AIRWAY Patient intubated: No. Tracheostomy tube not present Mallampati: III. TM distance: >3 FB. Neck ROM: full ROM without neurological symptoms. Mouth opening: adequate. Short neck: no. Thick neck: no Fox present: no Lip Bite Test: II Microretrognathia/Micronagthia/Re cessed Chin: No DENTAL Dental findings: teeth intact. Additional comments: +crowns/back. II - ANESTHESIA PLAN Anesthetic Plan: other Beta Catalina Monitoring Plan Post Procedure Analgesic Plan Prepared for Surgery: optimally prepared for surgery, pending [see comment]. Labs and ekg CONSULTS: Patient does not require consults for optimization at this time Planned Anesthetic: other anesthesia choice The Following Tests/Procedures Have Been Initiated: Orders Placed This Encounter >CBC + AUTO DIFF Standing Status: Future Number of Occurrences: 1 Standing Expiration Date: 03/10/2024 >CMP Standing Status: Future Number of Occurrences: 1 Standing Expiration Date: 03/10/2024 Urine Culture - LAB COLLECT Standing Status: Future Number of Occurrences: 1 Standing Expiration Date: 03/10/2024 mupirocin (BACTROBAN) 2 % ointment Sig: Apply 0.5 inch with cotton swab (Q-tip) to each nostril in the morning and evening for 5 days prior to and including day of surgery. Dispense: 22 g Refill: 0 ECG COMPLETE Order Comments: Ordered by an unspecified provider ECG COMPLETE Standing Status: Future Standing Expiration Date: 12/09/2024 REASON FOR VISIT: Raymond Sharma is a 63 year old female who is scheduled for Procedure(s): ROBOTIC ASSISTED TOTAL KNEE ARTHROPLASTY (Left) at the request of Dr. Maximo Caro for consultation. My final recommendation will be communicated back to the requesting physician by way of shared medical record or letter. Subjective The patient has the following: COVID-19 Immunization Status Overdue - Covid-19 Vaccine () Overdue since 11/16/2023 02/09/2021 Imm Admin: COVID-19 original vaccine, full dose, monovalent (MODERNA) 06/09/2020 Imm Admin: COVID-19 original vaccine, full dose, monovalent (MODERNA) 05/12/2020 Imm Admin: COVID-19 original vaccine, full dose, monovalent (MODERNA) Only the first 3 history entries have been loaded, but more history exists. CHIEF COMPLAINT: Pre-op exam HPI: Raymond Sharma is a 63 year old seen for PAC due to scheduled above surgery because of OA left knee. 05/12/2023, Dr. Maximo Caro Raymond Sharma is a 63 year old patient with the presenting complaint of Established Patient and Pain of the Left Knee. Raymond Sharma has had progressive problems with the knee(s) constantly over the past 5 year(s) interfering with activities which include exercise, gardening, doing gelatin powder mixer, participating in family activities, enjoying hobbies, walking, rising from a sitting position, standing for prolonged periods of time, getting in and out of a car, climbing stairs, and safety-increased risk for fall. The problem began limiting activities 3+ years ago. Raymond reports a current pain level of 2 (Knee-Left). She describes the pain as Aching. The pain is Continuous, and has lasted for 5 Years. Interventions tried include Medication, Reposition, Relaxation. FALL RISK: Raymond is not currently at risk for falls. PROMIS Physical Function Score No flowsheet data found. FUNCTIONAL STATUS: Climb a flight of stairs or walk up a hill (5.50 METs) PREVIOUS TREATMENTS: Last Knee Surgery: 01/18/2020 with Maximo Caro Past anti-inflammatory medications (not necessarily for this reason for visit): celecoxib, dexamethasone sodium phosphate, ketorolac tromethamine, meloxicam, methylprednisolone Attempted Weight Loss Medical Treatments: OTC NSAIDS for 3 Months or Greater (Ibuprofen), Steroid Injections Left Knee Physical Therapy: Activities Modified and PT Three Months or Greater 1-2 times per week Previous Surgery: Knee Arthroscopy REVIEW OF SYSTEMS: General: No weight loss, malaise or fevers. Neurological: No history of TIA's, stroke, MARBLE CUTTER tumor, impaired sensorium, hemiplegia, paraplegia or quadraplegia. No neurological symptoms or problems. Respiratory: No history of current cough or dyspnea, or pneumonia in the past 6 weeks. No history of respiratory/pulmonary symptoms or problems. Cardiovascular: Positive for: hyperlipidemia and hypertension Negative for: abdominal aortic aneurysm, AICD/PPM, angina, anticoagulation therapy, arrhythmia, atrial fibrillation, CAD, chest pain, CHF, congenital heart defect, DVT/PE, recent CO, murmur/valvular heart disease, PTCA, PVD, open heart surgery and valve surgery. GI: No history of GI symptoms or problems. No history of esophageal varices, recent ascites, or ETOH greater than 2 drinks per day. : No history of dysuria, frequency or incontinence, stones or chronic kidney disease. No difficulty urinating, nocturia > 1 time per night or hematuria. FISHER OYSTER: Negative for abnormal vaginal bleeding, abnormal vaginal discharge. Endocrine: No history of diabetes. Has not taken steroids within the past 30 days. No history of endocrinological symptoms or problems. Hematology: No history of bleeding or clotting disorder. Patient is not taking anti-coagulation or platelet medications. No history of hematological symptoms or problems. Oncology: No history of CA metastasis, chemo within 30 days, or radiotherapy within 90 days. No history of oncological symptoms or problems. Psych: Positive for: anxiety (on rx) and depression (on rx). Musculoskeletal: See HPI. +right TKA Positive for: back pain (lumbar, s/p injection). Skin: Negative for lesions, rash and itching. PAST MEDICAL HISTORY Diagnosis Date Anxiety GERD (gastroesophageal reflux disease) HTN (hypertension) Hyperlipidemia PAST SURGICAL HISTORY Procedure Laterality Date ARTHROSCOPY KNEE DIAGNOSTIC W/WO SYNOVIAL BX SPX Left 05/04/15 Arthroscopy, knee ARTHRP KNE CONDYLE&PLATU MEDIAL&LAT COMPARTMENTS Right 01/18/2020 Knee replacement, total COLONOSCOPY 2015 HYSTERECTOMY HX 2002 TONSILLECTOMY HX <12yo FAMILY HISTORY Problem Relation Age of Onset Arthritis Father Coronary Artery Disease Father [place] Hypertension Father Cancer Mother breast Social History Tobacco Use Smoking status: Never Smokeless tobacco: Never Vaping Use Vaping status: Never Used Substance Use Topics Alcohol use: No Drug use: No Prior to Admission medications as of 12/11/23 0926 Medication Sig Last Dose Taking acetaminophen (TYLENOL EXTRA STRENGTH ORAL) Take by mouth. Taking Yes lisinopril (ZESTRIL, PRINIVIL) 5 mg tablet Take 5 mg by mouth. Taking Yes ubidecarenone/vitamin E mixed (COQ10 SG 100 ORAL) Take 1 tablet by mouth once daily. Taking Yes atenolol (TENORMIN) 50 mg tablet Take 50 mg by mouth once daily. Taking Yes MULTIVITAMIN ORAL Take by mouth once daily. Taking Yes CALCIUM CARBONATE/VITAMIN D3 (CALCIUM 600 + D ORAL) Take 2 tablets by mouth once daily. Taking Yes atorvastatin (LIPITOR) 10 mg tablet Take 10 mg by mouth once daily. Taking Yes clonazePAM (KLONOPIN) 0.5 mg tablet Take 0.025 tablets by mouth every 6 hours as needed for Anxiety. Taking Yes paroxetine (PAXIL) 20 mg ORAL tablet Take 20 mg by mouth once daily. Taking Yes mupirocin (BACTROBAN) 2 % ointment Apply 0.5 inch with cotton swab (Q-tip) to each nostril in the morning and evening for 5 days prior to and including day of surgery. No medication comments found. ALLERGIES Allergen Reactions Sulfa (Sulfonamide * Hives Objective PHYSICAL EXAM: General: alert and oriented (x3) and healthy appearance. Pertinent negatives noted - not distressed. Skin: normal color, no rash or lesions. HEENT: EOM intact and pupils equal round. Pertinent negatives noted - no carotid bruit. Cardiovascular: regular rate and rhythm, normal S1 and S2, no rub, murmurs, or gallop. Respiratory: normal breath sounds, no wheezes or crackles. No chest wall deformity or tenderness. Abdomen: soft. Pertinent negatives noted - not tender. Extremities: no deformity, no edema or tenderness, no joint swelling or clubbing. Neurological: normal cognition and motor skills. Gait normal. No weakness or sensory deficit. PAIN ASSESSMENT: Pain Pain Level: 7 Pain Location: Knee-Left Description: Dull Duration Amount of Time: 4 Duration Units: Years Frequency: Continuous Intervention/Comfort measure: Medication VITALS: BP 132/86 Pulse 70 Temp (Src) 97.6 (Temporal) Resp 16 Ht 5' 4" (1.63m) Wt 171 lb (77.6kg) SpO2 98% BMI 29.34 kg/(m^2). Diagnostic tests reviewed for today's visit: Lab Value Units Date High Low HB 14.9 g/dL 12/10/2023 15.5 11.5 HCT 44.0 % 12/10/2023 46.0 36.0 WBC 10.70 k/uL 12/10/2023 11.00 3.70 PLT 255 k/uL 12/10/2023 400 150 NA 139 mmol/L 12/10/2023 144 136 K 4.7 mmol/L 12/10/2023 5.1 3.7 GLUC 108 mg/dL 12/10/2023 99 74 BUN 28 mg/dL 12/10/2023 21 7 CREAT 0.83 mg/dL 12/10/2023 0.96 0.58 PTSEC No results within date range. INR No results within date range. APTT No results within date range. ALT 23 U/L 12/10/2023 38 7 AST 22 U/L 12/10/2023 35 13 TBILI 0.2 mg/dL 12/10/2023 1.3 0.2 TSH No results within date range. Lab Value Units Date High Low HCGQT No results within date range. UHCG No results within date range. HCG, BODY* No results within date range. Lab Value Units Date High Low ABORHD No results within date range. ABSCREEN No results within date range. No results found for: "HBA1C" Recent Results (from the past 8760 hour(s)) ECG COMPLETE Collection Time: 12/10/23 4:08 PM Result Value Ventricular Rate 56 Atrial Rate 56 P-R Interval 208 QRS Duration 96 QT Interval 408 QTC Calculation (Bazett) 393 Calculated P [place] 47 Calculated R [place] -27 Calculated T [place] 28 Impression SINUS BRADYCARDIA with borderline first degree AV block OTHERWISE NORMAL ECG Confirmed by MD DAVID, QARAB ([id number]) on 12/10/2023 4:06:40 PM No results found for this or any previous visit (from the past 47895 hour(s)). Instructions Given to Patient: Instructions located in the after visit summary. Patient given verbal and written preop instructions and voices comprehension and compliance. SIGNATURE: Naz Duval APRN.CNP PATIENT NAME: Raymond Sharma DATE: December 10, 2023 TIME: 3:56 PM PAGER/CONTACT #: documented in this encounter [facility] 12-08-2023 Telephone encounter Note LVM for patient to return call to schedule [facility] 12-08-2023 Miscellaneous Notes LVM for patient to return call to schedule Please schedule ct scan for 12/29/23 Lt tka frederick. documented in this encounter [facility] 12-05-2023 Telephone encounter Note Please schedule ct scan for 12/29/23 Lt tka frederick. [facility] 10-30-2023 Telephone encounter Note TOTAL JOINT COMPLETE CARE PROGRAM PRE-OPERATIVE TEACHING Service Date: 10/30/2023 Service Time: 11:47 AM Date of : 1960 Gender: female Date of Surgery: 12/29/23 Procedure: Left Total Knee Replacement Complete Care Program was discussed with the patient: Bulk System Operator Identification: Patient identified a eye care professional to help when discharged to home: family Home Environment: Home Layout: Tri-Level, Entry Steps: 3 no rail, Bedroom Location: 2nd floor, Bathroom Location: basement level, and walk in shower. Pt owns walker, crutches, raised toilet seat. Discussed with patient importance of attending joint education class and provided date and times of class: YES prior TKA 2019 Patient received Joint Education Binder: Yes Patient plans discharge home with HHC> SIGNATURE: LATRICE Cyr PATIENT NAME: Raymond Sharma DATE: October 30, 2023 TIME: 11:45 AM [facility] 10-30-2023 Miscellaneous Notes TOTAL JOINT COMPLETE CARE PROGRAM PRE-OPERATIVE TEACHING Service Date: 10/30/2023 Service Time: 11:47 AM Date of : 1960 Gender: female Date of Surgery: 12/29/23 Procedure: Left Total Knee Replacement Complete Care Program was discussed with the patient: Bulk System Operator Identification: Patient identified a eye care professional to help when discharged to home: family Home Environment: Home Layout: Tri-Level, Entry Steps: 3 no rail, Bedroom Location: 2nd floor, Bathroom Location: basement level, and walk in shower. Pt owns walker, crutches, raised toilet seat. Discussed with patient importance of attending joint education class and provided date and times of class: YES prior TKA 2019 Patient received Joint Education Binder: Yes Patient plans discharge home with HHC> SIGNATURE: LATRICE Cyr PATIENT NAME: Raymond Sharma DATE: October 30, 2023 TIME: 11:45 AM documented in this encounter [facility] 09-01-2023 Telephone encounter Note Left a detailed message on her voice mail. [facility] 09-01-2023 Miscellaneous Notes Left a detailed message on her voice mail. As satinder as we have a week or more from the back injection to surgery. The back injection can be anytime. Alexander Kang PA-C Patient scheduled for Lt tka on 12/29/23. What time frame prior to that can she have an injection in her back from her pain management physician? documented in this encounter [facility] 09-01-2023 Telephone encounter Note As satinder as we have a week or more from the back injection to surgery. The back injection can be anytime. Alexander Kang PA-C [facility] Work Phone: 08-29-2023 Telephone encounter Note Patient scheduled for Lt tka on 12/29/23. What time frame prior to that can she have an injection in her back from her pain management physician? [facility] 05-17-2023 Note HNO ID: [id number] Author: SHANNON GREEN, RN Service: ? Author Type: Registered Nurse Type: Progress Notes Filed: 05/17/2023 11:16 Note Text: Patient referred to Blood Management for assessment. Unable to complete due to the unavailability of current lab results. Patient scheduled for PACC in which an anemia assessment will be conducted. [facility] 05-17-2023 History of Present illness Narrative Patient referred to Blood Management for assessment. Unable to complete due to the unavailability of current lab results. Patient scheduled for PACC in which an anemia assessment will be conducted. documented in this encounter [facility] 05-12-2023 Note HNO ID: [id number] Author: MAXIMO CARO MD Service: ? Author Type: Physician Type: Progress Notes Filed: 05/12/2023 09:00 Note Text: CONSULT ORTHOPAEDIC: KNEE PRIMARY CARE PHYSICIAN: Carlos Granado MD REFERRING PROVIDER: No referring provider defined for this encounter. ASSESSMENT AND PLAN Impression: Left Knee Severe Degenerative Osteoarthritis, Primary Diagnoses: Osteoarthritis left knee Based upon the evaluation today and after discussions with Raymond Sharma, Raymond Sharma has significant, worsening pain at the knee. This pain is increased with activity and weight bearing, and interferes with activities of daily living. These symptoms have continued despite a number of non-surgical measures, including a trial of oral pain medication and attempted physical therapy/ structured exercise program and/or use of an assistive device/ bracing (for at least 12 weeks unless the patient was unable to tolerate these measures as discussed above). At this point, the patient will not benefit from further PT due to the severity of their condition. The patient's physical examination is consistent with limitations in range of motion, pain with passive range of motion, crepitus, and effusion/ synovitis. These examination findings are corroborated by imaging findings of joint space narrowing, periarticular osteophyte formation, and subchondral sclerosis. The patient has been treated by the practice and all reasonable treatments have failed to control the disease, which causes significant pain and limits activities of daily living. The patient has failed conservative treatment and joint replacement surgery was discussed and agreed upon by both provider and patient. We will proceed with surgical management to improve function and relieve pain refractory to non-surgical measures. Left Primary Total Knee Arthroplasty as evidenced by progressive symptoms. Progressive Symptoms Include: Pain impacting sleep or causing fatigue Pain impacting work Pain worsened by weight bearing Pain effecting living situation Pain limiting ability to stay fit and healthy Unable to ambulate 2 blocks without significant pain and dysfunction . Surgery Details Date and Location: At [facility] on date to be determined. Implants: Balbir Robotic: Yes Predicted LOS: 1 day (Outpatient candidate) Informed consent obtained in the office today. The risks and benefits of surgery were discussed at length including but not limited to the risks of infection, bleeding, nerve or blood vessel injury, deep venous thrombosis, pulmonary embolism, arthrofibrosis, reflex sympathetic dystrophy, , paralysis, knee or patellar dislocation, extensor mechanism injury, bone fracture, component loosening or failure requiring re-operation or amputation. Informed consent was obtained and the patient was scheduled for surgery. We also discussed fixation strategies including cement and cementless fixation and advantages and disadvantages of each. We discussed the details of the surgery as well as rehabilitation. All questions were answered, and the patient wishes to proceed with surgery.. The patient has been ordered: Office Visit on 05/12/23 OTC PRODUCT ibuprofen (MOTRIN) 200 mg tablet acetaminophen (TYLENOL EXTRA STRENGTH ORAL) Anemia Screen CT Raymond Sharma meets the following criteria for CT: Preop planning for robotic knee system CONSULTS: IMPACT/PACE Consult for preoperative clearance. Total Joint Arthroplasty: Risk Calculator Raymond Sharma has a 6.11% chance of NOT returning home at discharge for a Primary total Knee replacement. Raymond's estimated Length of Stay is 1 day (Outpatient candidate). Raymond's 30 day chance of readmission is 2.07%. Readmission Probability 2.07 % (within 30 days following surgery) Estimated LOS 1 day Discharge Disposition Probability D/C to Home 93.89 % D/C to SNF 6.11 % These calculations are based on the following factors: - 63 years of age - sex is not male - BMI of 30.27 kg/m2 - NarxCare score of 170 - 0 hospitalizations in the last 12 months - no history of heart disease - no history of diabetes - no history of COPD - no history of anemia - preoperative ambulation: impaired community distances - 2 step(s) to enter home - bed location is NOT on the first floor - bath location is NOT on the first floor - caregiver is consistent - home is not more than 150 miles away - PROMIS-10 Mental Health T score not available - Marital status: single Risk Factors for Total Knee Arthroplasty (TKA) Major Risk Factors Obesity Moderate Risk High: BMI > 40 Moderate: BMI 30-40 Normal: BMI < 30 Diabetes normal High: A1C > 8 Moderate: A1C 7-8 Normal: A1C < 7 Hx of DVT / PE normal High: dx of DVT / PE Normal: no dx of DVT / PE Smoking normal High: Current smoker Normal: Non smoker Narcotics Use Moderate Risk High:NarxCare >=300 Mo (more content not included)... [facility] 05-12-2023 History of Present illness Narrative Radiology Service Progress Note PATIENT NAME: Raymond Sharma DATE OF SERVICE: May 12, 2023 TIME: 8:04 AM PATIENT IDENTITY VERIFICATION COMPLETED USING TWO (2) IDENTIFIERS: Name and Date of confirmed by patient verbally. FALL SCREENING: Has the patient had 2 falls in the last year or 1 fall with injury or currently using an Ambulatory Assistive Device (Walker, Cane, Wheelchair, Crutches, etc.)? No PATIENT GENDER DATA: Female. status: : No status: NO. PATIENT RELEVANT IMPLANT DATA REVIEWED: Not Applicable PATIENT PRESENTS WITH AN IMPLANTABLE OR ATTACHED TURF SALES PERSON: No RADIOLOGY DEPARTMENT: General X-ray: Exam(s) Completed: Lower Extremity X-Ray(s): Knee, AP / Lat / Tunne / Merchant Left and Wt. Bearing PERIPHERAL IV DATA: Not applicable SIGNED BY: Carolann De Leon May 12, 2023 8:04 AM documented in this encounter [facility] 05-12-2023 Note HNO ID: [id number] Author: BRYON VANCE Tech Service: ? Author Type: Zipper Measurer Type: Progress Notes Filed: 05/12/2023 08:04 Note Text: Radiology Service Progress Note PATIENT NAME: Raymond Sharma DATE OF SERVICE: May 12, 2023 TIME: 8:04 AM PATIENT IDENTITY VERIFICATION COMPLETED USING TWO (2) IDENTIFIERS: Name and Date of confirmed by patient verbally. FALL SCREENING: Has the patient had 2 falls in the last year or 1 fall with injury or currently using an Ambulatory Assistive Device (Walker, Cane, Wheelchair, Crutches, etc.)? No PATIENT GENDER DATA: Female. status: : No status: NO. PATIENT RELEVANT IMPLANT DATA REVIEWED: Not Applicable PATIENT PRESENTS WITH AN IMPLANTABLE OR ATTACHED TURF SALES PERSON: No RADIOLOGY DEPARTMENT: General X-ray: Exam(s) Completed: Lower Extremity X-Ray(s): Knee, AP / Lat / Tunne / [employer] PERIPHERAL IV DATA: Not applicable SIGNED BY: Carolann De Leon May 12, 2023 8:04 AM [facility] 08-06-2019 History of Past i llness Narrative Problem Noted Date Diagnosed Date Resolved Date Primary osteoarthritis of right knee 08/06/2019 01/19/2020 Last Assessment & Plan: Assessment: Patient had been scheduled for total right knee arthroplasty prior to the COVID related surgical restrictions. Currently she would like to wait before scheduling her surgery. We discussed the new requirements including COVID testing within 3 days of the surgical procedure. We also discussed the potential of arian COVID in the hospital. She understands and well contact the office when she wishes to reschedule her surgical procedure PLAN: Continue current treatment Avoid activities that require repetitive impact Patient will call the office to reschedule her right total knee arthroplasty documented as of this encounter (statuses as of 05/14/2023) [facility]05-[facility]-2020 History of Past illness Narrative* Problem Noted Date Diagnosed Date Resolved Date Primary osteoarthritis of right knee 08/06/2019 01/19/2020 Last Assessment & Plan: Assessment: Patient had been scheduled for total right knee arthroplasty prior to the COVID related surgical restrictions. Currently she would like to wait before scheduling her surgery. We discussed the new requirements including COVID testing within 3 days of the surgical procedure. We also discussed the potential of arian COVID in the hospital. She understands and well contact the office when she wishes to reschedule her surgical procedure PLAN: Continue current treatment Avoid activities that require repetitive impact Patient will call the office to reschedule her right total knee arthroplasty documented as of this encounter (statuses as of 05/17/2023) [facility] Diagnosis Onset Date Resolution Status Encounter for screening for malignant neoplasm of colo n [facility] Work Phone: Evaluation note* Diagnosis Onset Date Resolution Status Encounter for routine gynecological examination noneactive [facility] Work Phone: Evaluation note* Diagnosis Onset Date Resolution Status Herniated nucleus pulposus, L5-S1, right acute Spinal stenosis at L4-L5 level [facility] Work Phone: Evaluation note* Diagnosis Primary osteoarthritis of left knee- Primary Primary localized osteoarthrosis, lower leg Primary osteoarthritis of left knee Primary localized osteoarthrosis, lower leg documented [facility] this encounter [facility]* Diagnosis Preop examination- Primary Preoperative examination, unspecified Primary osteoarthritis of right knee Primary localized osteoarthrosis, lower leg Essential hypertension Unspecified essential hypertension Gastroesophageal reflux disease with esophagitis, unspecified whether hemorrhage Other hyperlipidemia Anxiety Anxiety state, unspecified Class 1 obesity due to excess calories without serious comorbidity with body mass index (BMI) of 30.0 to 30.9 in adult Left knee pain, unspecified chronicity Primary osteoarthritis of left knee Primary localized osteoarthrosis, lower leg [facility] this [facility] Diagnosis Preop examination- Primary Preoperative examination, unspecified Primary osteoarthritis of right knee Primary localized osteoarthrosis, lower leg Essential hypertension Unspecified essential hypertension Gastroesophageal reflux disease with esophagitis, unspecified whether hemorrhage Other hyperlipidemia Anxiety Anxiety state, unspecified Class 1 obesity due to excess calories without serious comorbidity with body mass index (BMI) of 30.0 to 30.9 in adult Pre-operative examination- Primary Preoperative examination, unspecified Essential hypertension Unspecified essential hypertension Other hyperlipidemia Gastroesophageal reflux disease with esophagitis, unspecified whether hemorrhage Anxiety Anxiety state, unspecified BMI 29.0-29.9,adult Body Mass Index 29.0-29.9, adult History of total right knee replacement AV block, 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 * Assessment & Plan Note - Naz Duval APRN.CNP - 12/11/2023 9:25 AM EDT Associated Problem(s): Anxiety Assessment: and depression, stable on rx per pt * Assessment & Plan Note - Naz Duval APRN.CNP - 12/11/2023 9:25 AM EDT Associated Problem(s): GERD (gastroesophageal reflux disease) Assessment: denies dx in epic * Assessment & Plan Note - Naz Duval APRN.CNP - 12/11/2023 9:24 AM EDT Associated Problem(s): Hyperlipidemia Assessment: c/w statin * Assessment & Plan Note - Naz Duval APRN.CNP - 12/11/2023 9:24 AM EDT Associated Problem(s): Essential hypertension Assessment: controlled on rx Last 14 BP Last 14 Encounter BP Readings: Date: BP: 12/10/2023 132/86 02/07/2020 128/72 02/04/2020 126/86 02/02/2020 118/78 01/31/2020 118/78 01/28/2020 128/78 01/27/2020 126/80 01/25/2020 118/78 01/22/2020 120/68[at rest[ 01/20/2020 110/60 01/18/2020 131/64 01/05/2020 138/80 11/10/2019 121/60 04/14/2015 138/83 documented in this encounter [facility] note* Diagnosis Preop examination- Primary Preoperative examination, unspecified Primary osteoarthritis of right knee Primary localized osteoarthrosis, lower leg Essential hypertension Unspecified essential hypertension Gastroesophageal reflux disease with esophagitis, unspecified whether hemorrhage Other hyperlipidemia Anxiety Anxiety state, unspecified Class 1 obesity due to excess calories without serious comorbidity with body mass index (BMI) of 30.0 to 30.9 in adult Pre-operative examination- Primary Preoperative examination, unspecified Essential hypertension Unspecified essential hypertension Other hyperlipidemia Gastroesophageal reflux disease with esophagitis, unspecified whether hemorrhage Anxiety Anxiety state, unspecified BMI 29.0-29.9,adult Body Mass Index 29.0-29.9, adult History of total right knee replacement AV block, 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 Primary osteoarthritis of left knee Primary localized osteoarthrosis, lower leg Primary osteoarthritis of left knee Primary localized osteoarthrosis, lower leg documented in this encounter [facility] note* Diagnosis Preop examination- Primary Preoperative examination, unspecified Primary osteoarthritis of right knee Primary localized osteoarthrosis, lower leg Essential hypertension Unspecified essential hypertension Gastroesophageal reflux disease with esophagitis, unspecified whether hemorrhage Other hyperlipidemia Anxiety Anxiety state, unspecified Class 1 obesity due to excess calories without serious comorbidity with body mass index (BMI) of 30.0 to 30.9 in adult Pre-operative examination- Primary Preoperative examination, unspecified Essential hypertension Unspecified essential hypertension Other hyperlipidemia Gastroesophageal reflux disease with esophagitis, unspecified whether hemorrhage Anxiety Anxiety state, unspecified BMI 29.0-29.9,adult Body Mass Index 29.0-29.9, adult History of total right knee replacement AV block, 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9 in adult Pre-operative examination- Primary Preoperative examination, unspecified Essential hypertension Unspecified essential hypertension Other hyperlipidemia Gastroesophageal reflux disease with esophagitis, unspecified whether hemorrhage Anxiety Anxiety state, unspecified BMI 29.0-29.9,adult Body Mass Index 29.0-29.9, adult History of total right knee replacement AV block, 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 Status post total left knee replacement documented in this encounter [facility] note* Diagnosis Preop examination- Primary Preoperative examination, unspecified Primary osteoarthritis of right knee Primary localized osteoarthrosis, lower leg Essential hypertension Unspecified essential hypertension Gastroesophageal reflux disease with esophagitis, unspecified whether hemorrhage Other hyperlipidemia Anxiety Anxiety state, unspecified Class 1 obesity due to excess calories without serious comorbidity with body mass index (BMI) of 30.0 to 30.9 in adult Pre-operative examination- Primary Preoperative examination, unspecified Essential hypertension Unspecified essential hypertension Other hyperlipidemia Gastroesophageal reflux disease with esophagitis, unspecified whether hemorrhage Anxiety Anxiety state, unspecified BMI 29.0-29.9,adult Body Mass Index 29.0-29.9, adult History of total right knee replacement AV block, 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 Aftercare following left knee joint replacement surgery- Primary documented in this encounter [facility] note* Diagnosis Preop examination- Primary Preoperative examination, unspecified Primary osteoarthritis of right knee Primary localized osteoarthrosis, lower leg Essential hypertension Unspecified essential hypertension Gastroesophageal reflux disease with esophagitis, unspecified whether hemorrhage Other hyperlipidemia Anxiety Anxiety state, unspecified Class 1 obesity due to excess calories without serious comorbidity with body mass index (BMI) of 30.0 to 30.9 in adult Pre-operative examination- Primary Preoperative examination, unspecified Essential hypertension Unspecified essential hypertension Other hyperlipidemia Gastroesophageal reflux disease with esophagitis, unspecified whether hemorrhage Anxiety Anxiety state, unspecified BMI 29.0-29.9,adult Body Mass Index 29.0-29.9, adult History of total right knee replacement AV block, 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 Left knee pain, unspecified chronicity documented in this encounter [facility] note* Diagnosis Preop examination- Primary Preoperative examination, unspecified Primary osteoarthritis of right knee Primary localized osteoarthrosis, lower leg Essential hypertension Unspecified essential hypertension Gastroesophageal reflux disease with esophagitis, unspecified whether hemorrhage Other hyperlipidemia Anxiety Anxiety state, unspecified Class 1 obesity due to excess calories without serious comorbidity with body mass index (BMI) of 30.0 to 30.9 in adult Pre-operative examination- Primary Preoperative examination, unspecified Essential hypertension Unspecified essential hypertension Other hyperlipidemia Gastroesophageal reflux disease with esophagitis, unspecified whether hemorrhage Anxiety Anxiety state, unspecified BMI 29.0-29.9,adult Body Mass Index 29.0-29.9, adult History of total right knee replacement AV block, 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 Status post total left knee replacement documented in this encounter [facility] note* Diagnosis Preop examination- Primary Preoperative examination, unspecified Primary osteoarthritis of right knee Primary localized osteoarthrosis, lower leg Essential hypertension Unspecified essential hypertension Gastroesophageal reflux disease with esophagitis, unspecified whether hemorrhage Other hyperlipidemia Anxiety Anxiety state, unspecified Class 1 obesity due to excess calories without serious comorbidity with body mass index (BMI) of 30.0 to 30.9 in adult Pre-operative examination- Primary Preoperative examination, unspecified Essential hypertension Unspecified essential hypertension Other hyperlipidemia Gastroesophageal reflux disease with esophagitis, unspecified whether hemorrhage Anxiety Anxiety state, unspecified BMI 29.0-29.9,adult Body Mass Index 29.0-29.9, adult History of total right knee replacement AV block, 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 Status post total left knee replacement documented in this encounter [facility] note* Diagnosis Preop examination- Primary Preoperative examination, unspecified Primary osteoarthritis of right knee Primary localized osteoarthrosis, lower leg Essential hypertension Unspecified essential hypertension Gastroesophageal reflux disease with esophagitis, unspecified whether hemorrhage Other hyperlipidemia Anxiety Anxiety state, unspecified Class 1 obesity due to excess calories without serious comorbidity with body mass index (BMI) of 30.0 to 30.9 in adult Pre-operative examination- Primary Preoperative examination, unspecified Essential hypertension Unspecified essential hypertension Other hyperlipidemia Gastroesophageal reflux disease with esophagitis, unspecified whether hemorrhage Anxiety Anxiety state, unspecified BMI 29.0-29.9,adult Body Mass Index 29.0-29.9, adult History of total right knee replacement AV block, 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 Aftercare following left knee joint replacement surgery- Primary documented in this encounter [facility] note* Diagnosis Preop examination- Primary Preoperative examination, unspecified Primary osteoarthritis of right knee Primary localized osteoarthrosis, lower leg Essential hypertension Unspecified essential hypertension Gastroesophageal reflux disease with esophagitis, unspecified whether hemorrhage Other hyperlipidemia Anxiety Anxiety state, unspecified Class 1 obesity due to excess calories without serious comorbidity with body mass index (BMI) of 30.0 to 30.9 in adult Pre-operative examination- Primary Preoperative examination, unspecified Essential hypertension Unspecified essential hypertension Other hyperlipidemia Gastroesophageal reflux disease with esophagitis, unspecified whether hemorrhage Anxiety Anxiety state, unspecified BMI 29.0-29.9,adult Body Mass Index 29.0-29.9, adult History of total right knee replacement AV block, 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 Aftercare following right knee joint replacement surgery- Primary documented in this encounter [facility] Plan of care note* Visit Details Visit Type -PT SOC Discipline -Physical Therapy Problems Problem Description Start Date Status Goals Interve ntions Medication Education Disciplines: Skilled Services 12/31/2023 Active 1 goal linked to scheduled/documen annie intervention 1 goal intervention scheduled/document ed in this visit Sepsis Disciplines: Skilled Services 12/31/2023 Resolved on 12/31/2023 1 goal linked to scheduled/documen annie intervention 1 goal intervention scheduled/document ed in this visit Physician Specific Parameters Disciplines: Skilled Services 12/31/2023 Active 1 goal linked to scheduled/documen annie intervention 1 goal intervention scheduled/document ed in this visit Risk for Falls Disciplines: Skilled Services 12/31/2023 Active 1 goal linked to scheduled/documen annie intervention 1 goal intervention scheduled/document ed in this visit Pain Disciplines: Skilled Services 12/31/2023 Active 1 goal linked to scheduled/documen annie intervention 1 goal intervention scheduled/document ed in this visit High Risk Medications Disciplines: Skilled Services 12/31/2023 Active 1 goal linked to scheduled/documen nanie intervention 2 goal interventions scheduled/document ed in this visit Discharge Disciplines: Skilled Services 12/31/2023 Active 1 goal linked to scheduled/documen annie intervention 1 goal intervention scheduled/document ed in this visit Advance Directives Disciplines: Skilled Services 12/31/2023 Resolved on 12/31/2023 1 goal linked to scheduled/documen annie intervention 1 goal intervention scheduled/document ed in this visit PT Impaired muscle performance and/or ROM Disciplines: PT 12/31/2023 Active 1 goal linked to scheduled/documen annie intervention 1 goal intervention scheduled/document ed in this visit PT Orthopedic Condition Disciplines: PT 12/31/2023 Active 1 goal linked to scheduled/documen annie intervention 3 goal interventions scheduled/document ed in this visit PT Learning Assessment Disciplines: PT 12/31/2023 Active 1 goal linked to scheduled/documen annie intervention 1 goal intervention scheduled/document ed in this visit Goals Goal Associated Problem Outcome Goal Met? Visit Notes Patient/caregiver will demonstrate ability to obtain, store, identify and administer ordered medications, keep accurate medication list in home, and adhere to medication schedule Description: Patient/caregiver will demonstrate ability to obtain, store, identify and administer ordered medications, keep accurate medication list in home, and adhere to medication schedule by 02/28/24. Medication Education No Patient/caregiver will be able to identify and report symptoms of sepsis Description: Patient/caregiver will be able to identify signs/symptoms of sepsis infection and will verbalize actions to take if suspected by 02/28/24. . Sepsis Completed Yes Patient to maintain parameters within physician-specified ranges throughout certification period Physician Specific Parameters No Manage Risk for falls Description: Patient/caregiver will verbalize knowledge of individualized fall prevention strategies by 02/28/24. . Risk for Falls No Manage Pain Description: Patient/caregiver will verbalize knowledge and understanding of appropriate techniques to control pain, including pain medication and non-pharmacological techniques. Patient will verbalize or demonstrate an acceptable level of pain as evidenced by a pain score of <5/10 and improvement in ability to perform activities of daily living to be achieved by 02/28/24. . Pain No Patient/caregiver will teach back high risk medication side effect and precaution education Description: STG Patient/caregiver will verbalize understanding of high risk medication side effects and precautions to be achieved by 12/31/23. LTG Patient/caregiver will continue to verbalize understanding of high risk medication side effects and precautions throughout certification period. High Risk Medications No Manage discharge planning Description: Patient/caregiver will verbalize understanding of ongoing discharge plan provided related to disease management, arrangements for outpatient and/or community services, obtaining medications, supplies, and DME, as needed throughout certification period. Discharge No Patient/caregiver will make healthcare providers aware of and any changes to Advance Directives throughout certification period Advance Directives Completed Yes Improved Muscle Performance and/or ROM Description: LTG: Patient will demonstrate improved muscle performance to meet functional goals as evidenced by ability to tolerate 10-15 minutes of therapeutic activity, to be achieved by 01/17/24. . STG: Patient and/or caregiver will verbalize/demonstrate independence with home exercise program, to improve functional mobility, to be achieved by 01/10/24. LTG: Patient will demonstrate improved left knee active range of motion to 0-85 degrees, to meet functional goals, to be achieved by 01/17/24. . PT Impaired muscle performance and/or ROM No Manage Orthopedic Condition Description: Improve patient and/or caregiver understanding of post surgical and/or non-surgical orthopedic intervention management as evidenced by patient and/or caregiver able to verbalize, demonstrate, and teach back instruction, to be achieved by 01/17/24. . PT Orthopedic Condition No Demonstrate understanding of education Description: Patient and/or caregiver will understand educational instruction to be achieved by 01/17/24. . PT Learning Assessment No Interventions Intervention Associated Problem/Goal Status Variance Visit Notes Medication Education Description: Evaluate/instruct patient/caregiver on obtaining, storing, identifying and administering ordered medications as well as keeping accurate medication list in the home and adhereing to medication schedule Problem:Medication Education Goal:Patient/caregive r will demonstrate ability to obtain, store, identify and administer ordered medications, keep accurate medication list in home, and adhere to medication schedule Completed Patient instructed on importance of keeping accurate medication list in home, need to take up-to-date medication list to all medical provider appointments and adhering to medication schedule. Risk of Sepsis Description: Patient is at risk for sepsis. Monitor closely for s/s of sepsis. Problem:Sepsis Goal:Patient/caregive r will be able to identify and report symptoms of sepsis Completed SPO2 Description: Notify Dr. Caro if pulse ox is <92% at rest. Problem:Physician Specific Parameters Goal:Patient to maintain parameters within physician-specified ranges throughout certification period Completed Instruct on individual fall risk factors and strategies to prevent falls and injuries caused by falls. Problem:Risk for Falls Goal:Manage Risk for falls Completed PT: Patient instructed on Eliminating Environmental Hazards: Keep pathways clear, Keep pets out of pathways, Remove unsafe rugs, Move furniture from pathways, Keep rooms and walkways well lit, Install hand rails/grab bars and Wear supportive shoes or non-skid socks Managing Impaired Functional Mobility: Use assistive device(s): standard walker Managing Pain Instruct on pain and instruct on strategies to control pain Problem:Pain Goal:Manage Pain Completed patient instructed on techniques to control pain including Pharmacological measures and Non-Pharmacological measures; rest, positioning/elevation, mobility/therapeutic exercise and use of thermal modalities, apply ice to affected area . Opioids- educated on high risk medication Problem:High Risk Medications Goal:Patient/caregive r will teach back high risk medication side effect and precaution education Completed patient educated on taking medication(s) as prescribed by provider. Do not stop medication or alter doses without speaking with your provider. Discuss medication effectiveness or side effect concerns with your provider and home care team. Only take opioids as prescribed, do not share your medications, and take proper precautions in storing and properly disposing of opioids once no longer needed. Possible side effects of opioid medication including sedation, decreased rate of breathing, and constipation. Report over sedation to prescribing provider and practice deep breathing techniques every hour while awake. Prevent constipation by increasing water and fiber intake, increasing activity as tolerated, and use stool softener(s) as prescribed. Antiplatelet- educated on high risk medication Problem:High Risk Medications Goal:Patient/caregive r will teach back high risk medication side effect and precaution education Completed patient educated on taking medication(s) as prescribed by provider. Do not stop medication or alter doses without speaking with your provider. Discuss medication effectiveness or side effect concerns with your provider and home care team. Discuss all medications you are taking, even [id number] medicines, with your provider and pharmacist since many drugs can interact with antiplatelet medications. If you forget to take a dose, DO NOT take a double dose. Take the missed dose as soon as possible on the same day. DO NOT take a double dose the next day to make up for the missed dose. Watch for signs of abnormal or excessive bleeding and bruising (refer to Bleeding Precautions education). Call your health care provider right away if you suspect something is wrong. Instruct on importance of follow-up appts and continued monitoring with medical provider &/or chronic care clinic Problem:Discharge Goal:Manage discharge planning Completed Education provided on importance of compliance with follow-up appointment(s). Recommendations: patient/caregiver to follow up with scheduling appointment(s) for post-acute/primary care provider/chronic care clinic Determine patient's Advance Directive Status Description: Patient does have advance directives. Patient's Advance Directives determined to be available in Home and EMR Healthcare DPOA and Living Will. Problem:Advance Directives Goal:Patient/caregive r will make healthcare providers aware of and any changes to Advance Directives throughout certification period Completed Discussed Advance Directives with Patient and/or Caregiver. Referred patient to Home Care handbook for further information on Healthcare DPOA & Living Will. Physical Therapy Therapeutic Exercises Problem:PT Impaired muscle performance and/or ROM Goal:Improved Muscle Performance and/or ROM Completed patient instructed on strengthening and range of motion exercises including Supine : GS,QS, HIPADD, HIP ABD, HEEL SLIDES, SAQ, X 10 supine passive knee ext x 3 min 45 sed min seated knee flexion to 50* with verbal, tactile and written cues for technique . patient instructed to perform home exercise program twice a day which included hourly ambulation. Instruct on orthopedic precautions and weight bearing restrictions Description: Orthopedic precautions including left total knee: no crossing legs, no knee flexed over pillow at rest, no kneeling, no squatting and no twisting. Weight bearing restrictions include: WBAT of involved extremity. Problem:PT Orthopedic Condition Goal:Manage Orthopedic Condition Completed patient instructed on orthopedic precautions and weight bearing restrictions. Instruct on management of edema Problem:PT Orthopedic Condition Goal:Manage Orthopedic Condition Completed Instruct patient on management of edema including elevation of LLE above the level of the heart and ice. Instruct on self-management of post surgical and/or non-surgical orthopedic intervention Problem:PT Orthopedic Condition Goal:Manage Orthopedic Condition Completed patient instructed on managagement of orthopedic condition, staying well hydrated, eating foods with high protein, signs and symptoms of infection, signs and symptoms of DVT/PE, follow provider guidance for showering and instructed on when to call provider. Instruct and educate on knowledge deficits Problem:PT Learning Assessment Goal:Demonstrate understanding of education Completed patient verbalize and/or demonstrate understanding of physical therapy education including cardiac disease management, orthopedic condition management, weight bearing precautions, surgical precautions, pain management, fall prevention strategies, home safety, functional activity and home exercise program. Education methods include: verbal cues and written instructions. Further education required to improve knowledge and compliance with orthopedic condition management, surgical precautions, pain management, fall prevention strategies, home safety, functional activity and home exercise program. 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 Discipline -Physical Therapy Problems Problem Description Start Date Status Goals Interve ntions Medication Education Disciplines: Skilled Services 12/31/2023 Active 1 goal linked to scheduled/document ed intervention 1 goal intervention scheduled/document ed in this visit Physician Specific Parameters Disciplines: Skilled Services 12/31/2023 Active 1 goal linked to scheduled/document ed intervention 1 goal intervention scheduled/document ed in this visit Risk for Falls Disciplines: Skilled Services 12/31/2023 Active 1 goal linked to scheduled/document ed intervention 1 goal intervention scheduled/document ed in this visit Pain Disciplines: Skilled Services 12/31/2023 Active 1 goal linked to scheduled/document ed intervention 1 goal intervention scheduled/document ed in this visit High Risk Medications Disciplines: Skilled Services 12/31/2023 Active 1 goal linked to scheduled/document ed intervention 1 goal intervention scheduled/document ed in this visit Discharge Disciplines: Skilled Services 12/31/2023 Active 1 goal linked to scheduled/document ed intervention 1 goal intervention scheduled/document ed in this visit PT Impaired muscle performance and/or ROM Disciplines: PT 12/31/2023 Active 1 goal linked to scheduled/document ed intervention 1 goal intervention scheduled/document ed in this visit PT Impaired mobility Disciplines: PT 12/31/2023 Active 1 goal linked to scheduled/document ed intervention 1 goal intervention scheduled/document ed in this visit PT Impaired gait Disciplines: PT 12/31/2023 Active 2 goals linked to scheduled/document ed interventions 2 goal interventions scheduled/document ed in this visit PT Orthopedic Condition Disciplines: PT 12/31/2023 Active 1 goal linked to scheduled/document ed intervention 2 goal interventions scheduled/document ed in this visit PT Learning Assessment Disciplines: PT 12/31/2023 Active 1 goal linked to scheduled/document ed intervention 1 goal intervention scheduled/document ed in this visit Goals Goal Associated Problem Outcome Goal Met? Visit Notes Patient/caregiver will demonstrate ability to obtain, store, identify and administer ordered medications, keep accurate medication list in home, and adhere to medication schedule Description: Patient/caregiver will demonstrate ability to obtain, store, identify and administer ordered medications, keep accurate medication list in home, and adhere to medication schedule by 02/28/24. Medication Education No Patient to maintain parameters within physician-specified ranges throughout certification period Physician Specific Parameters No Manage Risk for falls Description: Patient/caregiver will verbalize knowledge of individualized fall prevention strategies by 02/28/24. . Risk for Falls No Manage Pain Description: Patient/caregiver will verbalize knowledge and understanding of appropriate techniques to control pain, including pain medication and non-pharmacological techniques. Patient will verbalize or demonstrate an acceptable level of pain as evidenced by a pain score of <5/10 and improvement in ability to perform activities of daily living to be achieved by 02/28/24. . Pain No Patient/caregiver will teach back high risk medication side effect and precaution education Description: STG Patient/caregiver will verbalize understanding of high risk medication side effects and precautions to be achieved by 12/31/23. LTG Patient/caregiver will continue to verbalize understanding of high risk medication side effects and precautions throughout certification period. High Risk Medications No Manage discharge planning Description: Patient/caregiver will verbalize understanding of ongoing discharge plan provided related to disease management, arrangements for outpatient and/or community services, obtaining medications, supplies, and DME, as needed throughout certification period. Discharge No Improved Muscle Performance and/or ROM Description: LTG: Patient will demonstrate improved muscle performance to meet functional goals as evidenced by ability to tolerate 10-15 minutes of therapeutic activity, to be achieved by 01/17/24. . STG: Patient and/or caregiver will verbalize/demonstrate independence with home exercise program, to improve functional mobility, to be achieved by 01/10/24. LTG: Patient will demonstrate improved left knee active range of motion to 0-85 degrees, to meet functional goals, to be achieved by 01/17/24. . PT Impaired muscle performance and/or ROM No Improved Transfers Description: LTG: Patient will demonstrate safe transfers to/from bed, chair, toilet, couch, shower/tub and car independently with AD, to be achieved by 01/17/24. . PT Impaired mobility No Improved Stair Climbing Description: LTG: Patient will demonstrate improved stair negotiation as evidenced by ascend/descend 1 flight steps with cane independently, to safely access all areas of the home, access community and exit home, to be achieved by 01/17/24. . PT Impaired gait No Improved Gait Description: LTG: Patient will demonstrate improved gait ability as evidenced by ambulation 150 feet with front wheeled walker independently with AD, to return to safe household and community ambulation, in order to transition to OP PT , to be achieved by 01/17/24. . PT Impaired gait No Manage Orthopedic Condition Description: Improve patient and/or caregiver understanding of post surgical and/or non-surgical orthopedic intervention management as evidenced by patient and/or caregiver able to verbalize, demonstrate, and teach back instruction, to be achieved by 01/17/24. . PT Orthopedic Condition No Demonstrate understanding of education Description: Patient and/or caregiver will understand educational instruction to be achieved by 01/17/24. . PT Learning Assessment No Interventions Intervention Associated Problem/Goal Status Variance Visit Notes Medication Education Description: Evaluate/instruct patient/caregiver on obtaining, storing, identifying and administering ordered medications as well as keeping accurate medication list in the home and adhereing to medication schedule Problem:Medication Education Goal:Patient/caregive r will demonstrate ability to obtain, store, identify and administer ordered medications, keep accurate medication list in home, and adhere to medication schedule Completed Patient instructed on importance of keeping accurate medication list in home. SPO2 Description: Notify Dr. Caro if pulse ox is <92% at rest. Problem:Physician Specific Parameters Goal:Patient to maintain parameters within physician-specified ranges throughout certification period Completed Instruct on individual fall risk factors and strategies to prevent falls and injuries caused by falls. Problem:Risk for Falls Goal:Manage Risk for falls Completed PT: Patient and Caregiver instructed on Managing Impaired Functional Mobility: Caregiver to provide assist with: Steps Instruct on pain and instruct on strategies to control pain Problem:Pain Goal:Manage Pain Completed patient instructed on techniques to control pain including Pharmacological measures and Non-Pharmacological measures; positioning/elevation and use of thermal modalities, apply ice to affected area for the following prescribed frequency: prn. Opioids- educated on high risk medication Problem:High Risk Medications Goal:Patient/caregive r will teach back high risk medication side effect and precaution education Completed patient educated on taking medication(s) as prescribed by provider. Do not stop medication or alter doses without speaking with your provider. Discuss medication effectiveness or side effect concerns with your provider and home care team. Only take opioids as prescribed, do not share your medications, and take proper precautions in storing and properly disposing of opioids once no longer needed. Possible side effects of opioid medication including sedation, decreased rate of breathing, and constipation. Report over sedation to prescribing provider and practice deep breathing techniques every hour while awake. Prevent constipation by increasing water and fiber intake, increasing activity as tolerated, and use stool softener(s) as prescribed. Instruct on ongoing discharge plan Problem:Discharge Goal:Manage discharge planning Completed Ongoing Discharge plan: Discharge plan discussed with patient including frequency and duration for home PT and plan for transition to: outpatient therapy. Physical Therapy Therapeutic Exercises Problem:PT Impaired muscle performance and/or ROM Goal:Improved Muscle Performance and/or ROM Completed patient instructed on strengthening and range of motion exercises including ankle pumps, quad and glut sets, hip abd and add, saq and heel slides x's 10 each. seated heel slides x's 10 with verbal and visual cues for form and hold times. patient instructed to perform home exercise program twice a day which included above ex. Physical Therapy Transfer Training Problem:PT Impaired mobility Goal:Improved Transfers Completed Transfer training and instruction to patient and caregiver on safe transfers to and from chair with supervision and verbal cues for scooting forward in chair and raising seat height w/ pillow. Physical Therapy Stair Training Problem:PT Impaired gait Goal:Improved Stair Climbing Completed Stair training and instruction to patient on safe stair climbing, ascend/descend 7 steps, with railing and with cane with stand by assist and verbal cues for correct step apttern. Physical Therapy Gait Training Problem:PT Impaired gait Goal:Improved Gait Completed Gait training and instruction to patient on safe ambulation with front wheeled walker for 30, 50 feet with supervision, with verbal cues for corrections of gait deviations including heel to toe. Instruct on management of edema Problem:PT Orthopedic Condition Goal:Manage Orthopedic Condition Completed Instruct patient on management of edema including elevation of LLE above the level of the heart and ice. Instruct on self-management of post surgical and/or non-surgical orthopedic intervention Problem:PT Orthopedic Condition Goal:Manage Orthopedic Condition Completed patient instructed on staying well hydrated and eating foods with high protein. Instruct and educate on knowledge deficits Problem:PT Learning Assessment Goal:Demonstrate understanding of education Completed patient verbalize and/or demonstrate understanding of physical therapy education including pain management, functional activity and home exercise program. Education methods include: verbal cues. Further education required to improve knowledge and compliance with home exercise program. 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 Discipline -Physical Therapy Problems Problem Description Start Date Status Goals Interve ntions Medication Education Disciplines: Skilled Services 12/31/2023 Active 1 goal linked to scheduled/document ed intervention 1 goal intervention scheduled/document ed in this visit Physician Specific Parameters Disciplines: Skilled Services 12/31/2023 Active 1 goal linked to scheduled/document ed intervention 1 goal intervention scheduled/document ed in this visit Risk for Falls Disciplines: Skilled Services 12/31/2023 Active 1 goal linked to scheduled/document ed intervention 1 goal intervention scheduled/document ed in this visit Pain Disciplines: Skilled Services 12/31/2023 Active 1 goal linked to scheduled/document ed intervention 1 goal intervention scheduled/document ed in this visit High Risk Medications Disciplines: Skilled Services 12/31/2023 Active 1 goal linked to scheduled/document ed intervention 1 goal intervention scheduled/document ed in this visit Discharge Disciplines: Skilled Services 12/31/2023 Active 1 goal linked to scheduled/document ed intervention 1 goal intervention scheduled/document ed in this visit PT Impaired muscle performance and/or ROM Disciplines: PT 12/31/2023 Active 1 goal linked to scheduled/document ed intervention 1 goal intervention scheduled/document ed in this visit PT Impaired gait Disciplines: PT 12/31/2023 Active 2 goals linked to scheduled/document ed interventions 2 goal interventions scheduled/document ed in this visit PT Orthopedic Condition Disciplines: PT 12/31/2023 Active 1 goal linked to scheduled/document ed intervention 2 goal interventions scheduled/document ed in this visit PT Learning Assessment Disciplines: PT 12/31/2023 Active 1 goal linked to scheduled/document ed intervention 1 goal intervention scheduled/document ed in this visit Goals Goal Associated Problem Outcome Goal Met? Visit Notes Patient/caregiver will demonstrate ability to obtain, store, identify and administer ordered medications, keep accurate medication list in home, and adhere to medication schedule Description: Patient/caregiver will demonstrate ability to obtain, store, identify and administer ordered medications, keep accurate medication list in home, and adhere to medication schedule by 02/28/24. Medication Education No Patient to maintain parameters within physician-specified ranges throughout certification period Physician Specific Parameters No Manage Risk for falls Description: Patient/caregiver will verbalize knowledge of individualized fall prevention strategies by 02/28/24. . Risk for Falls No Manage Pain Description: Patient/caregiver will verbalize knowledge and understanding of appropriate techniques to control pain, including pain medication and non-pharmacological techniques. Patient will verbalize or demonstrate an acceptable level of pain as evidenced by a pain score of <5/10 and improvement in ability to perform activities of daily living to be achieved by 02/28/24. . Pain No Patient/caregiver will teach back high risk medication side effect and precaution education Description: STG Patient/caregiver will verbalize understanding of high risk medication side effects and precautions to be achieved by 12/31/23. LTG Patient/caregiver will continue to verbalize understanding of high risk medication side effects and precautions throughout certification period. High Risk Medications No Manage discharge planning Description: Patient/caregiver will verbalize understanding of ongoing discharge plan provided related to disease management, arrangements for outpatient and/or community services, obtaining medications, supplies, and DME, as needed throughout certification period. Discharge No Improved Muscle Performance and/or ROM Description: LTG: Patient will demonstrate improved muscle performance to meet functional goals as evidenced by ability to tolerate 10-15 minutes of therapeutic activity, to be achieved by 01/17/24. . STG: Patient and/or caregiver will verbalize/demonstrate independence with home exercise program, to improve functional mobility, to be achieved by 01/10/24. LTG: Patient will demonstrate improved left knee active range of motion to 0-85 degrees, to meet functional goals, to be achieved by 01/17/24. . PT Impaired muscle performance and/or ROM No Improved Stair Climbing Description: LTG: Patient will demonstrate improved stair negotiation as evidenced by ascend/descend 1 flight steps with cane independently, to safely access all areas of the home, access community and exit home, to be achieved by 01/17/24. . PT Impaired gait No Improved Gait Description: LTG: Patient will demonstrate improved gait ability as evidenced by ambulation 150 feet with front wheeled walker independently with AD, to return to safe household and community ambulation, in order to transition to OP PT , to be achieved by 01/17/24. . PT Impaired gait No Manage Orthopedic Condition Description: Improve patient and/or caregiver understanding of post surgical and/or non-surgical orthopedic intervention management as evidenced by patient and/or caregiver able to verbalize, demonstrate, and teach back instruction, to be achieved by 01/17/24. . PT Orthopedic Condition No Demonstrate understanding of education Description: Patient and/or caregiver will understand educational instruction to be achieved by 01/17/24. . PT Learning Assessment No Interventions Intervention Associated Problem/Goal Status Variance Visit Notes Medication Education Description: Evaluate/instruct patient/caregiver on obtaining, storing, identifying and administering ordered medications as well as keeping accurate medication list in the home and adhereing to medication schedule Problem:Medication Education Goal:Patient/caregive r will demonstrate ability to obtain, store, identify and administer ordered medications, keep accurate medication list in home, and adhere to medication schedule Completed Patient and Caregiver instructed on importance of keeping accurate medication list in home, adhering to medication schedule and how to order refills. SPO2 Description: Notify Dr. Caro if pulse ox is <92% at rest. Problem:Physician Specific Parameters Goal:Patient to maintain parameters within physician-specified ranges throughout certification period Completed Instruct on individual fall risk factors and strategies to prevent falls and injuries caused by falls. Problem:Risk for Falls Goal:Manage Risk for falls Completed PT: Patient instructed on Managing Impaired Functional Mobility: Use assistive device(s): single point cane Instruct on pain and instruct on strategies to control pain Problem:Pain Goal:Manage Pain Completed patient instructed on techniques to control pain including Pharmacological measures and Non-Pharmacological measures; positioning/elevation and use of thermal modalities, apply ice to affected area for the following prescribed frequency: prn. Opioids- educated on high risk medication Problem:High Risk Medications Goal:Patient/caregive r will teach back high risk medication side effect and precaution education Completed patient educated on taking medication(s) as prescribed by provider. Do not stop medication or alter doses without speaking with your provider. Discuss medication effectiveness or side effect concerns with your provider and home care team. Only take opioids as prescribed, do not share your medications, and take proper precautions in storing and properly disposing of opioids once no longer needed. Possible side effects of opioid medication including sedation, decreased rate of breathing, and constipation. Report over sedation to prescribing provider and practice deep breathing techniques every hour while awake. Prevent constipation by increasing water and fiber intake, increasing activity as tolerated, and use stool softener(s) as prescribed. Instruct on ongoing discharge plan Problem:Discharge Goal:Manage discharge planning Completed Ongoing Discharge plan: Discharge plan discussed with patient including frequency and duration for home PT and plan for transition to: outpatient therapy. Physical Therapy Therapeutic Exercises Problem:PT Impaired muscle performance and/or ROM Goal:Improved Muscle Performance and/or ROM Completed patient and caregiver instructed on strengthening and range of motion exercises including ankle pumps, quad and glut sets, hip abd andadd, saq and heelslides x's 10 each. supine ext hang x'5min. step flexion stretch and seated heel slides x's 10 with verbal, visual and written cues for form. patient and caregiver instructed to perform home exercise program twice a day which included above ex. Physical Therapy Stair Training Problem:PT Impaired gait Goal:Improved Stair Climbing Completed Stair training and instruction to patient and caregiver on safe stair climbing, ascend/descend 8 steps, with railing and with cane with supervision and verbal cues for safety. Physical Therapy Gait Training Problem:PT Impaired gait Goal:Improved Gait Completed Gait training and instruction to patient and caregiver on safe ambulation with single point cane for 4x's 40 feet with supervision, with verbal and visual cues for corrections of gait deviations including heel to toe pattern. Physical therapy to perform surgical incision/wound management Description: Removal of post-op dressing on POD 7-10 ( 01/04-). If no drainage is present, leave open to air; if drainage is present, cover with clean dressing and contact provider. Problem:PT Orthopedic Condition Goal:Manage Orthopedic Condition Completed Intervention completed this date. with patients permission picture obtained and uploaded today Instruct on self-management of post surgical and/or non-surgical orthopedic intervention Problem:PT Orthopedic Condition Goal:Manage Orthopedic Condition Completed patient and caregiver instructed on incision care: no lotions,creams or rubbing , staying well hydrated, eating foods with high protein, signs and symptoms of infection, signs and symptoms of DVT/PE, follow provider guidance for showering , instructed on when to call provider and instructed on when to call 911. Instruct and educate on knowledge deficits Problem:PT Learning Assessment Goal:Demonstrate understanding of education Completed patient verbalize and/or demonstrate understanding of physical therapy education including pain management and home exercise program. Education methods include: verbal cues, written instructions and visual cues. Further education required to improve knowledge and compliance with home exercise program. 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 Discipline -Physical Therapy Problems Problem Description Start Date Status Goals Interve ntions Medication Education Disciplines: Skilled Services 12/31/2023 Active 1 goal linked to scheduled/document ed intervention 1 goal intervention scheduled/document ed in this visit Physician Specific Parameters Disciplines: Skilled Services 12/31/2023 Active 1 goal linked to scheduled/document ed intervention 1 goal intervention scheduled/document ed in this visit Risk for Falls Disciplines: Skilled Services 12/31/2023 Active 1 goal linked to scheduled/document ed intervention 1 goal intervention scheduled/document ed in this visit Pain Disciplines: Skilled Services 12/31/2023 Active 1 goal linked to scheduled/document ed intervention 1 goal intervention scheduled/document ed in this visit High Risk Medications Disciplines: Skilled Services 12/31/2023 Active 1 goal linked to scheduled/document ed intervention 2 goal interventions scheduled/document ed in this visit Discharge Disciplines: Skilled Services 12/31/2023 Active 1 goal linked to scheduled/document ed intervention 1 goal intervention scheduled/document ed in this visit PT Impaired muscle performance and/or ROM Disciplines: PT 12/31/2023 Active 1 goal linked to scheduled/document ed intervention 1 goal intervention scheduled/document ed in this visit PT Impaired gait Disciplines: PT 12/31/2023 Active 2 goals linked to scheduled/document ed interventions 2 goal interventions scheduled/document ed in this visit PT Impaired balance Disciplines: PT 12/31/2023 Active 1 goal linked to scheduled/document ed intervention 1 goal intervention scheduled/document ed in this visit PT Orthopedic Condition Disciplines: PT 12/31/2023 Active 1 goal linked to scheduled/document ed intervention 2 goal interventions scheduled/document ed in this visit PT Learning Assessment Disciplines: PT 12/31/2023 Active 1 goal linked to scheduled/document ed intervention 1 goal intervention scheduled/document ed in this visit Goals Goal Associated Problem Outcome Goal Met? Visit Notes Patient/caregiver will demonstrate ability to obtain, store, identify and administer ordered medications, keep accurate medication list in home, and adhere to medication schedule Description: Patient/caregiver will demonstrate ability to obtain, store, identify and administer ordered medications, keep accurate medication list in home, and adhere to medication schedule by 02/28/24. Medication Education No Patient to maintain parameters within physician-specified ranges throughout certification period Physician Specific Parameters No Manage Risk for falls Description: Patient/caregiver will verbalize knowledge of individualized fall prevention strategies by 02/28/24. . Risk for Falls No Manage Pain Description: Patient/caregiver will verbalize knowledge and understanding of appropriate techniques to control pain, including pain medication and non-pharmacological techniques. Patient will verbalize or demonstrate an acceptable level of pain as evidenced by a pain score of <5/10 and improvement in ability to perform activities of daily living to be achieved by 02/28/24. . Pain No Patient/caregiver will teach back high risk medication side effect and precaution education Description: STG Patient/caregiver will verbalize understanding of high risk medication side effects and precautions to be achieved by 12/31/23. LTG Patient/caregiver will continue to verbalize understanding of high risk medication side effects and precautions throughout certification period. High Risk Medications No Manage discharge planning Description: Patient/caregiver will verbalize understanding of ongoing discharge plan provided related to disease management, arrangements for outpatient and/or community services, obtaining medications, supplies, and DME, as needed throughout certification period. Discharge No Improved Muscle Performance and/or ROM Description: LTG: Patient will demonstrate improved muscle performance to meet functional goals as evidenced by ability to tolerate 10-15 minutes of therapeutic activity, to be achieved by 01/17/24. . STG: Patient and/or caregiver will verbalize/demonstrate independence with home exercise program, to improve functional mobility, to be achieved by 01/10/24. LTG: Patient will demonstrate improved left knee active range of motion to 0-85 degrees, to meet functional goals, to be achieved by 01/17/24. . PT Impaired muscle performance and/or ROM No Improved Stair Climbing Description: LTG: Patient will demonstrate improved stair negotiation as evidenced by ascend/descend 1 flight steps with cane independently, to safely access all areas of the home, access community and exit home, to be achieved by 01/17/24. . PT Impaired gait No Improved Gait Description: LTG: Patient will demonstrate improved gait ability as evidenced by ambulation 150 feet with front wheeled walker independently with AD, to return to safe household and community ambulation, in order to transition to OP PT , to be achieved by 01/17/24. . PT Impaired gait No Improved Balance Description: LTG: Patient will demonstrate improved standing balance to meet functional goals as evidenced by TUG score of <45 to be achieved by 01/17/24. PT Impaired balance No Manage Orthopedic Condition Description: Improve patient and/or caregiver understanding of post surgical and/or non-surgical orthopedic intervention management as evidenced by patient and/or caregiver able to verbalize, demonstrate, and teach back instruction, to be achieved by 01/17/24. . PT Orthopedic Condition No Demonstrate understanding of education Description: Patient and/or caregiver will understand educational instruction to be achieved by 01/17/24. . PT Learning Assessment No Interventions Intervention Associated Problem/Goal Status Variance Visit Notes Medication Education Description: Evaluate/instruct patient/caregiver on obtaining, storing, identifying and administering ordered medications as well as keeping accurate medication list in the home and adhereing to medication schedule Problem:Medication Education Goal:Patient/caregive r will demonstrate ability to obtain, store, identify and administer ordered medications, keep accurate medication list in home, and adhere to medication schedule Completed Patient and Caregiver instructed on adhering to medication schedule. SPO2 Description: Notify Dr. Caro if pulse ox is <92% at rest. Problem:Physician Specific Parameters Goal:Patient to maintain parameters within physician-specified ranges throughout certification period Completed Instruct on individual fall risk factors and strategies to prevent falls and injuries caused by falls. Problem:Risk for Falls Goal:Manage Risk for falls Completed PT: Patient and Caregiver instructed on Managing Impaired Functional Mobility: Use assistive device(s): single point cane Managing Pain Instruct on pain and instruct on strategies to control pain Problem:Pain Goal:Manage Pain Completed patient and caregiver instructed on techniques to control pain including Pharmacological measures and Non-Pharmacological measures; positioning/elevation, mobility/therapeutic exercise and use of thermal modalities, apply ice to affected area for the following prescribed frequency: prn. Opioids- educated on high risk medication Problem:High Risk Medications Goal:Patient/caregive r will teach back high risk medication side effect and precaution education Completed patient and caregiver educated on taking medication(s) as prescribed by provider. Do not stop medication or alter doses without speaking with your provider. Discuss medication effectiveness or side effect concerns with your provider and home care team. Only take opioids as prescribed, do not share your medications, and take proper precautions in storing and properly disposing of opioids once no longer needed. Possible side effects of opioid medication including sedation, decreased rate of breathing, and constipation. Report over sedation to prescribing provider and practice deep breathing techniques every hour while awake. Prevent constipation by increasing water and fiber intake, increasing activity as tolerated, and use stool softener(s) as prescribed. Antiplatelet- educated on high risk medication Problem:High Risk Medications Goal:Patient/caregive r will teach back high risk medication side effect and precaution education Completed patient and caregiver educated on taking medication(s) as prescribed by provider. Do not stop medication or alter doses without speaking with your provider. Discuss medication effectiveness or side effect concerns with your provider and home care team. Discuss all medications you are taking, even [id number] medicines, with your provider and pharmacist since many drugs can interact with antiplatelet medications. If you forget to take a dose, DO NOT take a double dose. Take the missed dose as soon as possible on the same day. DO NOT take a double dose the next day to make up for the missed dose. Watch for signs of abnormal or excessive bleeding and bruising (refer to Bleeding Precautions education). Call your health care provider right away if you suspect something is wrong. Instruct on ongoing discharge plan Problem:Discharge Goal:Manage discharge planning Completed Ongoing Discharge plan: Discharge plan discussed with patient and caregiver including frequency and duration for home PT and plan for transition to: outpatient therapy. Physical Therapy Therapeutic Exercises Problem:PT Impaired muscle performance and/or ROM Goal:Improved Muscle Performance and/or ROM Completed patient and caregiver instructed on strengthening and range of motion exercises including standing heel riases, hams curls, supine ankle pumps, quad and glut sets, hop abd and add, saq and heel slides x's 10, supine ext hang x'5min. step flexion stretch and seated heel slides x's 10 with verbal, visual and written cues for form and progressions. patient instructed to perform home exercise program twice a day which included above ex. Physical Therapy Stair Training Problem:PT Impaired gait Goal:Improved Stair Climbing Completed Stair training and instruction to patient and caregiver on safe stair climbing, ascend/descend 8 steps, with railing and with cane with supervision and verbal cues for safety. Physical Therapy Gait Training Problem:PT Impaired gait Goal:Improved Gait Completed Gait training and instruction to patient on safe ambulation with single point cane for 3x's40 feet with supervision, with verbal cues for corrections of gait deviations including heel to toe. Physical Therapy Balance Training Problem:PT Impaired balance Goal:Improved Balance Completed Developed, implemented, and instructed patient on standing balance exercises including standing ex. Instruct on management of edema Problem:PT Orthopedic Condition Goal:Manage Orthopedic Condition Completed Instruct patient and caregiver on management of edema including elevation of lle above the level of the heart and ice. Instruct on self-management of post surgical and/or non-surgical orthopedic intervention Problem:PT Orthopedic Condition Goal:Manage Orthopedic Condition Completed patient and caregiver instructed on staying well hydrated, eating foods with high protein, signs and symptoms of infection, signs and symptoms of DVT/PE, instructed on when to call provider and instructed on when to call 911. Instruct and educate on knowledge deficits Problem:PT Learning Assessment Goal:Demonstrate understanding of education Completed patient and caregiver verbalize and/or demonstrate understanding of physical therapy education including pain management and home exercise program. Education methods include: verbal cues, written instructions and visual cues. Further education required to improve knowledge and compliance with home exercise program. 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 Discipline -Physical Therapy Problems Problem Description Start Date Status Goals Interve ntions Medication Education Disciplines: Skilled Services 12/31/2023 Active 1 goal linked to scheduled/document ed intervention 1 goal intervention scheduled/document ed in this visit Physician Specific Parameters Disciplines: Skilled Services 12/31/2023 Active 1 goal linked to scheduled/document ed intervention 1 goal intervention scheduled/document ed in this visit Risk for Falls Disciplines: Skilled Services 12/31/2023 Active 1 goal linked to scheduled/document ed intervention 1 goal intervention scheduled/document ed in this visit Pain Disciplines: Skilled Services 12/31/2023 Active 1 goal linked to scheduled/document ed intervention 1 goal intervention scheduled/document ed in this visit Discharge Disciplines: Skilled Services 12/31/2023 Active 1 goal linked to scheduled/document ed intervention 1 goal intervention scheduled/document ed in this visit PT Impaired muscle performance and/or ROM Disciplines: PT 12/31/2023 Active 1 goal linked to scheduled/document ed intervention 1 goal intervention scheduled/document ed in this visit PT Impaired gait Disciplines: PT 12/31/2023 Active 1 goal linked to scheduled/document ed intervention 1 goal intervention scheduled/document ed in this visit PT Impaired balance Disciplines: PT 12/31/2023 Active 1 goal linked to scheduled/document ed intervention 1 goal intervention scheduled/document ed in this visit PT Orthopedic Condition Disciplines: PT 12/31/2023 Active 1 goal linked to scheduled/document ed intervention 2 goal interventions scheduled/document ed in this visit PT Learning Assessment Disciplines: PT 12/31/2023 Active 1 goal linked to scheduled/document ed intervention 1 goal intervention scheduled/document ed in this visit Goals Goal Associated Problem Outcome Goal Met? Visit Notes Patient/caregiver will demonstrate ability to obtain, store, identify and administer ordered medications, keep accurate medication list in home, and adhere to medication schedule Description: Patient/caregiver will demonstrate ability to obtain, store, identify and administer ordered medications, keep accurate medication list in home, and adhere to medication schedule by 02/28/24. Medication Education No Patient to maintain parameters within physician-specified ranges throughout certification period Physician Specific Parameters No Manage Risk for falls Description: Patient/caregiver will verbalize knowledge of individualized fall prevention strategies by 02/28/24. . Risk for Falls No Manage Pain Description: Patient/caregiver will verbalize knowledge and understanding of appropriate techniques to control pain, including pain medication and non-pharmacological techniques. Patient will verbalize or demonstrate an acceptable level of pain as evidenced by a pain score of <5/10 and improvement in ability to perform activities of daily living to be achieved by 02/28/24. . Pain No Manage discharge planning Description: Patient/caregiver will verbalize understanding of ongoing discharge plan provided related to disease management, arrangements for outpatient and/or community services, obtaining medications, supplies, and DME, as needed throughout certification period. Discharge No Improved Muscle Performance and/or ROM Description: LTG: Patient will demonstrate improved muscle performance to meet functional goals as evidenced by ability to tolerate 10-15 minutes of therapeutic activity, to be achieved by 01/17/24. . STG: Patient and/or caregiver will verbalize/demonstrate independence with home exercise program, to improve functional mobility, to be achieved by 01/10/24. LTG: Patient will demonstrate improved left knee active range of motion to 0-85 degrees, to meet functional goals, to be achieved by 01/17/24. . PT Impaired muscle performance and/or ROM No Improved Gait Description: LTG: Patient will demonstrate improved gait ability as evidenced by ambulation 150 feet with front wheeled walker independently with AD, to return to safe household and community ambulation, in order to transition to OP PT , to be achieved by 01/17/24. . PT Impaired gait No Improved Balance Description: LTG: Patient will demonstrate improved standing balance to meet functional goals as evidenced by TUG score of <45 to be achieved by 01/17/24. PT Impaired balance No Manage Orthopedic Condition Description: Improve patient and/or caregiver understanding of post surgical and/or non-surgical orthopedic intervention management as evidenced by patient and/or caregiver able to verbalize, demonstrate, and teach back instruction, to be achieved by 01/17/24. . PT Orthopedic Condition No Demonstrate understanding of education Description: Patient and/or caregiver will understand educational instruction to be achieved by 01/17/24. . PT Learning Assessment No Interventions Intervention Associated Problem/Goal Status Variance Visit Notes Medication Education Description: Evaluate/instruct patient/caregiver on obtaining, storing, identifying and administering ordered medications as well as keeping accurate medication list in the home and adhereing to medication schedule Problem:Medication Education Goal:Patient/caregive r will demonstrate ability to obtain, store, identify and administer ordered medications, keep accurate medication list in home, and adhere to medication schedule Completed Patient instructed on importance of keeping accurate medication list in home. SPO2 Description: Notify Dr. Caro if pulse ox is <92% at rest. Problem:Physician Specific Parameters Goal:Patient to maintain parameters within physician-specified ranges throughout certification period Completed Instruct on individual fall risk factors and strategies to prevent falls and injuries caused by falls. Problem:Risk for Falls Goal:Manage Risk for falls Completed PT: Patient instructed on Managing Impaired Functional Mobility: Use assistive device(s): single point cane Instruct on pain and instruct on strategies to control pain Problem:Pain Goal:Manage Pain Completed patient and caregiver instructed on techniques to control pain including Pharmacological measures and Non-Pharmacological measures; positioning/elevation and use of thermal modalities, apply ice to affected area for the following prescribed frequency: prn. Instruct on ongoing discharge plan Problem:Discharge Goal:Manage discharge planning Completed Ongoing Discharge plan: Discharge plan discussed with patient and caregiver including frequency and duration for home PT and plan for transition to: outpatient therapy. Physical Therapy Therapeutic Exercises Problem:PT Impaired muscle performance and/or ROM Goal:Improved Muscle Performance and/or ROM Completed patient instructed on strengthening and range of motion exercises including supine qs, gs, hip abd and add, saq and heel slides , standing heel raises hip flexion and hams curls x's 10 each. step flexion stretch seated heel slides x's 10 each with verbal and visual cues for form. patient instructed to perform home exercise program twice a day which included above ex. Physical Therapy Gait Training Problem:PT Impaired gait Goal:Improved Gait Completed Gait training and instruction to patient on safe ambulation with single point cane for 4x's60 feet with supervision, with verbal cues for corrections of gait deviations including heel to toe. Physical Therapy Balance Training Problem:PT Impaired balance Goal:Improved Balance Completed Developed, implemented, and instructed patient on standing balance exercises including standing ex. Instruct on management of edema Problem:PT Orthopedic Condition Goal:Manage Orthopedic Condition Completed Instruct patient on management of edema including elevation of LLE above the level of the heart and ice. Instruct on self-management of post surgical and/or non-surgical orthopedic intervention Problem:PT Orthopedic Condition Goal:Manage Orthopedic Condition Completed patient instructed on signs and symptoms of infection, signs and symptoms of DVT/PE, instructed on when to call provider and instructed on when to call 911. Instruct and educate on knowledge deficits Problem:PT Learning Assessment Goal:Demonstrate understanding of education Completed patient verbalize and/or demonstrate understanding of physical therapy education including home exercise program. Education methods include: verbal cues, tactile cues and visual cues. Further education required to improve knowledge and compliance with home exercise program. 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 Discipline -Physical Therapy Problems Problem Description Start Date Status Goals Interve ntions Medication Education Disciplines: Skilled Services 12/31/2023 Active 1 goal linked to scheduled/document ed intervention 1 goal intervention scheduled/document ed in this visit Physician Specific Parameters Disciplines: Skilled Services 12/31/2023 Active 1 goal linked to scheduled/document ed intervention 1 goal intervention scheduled/document ed in this visit Risk for Falls Disciplines: Skilled Services 12/31/2023 Active 1 goal linked to scheduled/document ed intervention 1 goal intervention scheduled/document ed in this visit Pain Disciplines: Skilled Services 12/31/2023 Active 1 goal linked to scheduled/document ed intervention 1 goal intervention scheduled/document ed in this visit High Risk Medications Disciplines: Skilled Services 12/31/2023 Active 1 goal linked to scheduled/document ed intervention 1 goal intervention scheduled/document ed in this visit Discharge Disciplines: Skilled Services 12/31/2023 Active 1 goal linked to scheduled/document ed intervention 1 goal intervention scheduled/document ed in this visit PT Impaired muscle performance and/or ROM Disciplines: PT 12/31/2023 Active 1 goal linked to scheduled/document ed intervention 1 goal intervention scheduled/document ed in this visit PT Impaired gait Disciplines: PT 12/31/2023 Active 2 goals linked to scheduled/document ed interventions 2 goal interventions scheduled/document ed in this visit PT Impaired balance Disciplines: PT 12/31/2023 Active 1 goal linked to scheduled/document ed intervention 1 goal intervention scheduled/document ed in this visit PT Orthopedic Condition Disciplines: PT 12/31/2023 Active 1 goal linked to scheduled/document ed intervention 2 goal interventions scheduled/document ed in this visit PT Learning Assessment Disciplines: PT 12/31/2023 Active 1 goal linked to scheduled/document ed intervention 1 goal intervention scheduled/document ed in this visit Goals Goal Associated Problem Outcome Goal Met? Visit Notes Patient/caregiver will demonstrate ability to obtain, store, identify and administer ordered medications, keep accurate medication list in home, and adhere to medication schedule Description: Patient/caregiver will demonstrate ability to obtain, store, identify and administer ordered medications, keep accurate medication list in home, and adhere to medication schedule by 02/28/24. Medication Education No Patient to maintain parameters within physician-specified ranges throughout certification period Physician Specific Parameters No Manage Risk for falls Description: Patient/caregiver will verbalize knowledge of individualized fall prevention strategies by 02/28/24. . Risk for Falls No Manage Pain Description: Patient/caregiver will verbalize knowledge and understanding of appropriate techniques to control pain, including pain medication and non-pharmacological techniques. Patient will verbalize or demonstrate an acceptable level of pain as evidenced by a pain score of <5/10 and improvement in ability to perform activities of daily living to be achieved by 02/28/24. . Pain No Patient/caregiver will teach back high risk medication side effect and precaution education Description: STG Patient/caregiver will verbalize understanding of high risk medication side effects and precautions to be achieved by 12/31/23. LTG Patient/caregiver will continue to verbalize understanding of high risk medication side effects and precautions throughout certification period. High Risk Medications No Manage discharge planning Description: Patient/caregiver will verbalize understanding of ongoing discharge plan provided related to disease management, arrangements for outpatient and/or community services, obtaining medications, supplies, and DME, as needed throughout certification period. Discharge No Improved Muscle Performance and/or ROM Description: LTG: Patient will demonstrate improved muscle performance to meet functional goals as evidenced by ability to tolerate 10-15 minutes of therapeutic activity, to be achieved by 01/17/24. . STG: Patient and/or caregiver will verbalize/demonstrate independence with home exercise program, to improve functional mobility, to be achieved by 01/10/24. LTG: Patient will demonstrate improved left knee active range of motion to 0-85 degrees, to meet functional goals, to be achieved by 01/17/24. . PT Impaired muscle performance and/or ROM No Improved Stair Climbing Description: LTG: Patient will demonstrate improved stair negotiation as evidenced by ascend/descend 1 flight steps with cane independently, to safely access all areas of the home, access community and exit home, to be achieved by 01/17/24. . PT Impaired gait No Improved Gait Description: LTG: Patient will demonstrate improved gait ability as evidenced by ambulation 150 feet with front wheeled walker independently with AD, to return to safe household and community ambulation, in order to transition to OP PT , to be achieved by 01/17/24. . PT Impaired gait No Improved Balance Description: LTG: Patient will demonstrate improved standing balance to meet functional goals as evidenced by TUG score of <45 to be achieved by 01/17/24. PT Impaired balance No Manage Orthopedic Condition Description: Improve patient and/or caregiver understanding of post surgical and/or non-surgical orthopedic intervention management as evidenced by patient and/or caregiver able to verbalize, demonstrate, and teach back instruction, to be achieved by 01/17/24. . PT Orthopedic Condition No Demonstrate understanding of education Description: Patient and/or caregiver will understand educational instruction to be achieved by 01/17/24. . PT Learning Assessment No Interventions Intervention Associated Problem/Goal Status Variance Visit Notes Medication Education Description: Evaluate/instruct patient/caregiver on obtaining, storing, identifying and administering ordered medications as well as keeping accurate medication list in the home and adhereing to medication schedule Problem:Medication Education Goal:Patient/caregive r will demonstrate ability to obtain, store, identify and administer ordered medications, keep accurate medication list in home, and adhere to medication schedule Completed Patient instructed on importance of keeping accurate medication list in home. SPO2 Description: Notify Dr. Caro if pulse ox is <92% at rest. Problem:Physician Specific Parameters Goal:Patient to maintain parameters within physician-specified ranges throughout certification period Completed Instruct on individual fall risk factors and strategies to prevent falls and injuries caused by falls. Problem:Risk for Falls Goal:Manage Risk for falls Completed PT: Patient instructed on Managing Impaired Functional Mobility: Use assistive device(s): single point cane Instruct on pain and instruct on strategies to control pain Problem:Pain Goal:Manage Pain Completed patient instructed on techniques to control pain including Pharmacological measures and Non-Pharmacological measures; positioning/elevation and use of thermal modalities, apply ice to affected area for the following prescribed frequency: prn. Opioids- educated on high risk medication Problem:High Risk Medications Goal:Patient/caregive r will teach back high risk medication side effect and precaution education Completed patient educated on taking medication(s) as prescribed by provider. Do not stop medication or alter doses without speaking with your provider. Discuss medication effectiveness or side effect concerns with your provider and home care team. Only take opioids as prescribed, do not share your medications, and take proper precautions in storing and properly disposing of opioids once no longer needed. Possible side effects of opioid medication including sedation, decreased rate of breathing, and constipation. Report over sedation to prescribing provider and practice deep breathing techniques every hour while awake. Prevent constipation by increasing water and fiber intake, increasing activity as tolerated, and use stool softener(s) as prescribed. Instruct on ongoing discharge plan Problem:Discharge Goal:Manage discharge planning Completed Ongoing Discharge plan: Discharge plan discussed with patient including frequency and duration for home PT and plan for transition to: outpatient therapy. Physical Therapy Therapeutic Exercises Problem:PT Impaired muscle performance and/or ROM Goal:Improved Muscle Performance and/or ROM Completed patient instructed on range of motion exercises including step flexion stretch and seated heel slides with verbal and visual cues for form. patient instructed to perform home exercise program twice a day which included resume all ex. Physical Therapy Stair Training Problem:PT Impaired gait Goal:Improved Stair Climbing Completed Stair training and instruction to patient on safe stair climbing, ascend/descend 2 steps, without railing and with cane and environmental supports with supervision and verbal cues for correct step pattern. Physical Therapy Gait Training Problem:PT Impaired gait Goal:Improved Gait Completed Gait training and instruction to patient on safe ambulation with single point cane for 2x's 100 feet with supervision, with verbal cues for corrections of gait deviations including heel to toe . Physical Therapy Balance Training Problem:PT Impaired balance Goal:Improved Balance Completed Developed, implemented, and instructed patient on standing balance exercises including cane ambulation, outdoors. Instruct on management of edema Problem:PT Orthopedic Condition Goal:Manage Orthopedic Condition Completed Instruct patient on management of edema including elevation of LLE above the level of the heart and ice. Instruct on self-management of post surgical and/or non-surgical orthopedic intervention Problem:PT Orthopedic Condition Goal:Manage Orthopedic Condition Completed patient instructed on signs and symptoms of infection, signs and symptoms of DVT/PE, instructed on when to call provider and instructed on when to call 911. Instruct and educate on knowledge deficits Problem:PT Learning Assessment Goal:Demonstrate understanding of education Completed patient verbalize and/or demonstrate understanding of physical therapy education including pain management and functional activity. Education methods include: verbal cues and visual cues. Further education required to improve knowledge and compliance with home exercise program. 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 Discipline -Physical Therapy Problems Problem Description Start Date Status Goals Interve ntions Medication Education Disciplines: Skilled Services 12/31/2023 Active 1 goal linked to scheduled/document ed intervention 1 goal intervention scheduled/document ed in this visit Physician Specific Parameters Disciplines: Skilled Services 12/31/2023 Active 1 goal linked to scheduled/document ed intervention 1 goal intervention scheduled/document ed in this visit Risk for Falls Disciplines: Skilled Services 12/31/2023 Active 1 goal linked to scheduled/document ed intervention 1 goal intervention scheduled/document ed in this visit Pain Disciplines: Skilled Services 12/31/2023 Active 1 goal linked to scheduled/document ed intervention 1 goal intervention scheduled/document ed in this visit High Risk Medications Disciplines: Skilled Services 12/31/2023 Active 1 goal linked to scheduled/document ed intervention 1 goal intervention scheduled/document ed in this visit Discharge Disciplines: Skilled Services 12/31/2023 Active 1 goal linked to scheduled/document ed intervention 2 goal interventions scheduled/document ed in this visit PT Impaired muscle performance and/or ROM Disciplines: PT 12/31/2023 Active 1 goal linked to scheduled/document ed intervention 1 goal intervention scheduled/document ed in this visit PT Impaired mobility Disciplines: PT 12/31/2023 Active 1 goal linked to scheduled/document ed intervention 1 goal intervention scheduled/document ed in this visit PT Impaired gait Disciplines: PT 12/31/2023 Active 1 goal linked to scheduled/document ed intervention 1 goal intervention scheduled/document ed in this visit PT Impaired balance Disciplines: PT 12/31/2023 Active 1 goal linked to scheduled/document ed intervention 1 goal intervention scheduled/document ed in this visit PT Orthopedic Condition Disciplines: PT 12/31/2023 Active 1 goal linked to scheduled/document ed intervention 1 goal intervention scheduled/document ed in this visit PT Learning Assessment Disciplines: PT 12/31/2023 Active 1 goal linked to scheduled/document ed intervention 1 goal intervention scheduled/document ed in this visit Goals Goal Associated Problem Outcome Goal Met? Visit Notes Patient/caregiver will demonstrate ability to obtain, store, identify and administer ordered medications, keep accurate medication list in home, and adhere to medication schedule Description: Patient/caregiver will demonstrate ability to obtain, store, identify and administer ordered medications, keep accurate medication list in home, and adhere to medication schedule by 02/28/24. Medication Education No Patient to maintain parameters within physician-specified ranges throughout certification period Physician Specific Parameters No Manage Risk for falls Description: Patient/caregiver will verbalize knowledge of individualized fall prevention strategies by 02/28/24. . Risk for Falls No Manage Pain Description: Patient/caregiver will verbalize knowledge and understanding of appropriate techniques to control pain, including pain medication and non-pharmacological techniques. Patient will verbalize or demonstrate an acceptable level of pain as evidenced by a pain score of <5/10 and improvement in ability to perform activities of daily living to be achieved by 02/28/24. . Pain No Patient/caregiver will teach back high risk medication side effect and precaution education Description: STG Patient/caregiver will verbalize understanding of high risk medication side effects and precautions to be achieved by 12/31/23. LTG Patient/caregiver will continue to verbalize understanding of high risk medication side effects and precautions throughout certification period. High Risk Medications No Manage discharge planning Description: Patient/caregiver will verbalize understanding of ongoing discharge plan provided related to disease management, arrangements for outpatient and/or community services, obtaining medications, supplies, and DME, as needed throughout certification period. Discharge No Improved Muscle Performance and/or ROM Description: LTG: Patient will demonstrate improved muscle performance to meet functional goals as evidenced by ability to tolerate 10-15 minutes of therapeutic activity, to be achieved by 01/17/24. . STG: Patient and/or caregiver will verbalize/demonstrate independence with home exercise program, to improve functional mobility, to be achieved by 01/10/24. LTG: Patient will demonstrate improved left knee active range of motion to 0-85 degrees, to meet functional goals, to be achieved by 01/17/24. . PT Impaired muscle performance and/or ROM No Improved Bed Mobility Description: STG: Patient will demonstrate improved bed mobility, ability to position self and supine <> sit independently to be achieved by 01/10/24. PT Impaired mobility No Improved Gait Description: LTG: Patient will demonstrate improved gait ability as evidenced by ambulation 150 feet with front wheeled walker independently with AD, to return to safe household and community ambulation, in order to transition to OP PT , to be achieved by 01/17/24. . PT Impaired gait No Improved Balance Description: LTG: Patient will demonstrate improved standing balance to meet functional goals as evidenced by TUG score of <45 to be achieved by 01/17/24. PT Impaired balance No Manage Orthopedic Condition Description: Improve patient and/or caregiver understanding of post surgical and/or non-surgical orthopedic intervention management as evidenced by patient and/or caregiver able to verbalize, demonstrate, and teach back instruction, to be achieved by 01/17/24. . PT Orthopedic Condition No Demonstrate understanding of education Description: Patient and/or caregiver will understand educational instruction to be achieved by 01/17/24. . PT Learning Assessment No Interventions Intervention Associated Problem/Goal Status Variance Visit Notes Medication Education Description: Evaluate/instruct patient/caregiver on obtaining, storing, identifying and administering ordered medications as well as keeping accurate medication list in the home and adhereing to medication schedule Problem:Medication Education Goal:Patient/caregive r will demonstrate ability to obtain, store, identify and administer ordered medications, keep accurate medication list in home, and adhere to medication schedule Completed Patient instructed on importance of keeping accurate medication list in home. SPO2 Description: Notify Dr. Caro if pulse ox is <92% at rest. Problem:Physician Specific Parameters Goal:Patient to maintain parameters within physician-specified ranges throughout certification period Completed Instruct on individual fall risk factors and strategies to prevent falls and injuries caused by falls. Problem:Risk for Falls Goal:Manage Risk for falls Completed PT: Patient instructed on Managing Impaired Functional Mobility: Use assistive device(s): single point cane Managing Pain Instruct on pain and instruct on strategies to control pain Problem:Pain Goal:Manage Pain Completed patient instructed on techniques to control pain including Pharmacological measures and Non-Pharmacological measures; positioning/elevation and use of thermal modalities, apply ice to affected area for the following prescribed frequency: prn. Antiplatelet- educated on high risk medication Problem:High Risk Medications Goal:Patient/caregive r will teach back high risk medication side effect and precaution education Completed patient educated on taking medication(s) as prescribed by provider. Do not stop medication or alter doses without speaking with your provider. Discuss medication effectiveness or side effect concerns with your provider and home care team. Discuss all medications you are taking, even oeds-vdx-[id number] medicines, with your provider and pharmacist since many drugs can interact with antiplatelet medications. If you forget to take a dose, DO NOT take a double dose. Take the missed dose as soon as possible on the same day. DO NOT take a double dose the next day to make up for the missed dose. Watch for signs of abnormal or excessive bleeding and bruising (refer to Bleeding Precautions education). Call your health care provider right away if you suspect something is wrong. Instruct on ongoing discharge plan Problem:Discharge Goal:Manage discharge planning Completed Ongoing Discharge plan: Discharge plan discussed with patient including frequency and duration for home PT and plan for transition to: outpatient therapy. Instruct on importance of follow-up appts and continued monitoring with medical provider &/or chronic care clinic Problem:Discharge Goal:Manage discharge planning Completed Education provided on importance of compliance with follow-up appointment(s). Recommendations: patient/caregiver to follow up with scheduling appointment(s) for post-acute/primary care provider/chronic care clinic Physical Therapy Therapeutic Exercises Problem:PT Impaired muscle performance and/or ROM Goal:Improved Muscle Performance and/or ROM Completed patient instructed on strengthening and range of motion exercises including thaddeus standing heel toe raises, hip abd, flexion and ext, hams curls and 1/4 squats x's 10 each. step flexion stretch and seated heel slides x's 10 each with verbal, visual and written cues for progressions. patient instructed to perform home exercise program twice a day which included above ex. Physical Therapy Bed Mobility Training Problem:PT Impaired mobility Goal:Improved Bed Mobility Completed Bed mobility training and instruction to patient, including supine<>sit with independent{ Physical Therapy Gait Training Problem:PT Impaired gait Goal:Improved Gait Completed Gait training and instruction to patient on safe ambulation with single point cane for 4x'50 feet with supervision, with verbal cues for corrections of gait deviations including heel to toe. Physical Therapy Balance Training Problem:PT Impaired balance Goal:Improved Balance Completed Developed, implemented, and instructed patient on standing balance exercises including thaddeus standing ex. Instruct on management of edema Problem:PT Orthopedic Condition Goal:Manage Orthopedic Condition Completed Instruct patient on management of edema including elevation of LLE above the level of the heart and ice. Instruct and educate on knowledge deficits Problem:PT Learning Assessment Goal:Demonstrate understanding of education Completed patient verbalize and/or demonstrate understanding of physical therapy education including pain management and home exercise program. Education methods include: verbal cues, written instructions and visual cues. Further education required to improve knowledge and compliance with home exercise program. documented in this encounter [facility] Plan of care note* Visit Details Visit Type -PT AGENCY DC W V ISIT Discipline -Physical Therapy Problems Problem Description Start Date Status Goals Interve ntions Medication Education Disciplines: Skilled Services 12/31/2023 Resolved on 01/16/2024 1 goal linked to scheduled/document ed intervention Physician Specific Parameters Disciplines: Skilled Services 12/31/2023 Resolved on 01/16/2024 1 goal linked to scheduled/document ed intervention 1 goal intervention scheduled/document ed in this visit Risk for Falls Disciplines: Skilled Services 12/31/2023 Resolved on 01/16/2024 1 goal linked to scheduled/document ed intervention 1 goal intervention scheduled/document ed in this visit Pain Disciplines: Skilled Services 12/31/2023 Resolved on 01/16/2024 1 goal linked to scheduled/document ed intervention 1 goal intervention scheduled/document ed in this visit High Risk Medications Disciplines: Skilled Services 12/31/2023 Resolved on 01/16/2024 1 goal linked to scheduled/document ed intervention Discharge Disciplines: Skilled Services 12/31/2023 Resolved on 01/16/2024 1 goal linked to scheduled/document ed intervention PT Impaired muscle performance and/or ROM Disciplines: PT 12/31/2023 Resolved on 01/16/2024 1 goal linked to scheduled/document ed intervention 1 goal intervention scheduled/document ed in this visit PT Impaired mobility Disciplines: PT 12/31/2023 Resolved on 01/16/2024 2 goals linked to scheduled/document ed interventions 2 goal interventions scheduled/document ed in this visit PT Impaired gait Disciplines: PT 12/31/2023 Resolved on 01/16/2024 2 goals linked to scheduled/document ed interventions 2 goal interventions scheduled/document ed in this visit PT Impaired balance Disciplines: PT 12/31/2023 Resolved on 01/16/2024 1 goal linked to scheduled/document ed intervention 1 goal intervention scheduled/document ed in this visit PT Orthopedic Condition Disciplines: PT 12/31/2023 Resolved on 01/16/2024 1 goal linked to scheduled/document ed intervention 3 goal interventions scheduled/document ed in this visit PT Learning Assessment Disciplines: PT 12/31/2023 Resolved on 01/16/2024 1 goal linked to scheduled/document ed intervention 1 goal intervention scheduled/document ed in this visit Goals Goal Associated Problem Outcome Goal Met? Visit Notes Patient/caregiver will demonstrate ability to obtain, store, identify and administer ordered medications, keep accurate medication list in home, and adhere to medication schedule Description: Patient/caregiver will demonstrate ability to obtain, store, identify and administer ordered medications, keep accurate medication list in home, and adhere to medication schedule by 02/28/24. Medication Education Completed Yes Patient to maintain parameters within physician-specified ranges throughout certification period Physician Specific Parameters Completed Yes Manage Risk for falls Description: Patient/caregiver will verbalize knowledge of individualized fall prevention strategies by 02/28/24. . Risk for Falls Completed Yes Manage Pain Description: Patient/caregiver will verbalize knowledge and understanding of appropriate techniques to control pain, including pain medication and non-pharmacological techniques. Patient will verbalize or demonstrate an acceptable level of pain as evidenced by a pain score of <5/10 and improvement in ability to perform activities of daily living to be achieved by 02/28/24. . Pain Completed Yes Patient/caregiver will teach back high risk medication side effect and precaution education Description: STG Patient/caregiver will verbalize understanding of high risk medication side effects and precautions to be achieved by 12/31/23. LTG Patient/caregiver will continue to verbalize understanding of high risk medication side effects and precautions throughout certification period. High Risk Medications Completed Yes Manage discharge planning Description: Patient/caregiver will verbalize understanding of ongoing discharge plan provided related to disease management, arrangements for outpatient and/or community services, obtaining medications, supplies, and DME, as needed throughout certification period. Discharge Completed Yes Improved Muscle Performance and/or ROM Description: LTG: Patient will demonstrate improved muscle performance to meet functional goals as evidenced by ability to tolerate 10-15 minutes of therapeutic activity, to be achieved by 01/17/24. . STG: Patient and/or caregiver will verbalize/demonstrate independence with home exercise program, to improve functional mobility, to be achieved by 01/10/24. LTG: Patient will demonstrate improved left knee active range of motion to 0-85 degrees, to meet functional goals, to be achieved by 01/17/24. . PT Impaired muscle performance and/or ROM Completed Yes Improved Transfers Description: LTG: Patient will demonstrate safe transfers to/from bed, chair, toilet, couch, shower/tub and car independently with AD, to be achieved by 01/17/24. . PT Impaired mobility Completed Yes Improved Bed Mobility Description: STG: Patient will demonstrate improved bed mobility, ability to position self and supine <> sit independently to be achieved by 01/10/24. PT Impaired mobility Completed Yes Improved Stair Climbing Description: LTG: Patient will demonstrate improved stair negotiation as evidenced by ascend/descend 1 flight steps with cane independently, to safely access all areas of the home, access community and exit home, to be achieved by 01/17/24. . PT Impaired gait Completed Yes Improved Gait Description: LTG: Patient will demonstrate improved gait ability as evidenced by ambulation 150 feet with front wheeled walker independently with AD, to return to safe household and community ambulation, in order to transition to OP PT , to be achieved by 01/17/24. . PT Impaired gait Completed Yes Improved Balance Description: LTG: Patient will demonstrate improved standing balance to meet functional goals as evidenced by TUG score of <45 to be achieved by 01/17/24. PT Impaired balance Completed Yes Manage Orthopedic Condition Description: Improve patient and/or caregiver understanding of post surgical and/or non-surgical orthopedic intervention management as evidenced by patient and/or caregiver able to verbalize, demonstrate, and teach back instruction, to be achieved by 01/17/24. . PT Orthopedic Condition Completed Yes Demonstrate understanding of education Description: Patient and/or caregiver will understand educational instruction to be achieved by 01/17/24. . PT Learning Assessment Completed Yes Interventions Intervention Associated Problem/Goal Status Variance Visit Notes SPO2 Description: Notify Dr. Caro if pulse ox is <92% at rest. Problem:Physician Specific Parameters Goal:Patient to maintain parameters within physician-specified ranges throughout certification period Completed Instruct on individual fall risk factors and strategies to prevent falls and injuries caused by falls. Problem:Risk for Falls Goal:Manage Risk for falls Completed PT: Patient instructed on Eliminating Environmental Hazards: Keep pathways clear, Keep pets out of pathways, Remove unsafe rugs, Move furniture from pathways, Keep rooms and walkways well lit and Install hand rails/grab bars Managing Impaired Functional Mobility: Use assistive device(s): single point cane Managing Pain Instruct on pain and instruct on strategies to control pain Problem:Pain Goal:Manage Pain Completed patient instructed on techniques to control pain including Pharmacological measures and Non-Pharmacological measures; rest, positioning/elevation and use of thermal modalities, apply ice to affected area . Physical Therapy Therapeutic Exercises Problem:PT Impaired muscle performance and/or ROM Goal:Improved Muscle Performance and/or ROM Completed patient instructed on strengthening and range of motion exercises including thaddeus standing heel toe raises, hip abd, flexion and ext, hams curls and 1/4 squats x's 10 each. step flexion stretch and seated heel slides x's 10 each with verbal, visual and written cues for progressions. patient instructed to perform home exercise program twice a day which included above ex. Physical Therapy Transfer Training Problem:PT Impaired mobility Goal:Improved Transfers Completed KEL transfers with safe/proper techqnique Physical Therapy Bed Mobility Training Problem:PT Impaired mobility Goal:Improved Bed Mobility Completed KEL bed mobility Physical Therapy Stair Training Problem:PT Impaired gait Goal:Improved Stair Climbing Completed up and down steps with rail + cane with steo together sequence Physical Therapy Gait Training Problem:PT Impaired gait Goal:Improved Gait Completed Indep amb witth st cane with steady recip pattern Physical Therapy Balance Training Problem:PT Impaired balance Goal:Improved Balance Completed pt demonstartes improved dynamic stanidng balance as evidenced by a tug of 24 Instruct on orthopedic precautions and weight bearing restrictions Description: Orthopedic precautions including left total knee: no crossing legs, no knee flexed over pillow at rest, no kneeling, no squatting and no twisting. Weight bearing restrictions include: WBAT of involved extremity. Problem:PT Orthopedic Condition Goal:Manage Orthopedic Condition Completed patient instructed on orthopedic precautions. Instruct on management of edema Problem:PT Orthopedic Condition Goal:Manage Orthopedic Condition Completed Instruct patient on management of edema including elevation of LLE above the level of the heart and ice. Instruct on self-management of post surgical and/or non-surgical orthopedic intervention Problem:PT Orthopedic Condition Goal:Manage Orthopedic Condition Completed patient instructed on managagement of orthopedic condition, staying well hydrated, eating foods with high protein, signs and symptoms of infection, signs and symptoms of DVT/PE and follow provider guidance for showering . Instruct and educate on knowledge deficits Problem:PT Learning Assessment Goal:Demonstrate understanding of education Completed patient verbalize and/or demonstrate understanding of physical therapy education including orthopedic condition management, weight bearing precautions, pain management, fall prevention strategies, home safety, functional activity and home exercise program. Education methods include: verbal cues and written instructions. documented in this encounter [facility] for referral (narrative)* Diagnostic Procedure Only (Routine) - Closed Specialty Diagnoses / Procedures Referred By Luh gonzalez Referred To Contact XR IMAGING Diagnoses Left knee pain, unspecified chronicity Procedures XR KNEE GENERAL 4V AP BOTH/PA BOTH/LAT/MERC LEFT RADIOLOGIC EXAM KNEE COMPLETE 4/MORE VIEWS Jaswinder Zamora PA-C [address] [place] [address] Xr Imaging [facility] Referral ID Status Reason Start Date Expiration Date V isits Requested Visits Authorized [id number] Closed Auto-Generate d Referral 04/18/2023 05/17/2024 1 1 EA [facility] for referral (narrative)* Outpatient Procedure (Routine) - New Request Specialty Diagnoses / Procedures Referred By Luh gonzalez Referred To Contact [facility] Diagnoses Pre-operative examination Procedures ECG COMPLETE ECG ROUTINE ECG W/LEAST 12 LDS W/I&R Naz Duval, ENTRANCE GUARD.DISTRICT FIRE MANAGEMENT OFFICER [address] [place] [address] [facility] [place] [address] [facility] [facility] [place] [address] Referral ID Status Reason Start Date Expiration Date Visits Requested Visits Authorized [id number] New Request Auto-Generat ed Referral 12/10/2023 12/09/2024 1 1 [facility] for referral (narrative)No [facility] for [facility] Reason for visit Narrative* Diagnostic Procedure Only (Routine) - Closed Specialty Diagnoses / Procedures Referred By Contac t Referred To Contact XR IMAGING Diagnoses Left knee pain, unspecified chronicity Procedures XR KNEE GENERAL 4V AP BOTH/PA BOTH/LAT/MERC LEFT RADIOLOGIC EXAM KNEE COMPLETE 4/MORE VIEWS Jaswinder Zamora PA-C [address] [place] [address] [place] [address] Referral ID Status Reason Start Date Expiration Date V isits Requested Visits Authorized [id number] Closed Auto-Generate d Referral 04/18/2023 05/17/2024 1 1 [facility] for visit Narrative* Diagnostic Procedure Only (Routine) - Closed Specialty Diagnoses / Procedures Referred By Contac t Referred To Contact XR IMAGING Diagnoses Left knee pain, unspecified chronicity Procedures XR KNEE POST OP 3V AP/LAT/MERCHANT LEFT RADIOLOGIC EXAMINATION KNEE 3 VIEWS Jaswinder Zamora PA-C [address] [place] [address] [place] [address] Referral ID Status Reason Start Date Expiration Date V isits Requested Visits Authorized [id number] Closed Auto-Generate d Referral 01/01/2024 01/30/2025 1 1 [facility] Chief Complaint and Reason for Visit Chief Complaint Amb Documentation Reason for Visit Encounter for screen ing for malignant neoplasm of colon Chief Complaint 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 RX HERE March 29, 2 025 4:30pm SCREENING April 19, 2024 9 :40am Family History No Family History Records Found Relationship Condition Age at Onset Recorded Date/T manuel Not Specified Malignant neoplasm Unknown mother Cardiac disease Unknown Malignant neoplasm of breast 55 father Cardiac disease Unknown Arthritis Unknown Advance Directives No Advanced Directives Records Found Advance Directive Response Recorded Date/ Time Name of Medical Power of Advanced Developer EMILEE TRINIDAD September 27, 2021 8:34am Living Will Yes September 27, 2021 8:34am Power of Advanced Developer Yes September 27 8:34am Advance Directive Response Recorded Date/ Time Living Will Yes September 27, 2021 8:34am Power of Advanced Developer Yes September 27 8:34am Advance Directive Response Recorded Date/ Time Living Will Yes September 27, 2021 7:34am Power of Advanced Developer Yes September 27 7:34am Latest Code Status on File Code Status Date Activated Date Inactivated Comments Full Code 01/20/2020 5:45 PM Date Activated Date Inactivated Comments 01/20/2020 5:45 PM Date Activated Date Inactivated Comments 01/20/2020 5:45 PM Date Activated Date Inactivated Comments 01/20/2020 5:45 PM 12/29/2023 8:40 AM Date Activated Date Inactivated Comments 12/31/2023 2:26 PM Date Activated Date Inactivated Comments 01/20/2020 5:45 PM 12/29/2023 8:40 AM Date Activated Date Inactivated Comments 12/31/2023 2:26 PM Date Activated Date Inactivated Comments 01/20/2020 5:45 PM 12/29/2023 8:40 AM Health Concerns Problem Noted Date Diagnosed Date 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 Problem Noted Date Diagnosed Date 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 Reason for Referral Specialty Diagnoses / Procedures Referred By Contac t Referred To Contact [facility] Diagnoses Arthritis of knee Procedures CONSULT TO PHYSICAL THERAPY PHYSICAL THERAPY EVALUATION HIGH COMPLEX 45 MINS Maribel Gamboa PA-C [address] [place] [address] [facility] [address] [address] Referral ID Status Reason Start Date Expiration Date Visits Requested Visits Authorized [id number] Pending Review Auto-Generat ed Referral 4 01/04/2025 1 1 Specialty Diagnoses / Procedures Referred By Contac t Referred To Contact Diagnoses Status post total left knee replacement Kristie Coles PA-C [address] [place] [address] Referral ID Status Reason Start Date Expiration Date V isits Requested Visits Authorized [id number] Pending Review 01/05/2024 03/05/2024 1 1 Specialty Diagnoses / Procedures Referred By Contac t Referred To Contact [facility] Diagnoses Aftercare following left knee joint replacement surgery Procedures CONSULT TO PHYSICAL THERAPY PHYSICAL THERAPY EVALUATION HIGH COMPLEX 45 MINS Jaswinder Zamora PA-C [address] [place] [address] [facility] [address] [address] Referral ID Status Reason Start Date Expiration Date Visits Requested Visits Authorized [id number] Pending Review Auto-Generat ed Referral 4 01/11/2025 1 1 Specialty Diagnoses / Procedures Referred By Contac t Referred To Contact [facility] Diagnoses Aftercare following left knee joint replacement surgery Procedures CONSULT TO PHYSICAL THERAPY PHYSICAL THERAPY EVALUATION HIGH COMPLEX 45 MINS Maximo Caro MD [address] [place] [address] [address] Referral ID Status Reason Start Date Expiration Date Visits Requested Visits Authorized [id number] Pending Review Auto-Generat ed Referral 4 02/10/2025 1 1 Specialty Diagnoses / Procedures Referred By Contac t Referred To Contact [facility] Diagnoses Aftercare following right knee joint replacement surgery Procedures CONSULT TO PHYSICAL THERAPY PHYSICAL THERAPY EVALUATION HIGH COMPLEX 45 MINS Maximo Caro MD [address] [place] [address] [facility] [address] [address] Referral ID Status Reason Start Date Expiration Date Visits Requested Visits Authorized [id number] Pending Review Auto-Generat ed Referral 4 03/12/2025 1 1 Summary Purpose Additional Source Comments Care Teams (unrecognized sec tion and content) Team Status: Active Member Role Status Dates Dr. Carlos Granado MD Family Provider Active Dr. Carlos Granado MD Primary Care Provider Active Team Status: Inactive Member Role Status Dates Dr. Carlos Granado MD Primary Care Provider, Referring Provider Active Dr. Carmel Angeles MD Attending Provider Active Team Status: Inactive Member Role Status Dates Dr. Carlos Granado MD Primary Care Provider, Attending Provider Active Team Status: Inactive Member Role Status Dates Dr. Carlos Granado MD Primary Care Provi mann, Attending Provider, Referring Provider Active Team Status: Inactive Member Role Status Dates Dr. Carlos Granado MD Primary Care Provider, Referring Provider Active Dr. Elver Elena DO Attending Provider Active Team Status: Inactive Member Role Status Dates Dr. Carlos Granado MD Primary Care Provider Active Dr. Carmel Angeles MD Attending Provider, Referr ing Provider Active Public Address Announcer Relationship Specialty Start Date End Date Carlos Granado MD [address] [facility] [address] [place] [address] PCP - General Family Medicine 06/02/19 Maximo Caro MD [address] [place] [address] Home Care Provider Orthopedics 01/19/20 Maximo Caro MD [address] [place] [address] Referring Orthopedics 01/19/20 Public Address Announcer Relationship Specialty Start Date End Date Carlos Granado MD [address] [facility] [address] [place] [address] PCP - General Family Medicine 06/02/19 Maximo Caro MD [address] [place] [address] Home Care Provider Orthopedics 01/19/20 Maximo Caro MD [address] [address] Referring Orthopedics 01/19/20 Public Address Announcer Relationship Specialty Start Date End Date Carlos Granado MD [address] [facility] [address] [place] [address] PCP - General Family Medicine 06/02/19 Maximo Caro MD [address] [place] [address] Home Care Provider Orthopedics 01/19/20 Maximo Caro MD [address] [place] [address] Referring Orthopedics 01/19/20 Public Address Announcer Relationship Specialty Start Date End Date Carlos Granado MD [address] [facility] [address] [place] [address] PCP - General Family Medicine 06/02/19 Maximo Caro MD [address] [place] [address] Home Care Provider Orthopedics 01/19/20 Maximo Caro MD [address] [address] Referring Orthopedics 01/19/20 Public Address Announcer Relationship Specialty Start Date End Date Carlos Granado MD [address] [facility] [address] [place] [address] PCP - General Family Medicine 06/02/19 Maximo Caro MD [address] [address] Home Care Provider Orthopedics 01/19/20 Maximo Caro MD [address] [address] Referring Orthopedics 01/19/20 Public Address Announcer Relationship Specialty Start Date End Date Carlos Granado MD [address] [place] [address] [address] [place] [address] PCP - General Family Medicine 06/02/19 Maximo Caro MD [address] [address] Home Care Provider Orthopedics 01/19/20 Maximo Caro MD [address] [address] Referring Orthopedics 01/19/20 Public Address Announcer Relationship Specialty Start Date End Date Carlos Granado MD [address] [place] [address] [address] [place] [address] PCP - General Family Medicine 06/02/19 Maximo Caro MD [address] [address] Home Care Provider Orthopedics 01/19/20 Maximo Caro MD [address] [address] Referring Orthopedics 01/19/20 Public Address Announcer Relationship Specialty Start Date End Date Carlos Granado MD [address] [facility] [address] [place] [address] PCP - General Family Medicine 06/02/19 Maximo Caro MD [address] [address] Home Care Provider Orthopedics 12/30/23 Maximo Caro MD [address] [address] Referring Orthopedics 12/30/23 Carmel Schreiber, PT [address] [place] [address] Computer Technology Teacher Post Acute Care 12/30/23 Public Address Announcer Relationship Specialty Start Date End Date Carlos Granado MD [address] [facility] [address] [place] [address] PCP - General Family Medicine 06/02/19 Maximo Caro MD [address] [address] Home Care Provider Orthopedics 12/30/23 Maximo Caro MD [address] [address] Referring Orthopedics 12/30/23 Carmel Schreiber, PT [address] [place] [address] Computer Technology Teacher Post Acute Care 12/30/23 Public Address Announcer Relationship Specialty Start Date End Date Carlos Granado MD [address] [facility] [address] [place] [address] PCP - General Family Medicine 06/02/19 Maximo Caro MD [address] [address] Home Care Provider Orthopedics 12/30/23 Maximo Caro MD [address] [address] Referring Orthopedics 12/30/23 Carmel Schreiber, PT [address] [place] [address] Computer Technology Teacher Post Acute Care 12/30/23 Public Address Announcer Relationship Specialty Start Date End Date Carlos Granado MD [address] [facility] [address] [place] [address] PCP - General Family Medicine 06/02/19 Maximo Caro MD [address] [address] Home Care Provider Orthopedics 12/30/23 Maximo Caro MD [address] [address] Referring Orthopedics 12/30/23 Carmel Schreiber, PT [address] [place] [address] Computer Technology Teacher Post Acute Care 12/30/23 Public Address Announcer Relationship Specialty Start Date End Date Carlos Granado MD [address] [facility] [address] [place] [address] PCP - General Family Medicine 06/02/19 Maximo Caro MD [address] [address] Home Care Provider Orthopedics 12/30/23 Maximo Caro MD [address] [address] Referring Orthopedics 12/30/23 Carmel Schreiber, PT [address] [place] [address] Computer Technology Teacher Post Acute Care 12/30/23 Public Address Announcer Relationship Specialty Start Date End Date Carlos Granado MD [address] [facility] [address] [place] [address] PCP - General Family Medicine 06/02/19 Maximo Caro MD [address] [place] [address] Home Care Provider Orthopedics 12/30/23 Maximo Caro MD [address] [place] [address] Referring Orthopedics 12/30/23 Carmel Schreiber, PT [address] [place] [address] Computer Technology Teacher Post Acute Care 12/30/23 Public Address Announcer Relationship Specialty Start Date End Date Carlos Granado MD [address] [facility] [address] [place] [address] PCP - General Family Medicine 06/02/19 Maximo Caro MD [address] [address] Home Care Provider Orthopedics 12/30/23 Maximo Caro MD [address] [address] Referring Orthopedics 12/30/23 Carmel Schreiber, PT [address] [place] [address] Computer Technology Teacher Post Acute Care 12/30/23 Public Address Announcer Relationship Specialty Start Date End Date Carlos Granado MD [address] [place] [address] [address] [place] [address] PCP - General Family Medicine 06/02/19 Maximo Caro MD [address] [address] Home Care Provider Orthopedics 12/30/23 Maximo Caro MD [address] [address] Referring Orthopedics 12/30/23 Carmel Schreiber, PT [address] [place] [id number] Computer Technology Teacher Post Acute Care 12/30/23 Public Address Announcer Relationship Specialty Start Date End Date Carlos Granado MD [address] [place] [address] [address] [place] [address] PCP - General Family Medicine 06/02/19 Maximo Caro MD [address] [address] Home Care Provider Orthopedics 12/30/23 Maximo Caro MD [address] [address] Referring Orthopedics 12/30/23 Carmel Schreiber, PT [address] [place] [address] Computer Technology Teacher Post Acute Care 12/30/23 Public Address Announcer Relationship Specialty Start Date End Date Carlos Granado MD [address] [facility] [address] [place] [address] PCP - General Family Medicine 06/02/19 Maximo Caro MD [address] [address] Home Care Provider Orthopedics 12/30/23 Maximo Crao MD [address] [place] [address] Referring Orthopedics 12/30/23 Carmel Schreiber, PT [address] [place] [address] Computer Technology Teacher Post Acute Care 12/30/23 Public Address Announcer Relationship Specialty Start Date End Date Carlos Granado MD [address] [place] [address] [address] [place] [address] PCP - General Family Medicine 06/02/19 Maximo Caro MD [address] [address] Home Care Provider Orthopedics 12/30/23 Maximo Caro MD [address] [address] Referring Orthopedics 12/30/23 Public Address Announcer Relationship Specialty Start Date End Date Carlos Granado MD [address] [facility] [address] [place] [address] PCP - General Family Medicine 06/02/19 Maximo Crao MD [address] [address] Home Care Provider Orthopedics 12/30/23 Maximo Caro MD [address] [address] Referring Orthopedics 12/30/23 Public Address Announcer Relationship Specialty Start Date End Date Carlos Granado MD [address] [facility] [address] [place] [address] PCP - General Family Medicine 06/02/19 Maximo Caro MD [address] [address] Home Care Provider Orthopedics 12/30/23 Maximo Caro MD [address] [address] Referring Orthopedics 12/30/23 Public Address Announcer Relationship Specialty Start Date End Date Carlos Granado MD [address] [place] [address] [address] [place] [address] PCP - General Family Medicine 06/02/19 Maximo Caro MD [address] [address] Home Care Provider Orthopedics 12/30/23 Maximo Caro MD [address] [address] Referring Orthopedics 12/30/23 Team Status: Active Member Role Status Dates Dr. Carlos Granado MD Primary Care Provider Active Team Status: Inactive Member Role Status Dates Dr. Carlos Granado MD Primary Care Provider Active Start: March 29, 2024 End: March 29, 2024 SRINATH Riddle Attending Provider Active S tart: March 29, 2024 End: March 29, 2024 SRINATH Riddle Referring Provider Active S tart: March 29, 2024 End: March 29, 2024 Team Status: Inactive Member Role Status Dates Dr. Carlos Granado MD Primary Care Provider Active Start: April 19, 2024 End: April 19, 2024 Marivel Delgado CNM Attending Provider Active Start: April 19, 2024 End: April 19, 2024 Marivel Delgado CNM Referring Provider Active Start: April 19, 2024 End: April 19, 2024 Team Status: Inactive Member Role Status Dates Dr. Carlos Granado MD Primary Care Provider Active Start: May 17, 2024 End: May 17, 2024 Dr. Carlos Granado MD Attending Provider Active Start: May 17, 2024 End: May 17, 2024 Dr. Carlos Granado MD Referring Provider Active Start: May 17, 2024 End: May 17, 2024 Goals (unrecognized section and content) Goals may be documented in a n alternate sectionGoals may be documented in an alternate sectionGoals may be documented in an alternate sectionGoals may be documented in an alternate sectionGoals may be documented in an alternate section Source Comments (unrecognize d section and content) In the event this informatio n is protected by the Federal Confidentiality of Alcohol and Drug Abuse Patient Records regulations: The Federal rules restrict any use of the information to criminally investigate or prosecute any alcohol or drug abuse patient.[facility] the event this information is protected by the Federal Confidentiality of Alcohol and Drug Abuse Patient Records regulations: The Federal rules restrict any use of the information to criminally investigate or prosecute any alcohol or drug abuse patient.[facility] event this information is protected by the Federal Confidentiality of Alcohol and Drug Abuse Patient Records regulations: The Federal rules restrict any use of the information to criminally investigate or prosecute any alcohol or drug abuse patient.[facility] AndersonIn the event this information is protected by the Federal Confidentiality of Alcohol and Drug Abuse Patient Records regulations: The Federal rules restrict any use of the information to criminally investigate or prosecute any alcohol or drug abuse patient.[facility] AndersonIn the event this information is protected by the Federal Confidentiality of Alcohol and Drug Abuse Patient Records regulations: The Federal rules restrict any use of the information to criminally investigate or prosecute any alcohol or drug abuse patient.[facility] AndersonIn the event this information is protected by the Federal Confidentiality of Alcohol and Drug Abuse Patient Records regulations: The Federal rules restrict any use of the information to criminally investigate or prosecute any alcohol or drug abuse patient.[facility] AndersonIn the event this information is protected by the Federal Confidentiality of Alcohol and Drug Abuse Patient Records regulations: The Federal rules restrict any use of the information to criminally investigate or prosecute any alcohol or drug abuse patient.[facility] AndersonIn the event this information is protected by the Federal Confidentiality of Alcohol and Drug Abuse Patient Records regulations: The Federal rules restrict any use of the information to criminally investigate or prosecute any alcohol or drug abuse patient.[facility] AndersonIn the event this information is protected by the Federal Confidentiality of Alcohol and Drug Abuse Patient Records regulations: The Federal rules restrict any use of the information to criminally investigate or prosecute any alcohol or drug abuse patient.[facility] AndersonIn the event this information is protected by the Federal Confidentiality of Alcohol and Drug Abuse Patient Records regulations: The Federal rules restrict any use of the information to criminally investigate or prosecute any alcohol or drug abuse patient.[facility] AndersonIn the event this information is protected by the Federal Confidentiality of Alcohol and Drug Abuse Patient Records regulations: The Federal rules restrict any use of the information to criminally investigate or prosecute any alcohol or drug abuse patient.[facility] AndersonIn the event this information is protected by the Federal Confidentiality of Alcohol and Drug Abuse Patient Records regulations: The Federal rules restrict any use of the information to criminally investigate or prosecute any alcohol or drug abuse patient.[facility] AndersonIn the event this information is protected by the Federal Confidentiality of Alcohol and Drug Abuse Patient Records regulations: The Federal rules restrict any use of the information to criminally investigate or prosecute any alcohol or drug abuse patient.[facility] AndersonIn the event this information is protected by the Federal Confidentiality of Alcohol and Drug Abuse Patient Records regulations: The Federal rules restrict any use of the information to criminally investigate or prosecute any alcohol or drug abuse patient.[facility] AndersonIn the event this information is protected by the Federal Confidentiality of Alcohol and Drug Abuse Patient Records regulations: The Federal rules restrict any use of the information to criminally investigate or prosecute any alcohol or drug abuse patient.[facility] AndersonIn the event this information is protected by the Federal Confidentiality of Alcohol and Drug Abuse Patient Records regulations: The Federal rules restrict any use of the information to criminally investigate or prosecute any alcohol or drug abuse patient.[facility] AndersonIn the event this information is protected by the Federal Confidentiality of Alcohol and Drug Abuse Patient Records regulations: The Federal rules restrict any use of the information to criminally investigate or prosecute any alcohol or drug abuse patient.[facility] AndersonIn the event this information is protected by the Federal Confidentiality of Alcohol and Drug Abuse Patient Records regulations: The Federal rules restrict any use of the information to criminally investigate or prosecute any alcohol or drug abuse patient.[facility] AndersonIn the event this information is protected by the Federal Confidentiality of Alcohol and Drug Abuse Patient Records regulations: The Federal rules restrict any use of the information to criminally investigate or prosecute any alcohol or drug abuse patient.[facility] AndersonIn the event this information is protected by the Federal Confidentiality of Alcohol and Drug Abuse Patient Records regulations: The Federal rules restrict any use of the information to criminally investigate or prosecute any alcohol or drug abuse patient.[facility] AndersonIn the event this information is protected by the Federal Confidentiality of Alcohol and Drug Abuse Patient Records regulations: The Federal rules restrict any use of the information to criminally investigate or prosecute any alcohol or drug abuse patient.[facility] AndersonIn the event this information is protected by the Federal Confidentiality of Alcohol and Drug Abuse Patient Records regulations: The Federal rules restrict any use of the information to criminally investigate or prosecute any alcohol or drug abuse patient.[facility] AndersonIn the event this information is protected by the Federal Confidentiality of Alcohol and Drug Abuse Patient Records regulations: The Federal rules restrict any use of the information to criminally investigate or prosecute any alcohol or drug abuse patient.[facility] AndersonIn the event this information is protected by the Federal Confidentiality of Alcohol and Drug Abuse Patient Records regulations: The Federal rules restrict any use of the information to criminally investigate or prosecute any alcohol or drug abuse patient.[facility] AndersonIn the event this information is protected by the Federal Confidentiality of Alcohol and Drug Abuse Patient Records regulations: The Federal rules restrict any use of the information to criminally investigate or prosecute any alcohol or drug abuse patient.[facility] AndersonIn the event this information is protected by the Federal Confidentiality of Alcohol and Drug Abuse Patient Records regulations: The Federal rules restrict any use of the information to criminally investigate or prosecute any alcohol or drug abuse patient.[facility] [place] Reason for Visit (unrecogniz ed section and content) Reason Comments Blood Management Reason Comments Appointment Reason Comments Pre-Op Teaching Reason Comments Consult Reason Comments Radiology CT Specialty Diagnoses / Procedures Referred By Contac t Referred To Contact CT IMAGING Diagnoses Primary osteoarthritis of left knee Procedures CT KNEE WO IVCON LEFT CT LOWER EXTREMITY W/O CONTRAST MATERIAL Maximo Caro MD [facility] [address] [address] [place] [address] Referral ID Status Reason Start Date Expiration Date V isits Requested Visits Authorized [id number] Closed Auto-Generate d Referral 12/08/2023 01/21/2024 1 1 Reason Comments Home Care Confirmation call Reason Comments Home Care Bandage removal Reason Onset Date Comments Refill Request 01/05/2024 Reason Comments Post Op Knee Replacement Reason Onset Date Comments Refill Request 01/14/2024 Reason Onset Date Comments Refill Request 01/21/2024 Reason Comments Knee Pain Post Op Knee Replacement Reason Comments Established Patient Follow Up Post Op Knee Replacement INFORMATION SOURCE (unrecogn ized section and content) DATE CREATED AUTHOR 01/17/2024 [facility] DATE CREATED AUTHOR AUTHOR'S ORGANIZ ATION 04/08/2024 [facility] DATE CREATED AUTHOR AUTHOR'S ORGANIZ ATION 10/04/2024 [facility] FOR RECORDS PERTAINING TO PATIENTS WHO [...] BE BASED ON THE PRIMARY CLINICAL RECORDS. [facility] [employer], [facility]. provides no warranty or guarantee of the accuracy or completeness of information in this document.
[2024-10-07 11:23] LABS: Creatinine, Urine (random) 137.00 mg/dL (28.00-217.00); Microalbumin,Random Urine < 12.0 mg/L (<20 mg/L)
[2024-10-07 12:54] LABS: AST(SGOT) 26 U/L (<=31); Alanine Aminotransfer ALT/SGPT 32 U/L (<=34); Albumin, Serum 4.4 g/dL (3.4-4.8); Alkaline Phosphatase 92 U/L (35-104); Anion Gap 13 (5-15); BUN 20 mg/dL (4-19); BUN/Creat Ratio 26.8 RATIO (10-20); Calcium,Total 10.2 mg/dL (7.6-11.0); Carbon Dioxide 25.7 mmol/L (21.0-32.0); Chloride 103 mmol/L (98-108); Cholesterol 174 mg/dL (<=200); Globulin 2.8 g/dL (2.2-4.2); Glucose 119 mg/dL (70-99); Low Density Lipoprotein Calc. 82 mg/dL; Potassium 4.0 mmol/L (3.3-5.1); Triglycerides 125 mg/dL; Very Low Density Lipoprotein 25 mg/dL (5-40); cholesterol:hdl ratio screen 2.61
== END | disposition home or self-care (01) ==
LOC: MTLAB 08:45
PROVIDERS: PCP Family Medicine; Referring Provider Family Medicine; Visit Provider Family Medicine
DX: I10 Essential (primary) hypertension (principal); R73.9 Hyperglycemia, unspecified
CPT/HCPCS: 36415; 80053; 80061; 82043; 82570; 83036

== ENCOUNTER → 2025-02-02 | Outpatient (CLI) | payer MEDICARE, OTHER, SELFPAY ==
[2025-02-02 10:54] LABS: Anion Gap 12 (5-15); BUN 21 mg/dL (4-19); BUN/Creat Ratio 30.5 RATIO (10-20); Calcium,Total 10.0 mg/dL (7.6-11.0); Carbon Dioxide 24.8 mmol/L (21.0-32.0); Chloride 103 mmol/L (98-108); Glucose 131 mg/dL (70-99); Potassium 4.0 mmol/L (3.3-5.1)
== END | disposition home or self-care (01) ==
LOC: MFPLAB 08:48
PROVIDERS: PCP Family Medicine; Visit Provider Family Medicine
DX: I10 Essential (primary) hypertension (principal)
CPT/HCPCS: 36415; 80048